=== PATIENT | female | born 1955 | race Caucasian/White ===

== ENCOUNTER 2019-07-10 09:51 | Inpatient (IN) ==
[2019-07-10] MEDS ORDERED: ONDANSETRON INJ 2 MG/ML 2 ML VIAL IV STA ×2 (10:02→12:59)
[2019-07-10] MEDS ORDERED: SODIUM CHLORIDE 0.9% 500 ML IV SCH (10:15)
--- NOTE | 2019-07-10 10:19 | XRay Report ---
XR chest 1V portable CLINICAL HISTORY: 63 years-old Female presenting with epigastric abd pain. TECHNIQUE: Portable upright AP view of the chest was obtained. COMPARISON: 09/07/2017. FINDINGS: Atherosclerosis of the aortic arch. Cardiac silhouette normal in size. Minimal basilar opacities. No pleural effusion or pneumothorax. Degenerative changes of the thoracic spine. Upper abdomen normal. IMPRESSION: 1. Minimal basilar opacities likely atelectasis or scarring. No convincing evidence of acute cardiop ulmonary disease. ACT 112: Negative or not required by law. Electronically signed by: Lawrence Drake M.D. 07/10/2019 10:18 AM
[2019-07-10] MEDS: MoRPHine SULFATE 4 MG/ML 1 ML CARP\\VIAL IV PRN ×3 (10:20→14:51)
--- NOTE | 2019-07-10 10:24 | Emergency Department Note ---
History of Present Illness General Chief Complaint: Abdominal Pain Stated Complaint: abd pain, nausea Time Seen by Provider: 07/10/19 09:56 Source: patient Mode of arrival: ambulatory Limitations: no limitations History of Present Illness Provider Complaint: abdominal pain Onset (ago): hour(s) (12) Pain Consistency: constant Location: epigastric Radiation: back Migration to: no migration Severity: severe Maximum Pain Intensity: 10 Quality: + cramping Relieved By: + nothing Exacerbated By: + nothing Context: no foreign travel, no possible food poisoning, no recent antibiotic use and no recent surgery/procedure Associated Symptoms: + nausea This is a 63-year-old female who presents to the ED with a chief complaint of epigastric pain that started around 8 PM last night. She describes it as a spasm type pain. It is continuous. Earlier on it was intermittent. The patient reports some associated nausea but no vomiting or diarrhea. She had a small bowel movement this morning. She does have history of hysterectomy, cholecystectomy, appendectomy and a mesh with some adhesions. Her pain is currently constant and moderate. Home Medications Home Medications Medication Instructions Recorded Confirmed Type No Known Home Medications 07/10/19 07/10/19 History Allergies Allergy/AdvReac Type Severity Reaction Status Date / Time codeine AdvReac Severe NAUSEA Verified 07/10/19 10:26 Past Med/Surg History Social History Feels Safe at Home: Yes Smoking Status: Never smoker Review of Systems A total of 10 systems reviewed and were otherwise negative Physical Exam Vital Signs: Vital Signs - 24 hr 07/10/19 09:52 07/10/19 11:05 07/10/19 12:07 Temperature 36.6 C Temperature Source Oral Pulse Rate 82 63 Pulse Rate [Apical ] 77 Pulse Rate from Sp O2 Sensor 64 Respiratory Rate 20 22 19 Blood Pressure 157/89 H 123/66 Blood Pressure [Le ft Arm] 133/72 Blood Pressure Ese n 111 90 Blood Pressure Ese n [Left Arm] 92 Pulse Oximetry 93 94 94 Oxygen Delivery Me thod Room Air Room Air Room Air Sepsis Recent Feve r Within 48 Hours No Sepsis New/Unexpla ined Change in Men zoraida Status No Sepsis Action Take n by Nursing No Action Required Physical Exam: CONSTITUTIONAL/VITAL SIGNS: Reviewed / noted above. GENERAL: Non-toxic in appearance. INTEGUMENTARY: Warm, dry, and Agar. HEAD: Normocephalic. EYES: without scleral icterus or trauma. ENT/OROPHARYNX: clear and moist. LYMPHADENOPATHY/NECK: Is supple without lymphadenopathy or meningismus. RESPIRATORY: Lungs clear and equal. CARDIOVASCULAR: Regular rate and rhythm. GI/ABDOMEN: Soft and tender in the epigastric area. No organomegaly or pulsatile mass. No rebound or guarding. Normal bowel sounds. EXTREMITIES: Warm and well perfused. BACK: No CVA tenderness. NEUROLOGICAL: Intact without focal deficits. PSYCHIATRIC: normal affect. MUSCULOSKELETAL: Normally developed with good muscle tone. TRIAGE NURSING DOCUMENTATION REVIEWED. Course Administered Medications Morphine Sulfate (Morphine Sulfate) 4 mg IV Q15M PRN PRN Reason: Pain Stop: 07/24/19 10:01 Last Admin: 07/10/19 11:02 Dose: 4 mg Documented by: [id number] Admin: 07/10/19 10:20 Dose: 4 mg Documented by: [id number] Discontinued Medications Sodium Chloride (Nss) 500 mls @ 999 mls/hr IV .Q31M TRUPTI Stop: 07/10/19 10:45 Last Infusion: 07/10/19 10:51 Dose: 0 mls/hr Documented by: [id number] Admin: 07/10/19 10:20 Dose: 999 mls/hr Documented by: [id number] Ondansetron HCl (Zofran) 4 mg IV NOW STA Stop: 07/10/19 10:03 Last Admin: 07/10/19 10:20 Dose: 4 mg Documented by: [id number] Medical Decision Making Differential Diagnosis Differential considered: pancreatitis, hepatitis, acute cholecystitis, AAA, UTI, pyelonephritis, kidney stones, appendicitis, diverticulitis, shingles, bowel obstruction, mesenteric ischemia, intussusception,hernia. Medical Records Attestation: I reviewed the patient's medical records. Home Medications Current Medication List: was personally reviewed by me Laboratory Data Attestation: I reviewed the patient's lab results. Result diagrams: 07/10/19 10:05 07/10/19 10:05 Lab Results 07/10/19 07/10/19 Range/Units 10:05 10:05 WBC 11.02 H (4.8-10.8) K/uL RBC 5.25 (4.2-5.4) M/uL Hgb 15.9 (12.0-16.0) g/dL Hct 46.9 (37-47) % MCV 89.3 (80-100) fL MCH 30.3 (25-34) pg MCHC 33.9 (32-36) g/dL RDW Std Deviation 46.2 (36.4-46.3) fL RDW Coeff of Kim 14.1 (11.5-14.5) % Plt Count 309 (130-400) K/uL MPV 10.5 H (7.4-10.4) fL Immature Gran % (Auto) 0.3 % Neut % (Auto) 68.7 % Lymph % (Auto) 26.0 % [place] % (Auto) 4.1 % Eos % (Auto) 0.7 % Baso % (Auto) 0.2 % Immature Gran # (Auto) 0.03 H (0.00-0.02) K/uL Neut # (Auto) 7.58 H (1.4-6.5) K/uL Lymph # (Auto) 2.86 (1.2-3.4) K/uL [place] # (Auto) 0.45 (0.11-0.59) K/uL Eos # (Auto) 0.08 (0-0.5) K/uL Baso # (Auto) 0.02 (0-0.2) K/uL Sodium 140 (136-145) mmol/L Potassium 4.4 (3.5-5.1) mmol/L Chloride 108 H (98-107) mmol/L Carbon Dioxide 25 (21-32) mmol/L Anion Gap 7.0 (3-11) BUN 13 (7-18) mg/dl Creatinine 0.86 (0.6-1.2) mg/dl Est Cr Clr Drug Dosing 72.1 ml/min Est GFR ( Amer) 82.2 Est GFR (Non-Af Amer) 70.9 BUN/Creatinine Ratio 15.1 (10-20) Glucose 117 H (70-99) mg/dl Calcium 9.7 (8.5-10.1) mg/dl Total Bilirubin 0.5 (0.2-1) mg/dl AST 32 (15-37) U/L ALT 37 (12-78) U/L Alkaline Phosphatase 99 (45-117) U/L Troponin I < 0.015 (0-0.045) ng/ml Total Protein 8.3 H (6.4-8.2) gm/dl Albumin 3.9 (3.4-5.0) gm/dl Globulin 4.4 H (2.5-4.0) gm/dl Albumin/Globulin Ratio 0.9 (0.9-2) Lipase 64 L (73-393) U/L Specimen Hemolysis Imaging Data Attestation: I personally reviewed and interpreted this imaging study as follows: My Impression: Chest x-ray: No acute disease Radiologist's Impression: CT scan of the abdomen and pelvis: 1. A few loops of mildly dilated small bowel within the left mid abdomen with transition point and small bowel feces sign. Moderate mesenteric infiltration. The findings represent a moderate grade partial small bowel obstruction. No free air, pneumatosis or portal venous gas. 2. Multiple ventral hernias, the largest of which contains multiple small bowel loops. This does not result in the bowel obstruction. 3. Fatty infiltration of the liver. ECG Data Attestation: I personally reviewed and interpreted this ECG as follows: Indication: abdominal pain Rate (beats per minute): 72 Rhythm: normal sinus Findings: no PVC and no ST elevation Blood Pressure Blood Pressure Findings: Normal blood pressure MDM Narrative This is a 63-year-old female who presents to the ED with a chief complaint of epigastric pain that started around 8 PM last night. She describes it as a spasm type pain. It is continuous. Earlier on it was intermittent. The patient reports some associated nausea but no vomiting or diarrhea. She had a small bowel movement this morning. She does have history of hysterectomy, cholecystectomy, appendectomy and a mesh with some adhesions. Her pain is cu rrently constant and moderate. The patient's exam reveals tenderness to the epigastric area. Vital signs reveal hypertension. The patient CBC and chemistry panel was unremarkable. EKG showed a normal sinus rhythm. Chest x- ray was negative for acute disease. CT scan reveals a moderate grade small bowel obstruction. The patient was treated with 2 doses of IV morphine during her ED stay so far. She was given IV Zofran x2. The patient will be seen by the hospitalist for further inpatient evaluation and care. Impression & Plan Bowel obstruction Discharge Plan Visit Data Chief Complaint: Abdominal Pain Stated Complaint: abd pain, nausea ED Provider: Felipe Topete Discharge Problem: Bowel obstruction Patient Disposition: Being Evaluated by Hospitalist Forms Stand Alone Forms: [facility] Prescriptions Prescriptions: No Action No Known Home Medications RF: 0 Referrals Referrals: Mk Mari [Primary Care Provider] -
[2019-07-10 10:34] LABS: Basophils # (auto) 0.02 K/uL (0-0.2); Basophils % (auto) 0.2 %; Eosinophils # (auto) 0.08 K/uL (0-0.5); Eosinophils % (auto) 0.7 %; Hematocrit (blood only) 46.9 % (37-47); Hemoglobin 15.9 g/dL (12.0-16.0); Immature Granulocytes # (auto) 0.03 K/uL (0.00-0.02); Immature Granulocytes % (auto) 0.3 %; Lymphocytes # (auto) 2.86 K/uL (1.2-3.4); Mean Corpuscular Hemoglobin 30.3 pg (25-34); Mean Corpuscular Hgb Conc 33.9 g/dL (32-36); Mean Corpuscular Volume 89.3 fL (80-100); Mean Platelet Volume 10.5 fL (7.4-10.4); Monocytes # (auto) 0.45 K/uL (0.11-0.59); Monocytes % (auto) 4.1 %; Neutrophils # (auto) 7.58 K/uL (1.4-6.5); Neutrophils % (auto) 68.7 %; Platelet Count 309 K/uL (130-400); RDW Coefficient of Variation 14.1 % (11.5-14.5); RDW Standard Deviation 46.2 fL (36.4-46.3); Red Blood Count 5.25 M/uL (4.2-5.4); White Blood Count 11.02 K/uL (4.8-10.8)
--- NOTE | 2019-07-10 10:52 | CT Scan Report ---
CT OF THE ABDOMEN AND PELVIS WITHOUT CONTRAST CLINICAL HISTORY: Epigastric abdominal pain. History of multiple abdominal surgeries. Possible small bowel obstruction. COMPARISON STUDY: CT of the abdomen and pelvis September 07, 2017. TECHNIQUE: Axial images of the abdomen and pelvis were obtained without IV contrast. Images were revi ewed in the axial, sagittal, and coronal planes. Automated exposure control was utilized for the ankita dy. A dose lowering technique was utilized adhering to the principles of ALARA. FINDINGS: Opacities within the lower lungs represent atelectasis. There is fatty infiltration of the liver. No biliary or pancreatic ductal dilatation is noted. Evaluation of the abdomen and pelvis is s uboptimal on this unenhanced exam. There is no hydronephrosis. Unenhanced images of the spleen, adren al glands, kidneys and pancreas are unremarkable. Note is made of a fat-containing upper abdominal ve ntral hernia. Additional multiple ventral hernias are noted, the largest of which contains multiple s mall bowel loops. This does not result in a bowel obstruction. Several loops of mildly dilated small bowel within the left mid abdomen are noted. Small bowel feces sign is noted. Transition point is not ed on axial image 271 of 496. There is moderate associated mesenteric infiltration. No pneumatosis, f ree air or portal venous gas is present. No lymphadenopathy is present. There are no suspicious osseo us lesions. Pelvic calcifications reflect phleboliths. Water attenuation left renal lesions were show n to reflect cysts on prior contrast enhanced exam. IMPRESSION: 1. A few loops of mildly dilated small bowel within the left mid abdomen with transition point and sm all bowel feces sign. Moderate mesenteric infiltration. The findings represent a moderate grade parti al small bowel obstruction. No free air, pneumatosis or portal venous gas. 2. Multiple ventral hernias, the largest of which contains multiple small bowel loops. This does not result in the bowel obstruction. 3. Fatty infiltration of the liver. ACT 112: Negative or not required by law. Electronically signed by: Michael Newman M.D. 07/10/2019 10:50 AM
[2019-07-10 10:54] LABS: Alanine Aminotransferase 37 U/L (12-78); Albumin Level 3.9 gm/dl (3.4-5.0); Aspartate Aminotransferase 32 U/L (15-37); BUN Creatinine Ratio 15.1 (10-20); Blood Urea Nitrogen 13 mg/dl (7-18); Calcium 9.7 mg/dl (8.5-10.1); Carbon Dioxide 25 mmol/L (21-32); Chloride 108 mmol/L (98-107); Creatinine Clr Calc Pharmacy 72.1 ml/min; Est GFR (African American) 82.2; Est GFR (Non-African American) 70.9; Glucose 117 mg/dl (70-99); Lipase 64 U/L (73-393); Potassium 4.4 mmol/L (3.5-5.1); Sodium 140 mmol/L (136-145)
[2019-07-10 10:57] LABS: Albumin Globulin Ratio 0.9 (0.9-2); Alkaline Phosphatase 99 U/L (45-117); Bilirubin,Total 0.5 mg/dl (0.2-1); Globulin 4.4 gm/dl (2.5-4.0); Total Protein 8.3 gm/dl (6.4-8.2); Troponin I < 0.015 ng/ml (0-0.045)
--- NOTE | 2019-07-10 12:54 | History & Physical Report ---
Date of Service July 10, 2019 Assessment & Plan (1) Partial small bowel obstruction: Likely on basis of adhesions. Has ventral hernias but these appear to not be involved in the SBO today. Will have Dr Grande from general surgery see in consult. Keep NPO. IVF. IV pain meds & anti-emetics. Will defer on NG tube for now due to lack of emesis; low threshold to place if distension worsens, emesis occurs, etc. Repeat BMP in am. Check mag level now. (2) H/O ventral hernia repair: 2008 - Dr Zaidi, s/p lysis of adhesions & mesh repair. (3) Leukocytosis: Likely reactive - 2nd to pSBO. u/a without signs of UTI. cxr without pneumonia. No infectious symptoms. During my visit with her O2 sats were low to mid 90s but she has had no cough, congestion, dyspnea, etc. Will follow carefully. Repeat CBC am. (4) DVT prophylaxis: lovenox 40mg daily History of Present Illness Chief Complaint: abdominal pain, bloating Primary Care Provider: Mk Mari 63yo female with history of multiple intra-abdominal surgeries and multiple episodes of SBO with one requiring exploratory surgery/lysis of adhesions/hernia repair with mesh (Dr Zaidi - 2008) who presents with the acute onset of abdominal pain, nausea, and bloating starting about 8pm last night. She states she ate raw carrots about 7pm and blames some of the symptoms on that. Her abdominal pain was generalized and initially was intermittent. However, in the middle of the night, the pain intensified and prevented her from sleeping. No emesis. Passed 2 tiny stools this am, and had passage of flatus x 1 prior to ER arrival. Due to her prior SBOs and seeing that these symptoms were similar to prior episodes she came to the ER for evaluation. CT abd/pelvis was consistent with partial SBO - transition point left side of abdomen. She did not require NG tube placement. Allergies Allergy/AdvReac Type Severity Reaction Status Date / Time codeine AdvReac Severe NAUSEA Verified 07/10/19 10:26 Home Medications Home Medications Medication Instructions Recorded Confirmed Type No Known Home Medications 07/10/19 07/10/19 History Past Med/Surg History Family History (Updated 07/10/19 @ 13:40 by Tristan Neville) Father , age 69 - complications from surgery Myocardial infarction Mother , age 72 Cervical cancer Diabetes Social History (Updated 07/10/19 @ 13:40 by Tristan Neville) Preferred Language: [place]ish Communication Ability: Effective Electrocardiographic Technician Required: No Beliefs That Will Affect Care: None marital status: marital status details: 2 children Current Living Situation: Spouse Current Living Situation Comment: lives in [place] on farm current occupational status: retired current occupation: worked at [employer] Other Information That Helps Us Care for You: No Feels Safe at Home: Yes Safety Concerns: Feels Safe At This Time Smoking Status: Never smoker Do You Dip or Chew Tobacco: No ; Second Hand Ex posure: No ; Tobacco Cessation Education Requested by Patient: No Hx Alcohol Use: No Hx Substance Use: No Review of Systems Constitutional: + anorexia; no fever, no chills, no fatigue, no weakness and no weight loss Eyes: no worsening vision Ear, Nose, Mouth, Throat: + nasal congestion and + nasal discharge (allergies ); no sore throat and no dysphagia Respiratory: no cough, no dyspnea and no dyspnea on exertion walked 3 miles yesterday w/o issue Cardiovascular: no chest pain Gastrointestinal: + abdominal pain, + bloating and + nausea; no vomiting and no diarrhea/loose stools Genitourinary: no dysuria and no difficulty urinating Musculoskeletal: + joint pain (arthritis) Integumentary: no rash Neurologic: no localized weakness and no loss of sensation Psychiatric: + anxiety Endocrine: denies diabetes Hematologic / Lymphatic: no easy bruising Physical Exam Constitutional: well developed and well nourished; no acute distress and no altered mental status Eyes: + anicteric sclerae and PERRL ENMT: Mouth: + dry oral mucous membranes Neck: trachea midline, no thyromegaly Respiratory: normal respiratory effort, lungs clear to auscultation Cardiovascular: Rate/Rhythm: regular rate and regular rhythm Heart Sounds: normal S1 and normal S2; no murmur Vessels: posterior tibial pulses present and dorsalis pedis pulses present; no JVD Extremities: no edema Gastrointestinal (Abdomen): Inspection/Auscultation: + abdomen distended (mild) and normal bowel sounds Percussion/Palpation: abdomen nontender, no guarding, abdomen not rigid and no hepatosplenomegaly hernia just to right of midline - reducible; midline linear scar Musculoskeletal: no cyanosis or clubbing, extremities motor strength 5/5 Skin: no rashes, warm and dry Neurologic: deep tendon reflexes 2+ bilaterally and moves all extremities Psychiatric: A+Ox3, euthymic affect Lymphatic: no cervical lymphadenopathy Results & Data Results & Data ([facility]) Vital Signs (Past 12 Hours) Vital Signs Temp Pulse Pulse Resp BP BP Pulse Ox 07/10/19 12:07 63 19 123/66 94 07/10/19 11:05 77 22 133/72 94 07/10/19 09:52 36.6 C 82 20 157/89 H 93 Laboratory Results Laboratory Results - last 24 hr 07/10/19 07/10/19 07/10/19 10:05 10:05 10:05 WBC 11.02 H RBC 5.25 Hgb 15.9 Hct 46.9 MCV 89.3 MCH 30.3 MCHC 33.9 RDW Std Deviation 46.2 RDW Coeff of Kim 14.1 Plt Count 309 MPV 10.5 H Immature Gran % (Auto) 0.3 Neut % (Auto) 68.7 Lymph % (Auto) 26.0 [place] % (Auto) 4.1 Eos % (Auto) 0.7 Baso % (Auto) 0.2 Immature Gran # (Auto) 0.03 H Neut # (Auto) 7.58 H Lymph # (Auto) 2.86 [place] # (Auto) 0.45 Eos # (Auto) 0.08 Baso # (Auto) 0.02 Sodium 140 Potassium 4.4 Chloride 108 H Carbon Dioxide 25 Anion Gap 7.0 BUN 13 Creatinine 0.86 Est Cr Clr Drug Dosing 72.1 Est GFR ( Amer) 82.2 Est GFR (Non-Af Amer) 70.9 BUN/Creatinine Ratio 15.1 Glucose 117 H Calcium 9.7 Magnesium Pending Total Bilirubin 0.5 AST 32 ALT 37 Alkaline Phosphatase 99 Troponin I < 0.015 Total Protein 8.3 H Albumin 3.9 Globulin 4.4 H Albumin/Globulin Ratio 0.9 Lipase 64 L Specimen Hemolysis Pending Urine Color Urine Appearance Urine pH Ur Specific [place] Urine Protein Urine Glucose (UA) Urine Ketones Urine Blood Urine Nitrite Urine Bilirubin Urine Urobilinogen Ur Leukocyte Esterase Urine WBC (Auto) Urine RBC (Auto) U Hyaline Cast (Auto) U Epithel Cells (Auto) Urine Bacteria (Auto) 07/10/19 13:00 WBC RBC Hgb Hct MCV MCH MCHC RDW Std Deviation RDW Coeff of Kim Plt Count MPV Immature Gran % (Auto) Neut % (Auto) Lymph % (Auto) [place] % (Auto) Eos % (Auto) Baso % (Auto) Immature Gran # (Auto) Neut # (Auto) Lymph # (Auto) [place] # (Auto) Eos # (Auto) Baso # (Auto) Sodium Potassium Chloride Carbon Dioxide Anion Gap BUN Creatinine Est Cr Clr Drug Dosing Est GFR ( Amer) Est GFR (Non-Af Amer) BUN/Creatinine Ratio Glucose Calcium Magnesium Total Bilirubin AST ALT Alkaline Phosphatase Troponin I Total Protein Albumin Globulin Albumin/Globulin Ratio Lipase Specimen Hemolysis Urine Color Yellow Urine Appearance Clear Urine pH 8.0 H Ur Specific [place] 1.015 Urine Protein Negative Urine Glucose (UA) Negative Urine Ketones Negative Urine Blood 1+ H Urine Nitrite Negative Urine Bilirubin Negative Urine Urobilinogen Negative Ur Leukocyte Esterase Negative Urine WBC (Auto) 0 Urine RBC (Auto) 5-10 H U Hyaline Cast (Auto) 0 U Epithel Cells (Auto) 5-10 H Urine Bacteria (Auto) Negative Diagnostic Findings CT abd/pelvis - IMPRESSION: 1. A few loops of mildly dilated small bowel within the left mid abdomen with transition point and small bowel feces sign. Moderate mesenteric infiltration. The findings represent a moderate grade partial small bowel obstruction. No free air, pneumatosis or portal venous gas. 2. Multiple ventral hernias, the largest of which contains multiple small bowel loops. This does not result in the bowel obstruction. 3. Fatty infiltration of the liver. cxr - no infiltrates EKG - NSR, no ST changes Code Status & VTE Plan Code Status full code VTE Prophylaxis Plan VTE Prophylaxis will be ordered: Yes PG Care Time/CCT Total # of Minutes Spent Total Time Spent with Patient: Total time spent is greater than 50% in coordination of care (as documented) at patient's floor/unit and/or counseling patient: Coding Level of Care Code 33382 Initial Inpt Care Lvl 2 Diagnoses Partial small bowel obstruction K56.600 H/O ventral hernia repair Z98.890; Z87.19 Leukocytosis D72.829 Leukocytosis type: unspecified DVT prophylaxis Z29.9 (1) Leukocytosis Leukocytosis type: unspecified Qualified Code(s): D72.829 - Elevated white blood cell count, unspecified
[2019-07-10] MEDS ORDERED: ONDANSETRON INJ 2 MG/ML 2 ML VIAL ONE (12:57)
[2019-07-10 13:22] LABS: Appearance Urine Clear (Clear); Bacteria Urine Automated Negative (Negative); Bilirubin Urine Negative (Negative); Blood Urine 1+ (Negative); Cast Urine Automated 0 /lpf (0-5); Color Urine Yellow; Glucose Urine UA Negative (Negative); Ketones Urine Negative (Negative); Leukocyte Esterase Urine Negative (Negative); Nitrite Urine Negative (Negative); Protein Urine Negative (Negative); Specific Gravity Urine 1.015 (1.000-1.030); Urobilinogen Urine Negative (Negative); WBC Urine Automated 0 /hpf (0-5)
[2019-07-10 13:43] LABS: Magnesium 2.2 mg/dl (1.8-2.4)
--- NOTE | 2019-07-10 13:56 | Surgery Consultation ---
Date of Consultation July 10, 2019 Assessment & Plan (1) Partial small bowel obstruction: Patient admitted with partial small bowel obstruction She actually has relatively active bowel sounds and her abdomen is not significantly distended I do feel that bowel rest and IV fluids would help resolve current problem Depending on her progress I have discussed with her the possibility of a contrast study prior To any surgical intervention-it would be somewhat complex because of her prior street of hernia repair and adhesions We will follow along and make recommendations as needed History of Present Illness History of Present Illness Patient is a 63-year-old female presenting to the emergency room with some nausea and abdominal pain very similar to prior episodes of partial small bowel obstruction I believe she was last in the hospital 2015 and I did see her then with similar symptoms She has a relatively extensive history of laparotomy with lysis of adhesions and hernia repair with mesh placement as well as appendectomy and cholecystectomy currently all [place] [address] Álvaro Berumen Her white blood cell count is 11,000 CAT scan does show very mildly dilated small bowel the possible transition point mid left abdomen She does have a ventral hernia superiorly with fat and an incisional hernia more inferiorly with small bowel which is not dilated and does not appear to be obstructive Allergies Allergy/AdvReac Type Severity Reaction Status Date / Time codeine AdvReac Severe NAUSEA Verified 07/10/19 10:26 Home Medications Home Medications Medication Instructions Recorded Confirmed Type No Known Home Medications 07/10/19 07/10/19 History Patient History Family History (Updated 07/10/19 @ 13:40 by Tristan Neville) Father , age 69 - complications from surgery Myocardial infarction Mother , age 72 Cervical cancer Diabetes Social History (Updated 07/10/19 @ 13:40 by Tristan Neville) Preferred Language: [place] Communication Ability: Effective Sticker Machine Operator Required: No Beliefs That Will Affect Care: None marital status: marital status details: 2 children Current Living Situation: Spouse Current Living Situation Comment: lives in [place] on farm current occupational status: retired current occupation: worked at [employer] Other Information That Helps Us Care for You: No Feels Safe at Home: Yes Safety Concerns: Feels Safe At This Time Smoking Status: Never smoker Do You Dip or Chew Tobacco: No ; Second Hand Exposure: No ; Tobacco Cessation Education Requested by Patient: No Hx Alcohol Use: No Hx Substance Use: No Review of Systems Review of Systems: All systems reviewed & are unremarkable except as noted in HPI & below Physical Exam Physical Exam: Her abdomen is only mildly distended and soft with relatively active bowel sounds Constitutional: well nourished; no acute distress and not ill appearing Eyes: + anicteric sclerae Respiratory: normal respiratory effort; no respiratory distress Cardiovascular: Rate/Rhythm: regular rate Skin: no rashes, warm and dry Neurologic: awake Psychiatric: Orientation: alert Results & Data Vital Signs (Past 12 Hours) Vital Signs Temp Pulse Pulse Resp BP BP Pulse Ox 07/10/19 12:07 63 19 123/66 94 07/10/19 11:05 77 22 133/72 94 07/10/19 09:52 36.6 C 82 20 157/89 H 93 I did review her CAT scan PG Care Time/CCT Total # of Minutes Spent Total Time Spent with Patient: Total time spent is greater than 50% in coordination of care (as documented) at patient's floor/unit and/or counseling patient: Coding Level of Care Code 68074 Initial Inpt Care Lvl 3 Diagnoses Partial small bowel obstruction K56.600
--- NOTE | 2019-07-10 14:22 | Electrocardiogram Report ---
Test Reason : Blood Pressure : / mmHG Vent. Rate : 072 BPM Atrial Rate : 072 BPM P-R Int : 142 ms QRS Dur : 082 ms QT Int : 414 ms P-R-T Axes : 011 019 043 degrees QTc Int : 453 ms Normal sinus rhythm Normal ECG When compared with ECG of 07-SEP-2017 21:07, No significant change was found Confirmed by Raúl Urias ([id number]) on 07/10/2019 2:22:50 PM Referred By: REFERRED SELF Confirmed By:Raúl Urias
[2019-07-10] MEDS: D5NSS + 20MEQ KCL 20 MEQ/1,000 ML BAG IV SCH ×2 (14:48→23:41)
[2019-07-10] MEDS ORDERED: ONDANSETRON INJ 2 MG/ML 2 ML VIAL IV PRN (15:11)
[2019-07-10] MEDS ORDERED: MoRPHine SULFATE 2 MG/ML CARP IV PRN (15:11)
[2019-07-10] MEDS: PROMETHAZINE HCL 12.5 MG in SODIUM CHLORIDE 0.9% 50 ML IV PRN (17:29)
[2019-07-10] MEDS: HYDROmorphone INJ 0.5 MG/0.5 ML SYR IV PRN ×2 (19:46→23:41)
[2019-07-10] MEDS: ENOXAPARIN INJ 40 MG/0.4 ML SYR SQ SCH (19:48)
[2019-07-11] MEDS: PROMETHAZINE HCL 12.5 MG in SODIUM CHLORIDE 0.9% 50 ML IV PRN (01:37)
[2019-07-11] MEDS: HYDROmorphone INJ 0.5 MG/0.5 ML SYR IV PRN ×5 (01:44→19:21)
[2019-07-11] MEDS ORDERED: PROCHLORPERAZINE 10 MG in SYRINGE 8 ML IV PRN (02:39)
[2019-07-11 05:54] LABS: Basophils # (auto) 0.01 K/uL (0-0.2); Basophils % (auto) 0.1 %; Eosinophils # (auto) 0.01 K/uL (0-0.5); Eosinophils % (auto) 0.1 %; Hemoglobin 14.1 g/dL (12.0-16.0); Immature Granulocytes # (auto) 0.05 K/uL (0.00-0.02); Immature Granulocytes % (auto) 0.4 %; Lymphocytes # (auto) 1.87 K/uL (1.2-3.4); Lymphocytes % (auto) 15.5 %; Mean Corpuscular Hemoglobin 29.3 pg (25-34); Mean Corpuscular Volume 91.3 fL (80-100); Mean Platelet Volume 10.2 fL (7.4-10.4); Monocytes # (auto) 0.45 K/uL (0.11-0.59); Monocytes % (auto) 3.7 %; Neutrophils # (auto) 9.69 K/uL (1.4-6.5); Neutrophils % (auto) 80.2 %; Platelet Count 282 K/uL (130-400); RDW Coefficient of Variation 14.4 % (11.5-14.5); RDW Standard Deviation 48.6 fL (36.4-46.3); Red Blood Count 4.82 M/uL (4.2-5.4); White Blood Count 12.08 K/uL (4.8-10.8)
[2019-07-11] MEDS ORDERED: PROMETHAZINE HCL 25 MG in SODIUM CHLORIDE 0.9% 50 ML IV PRN (06:29)
[2019-07-11 06:32] LABS: BUN Creatinine Ratio 16.9 (10-20); Calcium 8.2 mg/dl (8.5-10.1); Creatinine Clr Calc Pharmacy 68.9 ml/min; Est GFR (African American) 77.8; Est GFR (Non-African American) 67.1; Magnesium 2.1 mg/dl (1.8-2.4); Phosphorus 3.8 mg/dl (2.5-4.9); Potassium 4.7 mmol/L (3.5-5.1)
--- NOTE | 2019-07-11 06:57 | Surgery Progress Note ---
Date of Service July 11, 2019 Assessment & Plan (1) Partial small bowel obstruction: pain, emesis during pm I think NG placement best, probable CT/ contrast study via NG later if able assess transit of contrast- If operation necessary- will likely require- Lysis of adhesions, mesh removal, hernia repair with new mesh- complicated operation monitor closely Subjective pain, nausea early am- some improvement now Physical Exam Physical Exam: mild distention has active bowel sounds min tenderness Constitutional: no acute distress Respiratory: normal respiratory effort; no respiratory distress Cardiovascular: Rate/Rhythm: regular rhythm Skin: no rashes, warm and dry Neurologic: awake Psychiatric: Orientation: alert Results & Data Vital Signs (Past 12 Hours) Vital Signs Temp Pulse Resp BP Pulse Ox 07/10/19 23:33 36.8 C 75 22 123/72 94 PG Care Time/CCT Total # of Minutes Spent Total Time Spent with Patient: Total time spent is greater than 50% in coordination of care (as documented) at patient's floor/unit and/or counseling patient: Coding Level of Care Code 69017 Subseq Hosp Care Lvl 3 Diagnoses Partial small bowel obstruction K56.600
--- NOTE | 2019-07-11 08:26 | Hospitalist Progress Note ---
Date of Service July 11, 2019 Assessment & Plan (1) Partial small bowel obstruction: Likely on basis of adhesions. Has ventral hernias but these appear to not be involved in the SBO today. IV pain meds & anti-emetics. Ct Abdomen and pelvis: IMPRESSION: 1. A few loops of mildly dilated small bowel within the left mid abdomen with transition point and small bowel feces sign. Moderate mesenteric infiltration. The findings represent a moderate grade partial small bowel obstruction. No free air, pneumatosis or portal venous gas. 2. Multiple ventral hernias, the largest of which contains multiple small bowel loops. This does not result in the bowel obstruction. 3. Fatty infiltration of the liver. (2) H/O ventral hernia repair: 2009 - Dr Zaidi, s/p lysis of adhesions & mesh repair. (3) Leukocytosis: Likely reactive - 2nd to pSBO. u/a without signs of UTI. cxr without pneumonia. No infectious symptoms. (4) DVT prophylaxis: lovenox 40mg daily Admission and Anticipated Discharge Date Admission Date: July 10, 2019 Subjective Patient is seen shortly after an NG tube was placed. She had no significant NG drainage but she did vomit throughout the night. Surgery admitted decision to place the NG she is resting comfortably having good control of her pain with parenteral opiates and antiemetics Review of Systems Review of Systems: Mild distress and fatigue no headache, blurry or double vision no speech or swallowing issues no chest pain, pressure or palpitations no shortness of breath, cough or wheezes Continued abdominal bloating and occasional crescendo decrescendo crampy abdominal pain central to right lower quadrant. no dysuria, hematuria or frequency no focal joint pain or swelling no back pain, CVA tenderness or radicular pain no bruising, bleeding or rashes no focal signs of weakness or numbness or altered sensation no complaints or anxiety or depression Physical Exam Physical Exam: The patient appeared well nourished and normally developed. She is in mild to moderate distress Vital signs as documented. Head exam is normocephalic atraumatic no scleral icterus Neck is without JVD, thyromegaly, or carotid bruits. Lungs are clear to auscultation, no focal loss of breath sounds Cardiac exam, Rhythm is regular.. No murmurs, rubs or gallops. Abdominal exam reveals hyperactive high-pitched bowel sounds, soft non tender, no masses mildly distended Extremities are nonedematous and both pedal pulses are normal. Neurologic exam is alert and oriented, no focal loss of strength or sensation Skin is without bruises or rashes Psychologically is without concerns for anxiety or depression Results & Data Results & Data ([facility]) Vital Signs (Past 12 Hours) Vital Signs Temp Pulse Resp BP Pulse Ox 07/11/19 06:55 98.4 F 82 16 105/65 92 07/10/19 23:33 98.2 F 75 22 123/72 94 PG Care Time/CCT Total # of Minutes Spent Total Time Spent with Patient: Total time spent is greater than 50% in coordination of care (as documented) at patient's floor/unit and/or counseling patient: Coding Level of Care Code 13040 Subseq Hosp Care Lvl 2 Diagnoses Partial small bowel obstruction K56.600 H/O ventral hernia repair Z98.890; Z87.19 Leukocytosis D72.829 Leukocytosis type: unspecified DVT prophylaxis Z29.9 (1) Leukocytosis Leukocytosis type: unspecified Qualified Code(s): D72.829 - Elevated white blood cell count, unspecified
--- NOTE | 2019-07-11 08:40 | XRay Report ---
XR abdomen min 2V CLINICAL HISTORY: h/o small bowel obstruction COMPARISON STUDY: 09/07/2017 FINDINGS: There has been interval insertion of nasogastric tube which is positioned within the gastri c antrum. There are dilated small bowel loops measuring up to 37 mm in diameter. There are no abnorma l abdominal calcifications IMPRESSION: 1. Mild small bowel dilatation consistent with the clinical history of a small bowel obstruction 2. Nasogastric tube with its tip at the level of the gastric antrum. ACT 112: Negative or not required by law. Electronically signed by: Rm Santana M.D. 07/11/2019 8:39 AM
[2019-07-11] MEDS: D5NSS + 20MEQ KCL 20 MEQ/1,000 ML BAG IV SCH ×2 (09:33→19:20)
[2019-07-11] MEDS ORDERED: IOVERSOL 100ml IV PRN (13:30)
--- NOTE | 2019-07-11 14:04 | CT Scan Report ---
CT OF THE ABDOMEN AND PELVIS WITH CONTRAST CLINICAL HISTORY: SBO, give contrast via NGT COMPARISON STUDY: CT of the abdomen and pelvis July 10, 2019. Abdominal series performed earlier today . TECHNIQUE: Oral contrast was administered via the nasogastric tube. Following IV administration of 94 mL of Optiray-320, axial images of the abdomen and pelvis were obtained from the lung bases to the p roximal femurs. Images were reviewed in the axial, sagittal, and coronal planes. IV contrast was admi nistered without complication. Automated exposure control was utilized for the study. A dose loweri ng technique was utilized adhering to the principles of ALARA. CT DOSE: 657.11 mGy.cm FINDINGS: Imaged portions of the lower chest demonstrate moderate enhancing lower lung opacities whic h have increased since prior exam. Tip of nasogastric tube is within the gastric antrum. Fatty infilt ration of the liver is noted. The spleen, adrenal glands and right kidney are unremarkable. Pancreati c glandular atrophy is noted. A few water attenuation left renal lesions reflect cysts. Several subce ntimeter lesions are too small to characterize but similar to exam of September 07, 2017. There is no hydro nephrosis. Oral contrast reaches the cecum. Small bowel dilatation has resolved since CT of July 09 20. Note is made of a fat-containing upper abdominal ventral hernia. A complex ventral hernia contain s multiple loops of small bowel without resultant bowel obstruction. Minimal mesenteric infiltration is noted. This has decreased. No suspicious osseous lesions are present. There is no lymphadenopathy. Uterus is surgically absent. IMPRESSION: 1. Interval resolution of small bowel dilatation. Oral contrast reaches the cecum. The findings sugge st an improving small bowel obstruction. Minimal mesenteric infiltration, decreased since prior exam[facility]. 2. Interval increase in bilateral lower lung opacities which favor atelectasis. Although considered l ess likely, pneumonia could appear similar. 3. Multiple ventral hernias, including a lower abdominal ventral hernia which contains multiple loops of small bowel. No resultant bowel obstruction. 4. Fatty infiltration of the liver. ACT 112: Negative or not required by law. Electronically signed by: Michael Newman M.D. 07/11/2019 2:03 PM
--- NOTE | 2019-07-11 16:35 | Anesthesiology Consultation ---
Date of Service July 11, 2019 Assessment & Plan (1) Encounter for pre-operative examination: Chart Review Chart Review: Acceptable Risk for Surgery Consults Requested none History Surgery Operation Date: 07/12/19 07:15 Proposed Procedures p Laparotomy, Lysis of Adhesions for Bowel Obstruction - Enzo Grande MD, FACS Height/Weight Height: 5 ft 7 in Weight: 82.7 kg Allergies Allergy/AdvReac Type Severity Reaction Status Date / Time codeine AdvReac Severe NAUSEA Verified 07/10/19 10:26 Medications Home Medications Medication Instructions Recorded Confirmed Last Taken No Known Home Medications 07/10/19 07/10/19 Unknown Active Medications Generic Name Dose Route Start Last Admin Trade Name Freq PRN Reason Stop Dose Admin Enoxaparin Sodium 40 mg 07/10/19 18:00 07/10/19 19:48 Lovenox SQ 08/09/19 17:59 40 mg Q24H TRUPTI Administration Hydromorphone HCl 0.5 mg 07/11/19 01:34 07/11/19 12:24 Dilaudid IV 07/24/19 15:22 0.5 mg Q2H PRN Administration Pain Potassium Chloride/Dextrose/Sod Cl 20 meq in 1,000 mls @ 100 mls/hr 07/10/19 13:30 07/11/19 09:33 D5nss + 20meq Kcl IV 08/09/19 13:29 100 mls/hr .Q10H TRUPTI Administration Promethazine HCl 12.5 mg/ 50.5 mls @ 202 mls/hr 07/10/19 16:38 07/11/19 01:52 Sodium Chloride IV 08/09/19 16:37 Infused Q6H PRN Infusion Nausea And Vomiting Prochlorperazine 10 mg/ 10 mls @ 5 mls/min 07/11/19 02:39 07/11/19 02:56 Syringe IV 08/10/19 02:38 5 mls/min Q6H PRN Administration Nausea And Vomiting Ioversol 94 ml 07/11/19 13:30 07/11/19 13:32 Optiray 320 100ml IV 07/15/19 13:29 94 ml ONCE PRN Administration Interaction Checking Ondansetron HCl 4 mg 07/10/19 15:11 07/10/19 15:16 Zofran IV 08/09/19 15:10 4 mg Q6H PRN Administration Nausea Past Medical History Medical History Acquired absence of both cervix and uterus Bowel obstruction (Acute) Internal hemorrhoids without mention of complication Sciatica Past Family History Family History Father , age 69 - complications from surgery Myocardial infarction Mother , age 72 Cervical cancer Diabetes Past Surgical History Surgical History H/O ventral hernia repair Hx of cholecystectomy (Chronic) S/P appendectomy Social History Smoking Status: Never smoker Do You Dip or Chew Tobacco: No Hx Alcohol Use: No Hx Substance Use: No substance use type: does not use Physical Exam Vital Signs Last Vital Signs Temp 97.9 F 07/11/19 15:00 Pulse 67 07/11/19 15:00 Resp 16 07/11/19 15:00 BP 112/75 07/11/19 15:00 Pulse Ox 90 07/11/19 15:00 Testing Laboratory Results 07/11/19 05:41 07/11/19 05:41 Urine Color Yellow 07/10/19 13:00 Urine Appearance Clear (Clear) 07/10/19 13:00 Urine pH 8.0 (4.5-7.5) H 07/10/19 13:00 Ur Specific [place] 1.015 (1.000-1.030) 07/10/19 13:00 Urine Protein Negative (Negative) 07/10/19 13:00 Urine Glucose (UA) Negative (Negative) 07/10/19 13:00 Urine Ketones Negative (Negative) 07/10/19 13:00 Urine Nitrite Negative (Negative) 07/10/19 13:00 Ur Leukocyte Esterase Negative (Negative) 07/10/19 13:00 Urine WBC (Auto) 0 /hpf (0-5) 07/10/19 13:00 Urine RBC (Auto) 5-10 /hpf (0-4) H 07/10/19 13:00 U Hyaline Cast (Auto) 0 /lpf (0-5) 07/10/19 13:00 U Epithel Cells (Auto) 5-10 /lpf (0-5) H 07/10/19 13:00 Urine Bacteria (Auto) Negative (Negative) 07/10/19 13:00 Electrocardiogram Date: 07/10/19 Normal sinus rhythm, rate 72 bpm Normal ECG When compared with ECG of 07-SEP-2017 21:07, No significant change was found Confirmed by Raúl Urias ([id number]) on 07/10/2019 2:22:50 PM Chest X-Ray Date: 07/10/19 IMPRESSION: 1. Minimal basilar opacities likely atelectasis or scarring. No convincing evidence of acute cardiopulmonary disease. Other Testing CT Abd/pelv 07/11/19 FINDINGS: Imaged portions of the lower chest demonstrate moderate enhancing lower lung opacities which have increased since prior exam. Tip of nasogastric tube is within the gastric antrum. Fatty infiltration of the liver is noted. The spleen, adrenal glands and right kidney are unremarkable. Pancreatic glandular atrophy is noted. A few water attenuation left renal lesions reflect cysts. Several subcentimeter lesions are too small to characterize but similar to exam of September 07, 2017. There is no hydronephrosis. Oral contrast reaches the cecum. Small bowel dilatation has resolved since CT of July 10, 2019. Note is made of a fat-containing upper abdominal ventral hernia. A complex ventral hernia contains multiple loops of small bowel without resultant bowel obstruction. Minimal mesenteric infiltration is noted. This has decreased. No suspicious osseous lesions are present. There is no lymphadenopathy. Uterus is surgically absent. IMPRESSION: 1. Interval resolution of small bowel dilatation. Oral contrast reaches the cecum. The findings suggest an improving small bowel obstruction. Minimal me senteric infiltration, decreased since prior examination. 2. Interval increase in bilateral lower lung opacities which favor atelectasis. Although considered less likely, pneumonia could appear similar. 3. Multiple ventral hernias, including a lower abdominal ventral hernia which contains multiple loops of small bowel. No resultant bowel obstruction. 4. Fatty infiltration of the liver.
[2019-07-11] MEDS: ENOXAPARIN INJ 40 MG/0.4 ML SYR SQ SCH (17:41)
[2019-07-12] MEDS: PANTOprazole 40 MG in SYRINGE 0 ML IV SCH ×3 (00:38→21:02)
[2019-07-12] MEDS: HYDROmorphone INJ 0.5 MG/0.5 ML SYR IV PRN (05:35)
[2019-07-12] MEDS: D5NSS + 20MEQ KCL 20 MEQ/1,000 ML BAG IV SCH ×2 (05:35→14:31)
[2019-07-12] MEDS ORDERED: KETOROLAC TROMETHAMINE 15 MG/ML VIAL IV SCH (06:15)
--- NOTE | 2019-07-12 06:39 | Surgery Progress Note ---
Date of Service July 12, 2019 Assessment & Plan (1) Partial small bowel obstruction: Surgery for today has been canceled We will clamp her NG tube possibly remove later today Try some senna syrup via the NG Continue IV meds for now and begin p.o. pain med when NG tube removed Slowly advance her diet over the weekend Patient should try to walk in the hallway Dr. Villegas is covering over the weekend Subjective Patient is awake and alert He did have some pain during the evening in the central abdomen Her NG tube had approximately 270 cc of bilious fluid KUB this morning does show contrast all within her colon to the rectum No evidence of small bowel dilatation Physical Exam Physical Exam: Minimal distention Results & Data Vital Signs (Past 12 Hours) Vital Signs Temp Pulse Resp BP Pulse Ox 07/12/19 05:28 93 07/11/19 23:00 92 07/11/19 22:58 36.8 C 71 14 118/75 83 L I did review her KUB PG Care Time/CCT Total # of Minutes Spent Total Time Spent with Patient: Total time spent is greater than 50% in coordination of care (as documented) at patient's floor/unit and/or counseling patient: Coding Level of Care Code None Diagnoses Partial small bowel obstruction K56.600
--- NOTE | 2019-07-12 07:28 | XRay Report ---
XR abdomen min 2V CLINICAL HISTORY: 63 years-old Female presenting with assess transit contrast, ?OR 5/9 am. TECHNIQUE: Single supine view of the abdomen was obtained. COMPARISON: 07/11/2019. FINDINGS: Nasogastric tube terminates in the body the stomach with sidehole contained within the gastric lumen. Residual oral contrast noted in the large bowel. Nonobstructive bowel gas pattern. No gross pneumope ritoneum. Allowing for bowel gas and stool, no calcifications to suggest nephrolithiasis. Numerous pelvic phleb oliths noted. Osseous structures normal. Lung bases clear. IMPRESSION: 1. Oral contrast now throughout the large bowel. 2. Appropriately positioned nasogastric tube. ACT 112: Negative or not required by law. Electronically signed by: Lawrence Drake M.D. 07/12/2019 7:26 AM
[2019-07-12] MEDS: SENNA 17.6 MG/10 ML UDP PO SCH ×2 (08:41→20:43)
--- NOTE | 2019-07-12 15:18 | Hospitalist Progress Note ---
Date of Service July 12, 2019 Assessment & Plan (1) Partial small bowel obstruction: Likely on basis of adhesions. Has ventral hernias but these appear to not be involved in the SBO today. Patient is improving surgery is removed NG tube they have allowed oral intake we will continue parenteral pain and antiemetic medication Ct Abdomen and pelvis: IMPRESSION: 1. A few loops of mildly dilated small bowel within the left mid abdomen with transition point and small bowel feces sign. Moderate mesenteric infiltration. The findings represent a moderate grade partial small bowel obstruction. No free air, pneumatosis or portal venous gas. 2. Multiple ventral hernias, the largest of which contains multiple small bowel loops. This does not result in the bowel obstruction. 3. Fatty infiltration of the liver. (2) H/O ventral hernia repair: 2008 - Dr Zaidi, s/p lysis of adhesions & mesh repair. (3) Leukocytosis: Likely reactive - 2nd to pSBO. u/a without signs of UTI. cxr without pneumonia. No infectious symptoms. (4) DVT prophylaxis: lovenox 40mg daily Admission and Anticipated Discharge Date Admission Date: July 10, 2019 Subjective pt is doing well, had NGT removed , she has less abdominal pain. surgery has al lowed some po intake Review of Systems Review of Systems: Mild distress and fatigue no headache, blurry or double vision no speech or swallowing issues no chest pain, pressure or palpitations no shortness of breath, cough or wheeze mild to moderate abdominal pain, flatus no stool no dysuria, hematuria or frequency no focal joint pain or swelling no back pain, CVA tenderness or radicular pain no bruising, bleeding or rashes no focal signs of weakness or numbness or altered sensation no complaints or anxiety or depression Physical Exam Physical Exam: The patient appeared well nourished and normally developed. Vital signs as documented. Head exam is normocephalic atraumatic no scleral icterus Neck is without JVD, thyromegaly, or carotid bruits. Lungs are clear to auscultation, no focal loss of breath sounds Cardiac exam, Rhythm is regular.. No murmurs, rubs or gallops. Abdominal exam reveals hypoactive bowel sounds, soft only mild tenderness diffusely Extremities are nonedematous and both pedal pulses are normal. Neurologic exam is alert and oriented, no focal loss of strength or sensation Skin is without bruises or rashes Psychologically is without concerns for anxiety or depression Results & Data Results & Data ([facility]) Vital Signs (Past 12 Hours) Vital Signs Temp Pulse Resp BP Pulse Ox 07/12/19 14:57 98.1 F 64 16 156/89 H 94 07/12/19 07:14 97.9 F 65 16 128/81 97 07/12/19 05:28 93 PG Care Time/CCT Total # of Minutes Spent Total Time Spent with Patient: Total time spent is greater than 50% in coordination of care (as documented) at patient's floor/unit and/or counseling patient: Coding Level of Care Code 87332 Subseq Hosp Care Lvl 2 Diagnoses Partial small bowel obstruction K56.600 H/O ventral hernia repair Z98.890; Z87.19 Leukocytosis D72.829 Leukocytosis type: unspecified DVT prophylaxis Z29.9 (1) Leukocytosis Leukocytosis type: unspecified Qualified Code(s): D72.829 - Elevated white blood cell count, unspecified
[2019-07-12] MEDS: ENOXAPARIN INJ 40 MG/0.4 ML SYR SQ SCH (17:32)
[2019-07-13] MEDS: D5NSS + 20MEQ KCL 20 MEQ/1,000 ML BAG IV SCH ×2 (00:37→10:43)
[2019-07-13] MEDS ORDERED: KETOROLAC TROMETHAMINE 15 MG/ML VIAL IV PRN (06:15)
[2019-07-13] MEDS: PANTOprazole 40 MG in SYRINGE 0 ML IV SCH ×2 (08:15→20:23)
[2019-07-13] MEDS: SENNA 17.6 MG/10 ML UDP PO SCH (08:15)
--- NOTE | 2019-07-13 10:55 | Surgery Progress Note ---
Date of Service July 13, 2019 Assessment & Plan (1) Partial small bowel obstruction: bowel function returning having BMs advance diet to fulls if does well home in the AM Present on Admission?: Yes Subjective doing well having BMs toerating clears Review of Systems Constitutional: no fever, no chills and no anorexia Respiratory: no cough and no dyspnea Cardiovascular: no chest pain Gastrointestinal: no abdominal pain, no bloating, no nausea and no vomiting Genitourinary: no dysuria Physical Exam Constitutional: well developed and well nourished Neck: trachea midline Respiratory: normal respiratory effort, lungs clear to auscultation Cardiovascular: RRR, no murmur, no edema Gastrointestinal (Abdomen): Inspection/Auscultation: abdomen normal to inspection and normal bowel sounds; abdomen not distended Percussion/Palpation: abdomen soft; abdomen nontender and no guarding Musculoskeletal: Head/Neck/Chest: normocephalic and head atraumatic Skin: no rashes, warm and dry Results & Data Vital Signs (Past 12 Hours) Vital Signs Temp Pulse Resp BP Pulse Ox 07/13/19 07:13 36.4 C L 59 L 16 136/81 94 07/12/19 23:31 36.7 C 68 16 142/85 H 93
--- NOTE | 2019-07-13 13:27 | Hospitalist Progress Note ---
Date of Service July 13, 2019 Assessment & Plan (1) Partial small bowel obstruction: Likely on basis of adhesions. Resolving Has ventral hernias but these appear to not be involved in the SBO Surgery is advance diet patient is ambulating in the halls Ct Abdomen and pelvis: IMPRESSION: 1. A few loops of mildly dilated small bowel within the left mid abdomen with transition point and small bowel feces sign. Moderate mesenteric infiltration. The findings represent a moderate grade partial small bowel obstruction. No free air, pneumatosis or portal venous gas. 2. Multiple ventral hernias, the largest of which contains multiple small bowel loops. This does not result in the bowel obstruction. 3. Fatty infiltration of the liver. (2) H/O ventral hernia repair: 2009 - Dr Zaidi, s/p lysis of adhesions & mesh repair. (3) Leukocytosis: Likely reactive - 2nd to pSBO. u/a without signs of UTI. cxr without pneumonia. No infectious symptoms. (4) DVT prophylaxis: lovenox 40mg daily Admission and Anticipated Discharge Date Admission Date: July 10, 2019 Subjective Neuro patient is doing well advancing her diet ambulating in the hallway we are stopping IV fluid Review of Systems Review of Systems: Mild distress and fatigue no headache, blurry or double vision no speech or swallowing issues no chest pain, pressure or palpitations no shortness of breath, cough or wheeze mild abdominal pain, flatus no stool no dysuria, hematuria or frequency no focal joint pain or swelling no back pain, CVA tenderness or radicular pain no bruising, bleeding or rashes no focal signs of weakness or numbness or altered sensation no complaints or anxiety or depression Physical Exam Physical Exam: The patient appeared well nourished and normally developed. Vital signs as documented. Head exam is normocephalic atraumatic no scleral icterus Neck is without JVD, thyromegaly, or carotid bruits. Lungs are clear to auscultation, no focal loss of breath sounds Cardiac exam, Rhythm is regular.. No murmurs, rubs or gallops. Abdominal exam reveals normal bowel sounds, soft much less tenderness Extremities are nonedematous and both pedal pulses are normal. Neurologic exam is alert and oriented, no focal loss of strength or sensation Skin is without bruises or rashes Psychologically is without concerns for anxiety or depression Results & Data Results & Data ([facility]) Vital Signs (Past 12 Hours) Vital Signs Temp Pulse Resp BP Pulse Ox 07/13/19 07:13 97.5 F L 59 L 16 136/81 94 PG Care Time/CCT Total # of Minutes Spent Total Time Spent with Patient: Total time spent is greater than 50% in coordination of care (as documented) at patient's floor/unit and/or counseling patient: Coding Level of Care Code 12098 Subseq Hosp Care Lvl 2 Diagnoses Partial small bowel obstruction K56.600 H/O ventral hernia repair Z98.890; Z87.19 Leukocytosis D72.829 Leukocytosis type: unspecified DVT prophylaxis Z29.9 (1) Leukocytosis Leukocytosis type: unspecified Qualified Code(s): D72.829 - Elevated white blood cell count, unspecified
[2019-07-13] MEDS: ENOXAPARIN INJ 40 MG/0.4 ML SYR SQ SCH (18:20)
[2019-07-13] MEDS: SENNA 8.8 MG/5 ML UDP PO SCH (20:23)
[2019-07-14 07:00] LABS: Hematocrit (blood only) 42.3 % (37-47); Mean Corpuscular Hemoglobin 31.3 pg (25-34); Mean Corpuscular Hgb Conc 35.5 g/dL (32-36); Mean Corpuscular Volume 88.1 fL (80-100); Mean Platelet Volume 9.8 fL (7.4-10.4); Platelet Count 258 K/uL (130-400); RDW Coefficient of Variation 13.7 % (11.5-14.5); RDW Standard Deviation 44.4 fL (36.4-46.3); White Blood Count 7.57 K/uL (4.8-10.8)
[2019-07-14 07:23] LABS: BUN Creatinine Ratio 10.4 (10-20); Calcium 8.5 mg/dl (8.5-10.1); Creatinine Clr Calc Pharmacy 78.5 ml/min; Est GFR (Non-African American) 78.6; Potassium 3.6 mmol/L (3.5-5.1)
[2019-07-14] MEDS: PANTOprazole 40 MG in SYRINGE 0 ML IV SCH (08:21)
[2019-07-14] MEDS: SENNA 8.8 MG/5 ML UDP PO SCH (08:22)
--- NOTE | 2019-07-14 10:40 | Surgery Progress Note ---
Date of Service July 14, 2019 Assessment & Plan (1) Partial small bowel obstruction: doing well discharge F/U as needed Subjective doing well OK to discharge having BMs without N/V Review of Systems Constitutional: no fever and no chills Respiratory: no cough and no dyspnea Cardiovascular: no chest pain Gastrointestinal: no abdominal pain, no nausea, no vomiting and no change in bowel habits Genitourinary: no dysuria Musculoskeletal: no back pain Integumentary: no rash Physical Exam Constitutional: well developed and well nourished; no acute distress Neck: trachea midline Respiratory: normal respiratory effort, lungs clear to auscultation Cardiovascular: RRR, no murmur, no edema Gastrointestinal (Abdomen): Inspection/Auscultation: abdomen normal to inspection and normal bowel sounds; abdomen not distended Percussion/Palpation: abdomen nontender and no guarding Musculoskeletal: Head/Neck/Chest: normocephalic and head atraumatic Skin: no rashes, warm and dry Psychiatric: Orientation: alert and oriented x 3 Results & Data Vital Signs (Past 12 Hours) Vital Signs Temp Pulse Resp BP Pulse Ox 07/14/19 09:29 36.8 C 60 18 132/86 94 07/14/19 07:35 36.8 C 60 18 132/86 94 07/13/19 23:16 36.7 C 61 16 121/73 95
--- NOTE | 2019-07-14 13:16 | Discharge Summary ---
Date of Service July 14, 2019 Admission HPI Per Admitting Provider 63yo female with history of multiple intra-abdominal surgeries and multiple episodes of SBO with one requiring exploratory surgery/lysis of adhesions/hernia repair with mesh (Dr Zaidi - 2008) who presents with the acute onset of abdominal pain, nausea, and bloating starting about 8pm last night. She states she ate raw carrots about 7pm and blames some of the symptoms on that. Her abdominal pain was generalized and initially was intermittent. However, in the middle of the night, the pain intensified and prevented her from sleeping. No emesis. Passed 2 tiny stools this am, and had passage of flatus x 1 prior to ER arrival. Due to her prior SBOs and seeing that these symptoms were similar to prior episodes she came to the ER for evaluation. CT abd/pelvis was consistent with partial SBO - transition point left side of abdomen. She did not require NG tube placement. Principal Diagnosis Small bowel obstruction resolved with conservative treatment Oral thrush Discharge Exam The patient appeared well Vital signs as documented. Patient is evidence of oral thrush on her tongue is mildly uncomfortable Lungs are clear to auscultation and appear unlabored Cardiac exam, Rhythm is regular.. No murmurs, rubs or gallops. Abdominal exam reveals normal bowel sounds, soft non tender Extremities are nonedematous and both pedal pulses are normal. Neurologic exam is alert and oriented, no focal loss of strength or sensation Skin is without bruises or rashes Psychologically is without concerns for anxiety or depression Discharge Data Allergies Allergy/AdvReac Type Severity Reaction Status Date / Time codeine AdvReac Severe NAUSEA Verified 07/10/19 10:26 Consultations 07/10/19 12:59 ED Decision to Admit Stat 07/10/19 15:11 Consult General Surgery Routine Procedures Performed Operation Date: 07/12/19 07:15 <No data on this case meets the specified criteria> Ordered Studies 07/10/19 10:02 CT abd pelvis wo con Stat 07/11/19 10:43 CT abd pelvis oral and IV con Routine Hospital Course (1) Partial small bowel obstruction: Likely on basis of adhesions. Resolving Has ventral hernias but these appear to not be involved in the SBO Surgery is satisfied with her progress and is agreeable to discharge after tolerating advancement of diet and ambulation in the hallways Ct Abdomen and pelvis: IMPRESSION: 1. A few loops of mildly dilated small bowel within the left mid abdomen with transition point and small bowel feces sign. Moderate mesenteric infiltration. The findings represent a moderate grade partial small bowel obstruction. No free air, pneumatosis or portal venous gas. 2. Multiple ventral hernias, the largest of which contains multiple small bowel loops. This does not result in the bowel obstruction. 3. Fatty infiltration of the liver. (2) H/O ventral hernia repair: 2008 - Dr Zaidi, s/p lysis of adhesions & mesh repair. (3) Leukocytosis: Likely reactive - 2nd to pSBO.-> Resolved u/a without signs of UTI. cxr without pneumonia. No infectious symptoms. (4) Thrush: Will prescribe a 5-day course of oral nystatin Total Time Total Time Spent Total Time Spent (In Minutes): It required greater than 30 minutes to prepare this patient for discharge, this includes a [id number] conversation Dr. Villegas surgical on-call Discharge Plan Discharge Items Patient Disposition: Home - Self-Care Reason For Visit: PARTIAL SBO Discharge Diagnosis: partial small bowel obstruction -resolved Activity: Resume your previous activity Non-emergency contact: Primary Care Provider Call non-emergency contact if: you have any medication questions and your symptoms worsen Follow-up/Referrals: Mk Mari [Primary Care Provider] - Diet: Regular Addtl Attending Provider Instructions: please advance you diet slowly, consider eating 5 small meals a day for the first few days always seek medical care if you feel your symptoms return please contact your primary care doctor to arrange a follow up in one week, even if just a tele medicine follow up Pending Studies at Discharge: No Stand-Alone Forms: My [facility] Prior Knowledge, Smoking Cessation Medications and DC Order Prescriptions: New nystatin 100,000 unit/mL suspension 5 ml PO QID 5 Days Qty: 100 RF: 0 No Action No Known Home Medications RF: 0 Discharge Orders: Discharge Order (Routine); Ordered 07/14/19 Ordered By: Dar Tapia Admission Data Admit Date/Time: 07/10/19 13:20 Attending Provider: Dar Tapia Admit Provider: Tristan Neville Primary Care Provider: Mk Mari Other Providers: Tristan Neville ; Enzo Grande Other Interventions: Discharge Summary Assessment (RN) Last Done: 07/14/19 09:29 DC Date/Time DO NOT enter until pt leaves facility: 07/14/19 11:46 Coding Level of Care Code D/C Day Management >30 mins Diagnoses Partial small bowel obstruction K56.600 H/O ventral hernia repair Z98.890; Z87.19 Leukocytosis D72.829 Leukocytosis type: unspecified Thrush B37.0
[2019-07-14] MEDS ORDERED: PANTOprazole 40 MG TAB PO SCH (21:00)
[2019-07-14] MEDS ORDERED: SENNOSIDES 8.8 MG/5 ML UDC PO SCH (21:00)
== END 2019-07-14 11:46 | disposition home or self-care (01) | DRG 389 ==
LOC: ED 09:51 → 3E 13:20 → SUATTDRO 13:20 → 3E 14:56

== ENCOUNTER 2022-07-21 10:21 | Inpatient (IN) ==
[2022-07-21] MEDS ORDERED: SODIUM CHLORIDE 0.9% 1000ML 1,000 ML IV STA (10:32)
[2022-07-21] MEDS ORDERED: fentaNYL citrate PF 100 MCG/2 ML VIAL IV STA ×3 (10:37→13:18)
[2022-07-21] MEDS ORDERED: ONDANSETRON INJ 2 MG/ML 2 ML VIAL IV STA (10:42)
--- NOTE | 2022-07-21 10:44 | Emergency Department Note ---
Impression & Plan SBO (small bowel obstruction), Nausea ED Provider Note Provider: Benigno Knight MD DATE OF SERVICE: 07/21/2022 CHIEF COMPLAINT: Abdominal pain, vomiting HISTORY OF PRESENT ILLNESS: Patient is a 66-year-old female history of bowel obstruction with prior appendectomy and cholecystectomy presenting here today onset early this morning of abdominal distention vomiting and pain. Had some ceramics yesterday. States she has had bowel obstructions in the past sometimes when having peanuts. Reports some nausea and vomiting this morning. No trauma reported or chest pain. No significant pain in the back. Pain in the mid abdomen. Took some Pepto-Bismol earlier. PAST MEDICAL HISTORY: As noted above MEDICATIONS: Reviewed home medication none currently reported SOCIAL HISTORY: Lives at home with PHYSICAL EXAM: GENERAL: alert and oriented in no acute distress on stretcher Head: normocephalic and atraumatic EYES: No injection, discharge or icterus. NECK: Trachea midline. LUNGS: Airway patent. No retractions. Breath sounds clear HEART: Regular rate and rhythm. No chest wall tenderness ABDOMEN: Soft mild periumbilical tenderness. No significant lower abdominal tenderness. SKIN: Acyanotic, warm, dry, without rashes EXTREMITIES: Without swelling, tenderness or deformity NEUROLOGICAL: No focal deficits. No aphasia. No facial droop or slurred speech. Ambulatory. EK bpm normal sinus rhythm. No PVC or PAC. No acute ST segment elevation or depression with a QTc of 454. CONTINUOUS CARDIAC MONITORING: was ordered and showed a heart rate of 70s bpm in normal sinus rhythm Patient's laboratory studies and imaging reviewed. Differential includes infections, diverticulitis, UTI, obstruction, mesenteric ischemia, aortic pathology, inflammatory bowel disease, renal colic, PUD, pancreatitis, biliary pathology, hernia, volvulus, constipation, as well as other pathologies. IMPRESSION/MEDICAL DECISION MAKING: Patient history of SBO and prior abdominal surgery reportedly some similar symptoms now with vomiting and abdominal distention and mid pain. High suspi cion for possible SBO. Prior appendectomy and cholecystectomy. Not jaundiced. EKG and troponin completed but low suspicion for cardiac disease given the lack of significant chest discomfort. No reported sick contacts. No trauma reported. Denies chest discomfort. Given some IV fluid, fentanyl, and Zofran here for symptom control. Follows with Dr. Zaidi daily in the outpatient setting. Blood work here without significant anemia or leukocytosis. No signs of significant chemistry abnormalities, renal dysfunction, or evidence of pancreatitis or hepatitis. EKG reassuring. No troponin elevation. No signs of hepatitis or pancreatitis with otherwise normal chemistries and renal function. CT scan with evidence of SBO. May be a small mother developing area. Patient without severe symptoms at this time. Given her prior relationship per request discussed with [facility] [place] surgical team. NG tube placed. Several doses of fentanyl for pain control. Hospitalist contacted. DIAGNOSIS: SBO, nausea DISPOSITION: Hospitalist will evaluate Patient was agreeable with this plan. Past Med/Surg History Medical History Abdominal adhesions Bowel obstruction x3. most recent in 2019. Sciatica Surgical History H/O ventral hernia repair open History of colonoscopy Hx of cholecystectomy Hx of pelvic surgery anterior and posterior repair S/P appendectomy S/P laparotomy removal of adhesions S/P CHERYL-BSO Family History Father , age 69 - complications from surgery Myocardial infarction Mother , age 72 Cervical cancer Diabetes Other No family history of adverse response to anesthesia Social History Smoking Status: Never smoker Second Hand Exposure: No; Do You Dip or Chew Tobacco: No; Hx Alcohol Use: No Hx Substance Use: No Preferred Language: Tajik Communication Ability: Effective [employer] Required: No Beliefs That Will Affect Care: None marital status: marital status details: 2 children Current Living Situation: Spouse Current Living Situation Comment: lives in [place] farm current occupational status: retired current occupation: worked at [email or web address] How many Children do You have: 2 Feels Safe at Home: Yes Assistive Devices: None Allergies Allergies Allergy/AdvReac Type Severity Reaction Status Date / Time codeine AdvReac Severe NAUSEA & Verified 07/21/22 11:38 headache Home Meds Home Medications Medication Instructions Recorded Confirmed lactobacillus combination no.4 3 3,000 mmu cells PO DAILY 07/21/22 07/21/22 billion cell capsule (Probiotic) Results & Data (ED) Vital Signs Vital Signs - 24 hr 07/21/22 10:24 07/21/22 10:59 07/21/22 11:02 Temperature 36.4 C L Temperature Source Temporal Artery Scan Pulse Rate 88 Pulse Rate [Apical] 73 Pulse Rate from SpO2 Sensor Pulse Rhythm Regular Pulse Rhythm [Apical] Regular Pulse Strength Normal Respiratory Rate 20 16 Respiratory Effort / Characteristics Non-Labored Spontaneous Respiratory Depth Normal Normal Respiratory Pattern Regular Blood Pressure 136/82 Blood Pressure [Left Arm] 122/66 Blood Pressure Mean 100 Blood Pressure Mean [Left Arm] 84 Blood Pressure Position Sitting Blood Pressure Position [Left Arm] Lying Pulse Oximetry 96 95 92 Oxygen Delivery Method Room Air Room Air Room Air Sepsis Recent Fever Within 48 Hours No Sepsis New/Unexplained Change in Mental Status No Sepsis Action Taken by Nursing No Action Required 07/21/22 11:04 07/21/22 11:49 07/21/22 11:49 Temperature Temperature Source Pulse Rate 69 75 Pulse Rate [Apical] Pulse Rate from SpO2 Sensor 69 Pulse Rhythm Pulse Rhythm [Apical] Pulse Strength Respiratory Rate 20 14 Respiratory Effort / Characteristics Respiratory Depth Respiratory Pattern Blood Pressure 136/83 Blood Pressure [Left Arm] Blood Pressure Mean 100 Blood Pressure Mean [Left Arm] Blood Pressure Position Blood Pressure Position [Left Arm] Pulse Oximetry 93 Oxygen Delivery Method Sepsis Recent Fever Within 48 Hours Sepsis New/Unexplained Change in Mental Status Sepsis Action Taken by Nursing 07/21/22 12:22 07/21/22 12:00 07/21/22 12:00 Temperature Temperature Source Pulse Rate 67 66 Pulse Rate [Apical] Pulse Rate from SpO2 Sensor 66 Pulse Rhythm Pulse Rhythm [Apical] Pulse Strength Respiratory Rate 21 Respiratory Effort / Characteristics Respiratory Depth Respiratory Pattern Blood Pressure 127/72 Blood Pressure [Left Arm] Blood Pressure Mean 90 Blood Pressure Mean [Left Arm] Blood Pressure Position Blood Pressure Position [Left Arm] Pulse Oximetry 94 Oxygen Delivery Method Sepsis Recent Fever Within 48 Hours Sepsis New/Unexplained Change in Mental Status Sepsis Action Taken by Nursing 07/21/22 12:30 07/21/22 12:30 07/21/22 13:00 Temperature Temperature Source Pulse Rate 67 Pulse Rate [Apical] Pulse Rate from SpO2 Sensor Pulse Rhythm Pulse Rhythm [Apical] Pulse Strength Respiratory Rate 20 Respiratory Effort / Characteristics Respiratory Depth Respiratory Pattern Blood Pressure 135/64 147/82 H Blood Pressure [Left Arm] Blood Pressure Mean 87 103 Blood Pressure Mean [Left Arm] Blood Pressure Position Blood Pressure Position [Left Arm] Pulse Oximetry Oxygen Delivery Method Sepsis Recent Fever Within 48 Hours Sepsis New/Unexplained Change in Mental Status Sepsis Action Taken by Nursing 07/21/22 13:00 07/21/22 13:30 07/21/22 13:30 Temperature Temperature Source Pulse Rate 77 65 Pulse Rate [Apical] Pulse Rate from SpO2 Sensor 73 Pulse Rhythm Pulse Rhythm [Apical] Pulse Strength Respiratory Rate 17 20 Respiratory Effort / Characteristics Respiratory Depth Respiratory Pattern Blood Pressure 121/72 Blood Pressure [Left Arm] Blood Pressure Mean 88 Blood Pressure Mean [Left Arm] Blood Pressure Position Blood Pressure Position [Left Arm] Pulse Oximetry 94 Oxygen Delivery Method Sepsis Recent Fever Within 48 Hours Sepsis New/Unexplained Change in Mental Status Sepsis Action Taken by Nursing Laboratory Data 07/21/22 10:39 07/21/22 10:39 Lab Results 07/21/22 07/21/22 07/21/22 Range/Units 10:39 10:39 10:39 WBC 9.59 (4.8-10.8) K/ul RBC 5.44 H (4.20-5.40) M/uL Hgb 16.3 H (12.0-16.0) g/dl Hct 47.5 H (37.0-47.0) % MCV 87.3 (80.0-100.0) fL MCH 30.0 (25.0-34.0) pg MCHC 34.3 (32.0-36.0) g/dL RDW Std Deviation 45.1 (36.4-46.3) fL RDW Coeff of Kim 14.0 (11.5-14.5) % Plt Count 253 (130-400) K/uL MPV 10.9 (9.4-12.4) fL Immature Gran % (Auto) 0.2 % Neut % (Auto) 75.0 % Lymph % (Auto) 21.2 % Wake % (Auto) 3.1 % Eos % (Auto) 0.2 % Baso % (Auto) 0.3 % Neut # (Auto) 7.19 H (1.40-6.50) K/uL Lymph # (Auto) 2.03 (1.2-3.4) K/uL Wake # (Auto) 0.30 (0.11-0.59) K/uL Eos # (Auto) 0.02 (0-0.50) K/uL Baso # (Auto) 0.03 (0-0.2) K/uL Immature Gran # (Auto) 0.02 (0.01-0.20) K/uL PT 10.4 (9.0-12.0) Seconds INR 0.9 (0.9-1.1) Sodium 139 (136-145) mmol/L Potassium 4.3 (3.5-5.1) mmol/L Chloride 105 (98-107) mmol/L Carbon Dioxide 28 (21-32) mmol/L Anion Gap 6 (3-11) BUN 20 (6-23) mg/dl Creatinine 0.69 (0.6-1.2) mg/dl Est Cr Clr Drug Dosing 82.6 ml/min Est GFR ( Amer) 103.7 ml/min Est GFR (Non-Af Amer) 89.4 ml/min BUN/Creatinine Ratio 29.0 H (10-20) Glucose 122 H (70-99(Fasting)) mg/dl Lactate (0.4-2.0) mmol/L Calcium 9.4 (8.6-10.3) mg/dl Total Bilirubin 0.4 (0.2-1.0) mg/dl AST 15 (13-39) U/L ALT 11 (7-52) U/L Alkaline Phosphatase 76 (34-104) U/L Troponin I High Sens 3.4 (0-14) pg/ml Total Protein 7.8 (6.0-8.3) gm/dl Albumin 4.7 (3.4-5.0) gm/dl Globulin 3.1 (2.5-4.0) gm/dl Albumin/Globulin Ratio 1.5 (0.9-2) Lipase 9 L (11-82) U/L Urine Color Urine Appearance (Clear) Urine pH (4.5-7.5) Ur Specific Reseda (1.000-1.030) Urine Protein (Negative) Urine Glucose (UA) (Negative) Urine Ketones (Negative) Urine Blood (Negative) Urine Nitrite (Negative) Urine Bilirubin (Negative) Urine Urobilinogen (Negative) Ur Leukocyte Esterase (Negative) Urine WBC (Auto) (0-5) /hpf Urine RBC (Auto) (0-4) /hpf U Hyaline Cast (Auto) (0-5) /lpf U Epithel Cells (Auto) (0-5) /lpf Urine Bacteria (Auto) (Negative) SARS-CoV-2, RNA, NAAT (NEGATIVE) 07/21/22 07/21/22 07/21/22 Range/Units 10:56 11:44 12:56 WBC (4.8-10.8) K/ul RBC (4.20-5.40) M/uL Hgb (12.0-16.0) g/dl Hct (37.0-47.0) % MCV (80.0-100.0) fL MCH (25.0-34.0) pg MCHC (32.0-36.0) g/dL RDW Std Deviation (36.4-46.3) fL RDW Coeff of Kim (11.5-14.5) % Plt Count (130-400) K/uL MPV (9.4-12.4) fL Immature Gran % (Auto) % Neut % (Auto) % Lymph % (Auto) % Wake % (Auto) % Eos % (Auto) % Baso % (Auto) % Neut # (Auto) (1.40-6.50) K/uL Lymph # (Auto) (1.2-3.4) K/uL Wake # (Auto) (0.11-0.59) K/uL Eos # (Auto) (0-0.50) K/uL Baso # (Auto) (0-0.2) K/uL Immature Gran # (Auto) (0.01-0.20) K/uL PT (9.0-12.0) Seconds INR (0.9-1.1) Sodium (136-145) mmol/L Potassium (3.5-5.1) mmol/L Chloride (98-107) mmol/L Carbon Dioxide (21-32) mmol/L Anion Gap (3-11) BUN (6-23) mg/dl Creatinine (0.6-1.2) mg/dl Est Cr Clr Drug Dosing ml/min Est GFR ( Amer) ml/min Est GFR (Non-Af Amer) ml/min BUN/Creatinine Ratio (10-20) Glucose (70-99(Fasting)) mg/dl Lactate 0.8 (0.4-2.0) mmol/L Calcium (8.6-10.3) mg/dl Total Bilirubin (0.2-1.0) mg/dl AST (13-39) U/L ALT (7-52) U/L Alkaline Phosphatase (34-104) U/L Troponin I High Sens (0-14) pg/ml Total Protein (6.0-8.3) gm/dl Albumin (3.4-5.0) gm/dl Globulin (2.5-4.0) gm/dl Albumin/Globulin Ratio (0.9-2) Lipase (11-82) U/L Urine Color Yellow Urine Appearance Clear (Clear) Urine pH 7.0 (4.5-7.5) Ur Specific Reseda 1.019 (1.000-1.030) Urine Protein Negative (Negative) Urine Glucose (UA) Negative (Negative) Urine Ketones Negative (Negative) Urine Blood 1+ H (Negative) Urine Nitrite Negative (Negative) Urine Bilirubin Negative (Negative) Urine Urobilinogen Negative (Negative) Ur Leukocyte Esterase Negative (Negative) Urine WBC (Auto) 0 (0-5) /hpf Urine RBC (Auto) 5-10 H (0-4) /hpf U Hyaline Cast (Auto) 0 (0-5) /lpf U Epithel Cells (Auto) 5-10 H (0-5) /lpf Urine Bacteria (Auto) Negative (Negative) SARS-CoV-2, RNA, NAAT NEGATIVE (NEGATIVE) Administered Medications Lactated Ringer's (Lr) 1,000 mls @ 150 mls/hr IV .Q6H40M [facility] Stop: 07/21/22 20:39 Last Admin: 07/21/22 14:31 Dose: 150 mls/hr Documented By: DS Discontinued Medications Fentanyl Citrate (Fentanyl Citrate Pf 100 Mcg/2 Ml Vial) 50 mcg IV NOW STA Stop: 07/21/22 10:38 Last Admin: 07/21/22 10:44 Dose: 50 mcg Documented By: SUMMER Fentanyl Citrate (Fentanyl Citrate Pf 100 Mcg/2 Ml Vial) 50 mcg IV NOW STA Stop: 07/21/22 11:53 Last Admin: 07/21/22 11:57 Dose: 50 mcg Documented By: SUMMER Fentanyl Citrate (Fentanyl Citrate Pf 100 Mcg/2 Ml Vial) 50 mcg IV NOW STA Stop: 07/21/22 13:19 Last Admin: 07/21/22 13:22 Dose: 50 mcg Documented By: KATHIE Sodium Chloride (Nss 1000ml) 1,000 mls @ 999 mls/hr IV .Q1H1M STA Stop: 07/21/22 11:32 Last Infusion: 07/21/22 11:53 Dose: 0 mls/hr Documented By: Admin: 07/21/22 10:44 Dose: 999 mls/hr Documented By: SUMMER Ioversol (Ioversol 50ml) 94 ml IV ONCE ONE Stop: 07/21/22 11:29 Last Admin: 07/21/22 11:29 Dose: 94 ml Documented By: DOROTA Ondansetron HCl (Ondansetron Inj 2 Mg/Ml 2 Ml Vial) 4 mg IV NOW STA Stop: 07/21/22 10:43 Last Admin: 07/21/22 10:51 Dose: 4 mg Documented By: SUMMER Imaging Data Radiologist's Impression: Abdomen/Pelvis CT 07/21/22 10:[address] WITH IV CONTRAST CT DOSE: 1016.90 mGy.cm HISTORY: Mid abd pain, vomiting, hx sbo TECHNIQUE: Multiaxial CT images of the abdomen and pelvis were performed following the use of intravenous contrast. A dose lowering technique was utilized adhering to the principles of ALARA. COMPARISON STUDY: Abdomen and pelvis CT 07/11/2019. FINDINGS: Groundglass densities within the lungs posteriorly favor dependent change/atelectasis. No pneumoperitoneum. No pneumatosis. No acute fractures identified. There is a tiny hiatus hernia. Dilated fluid-filled loops of proximal to mid small bowel within the left side of the abdomen with a focal transition point within the left mid abdomen on image 208 consistent with a small bowel obstruction. This is likely on the basis of adhesions. There is a moderate size midline epigastric fat-containing hernia, unchanged. The neck of the hernia measures approximately 3.7 cm. There is an additional lower midline ventral hernia containing multiple loops of small bowel. One of these loops is borderline distended measuring up to 2.6 cm. This could represent a secondary site of a developing small bowel obstruction. A 5 mm hypodense lesion within the left hepatic dome. This is technically too small to characterize but favors a cyst. The main portal vein is patent. The gallbladder, pancreas, spleen, and adrenal glands unremarkable. Normal right kidney. Multiple hypodense lesions again noted within the left kidney. These favor cysts. The majority of these hypodense lesions are subcentimeter and therefore technically too small to characterize. No nephrosis. No retroperitoneal lymphadenopathy. Normal caliber abdominal aorta. No pelvic lymphadenopathy or pelvic free fluid. Normal bladder. Prior hysterectomy. The appendix is not identified and reportedly surgically absent. No bowel wall thickening. IMPRESSION: 1. Dilated fluid-filled loops of proximal to mid small bowel with a focal transition point within the left mid abdomen consistent with a bowel obstruction. This is likely on the basis of adhesions. 2. There is a single short segment of a dilated loop of small bowel within the lower ventral hernia. This could represent a secondary site of a developing small bowel obstruction. 3. Groundglass densities within the lungs posteriorly favor dependent change/atelectasis. A pneumonitis is considered less likely but not entirely excluded. 4. Additional findings as described above. ACT 112: Negative or not required by law. Electronically signed by: Akhil Luong M.D. 07/21/2022 12:14 PM Discharge Plan Visit Data Chief Complaint: Abdominal Pain Stated Complaint: abdominal pain, vomiting ED Provider: Benigno Knight Discharge Problem: SBO (small bowel obstruction), Nausea Patient Disposition: Being Evaluated by Hospitalist Discharge Instructions Interventions: ED Discharge Assessment Last Done: 07/21/22 15:26
[2022-07-21 10:56] LABS: Basophils # (auto) 0.03 K/uL (0-0.2); Basophils % (auto) 0.3 %; Eosinophils # (auto) 0.02 K/uL (0-0.50); Eosinophils % (auto) 0.2 %; Hematocrit (blood only) 47.5 % (37.0-47.0); Hemoglobin 16.3 g/dl (12.0-16.0); Immature Granulocytes # (auto) 0.02 K/uL (0.01-0.20); Immature Granulocytes % (auto) 0.2 %; Lymphocytes # (auto) 2.03 K/uL (1.2-3.4); Lymphocytes % (auto) 21.2 %; Mean Corpuscular Hgb Conc 34.3 g/dL (32.0-36.0); Mean Corpuscular Volume 87.3 fL (80.0-100.0); Mean Platelet Volume 10.9 fL (9.4-12.4); Monocytes % (auto) 3.1 %; Neutrophils # (auto) 7.19 K/uL (1.40-6.50); Platelet Count 253 K/uL (130-400); RDW Standard Deviation 45.1 fL (36.4-46.3); Red Blood Count 5.44 M/uL (4.20-5.40); White Blood Count 9.59 K/ul (4.8-10.8)
--- NOTE | 2022-07-21 11:09 | Electrocardiogram Report ---
Test Reason : Blood Pressure : / mmHG Vent. Rate : 077 BPM Atrial Rate : 077 BPM P-R Int : 120 ms QRS Dur : 082 ms QT Int : 402 ms P-R-T Axes : -26 014 047 degrees QTc Int : 454 ms Normal sinus rhythm When compared with ECG of 10-JUL-2019 10:42, No significant change was found Confirmed by Nav Bonner ([id number]) on 07/21/2022 11:09:33 AM Referred By: Confirmed By:Frantz Bonner
[2022-07-21 11:13] LABS: Albumin Globulin Ratio 1.5 (0.9-2); Albumin Level 4.7 gm/dl (3.4-5.0); Bilirubin,Total 0.4 mg/dl (0.2-1.0); Calcium 9.4 mg/dl (8.6-10.3); Creatinine Clr Calc Pharmacy 82.6 ml/min; Est GFR (African American) 103.7 ml/min; Est GFR (Non-African American) 89.4 ml/min; Globulin 3.1 gm/dl (2.5-4.0); Potassium 4.3 mmol/L (3.5-5.1); Total Protein 7.8 gm/dl (6.0-8.3)
[2022-07-21 11:19] LABS: Troponin I High Sensitivity 3.4 pg/ml (0-14)
[2022-07-21 11:21] LABS: INR 0.9 (0.9-1.1); Prothrombin Time 10.4 Seconds (9.0-12.0)
[2022-07-21] MEDS ORDERED: IOVERSOL 50ml IV ONE (11:28)
[2022-07-21 12:11] LABS: Appearance Urine Clear (Clear); Bacteria Urine Automated Negative (Negative); Bilirubin Urine Negative (Negative); Blood Urine 1+ (Negative); Cast Urine Automated 0 /lpf (0-5); Color Urine Yellow; Glucose Urine UA Negative (Negative); Ketones Urine Negative (Negative); Leukocyte Esterase Urine Negative (Negative); Nitrite Urine Negative (Negative); Protein Urine Negative (Negative); Specific Gravity Urine 1.019 (1.000-1.030); Urobilinogen Urine Negative (Negative); WBC Urine Automated 0 /hpf (0-5)
--- NOTE | 2022-07-21 12:15 | CT Scan Report ---
ABDOMEN AND PELVIS CT WITH IV CONTRAST CT DOSE: 1016.90 mGy.cm HISTORY: Mid abd pain, vomiting, hx sbo TECHNIQUE: Multiaxial CT images of the abdomen and pelvis were performed following the use of intrave nous contrast. A dose lowering technique was utilized adhering to the principles of ALARA. COMPARISON STUDY: Abdomen and pelvis CT 07/11/2019. FINDINGS: Groundglass densities within the lungs posteriorly favor dependent change/atelectasis. No p neumoperitoneum. No pneumatosis. No acute fractures identified. There is a tiny hiatus hernia. Dilate d fluid-filled loops of proximal to mid small bowel within the left side of the abdomen with a focal transition point within the left mid abdomen on image 208 consistent with a small bowel obstruction. This is likely on the basis of adhesions. There is a moderate size midline epigastric fat-containing hernia, unchanged. The neck of the hernia measures approximately 3.7 cm. There is an additional lower midline ventral hernia containing multiple loops of small bowel. One of these loops is borderline di stended measuring up to 2.6 cm. This could represent a secondary site of a developing small bowel obs truction. A 5 mm hypodense lesion within the left hepatic dome. This is technically too small to osorio acterize but favors a cyst. The main portal vein is patent. The gallbladder, pancreas, spleen, and ad renal glands unremarkable. Normal right kidney. Multiple hypodense lesions again noted within the lef t kidney. These favor cysts. The majority of these hypodense lesions are subcentimeter and therefore technically too small to characterize. No nephrosis. No retroperitoneal lymphadenopathy. Normal calib er abdominal aorta. No pelvic lymphadenopathy or pelvic free fluid. Normal bladder. Prior hysterectom y. The appendix is not identified and reportedly surgically absent. No bowel wall thickening. IMPRESSION: 1. Dilated fluid-filled loops of proximal to mid small bowel with a focal transition point within the left mid abdomen consistent with a bowel obstruction. This is likely on the basis of adhesions. 2. There is a single short segment of a dilated loop of small bowel within the lower ventral hernia. This could represent a secondary site of a developing small bowel obstruction. 3. Groundglass densities within the lungs posteriorly favor dependent change/atelectasis. A pneumonit is is considered less likely but not entirely excluded. 4. Additional findings as described above. ACT 112: Negative or not required by law. Electronically signed by: Akhil Luong M.D. 07/21/2022 12:14 PM
--- NOTE | 2022-07-21 12:55 | History & Physical Report ---
Date of Service July 21, 2022 Assessment & Plan (1) Small bowel obstruction: Plan: -Admit to med/surge -Currently stable and non-toxic appearing -Ct today showing SBO in the left-mid abd with a focal transition point, also noted to have a loop of dilated small bowel in the lower ventral hernia which could represent a second site of developing obstruction -Abdominal exam is benign and she is without exam findings to suggest incarceration of the small bowel located in her lower ventral hernia -General Surgery consulted, they are ok with her staying, agrees with conservative management at this time with her history of previous abd surgeries and extensive adhesions -Continue with NG tube in place at low intermittent suction -Keep NPO for now, will keep her on maintenance LR while NPO -Monitor intake and output q6h -Will use q6h scheduled tylenol with prn IV dilaudid for pain control, she has a history of headaches with morphine -Will obtain STAT lactate -BL SCD's for DVT PPX at this time, will hold chemical PPX in case emergent surgery would be needed in the near future -AM CBC, CMP Plan The patient was discussed with Dr. Bang at the time of the admission History of Present Illness Chief Complaint: abd pain, nausea, vomiting Primary Care Provider: SANDRA Olmos Mer is a 66 year old female with a PMH significant for multiple intra- abdominal surgeries and multiple episodes of SBO with one requiring exploratory surgery/lysis of adhesions/hernia repair with mesh (Dr Zaidi - 2008) who presented to the [facility] ED on 07/21 with sudden onset of abd pain, nausea, vomiting. In the ED vitals were noted to be stable. Labs were significant for a hemo-concentrated CBC, lipase of 9, negative UA, and covid [address] of the abd/pelvis w/IV con was read as 1. Dilated fluid-filled loops of proximal to mid small bowel with a focal transition point within the left mid abdomen consistent with a bowel obstruction. This is likely on the basis of adhesions. 2. There is a single short segment of a dilated loop of small bowel within the lower ventral hernia. This could represent a secondary site of a developing small bowel obstruction.3. Groundglass densities within the lungs posteriorly favor dependent change/atelectasis. A pneumonitis is considered less likely but not entirely excluded.. Prior to admission the patient was given 100 total mcg IV fentanyl, 4 mg IV Zofran, and 1L NSS. At the time of the exam the patient was sitting in bed in no acute distress, recently placed NG Tube is currently draining. She states that she was in her normal state of health when she woke up around 0430 am with acute onset of middle-lower abdominal pain. The patient was sharp/stabbing and a 10/10. She had associated nausea with bilious vomiting. She did have a bowel movement around 0500 today which was initially solid then runny, she denies any blood or melena. She has had multiple SBO's in the past and this feels similar to her previous episodes. She only takes a probiotic, otherwise no other mediations. Denies recent fever, chills, chest pain, SOB, aspiration, dysuria hematuria, LE swelling and recent trauma. She is a full code and would want her and daughter to make medical decisions for her if she could not make them herself. Please refer to Dr. Bang's attestation for any changes to the treatment plan Allergies Allergy/AdvReac Type Severity Reaction Status Date / Time codeine AdvReac Severe NAUSEA & Verified 07/21/22 11:38 headache Home Medications Medication Instructions Recorded Confirmed Type lactobacillus combination no.4 3 3,000 mmu cells PO DAILY 07/21/22 07/21/22 History billion cell capsule (Probiotic) Past Med/Surg History Medical History Abdominal adhesions Bowel obstruction x3. most recent in 2019. Sciatica Surgical History H/O ventral hernia repair open History of colonoscopy Hx of cholecystectomy Hx of pelvic surgery anterior and posterior repair S/P appendectomy S/P laparotomy removal of adhesions S/P CHERYL-BSO Family History Father , age 69 - complications from surgery Myocardial infarction Mother , age 72 Cervical cancer Diabetes Other No family history of adverse response to anesthesia Social History Smoking Status: Never smoker Second Hand Exposure: No; Do You Dip or Chew Tobacco: No; Hx Alcohol Use: No Hx Substance Use: No Preferred Language: Azeri Communication Ability: Effective Sales Incentive Analyst Required: No Beliefs That Will Affect Care: None marital status: marital status details: 2 children Current Living Situation: Spouse Current Living Situation Comment: lives in [place] on farm current occupational status: retired current occupation: worked at [employer] How many Children do You have: 2 Feels Safe at Home: Yes Assistive Devices: None Physical Exam Physical Exam: Physical Exam: General: In no acute distress, stated age, well-nourished, good hygiene, non- toxic appearing HEENT: Normocephalic, atraumatic, no scleral icterus, pupils around round, symmetrical, and reactive to light, NG tube in place and without signs of leaking, moist mucus membranes, trachea midline, no thyromegaly Chest/Pulm: No respiratory distress, symmetrical chest expansion, clear breat h sounds throughout Cardiac: RRR, no murmurs noted Abdomen: Negative for ascites and bruising, well-healed scars located in the central and lower abdomen, hypoactive bowel sounds, soft, non-tender to palpation throughout Musculoskeletal: Symmetrical and without signs of acute trauma, upper and lower extremities with full ROM, no atrophy, spasticity, or flaccidity Extremities: Radial, dorsalis pedis, and posterior tibial pulses are intact and symmetrical, no edema noted in the BL LE's Skin: Warm, dry, no rashes , lesions, or scars noted Neuro: Alert and oriented to person, place, month, year, and president, no focal defects, no tremors noted Psych: No acute distress, calm and cooperative during the exam Results & Data Results & Data Vital Signs (Past 12 Hours) Vital Signs Temp Pulse Pulse Resp BP BP Pulse Ox 07/21/22 12:30 67 20 07/21/22 12:30 135/64 07/21/22 12:00 66 21 94 07/21/22 12:00 127/72 07/21/22 12:22 67 07/21/22 11:49 136/83 07/21/22 11:49 75 14 07/21/22 11:04 69 20 93 07/21/22 11:02 73 16 122/66 92 07/21/22 10:59 95 07/21/22 10:24 36.4 C L 88 20 136/82 96 O2 Del Method 07/21/22 12:30 07/21/22 12:30 07/21/22 12:00 07/21/22 12:00 07/21/22 12:22 07/21/22 11:49 07/21/22 11:49 07/21/22 11:04 07/21/22 11:02 Room Air 07/21/22 10:59 Room Air 07/21/22 10:24 Room Air Laboratory Results Abnormal lab results 07/21/22 07/21/22 07/21/22 Range/Units 10:39 10:39 11:44 RBC 5.44 H (4.20-5.40) M/uL Hgb 16.3 H (12.0-16.0) g/dl Hct 47.5 H (37.0-47.0) % Neut # (Auto) 7.19 H (1.40-6.50) K/uL BUN/Creatinine Ratio 29.0 H (10-20) Glucose 122 H (70-99(Fasting)) mg/dl Lipase 9 L (11-82) U/L Urine Blood 1+ H (Negative) Urine RBC (Auto) 5-10 H (0-4) /hpf U Epithel Cells (Auto) 5-10 H (0-5) /lpf Diagnostic Findings Abdomen/Pelvis CT 07/21/22 10:[address] WITH IV CONTRAST CT DOSE: 1016.90 mGy.cm HISTORY: Mid abd pain, vomiting, hx sbo TECHNIQUE: Multiaxial CT images of the abdomen and pelvis were performed following the use of intravenous contrast. A dose lowering technique was utilized adhering to the principles of ALARA. COMPARISON STUDY: Abdomen and pelvis CT 07/11/2019. FINDINGS: Groundglass densities within the lungs posteriorly favor dependent change/atelectasis. No pneumoperitoneum. No pneumatosis. No acute fractures identified. There is a tiny hiatus hernia. Dilated fluid-filled loops of proximal to mid small bowel within the left side of the abdomen with a focal transition point within the left mid abdomen on image 208 consistent with a small bowel obstruction. This is likely on the basis of adhesions. There is a moderate size midline epigastric fat-containing hernia, unchanged. The neck of the hernia measures approximately 3.7 cm. There is an additional lower midline ventral hernia containing multiple loops of small bowel. One of these loops is borderline distended measuring up to 2.6 cm. This could represent a secondary site of a developing small bowel obstruction. A 5 mm hypodense lesion within the left hepatic dome. This is technically too small to characterize but favors a cyst. The main portal vein is patent. The gallbladder, pancreas, spleen, and adrenal glands unremarkable. Normal right kidney. Multiple hypodense lesions again noted within the left kidney. These favor cysts. The majority of these h ypodense lesions are subcentimeter and therefore technically too small to characterize. No nephrosis. No retroperitoneal lymphadenopathy. Normal caliber abdominal aorta. No pelvic lymphadenopathy or pelvic free fluid. Normal bladder. Prior hysterectomy. The appendix is not identified and reportedly surgically absent. No bowel wall thickening. IMPRESSION: 1. Dilated fluid-filled loops of proximal to mid small bowel with a focal transition point within the left mid abdomen consistent with a bowel obstruction. This is likely on the basis of adhesions. 2. There is a single short segment of a dilated loop of small bowel within the lower ventral hernia. This could represent a secondary site of a developing small bowel obstruction. 3. Groundglass densities within the lungs posteriorly favor dependent change/atelectasis. A pneumonitis is considered less likely but not entirely excluded. 4. Additional findings as described above. ACT 112: Negative or not required by law. Electronically signed by: Akhil Luong M.D. 07/21/2022 12:14 PM ECG Additional Comments: Normal sinus rhythm When compared with ECG of 10-JUL-2019 10:42, No significant change was found Confirmed by Nav Bonner ([id number]) on 07/21/2022 11:09:33 AM Code Status & VTE Plan Code Status Full code VTE Prophylaxis Plan VTE Prophylaxis will be ordered: Yes Supervising Physician Co-Signing Physician Notes Patient seen and examined, chart reviewed, case discussed with Felipe Frank PA-C and I agree with the assessment and plan as above except as otherwise noted above. General: A&Ox3. NAD. Cooperative. HEENT: Atraumatic, normocephalic. Vision/hearing intact Pulm: Trace basilar crackles otherwise -wheezes, -rales, -rhonchi. Symmetrical chest rise. No increase work of breathing. No respiratory distress. Cardiac: RRR, -mrg. Radial pulses intact and symmetrical. Abdominal: BS diminished. Well healed old post surgical incisions. All labs and images reviewed 66yo F with a PMHx of multiple abdominal surgeries here for recurrent SBO. No leukocytosis. CT-A/P- Dilated fluid-filled loops of proximal to mid small bowel with a focal transition point within the left mid abdomen consistent with a bowel obstruction. This is likely on the basis of adhesions. There is a single short segment of a dilated loop of small bowel within the lower ventral hernia. This could represent a secondary site of a developing small bowel obstruction. Groundglass densities within the lungs posteriorly favor dependent change/at electasis. A pneumonitis is considered less likely but not entirely excluded. Surgery consulted. Due to extensive abdominal surgical hx and adhesions recommend medical management and avoiding surgical intervention if at all possible. Last SBO did improve with conservative management. OK to admit for MM. Agree w/ NPO, fluids. Pt is clinically volume contracted without MOE on admit. NGT placed with brisk output of nonbloody material, symptomatic improvement after. No evidence of acute cardiac ischemia or end organ dysfunction. Lactate 0.8. No evidence of PNA at bedside, GGO likely atelectatic. Agree w/ medical management as above and daily labs. PG Care Time/CCT Total # of Minutes Spent Total Time Spent with Patient: Total time spent is greater than 50% in coordination of care (as documented) at patient's floor/unit and/or counseling patient: C[place] [address] INT INP/OBS CARE 3/75MIN Patient Type Established Medical Decision Making High Complexity Diagnoses Small bowel obstruction K56.609
--- NOTE | 2022-07-21 13:42 | Surgery Consultation ---
Date of Consultation July 21, 2022 Assessment & Plan (1) Small bowel obstruction: This is a 66yF with a PMH/PSH of abdominal sarocolpopexy '99, ex-lap lysis of adhesions, repair of ventral hernia with incidental appendectomy 2008, and history of open repair of ventral hernia x2 with mesh placement in 2009 who r eports to the [facility] ED on 07/21/22 with complaints of abdominal pain that started this AM. She has a history of SBO in the past, most recently in 2019 managed conservatively. She felt as her pain felt similarly to bowel obstructions in the past. In the ER a CT a/p was obtained that revealed dilated fluid-filled loops of proximal to mid small bowel with a focal transition point within the left mid abdomen consistent with a bowel obstruction. There is a single short segment of a dilated loop of small bowel within the lower ventral hernia which could represent a secondary site of developing SBO. Vital signs are stable, HRs 60s. Labs show WBC 9, Hbg 16.3, Cr 0.6, lactate 0.8. On exam patient's abdomen is soft, non distended, with generalized discomfort to palpation worse in mid/lower right abdomen. Agree with hospitalization and a trial of conservative management. Keep NPO with IVF, NGT has been inserted, and bowel rest. Hopefully able to avoid surgical intervention in the patient given her abdominal surgical history in the past. We will follow. History of Present Illness History of Present Illness This is a 66yF with a PMH/PSH of abdominal sarocolpopexy '99, ex-lap lysis of adhesions, repair of ventral hernia with incidental appendectomy 2008, and history of open repair of ventral hernia x2 with mesh placement in 2009 who reports to the [facility] ED on 07/21/22 with complaints of abdominal pain that started this AM. Patient reports the abdominal pain started in the mid-abdomen and woke her up from her sleep at 4:30 this AM. She thought she needed to have a BM, so she did, but then developed nausea/vomiting thereafter. She states she had vomited about 3x. The pain was rated at 10/10 and because of its severity and history of SBO in the past, she presented to the ER for further evaluation. A CT a/p was obtained that revealed dilated fluid-filled loops of proximal to mid small bowel with a focal transition point within the left mid abdomen consistent with a bowel obstruction. There is a single short segment of a dilated loop of small bowel within the lower ventral hernia which could represent a secondary site of developing SBO. Patient denies any fevers/chills, CP/SOB. Her BM this AM was at first normal then became loose. No blood in stool. She is not passing flatus. Last SBO that she can recall was in 2020 and she was admitted here and managed and improved with conservative measures. Allergies Allergy/AdvReac Type Severity Reaction Status Date / Time codeine AdvReac Severe NAUSEA & Verified 07/21/22 11:38 headache Home Medications Medication Instructions Recorded Confirmed Type lactobacillus combination no.4 3 3,000 mmu cells PO DAILY 07/21/22 07/21/22 History billion cell capsule (Probiotic) Patient History Medical History Abdominal adhesions Bowel obstruction x3. most recent in 2019. Sciatica Surgical History H/O ventral hernia repair open History of colonoscopy Hx of cholecystectomy Hx of pelvic surgery anterior and posterior repair S/P appendectomy S/P laparotomy removal of adhesions S/P CHERYL-BSO Family History Father , age 69 - complications from surgery Myocardial infarction Mother , age 72 Cervical cancer Diabetes Other No family history of adverse response to anesthesia Social History Smoking Status: Never smoker Second Hand Exposure: No; Do You Dip or Chew Tobacco: No; Hx Alcohol Use: No Hx Substance Use: No Preferred Language: Sierra Leonean Communication Ability: Effective Utility Sales And Service Manager Required: No Beliefs That Will Affect Care: None marital status: marital status details: 2 children Current Living Situation: Spouse Current Living Situation Comment: lives in [place] on farm current occupational status: retired current occupation: worked at [employer] How many Children do You have: 2 Feels Safe at Home: Yes Safety Concerns: Feels Safe At This Time Assistive Devices: None Review of Systems Constitutional: no fever and no chills Respiratory: no dyspnea Cardiovascular: no chest pain Gastrointestinal: + abdominal pain, + bloating, + nausea and + vomiting; no blood in stools Physical Exam Physical Exam: awake/alert, no distress Constitutional: well developed, well nourished and cooperative; no acute distress Respiratory: normal respiratory effort Gastrointestinal (Abdomen): Inspection/Auscultation: + abdominal surgical scar (midline scar); abdomen not distended Percussion/Palpation: + abdomen tender (generalized discomfort to palpation but worse in R mid/lower abdomen) and abdomen soft; no guarding Results & Data Vital Signs (Past 12 Hours) Vital Signs Temp Pulse Pulse Resp BP BP Pulse Ox 07/21/22 13:30 65 20 07/21/22 13:30 121/72 07/21/22 13:00 77 17 94 07/21/22 13:00 147/82 H 07/21/22 12:30 67 20 07/21/22 12:30 135/64 07/21/22 12:00 66 21 94 07/21/22 12:00 127/72 07/21/22 12:22 67 07/21/22 11:49 136/83 07/21/22 11:49 75 14 07/21/22 11:04 69 20 93 07/21/22 11:02 73 16 122/66 92 07/21/22 10:59 95 07/21/22 10:24 36.4 C L 88 20 136/82 96 O2 Del Method 07/21/22 13:30 07/21/22 13:30 07/21/22 13:00 07/21/22 13:00 07/21/22 12:30 07/21/22 12:30 07/21/22 12:00 07/21/22 12:00 07/21/22 12:22 07/21/22 11:49 07/21/22 11:49 07/21/22 11:04 07/21/22 11:02 Room Air 07/21/22 10:59 Room Air 07/21/22 10:24 Room Air Diagnostic Findings ABDOMEN AND PELVIS CT WITH IV CONTRAST CT DOSE: 1016.90 mGy.cm HISTORY: Mid abd pain, vomiting, hx sbo TECHNIQUE: Multiaxial CT images of the abdomen and pelvis were performed following the use of intravenous contrast. A dose lowering technique was utilized adhering to the principles of ALARA. COMPARISON STUDY: Abdomen and pelvis CT 07/11/2019. FINDINGS: Groundglass densities within the lungs posteriorly favor dependent change/atelectasis. No pneumoperitoneum. No pneumatosis. No acute fractures identified. There is a tiny hiatus hernia. Dilated fluid-filled loops of proximal to mid small bowel within the left side of the abdomen with a focal transition point within the left mid abdomen on image 208 consistent with a small bowel obstruction. This is likely on the basis of adhesions. There is a moderate size midline epigastric fat-containing hernia, unchanged. The neck of the hernia measures approximately 3.7 cm. There is an additional lower midline ventral hernia containing multiple loops of small bowel. One of these loops is borderline distended measuring up to 2.6 cm. This could represent a secondary site of a developing small bowel obstruction. A 5 mm hypodense lesion within the left hepatic dome. This is technically too small to characterize but favors a cyst. The main portal vein is patent. The gallbladder, pancreas, spleen, and adrenal glands unremarkable. Normal right kidney. Multiple hypodense lesions again noted within the left kidney. These favor cysts. The majority of these hypodense lesions are subcentimeter and therefore technically too small to characterize. No nephrosis. No retroperitoneal lymphadenopathy. Normal caliber abdominal aorta. No pelvic lymphadenopathy or pelvic free fluid. Normal bladder. Prior hysterectomy. The appendix is not identified and reportedly surgically absent. No bowel wall thickening. IMPRESSION: 1. Dilated fluid-filled loops of proximal to mid small bowel with a focal transition point within the left mid abdomen consistent with a bowel obstruction. This is likely on the basis of adhesions. 2. There is a single short segment of a dilated loop of small bowel within the lower ventral hernia. This could represent a secondary site of a developing small bowel obstruction. 3. Groundglass densities within the lungs posteriorly favor dependent change/atelectasis. A pneumonitis is considered less likely but not entirely excluded. 4. Additional findings as described above. ACT 112: Negative or not required by law. Electronically signed by: Akhil Luong M.D. 07/21/2022 12:14 PM PG Care Time/CCT Total # of Minutes Spent Total Time Spent with Patient: Total time spent is greater than 50% in coordination of care (as documented) at patient's floor/unit and/or counseling patient: Coding Level of Care Code 02045 INT INP/OBS CARE MIN Diagnoses Small bowel obstruction K56.609
[2022-07-21] MEDS ORDERED: LACTATED RINGER'S 1,000 ML IV SCH (14:00)
[2022-07-21] MEDS: HYDROmorphone INJ 0.5 MG/0.5 ML SYR IV PRN ×2 (15:56→22:53)
[2022-07-21] MEDS: ACETAMINOPHEN 1,000 MG/100 ML VIAL IV PRN (18:02)
[2022-07-21] MEDS: ONDANSETRON INJ 2 MG/ML 2 ML VIAL IV PRN (18:10)
[2022-07-21] MEDS: LACTATED RINGER'S 1,000 ML IV SCH (21:03)
[2022-07-21] MEDS: KETOROLAC TROMETHAMINE 15 MG/ML VIAL IV PRN (21:26)
[2022-07-22] MEDS: ACETAMINOPHEN 1,000 MG/100 ML VIAL IV PRN (04:22)
[2022-07-22] MEDS: KETOROLAC TROMETHAMINE 15 MG/ML VIAL IV PRN (04:23)
[2022-07-22] MEDS: ONDANSETRON INJ 2 MG/ML 2 ML VIAL IV PRN ×2 (04:31→21:35)
[2022-07-22] MEDS: HYDROmorphone INJ 0.5 MG/0.5 ML SYR IV PRN ×4 (05:02→19:30)
[2022-07-22] MEDS: LACTATED RINGER'S 1,000 ML IV SCH ×2 (06:33→17:48)
[2022-07-22 06:42] LABS: Basophils # (auto) 0.03 K/uL (0-0.2); Basophils % (auto) 0.4 %; Eosinophils # (auto) 0.08 K/uL (0-0.50); Eosinophils % (auto) 1.1 %; Hematocrit (blood only) 39.5 % (37.0-47.0); Immature Granulocytes # (auto) 0.02 K/uL (0.01-0.20); Immature Granulocytes % (auto) 0.3 %; Lymphocytes # (auto) 1.87 K/uL (1.2-3.4); Lymphocytes % (auto) 26.3 %; Mean Corpuscular Hemoglobin 29.7 pg (25.0-34.0); Mean Corpuscular Hgb Conc 32.9 g/dL (32.0-36.0); Mean Corpuscular Volume 90.4 fL (80.0-100.0); Mean Platelet Volume 10.8 fL (9.4-12.4); Monocytes # (auto) 0.43 K/uL (0.11-0.59); Neutrophils # (auto) 4.69 K/uL (1.40-6.50); Neutrophils % (auto) 65.9 %; Platelet Count 201 K/uL (130-400); RDW Coefficient of Variation 14.1 % (11.5-14.5); RDW Standard Deviation 46.7 fL (36.4-46.3); Red Blood Count 4.37 M/uL (4.20-5.40); White Blood Count 7.12 K/ul (4.8-10.8)
[2022-07-22 07:14] LABS: Albumin Globulin Ratio 1.5 (0.9-2); Albumin Level 3.4 gm/dl (3.4-5.0); BUN Creatinine Ratio 23.6 (10-20); Bilirubin,Total 0.4 mg/dl (0.2-1.0); Calcium 8.7 mg/dl (8.6-10.3); Creatinine Clr Calc Pharmacy 79.1 ml/min; Est GFR (African American) 99.7 ml/min; Est GFR (Non-African American) 86.1 ml/min; Globulin 2.2 gm/dl (2.5-4.0); Potassium 3.9 mmol/L (3.5-5.1); Total Protein 5.6 gm/dl (6.0-8.3)
--- NOTE | 2022-07-22 07:36 | XRay Report ---
XR chest 1V portable CLINICAL HISTORY: confirm NG tube placement COMPARISON STUDY: Chest radiograph September 06, 2020. Chest CT September 07, 2017. FINDINGS: The tip of the nasogastric tube is within the body of the stomach. Linear left basilar dens ities favor atelectasis. There is no consolidation to suggest pneumonia. No evidence for pulmonary ed kelvin. Cardiomediastinal silhouette is normal. IMPRESSION: 1. Tip of nasogastric tube within the body of the stomach. 2. Left basilar density suggestive of atelectasis. ACT 112: Negative or not required by law. Electronically signed by: Michael Newman M.D. 07/22/2022 7:35 AM
--- NOTE | 2022-07-22 08:37 | Hospitalist Progress Note ---
Date of Service July 22, 2022 Assessment & Plan (1) Small bowel obstruction: Plan: In patient w/ extensive abdominal surgical history including abdominal sarocolpopexy , ex-lap lysis of adhesions, repair of ventral hernia with incidental appendectomy 2008, and history of open repair of ventral hernia x2 with mesh placement in 2009. Last SBO in 2019 managed conservatively +BM in morning prior to presentation, formed then liquid and feeling similar to prior SBO CTAP on admission w/ Dilated fluid-filled loops of proximal to mid small bowel with a focal transition point within the left mid abdomen consistent with a bowel obstruction. This is likely on the basis of adhesions. There is a single short segment of a dilated loop of small bowel within the lower ventral hernia. This could represent a secondary site of a developing small bowel obstruction. Lactic 0.8 General surgery on consult KUB ordered for this morning -- unchanged. NO flatus/BM Continue NPO/NGT, await return of bowel function IVF w/ LR @ 100cc/hr Will also check mag/replacement and keep ~2 w/ SBO Pain control, antiemetics prn -->will decreased frequency to q3h as wearing off about hour prior to next due-- did encourage ambulation as well which she states she is happy to do DVT proph: SCDs for now, holding chemoproph at present in case emergent surgery needed Monitor labs on repeat Admission and Anticipated Discharge Date Admission Date: July 21, 2022 Supervising Physician Co-Signing Physician Notes The patient was not seen by me. The chart was reviewed. Case discussed with STACI Osborne. Agree with assessment and plan Subjective eval this morning, doing alright. Last SBO reported partial in 2019 then to full and she has had NGT before. Pains similar to prior obstructions. had increased pain overnight, ordered meds working but wearing off about an hour before next due. states they advanced the NGT and now is sucking. Not passing gas/no Bm at present. Saw Dr Zaidi this morning. Review of Systems Review of Systems: All systems reviewed & are unremarkable except as noted in HPI & below Physical Exam Physical Exam: General: WD/WN female sitting up in bed, NAD HEENT: NGT to nares, brown drainage in canister head normocepahalic, atraumatic, Resp: CTA, slightly diminished in the bases, no w/c, on room air CV: RRR, no significant m/r/g, no pitting edema/calf tenderness GI: +hypoactive BS, mild tenderness to palpation umbilical region, no guarding/rigidity prior hernia scar healing to midline : no barker MSK/Neuro: no focal deficits, CN intact grossly Psych: AOX3 Results & Data Results & Data Vital Signs (Past 12 Hours) Vital Signs Temp Pulse Resp BP Pulse Ox O2 Del Method 07/22/22 07:42 36.7 C 64 14 106/63 93 Room Air 07/21/22 21:39 36.5 C 57 L 18 107/70 94 Room Air Laboratory Results 07/22/22 07/22/22 07/21/22 Range/Units 06:19 06:19 12:56 WBC 7.12 (4.8-10.8) K/ul RBC 4.37 (4.20-5.40) M/uL Hgb 13.0 D (12.0-16.0) g/dl Hct 39.5 (37.0-47.0) % MCV 90.4 (80.0-100.0) fL MCH 29.7 (25.0-34.0) pg MCHC 32.9 (32.0-36.0) g/dL RDW Std Deviation 46.7 H (36.4-46.3) fL RDW Coeff of Kim 14.1 (11.5-14.5) % Plt Count 201 (130-400) K/uL MPV 10.8 (9.4-12.4) fL Immature Gran % (Auto) 0.3 % Neut % (Auto) 65.9 % Lymph % (Auto) 26.3 % White % (Auto) 6.0 % Eos % (Auto) 1.1 % Baso % (Auto) 0.4 % Neut # (Auto) 4.69 (1.40-6.50) K/uL Lymph # (Auto) 1.87 (1.2-3.4) K/uL White # (Auto) 0.43 (0.11-0.59) K/uL Eos # (Auto) 0.08 (0-0.50) K/uL Baso # (Auto) 0.03 (0-0.2) K/uL Immature Gran # (Auto) 0.02 (0.01-0.20) K/uL PT (9.0-12.0) Seconds INR (0.9-1.1) Sodium 139 (136-145) mmol/L Potassium 3.9 (3.5-5.1) mmol/L Chloride 108 H (98-107) mmol/L Carbon Dioxide 28 (21-32) mmol/L Anion Gap 3 (3-11) BUN 17 (6-23) mg/dl Creatinine 0.72 (0.6-1.2) mg/dl Est Cr Clr Drug Dosing 79.1 ml/min Est GFR ( Amer) 99.7 ml/min Est GFR (Non-Af Amer) 86.1 ml/min BUN/Creatinine Ratio 23.6 H (10-20) Glucose 100 H (70-99(Fasting)) mg/dl Lactate 0.8 (0.4-2.0) mmol/L Calcium 8.7 (8.6-10.3) mg/dl Total Bilirubin 0.4 (0.2-1.0) mg/dl AST 12 L (13-39) U/L ALT 7 (7-52) U/L Alkaline Phosphatase 55 (34-104) U/L Troponin I High Sens (0-14) pg/ml Total Protein 5.6 L D (6.0-8.3) gm/dl Albumin 3.4 (3.4-5.0) gm/dl Globulin 2.2 L (2.5-4.0) gm/dl Albumin/Globulin Ratio 1.5 (0.9-2) Lipase (11-82) U/L Urine Color Urine Appearance (Clear) Urine pH (4.5-7.5) Ur Specific [place] (1.000-1.030) Urine Protein (Negative) Urine Glucose (UA) (Negative) Urine Ketones (Negative) Urine Blood (Negative) Urine Nitrite (Negative) Urine Bilirubin (Negative) Urine Urobilinogen (Negative) Ur Leukocyte Esterase (Negative) Urine WBC (Auto) (0-5) /hpf Urine RBC (Auto) (0-4) /hpf U Hyaline Cast (Auto) (0-5) /lpf U Epithel Cells (Auto) (0-5) /lpf Urine Bacteria (Auto) (Negative) SARS-CoV-2, RNA, NAAT (NEGATIVE) 07/21/22 07/21/22 07/21/22 Range/Units 11:44 10:56 10:39 WBC (4.8-10.8) K/ul RBC (4.20-5.40) M/uL Hgb (12.0-16.0) g/dl Hct (37.0-47.0) % MCV (80.0-100.0) fL MCH (25.0-34.0) pg MCHC (32.0-36.0) g/dL RDW Std Deviation (36.4-46.3) fL RDW Coeff of Kim (11.5-14.5) % Plt Count (130-400) K/uL MPV (9.4-12.4) fL Immature Gran % (Auto) % Neut % (Auto) % Lymph % (Auto) % White % (Auto) % Eos % (Auto) % Baso % (Auto) % Neut # (Auto) (1.40-6.50) K/uL Lymph # (Auto) (1.2-3.4) K/uL White # (Auto) (0.11-0.59) K/uL Eos # (Auto) (0-0.50) K/uL Baso # (Auto) (0-0.2) K/uL Immature Gran # (Auto) (0.01-0.20) K/uL PT (9.0-12.0) Seconds INR (0.9-1.1) Sodium 139 (136-145) mmol/L Potassium 4.3 (3.5-5.1) mmol/L Chloride 105 (98-107) mmol/L Carbon Dioxide 28 (21-32) mmol/L Anion Gap 6 (3-11) BUN 20 (6-23) mg/dl Creatinine 0.69 (0.6-1.2) mg/dl Est Cr Clr Drug Dosing 82.6 ml/min Est GFR ( Amer) 103.7 ml/min Est GFR (Non-Af Amer) 89.4 ml/min BUN/Creatinine Ratio 29.0 H (10-20) Glucose 122 H (70-99(Fasting)) mg/dl Lactate (0.4-2.0) mmol/L Calcium 9.4 (8.6-10.3) mg/dl Total Bilirubin 0.4 (0.2-1.0) mg/dl AST 15 (13-39) U/L ALT 11 (7-52) U/L Alkaline Phosphatase 76 (34-104) U/L Troponin I High Sens 3.4 (0-14) pg/ml Total Protein 7.8 (6.0-8.3) gm/dl Albumin 4.7 (3.4-5.0) gm/dl Globulin 3.1 (2.5-4.0) gm/dl Albumin/Globulin Ratio 1.5 (0.9-2) Lipase 9 L (11-82) U/L Urine Color Yellow Urine Appearance Clear (Clear) Urine pH 7.0 (4.5-7.5) Ur Specific [place] 1.019 (1.000-1.030) Urine Protein Negative (Negative) Urine Glucose (UA) Negative (Negative) Urine Ketones Negative (Negative) Urine Blood 1+ H (Negative) Urine Nitrite Negative (Negative) Urine Bilirubin Negative (Negative) Urine Urobilinogen Negative (Negative) Ur Leukocyte Esterase Negative (Negative) Urine WBC (Auto) 0 (0-5) /hpf Urine RBC (Auto) 5-10 H (0-4) /hpf U Hyaline Cast (Auto) 0 (0-5) /lpf U Epithel Cells (Auto) 5-10 H (0-5) /lpf Urine Bacteria (Auto) Negative (Negative) SARS-CoV-2, RNA, NAAT NEGATIVE (NEGATIVE) 07/21/22 07/21/22 Range/Units 10:39 10:39 WBC 9.59 (4.8-10.8) K/ul RBC 5.44 H (4.20-5.40) M/uL Hgb 16.3 H (12.0-16.0) g/dl Hct 47.5 H (37.0-47.0) % MCV 87.3 (80.0-100.0) fL MCH 30.0 (25.0-34.0) pg MCHC 34.3 (32.0-36.0) g/dL RDW Std Deviation 45.1 (36.4-46.3) fL RDW Coeff of Kim 14.0 (11.5-14.5) % Plt Count 253 (130-400) K/uL MPV 10.9 (9.4-12.4) fL Immature Gran % (Auto) 0.2 % Neut % (Auto) 75.0 % Lymph % (Auto) 21.2 % White % (Auto) 3.1 % Eos % (Auto) 0.2 % Baso % (Auto) 0.3 % Neut # (Auto) 7.19 H (1.40-6.50) K/uL Lymph # (Auto) 2.03 (1.2-3.4) K/uL White # (Auto) 0.30 (0.11-0.59) K/uL Eos # (Auto) 0.02 (0-0.50) K/uL Baso # (Auto) 0.03 (0-0.2) K/uL Immature Gran # (Auto) 0.02 (0.01-0.20) K/uL PT 10.4 (9.0-12.0) Seconds INR 0.9 (0.9-1.1) Sodium (136-145) mmol/L Potassium (3.5-5.1) mmol/L Chloride (98-107) mmol/L Carbon Dioxide (21-32) mmol/L Anion Gap (3-11) BUN (6-23) mg/dl Creatinine (0.6-1.2) mg/dl Est Cr Clr Drug Dosing ml/min Est GFR ( Amer) ml/min Est GFR (Non-Af Amer) ml/min BUN/Creatinine Ratio (10-20) Glucose (70-99(Fasting)) mg/dl Lactate (0.4-2.0) mmol/L Calcium (8.6-10.3) mg/dl Total Bilirubin (0.2-1.0) mg/dl AST (13-39) U/L ALT (7-52) U/L Alkaline Phosphatase (34-104) U/L Troponin I High Sens (0-14) pg/ml Total Protein (6.0-8.3) gm/dl Albumin (3.4-5.0) gm/dl Globulin (2.5-4.0) gm/dl Albumin/Globulin Ratio (0.9-2) Lipase (11-82) U/L Urine Color Urine Appearance (Clear) Urine pH (4.5-7.5) Ur Specific [place] (1.000-1.030) Urine Protein (Negative) Urine Glucose (UA) (Negative) Urine Ketones (Negative) Urine Blood (Negative) Urine Nitrite (Negative) Urine Bilirubin (Negative) Urine Urobilinogen (Negative) Ur Leukocyte Esterase (Negative) Urine WBC (Auto) (0-5) /hpf Urine RBC (Auto) (0-4) /hpf U Hyaline Cast (Auto) (0-5) /lpf U Epithel Cells (Auto) (0-5) /lpf Urine Bacteria (Auto) (Negative) SARS-CoV-2, RNA, NAAT (NEGATIVE) Diagnostic Findings Abdomen/Pelvis CT 07/21/22 10:[address] WITH IV CONTRAST CT DOSE: 1016.90 mGy.cm HISTORY: Mid abd pain, vomiting, hx sbo TECHNIQUE: Multiaxial CT images of the abdomen and pelvis were performed following the use of intravenous contrast. A dose lowering technique was utilized adhering to the principles of ALARA. COMPARISON STUDY: Abdomen and pelvis CT 07/11/2019. FINDINGS: Groundglass densities within the lungs posteriorly favor dependent change/atelectasis. No pneumoperitoneum. No pneumatosis. No acute fractures identified. There is a tiny hiatus hernia. Dilated fluid-filled loops of proximal to mid small bowel within the left side of the abdomen with a focal transition point within the left mid abdomen on image 208 consistent with a small bowel obstruction. This is likely on the basis of adhesions. There is a moderate size midline epigastric fat-containing hernia, unchanged. The neck of the hernia measures approximately 3.7 cm. There is an additional lower midline ventral hernia containing multiple loops of small bowel. One of these loops is borderline distended measuring up to 2.6 cm. This could represent a secondary site of a developing small bowel obstruction. A 5 mm hypodense lesion within the left hepatic dome. This is technically too small to characterize but favors a cyst. The main portal vein is patent. The gallbladder, pancreas, spleen, and adrenal glands unremarkable. Normal right kidney. Multiple hypodense lesions again noted within the left kidney. These favor cysts. The majority of these hypodense lesions are subcentimeter and therefore technically too small to characterize. No nephrosis. No retroperitoneal lymphadenopathy. Normal caliber abdominal aorta. No pelvic lymphadenopathy or pelvic free fluid. Normal bladder. Prior hysterectomy. The appendix is not identified and reportedly surgically absent. No bowel wall thickening. IMPRESSION: 1. Dilated fluid-filled loops of proximal to mid small bowel with a focal transition point within the left mid abdomen consistent with a bowel obstruction. This is likely on the basis of adhesions. 2. There is a single short segment of a dilated loop of small bowel within the lower ventral hernia. This could represent a secondary site of a developing small bowel obstruction. 3. Groundglass densities within the lungs posteriorly favor dependent change/atelectasis. A pneumonitis is considered less likely but not entirely excluded. 4. Additional findings as described above. ACT 112: Negative or not required by law. Electronically signed by: Akhil Luong M.D. 07/21/2022 12:14 PM Chest X-Ray 07/21/22 21:20 XR chest 1V portable CLINICAL HISTORY: confirm NG tube placement COMPARISON STUDY: Chest radiograph September 06, 2020. Chest CT September 07, 2017. FINDINGS: The tip of the nasogastric tube is within the body of the stomach. Linear left basilar densities favor atelectasis. There is no consolidation to suggest pneumonia. No evidence for pulmonary edema. Cardiomediastinal silhouette is normal. IMPRESSION: 1. Tip of nasogastric tube within the body of the stomach. 2. Left basilar density suggestive of atelectasis. ACT 112: Negative or not required by law. Electronically signed by: Michael Newman M.D. 07/22/2022 7:35 AM KUB X-Ray 07/22/22 08:33 KUB CLINICAL HISTORY: f/u sbo COMPARISON STUDY: CT of the abdomen and pelvis July. FINDINGS: Tip of nasogastric tube is within the gastric antrum. Multiple loops of moderately dilated small bowel measure up to 4.4 cm in caliber. This is similar to prior exam. The findings suggest a persistent small bowel obstruction. Pelvic calcifications represent phleboliths. Linear left basilar opacity favors atelectasis. IMPRESSION: 1. No significant change in small bowel dilatation consistent with a persistent small bowel obstruction. 2. Nasogastric tube in place. ACT 112: Negative or not required by law. Electronically signed by: Michael Newman M.D. 07/22/2022 9:42 AM PG Care Time/CCT Total # of Minutes Spent Total Time Spent with Patient: Total time spent is greater than 50% in coordination of care (as documented) at patient's floor/unit and/or counseling patient: Coding Level of Care Code 66788 SUB INP/OBS CARE MIN Diagnoses Small bowel obstruction K56.609
--- NOTE | 2022-07-22 09:00 | Surgery Progress Note ---
Date of Service July 22, 2022 Assessment & Plan (1) Small bowel obstruction: Plan: Patient here with multiple abdominal surgeries here with recurrent SBO Vital signs and labs are stable Abdomen soft, non distended, tenderness improved from yesterday Continue NGT/NPO/IVF today Awaiting return of bowel function Patient seen/examined with Dr. Zaidi Admission and Anticipated Discharge Date Admission Date: July 21, 2022 Subjective Patient is feeling a little bit better than yesterday, but did have an episode of increased pain this AM in upper abd. No nausea/vomiting today. No flatus or BM since admission. Feels some rumblings. Physical Exam Physical Exam: awake/alert Constitutional: no acute distress Respiratory: normal respiratory effort Gastrointestinal (Abdomen): Inspection/Auscultation: abdomen not distended Percussion/Palpation: + abdomen tender (less tender than yesterday, some discomfort to infraumbilical region) and abdomen soft; no guarding Results & Data Vital Signs (Past 12 Hours) Vital Signs Temp Pulse Resp BP Pulse Ox O2 Del Method 07/22/22 07:42 36.7 C 64 14 106/63 93 Room Air 07/21/22 21:39 36.5 C 57 L 18 107/70 94 Room Air PG Care Time/CCT Total # of Minutes Spent Total Time Spent with Patient: Total time spent is greater than 50% in coordination of care (as documented) at patient's floor/unit and/or counseling patient: Coding Level of Care Code 38954 SUB INP/OBS CARE 125MIN Diagnoses Small bowel obstruction K56.609
[2022-07-22 09:02] LABS: Magnesium 1.8 mg/dl (1.7-2.4)
--- NOTE | 2022-07-22 09:44 | XRay Report ---
KUB CLINICAL HISTORY: f/u sbo COMPARISON STUDY: CT of the abdomen and pelvis July. FINDINGS: Tip of nasogastric tube is within the gastric antrum. Multiple loops of moderately dilated small bowel measure up to 4.4 cm in caliber. This is similar to prior exam. The findings suggest a pe rsistent small bowel obstruction. Pelvic calcifications represent phleboliths. Linear left basilar op acity favors atelectasis. IMPRESSION: 1. No significant change in small bowel dilatation consistent with a persistent small bowel obstructi on. 2. Nasogastric tube in place. ACT 112: Negative or not required by law. Electronically signed by: Michael Newman M.D. 07/22/2022 9:42 AM
[2022-07-22] MEDS ORDERED: MAGNESIUM SULFATE / D5W 1 GM/100 ML BAG IV ONE (10:15)
[2022-07-23] MEDS: HYDROmorphone INJ 0.5 MG/0.5 ML SYR IV PRN ×6 (00:29→20:30)
[2022-07-23] MEDS: LACTATED RINGER'S 1,000 ML IV SCH (03:50)
[2022-07-23] MEDS ORDERED: PANTOprazole 40 MG in SYRINGE 0 ML IV ONE (05:30)
--- NOTE | 2022-07-23 05:32 | Surgery Progress Note ---
Date of Service July 23, 2022 Assessment & Plan (1) Partial small bowel obstruction: Plan: Patient has been admitted on the hospitalist service. She remains afebrile, improving abdominal symptoms and exam. KUB this am shows improvement. HD stable without leukocytosis. We recommend continuing care as follows: Maintain n.p.o. status Continue hydration with intravenous fluids while n.p.o. Continue NG tube to low intermittent suction. Consideration can be given to removing NG tube once patient has some return of bowel function. Upon return of bowel function and removal of NG tube consideration be given to advancing diet beginning with clears. Check a.m. labs when available We will add Protonix for GI prophylaxis Admission and Anticipated Discharge Date Admission Date: July 21, 2022 Supervising Physician Co-Signing Physician Notes I have seen and examined this patienet with the PA this am to help devise this plan and record this record. I agree with this plan. Subjective Is resting comfortably in bed. The patient says since admission she has not passed any flatus and has not had any bowel movements. She does note that since she has had an NG tube inserted she has not had any further nausea and vomiting and her abdominal pain has improved still with some intermittent pains. She denies any lightheadedness or dizziness. No shortness of breath. Physical Exam Gastrointestinal (Abdomen): Bowel sounds are hypoactive. Patient's abdomen is soft, nonrigid, and nondistended. There is no guarding. Pain is noted with palpation which is grea test just to the left of the umbilicus. An NG tube is in place draining dark drainage and has drained approximate 1100 cc since placement yesterday. The drainage is beginning to decrease with minimal drainage overnight. Results & Data Vital Signs (Past 12 Hours) Vital Signs Temp Pulse Resp BP Pulse Ox O2 Del Method 07/22/22 21:59 78 95 Room Air 07/22/22 21:54 37 C 72 16 104/66 93 Room Air Diagnostic Findings KUB this am: IMPRESSION: 1. Nasogastric tube terminates in the distal stomach. 2. Interval improvement in the dilated loops of small bowel. PG Care Time/CCT Total # of Minutes Spent Total Time Spent with Patient: Total time spent is greater than 50% in coordination of care (as documented) at patient's floor/unit and/or counseling patient: Coding Level of Care Code 85627 SUB INP/OBS CARE 03/30MIN Diagnoses Partial small bowel obstruction K56.600
[2022-07-23 06:39] LABS: Basophils # (auto) 0.02 K/uL (0-0.2); Basophils % (auto) 0.3 %; Eosinophils % (auto) 1.4 %; Hematocrit (blood only) 38.6 % (37.0-47.0); Hemoglobin 12.8 g/dl (12.0-16.0); Immature Granulocytes # (auto) 0.01 K/uL (0.01-0.20); Immature Granulocytes % (auto) 0.1 %; Lymphocytes # (auto) 2.28 K/uL (1.2-3.4); Lymphocytes % (auto) 32.5 %; Mean Corpuscular Hemoglobin 29.8 pg (25.0-34.0); Mean Corpuscular Hgb Conc 33.2 g/dL (32.0-36.0); Mean Corpuscular Volume 89.8 fL (80.0-100.0); Mean Platelet Volume 10.8 fL (9.4-12.4); Monocytes # (auto) 0.51 K/uL (0.11-0.59); Monocytes % (auto) 7.3 %; Neutrophils % (auto) 58.4 %; Platelet Count 187 K/uL (130-400); RDW Coefficient of Variation 13.9 % (11.5-14.5); RDW Standard Deviation 45.4 fL (36.4-46.3); White Blood Count 7.02 K/ul (4.8-10.8)
[2022-07-23 06:59] LABS: Albumin Globulin Ratio 1.4 (0.9-2); Albumin Level 3.3 gm/dl (3.4-5.0); BUN Creatinine Ratio 20.9 (10-20); Bilirubin,Total 0.5 mg/dl (0.2-1.0); Calcium 8.4 mg/dl (8.6-10.3); Creatinine Clr Calc Pharmacy 85.1 ml/min; Est GFR (African American) 104.7 ml/min; Est GFR (Non-African American) 90.3 ml/min; Globulin 2.3 gm/dl (2.5-4.0); Magnesium 1.7 mg/dl (1.7-2.4); Potassium 3.7 mmol/L (3.5-5.1); Total Protein 5.6 gm/dl (6.0-8.3)
[2022-07-23] MEDS: KETOROLAC TROMETHAMINE 15 MG/ML VIAL IV PRN (07:49)
--- NOTE | 2022-07-23 08:46 | Hospitalist Progress Note ---
Date of Service July 23, 2022 Assessment & Plan (1) Small bowel obstruction: Plan: In patient w/ extensive abdominal surgical history including abdominal sarocolpopexy ', ex-lap lysis of adhesions, repair of ventral hernia with incidental appendectomy 2008, and history of open repair of ventral hernia x2 with mesh placement in 2009. Last SBO in 2019 managed conservatively +BM in morning prior to presentation, formed then liquid and feeling similar to prior SBO CTAP on admission w/ Dilated fluid-filled loops of proximal to mid small bowel with a focal transition point within the left mid abdomen consistent with a bowel obstruction. This is likely on the basis of adhesions. There is a single short segment of a dilated loop of small bowel within the lower ventral hernia. This could represent a secondary site of a developing small bowel obstruction. Lactic 0.8 Surgery consulted Continue NPO NGT in place Dc toradol IV as does appear could be some blood from NGT. Hgb stable on repeat. PPI BID added for GI proph +slight flatus this morning but no BM. Wanting to hold off eating until more return of bowel function WBC wnl, afebrile Continue IVF but switched to NS + 20 keq and will monitor Mag IV replacement ordered to keep ~2 KUB w/ interval improvement in bowel dilation and will continue to monitor Pain control/antiemetics -- reports improvement in pain w/ adjustment in frequency Ambulation encouraged DVT proph: SCDs, has been ambulating. No evidence for DVT at present. Possible addition of chemoproph tomorrow if moving in right direction/no surgery planned Monitor labs/KUB in AM Plan continued inpatient stay, await further return of bowel function KUB/labs in AM, possible advancement of diet Admission and Anticipated Discharge Date Admission Date: July 21, 2022 Supervising Physician Co-Signing Physician Notes The patient was not seen by me. The chart was reviewed. Case discussed with STACI Osborne. Agree with assessment and plan Subjective Eval this morning, doing alright. Feeling poorly from obstruction but about to jump around as she did pass a little gas. No BM. ABdominal pain about in the same area. Discussed possible trial sips but she prefers to hold off until a little more flatus which is more than reasonable. +nausea but controlled with zofran. No emesis. NGT in place but needing hooked back to suction, darkened drainage. Will monitor KUB/await return of bowel function. No chest pain/shortness of breath. Question/concerns addressed at this time. Physical Exam Physical Exam: General: WD/WN female sitting up in bed, NAD HEENT: NGT to nares, darkened brown/blackish drainage in tubing, not hooked up to suction (RN to hook back up now) head normocepahalic, atraumatic, Resp: CTA, slightly diminished in the bases, no w/c, on room air CV: RRR, no significant m/r/g, no pitting edema/calf tenderness GI: +hypoactive BS, soft, no rigidity, tender to palpation around umbilical region, prior hernia scar healing to midline : no barker MSK/Neuro: no focal deficits, CN intact grossly Psych: AOX3, cooperative with exam Results & Data Results & Data Vital Signs (Past 12 Hours) Vital Signs Temp Pulse Resp BP Pulse Ox O2 Del Method 07/22/22 21:59 78 95 Room Air 07/22/22 21:54 37 C 72 16 104/66 93 Room Air Laboratory Results 07/23/22 07/23/22 Range/Units 05:39 05:39 WBC 7.02 (4.8-10.8) K/ul RBC 4.30 (4.20-5.40) M/uL Hgb 12.8 (12.0-16.0) g/dl Hct 38.6 (37.0-47.0) % MCV 89.8 (80.0-100.0) fL MCH 29.8 (25.0-34.0) pg MCHC 33.2 (32.0-36.0) g/dL RDW Std Deviation 45.4 (36.4-46.3) fL RDW Coeff of Kim 13.9 (11.5-14.5) % Plt Count 187 (130-400) K/uL MPV 10.8 (9.4-12.4) fL Immature Gran % (Auto) 0.1 % Neut % (Auto) 58.4 % Lymph % (Auto) 32.5 % [place] % (Auto) 7.3 % Eos % (Auto) 1.4 % Baso % (Auto) 0.3 % Neut # (Auto) 4.10 (1.40-6.50) K/uL Lymph # (Auto) 2.28 (1.2-3.4) K/uL [place] # (Auto) 0.51 (0.11-0.59) K/uL Eos # (Auto) 0.10 (0-0.50) K/uL Baso # (Auto) 0.02 (0-0.2) K/uL Immature Gran # (Auto) 0.01 (0.01-0.20) K/uL Sodium 140 (136-145) mmol/L Potassium 3.7 (3.5-5.1) mmol/L Chloride 105 (98-107) mmol/L Carbon Dioxide 31 (21-32) mmol/L Anion Gap 4 (3-11) BUN 14 (6-23) mg/dl Creatinine 0.67 (0.6-1.2) mg/dl Est Cr Clr Drug Dosing 85.1 ml/min Est GFR ( Amer) 104.7 ml/min Est GFR (Non-Af Amer) 90.3 ml/min BUN/Creatinine Ratio 20.9 H (10-20) Glucose 80 (70-99(Fasting)) mg/dl Calcium 8.4 L (8.6-10.3) mg/dl Magnesium 1.7 (1.7-2.4) mg/dl Total Bilirubin 0.5 (0.2-1.0) mg/dl AST 11 L (13-39) U/L ALT 6 L (7-52) U/L Alkaline Phosphatase 53 (34-104) U/L Total Protein 5.6 L (6.0-8.3) gm/dl Albumin 3.3 L (3.4-5.0) gm/dl Globulin 2.3 L (2.5-4.0) gm/dl Albumin/Globulin Ratio 1.4 (0.9-2) Diagnostic Findings KUB X-Ray 07/23/22 06:00 KUB HISTORY: Small bowel obstruction. Follow-up. COMPARISON: KUB 07/22/2022. FINDINGS: A nasogastric tube terminates in the distal stomach. Dilated loops of small bowel have improved in the interval. No renal calculi. No ureteral calculi. Calcifications in the deep pelvis likely represent phleboliths. No pneumoperitoneum or pneumatosis. IMPRESSION: 1. Nasogastric tube terminates in the distal stomach. 2. Interval improvement in the dilated loops of small bowel. ACT 112: Negative or not required by law. Electronically signed by: Akhil Luong M.D. 07/23/2022 9:40 AM PG Care Time/CCT Total # of Minutes Spent Total Time Spent with Patient: Total time spent is greater than 50% in coordination of care (as documented) at patient's floor/unit and/or counseling patient: Coding Level of Care Code 05528 SUB INP/OBS CARE 2/35MIN Diagnoses Small bowel obstruction K56.609
[2022-07-23] MEDS: NSS + 20MEQ KCL 20 MEQ/1,000 ML BAG IV SCH ×2 (09:27→19:23)
[2022-07-23] MEDS: MAGNESIUM SULFATE / D5W 1 GM/100 ML BAG IV SCH ×2 (09:28→11:20)
--- NOTE | 2022-07-23 09:41 | XRay Report ---
KUB HISTORY: Small bowel obstruction. Follow-up. COMPARISON: KUB 07/22/2022. FINDINGS: A nasogastric tube terminates in the distal stomach. Dilated loops of small bowel have impr lillian in the interval. No renal calculi. No ureteral calculi. Calcifications in the deep pelvis likel y represent phleboliths. No pneumoperitoneum or pneumatosis. IMPRESSION: 1. Nasogastric tube terminates in the distal stomach. 2. Interval improvement in the dilated loops of small bowel. ACT 112: Negative or not required by law. Electronically signed by: Akhil Luong M.D. 07/23/2022 9:40 AM
[2022-07-23] MEDS: PANTOprazole 40 MG in SYRINGE 0 ML IV SCH ×2 (11:20→19:24)
[2022-07-23] MEDS: ONDANSETRON INJ 2 MG/ML 2 ML VIAL IV PRN (20:36)
[2022-07-24] MEDS: ONDANSETRON INJ 2 MG/ML 2 ML VIAL IV PRN (02:07)
[2022-07-24] MEDS: HYDROmorphone INJ 0.5 MG/0.5 ML SYR IV PRN (02:07)
[2022-07-24] MEDS: NSS + 20MEQ KCL 20 MEQ/1,000 ML BAG IV SCH ×2 (05:18→15:39)
--- NOTE | 2022-07-24 06:16 | Surgery Progress Note ---
Date of Service July 24, 2022 Assessment & Plan (1) Partial small bowel obstruction: Plan: Patient has been admitted on the hospitalist service. She remains HD stable without leukocytosis and is afebrile. Slight improvement in abdominal exam. Slowly improving. No changes recommended to care at this time. Continue care as follows: Maintain n.p.o. status with NG tube to suction. Would continue this modality until patient has further improvement of her abdominal exam and further improvement of bowel function. Continue hydration with intravenous fluids while n.p.o. Continue analgesics as needed A KUB has been ordered by the medical service we will check the results of this when available Continue Protonix for GI prophylaxis Continue to encourage ambulation Admission and Anticipated Discharge Date Admission Date: July 21, 2022 Supervising Physician Co-Signing Physician Notes I have seen and examined this patient with the surgical PA. I agree with the plan. Subjective Patient is resting comfortably in bed and notes that she had a good night. She notes that overall she feels better with improvement of her abdominal pain. She admits to a small amount of nausea She says she started passing a small amount of flatus yesterday but none yet today and has not had a bowel movement. She says she has ambulated in the hallway yesterday. Physical Exam Gastrointestinal (Abdomen): Abdomen is soft, nonrigid, and nondistended. Bowel sounds are present. Pain is noted with palpation to the left of the umbilicus but this appears to be decreased from yesterday's exam. NGT remains present. Nurses apparently irrigated the tube which is now clear in the tubing. Dark drainage in the canister that has not been changed and reveals minimal additional output. Results & Data Vital Signs (Past 12 Hours) Vital Signs Temp Pulse Resp BP Pulse Ox Pulse Ox O2 Del Method 07/23/22 19:20 Room Air 07/23/22 19:20 94 07/23/22 20:11 36.7 C 77 18 122/73 94 Room Air O2 Del Method 07/23/22 19:20 07/23/22 19:20 Room Air 07/23/22 20:11 PG Care Time/CCT Total # of Minutes Spent Total Time Spent with Patient: Total time spent is greater than 50% in coordination of care (as documented) at patient's floor/unit and/or counseling patient: C[place] [address] SUB INP/OBS CARE 03/30MIN Patient Type Established History Problem Focused Exam Problem Focused Medical Decision Making Straight Forward Diagnoses Partial small bowel obstruction K56.600
[2022-07-24 06:33] LABS: Basophils # (auto) 0.02 K/uL (0-0.2); Basophils % (auto) 0.3 %; Eosinophils # (auto) 0.09 K/uL (0-0.50); Eosinophils % (auto) 1.2 %; Hematocrit (blood only) 37.8 % (37.0-47.0); Hemoglobin 12.4 g/dl (12.0-16.0); Immature Granulocytes # (auto) 0.02 K/uL (0.01-0.20); Immature Granulocytes % (auto) 0.3 %; Lymphocytes # (auto) 2.09 K/uL (1.2-3.4); Lymphocytes % (auto) 27.6 %; Mean Corpuscular Hemoglobin 29.9 pg (25.0-34.0); Mean Corpuscular Hgb Conc 32.8 g/dL (32.0-36.0); Mean Corpuscular Volume 91.1 fL (80.0-100.0); Mean Platelet Volume 10.8 fL (9.4-12.4); Monocytes # (auto) 0.45 K/uL (0.11-0.59); Neutrophils # (auto) 4.89 K/uL (1.40-6.50); Neutrophils % (auto) 64.6 %; Platelet Count 180 K/uL (130-400); RDW Coefficient of Variation 13.6 % (11.5-14.5); RDW Standard Deviation 45.8 fL (36.4-46.3); Red Blood Count 4.15 M/uL (4.20-5.40); White Blood Count 7.56 K/ul (4.8-10.8)
[2022-07-24 06:54] LABS: Albumin Globulin Ratio 1.4 (0.9-2); Albumin Level 3.3 gm/dl (3.4-5.0); BUN Creatinine Ratio 19.7 (10-20); Bilirubin,Total 0.4 mg/dl (0.2-1.0); Calcium 8.3 mg/dl (8.6-10.3); Creatinine Clr Calc Pharmacy 86.3 ml/min; Est GFR (African American) 105.2 ml/min; Est GFR (Non-African American) 90.8 ml/min; Globulin 2.3 gm/dl (2.5-4.0); Magnesium 1.7 mg/dl (1.7-2.4); Potassium 4.2 mmol/L (3.5-5.1); Total Protein 5.6 gm/dl (6.0-8.3)
--- NOTE | 2022-07-24 08:04 | Hospitalist Progress Note ---
Date of Service July 24, 2022 Assessment & Plan (1) Small bowel obstruction: Plan: In patient w/ extensive abdominal surgical history including abdominal sarocolpopexy ', ex-lap lysis of adhesions, repair of ventral hernia with incidental appendectomy 2008, and history of open repair of ventral hernia x2 with mesh placement in 2009. Last SBO in 2019 managed conservatively +BM in morning prior to presentation, formed then liquid and feeling similar to prior SBO CTAP on admission w/ Dilated fluid-filled loops of proximal to mid small bowel with a focal transition point within the left mid abdomen consistent with a bowel obstruction. This is likely on the basis of adhesions. There is a single short segment of a dilated loop of small bowel within the lower ventral hernia. This could represent a secondary site of a developing small bowel obstruction. Lactic 0.8 Surgery consulted NPO NGT in place -- darkened drainage 07/23 in cannister, PPI BID added for GI proph (hgb stable) and cleared in tubing at present Toradol discontinued Switched to NS +20K 07/23 and will continue. IV mag to keep closer to 2. +flatus, improvement in BS, less pain KUB w/ nonobstructive pattern today, moderate stool noted within large bowel Pain control/antiemetics prn -- she is limiting pain use and reports improvement in such. Ambulation encouraged Will allow sips/ice chips for now trial, messaged general surgery about possible clear liquid diet but will hold off for now until response to prevent worsening issue given extensive surgical history DVT proph: SCDs, has been ambulating. No evidence for DVT at present. Possible addition of chemoproph tomorrow if moving in right direction/no surgery planned Monitor KUB/exam/labs on repeat Plan continued inpatient stay, sips/chips and will see about possible clear liquid diet later today vs in AM Admission and Anticipated Discharge Date Admission Date: July 21, 2022 Supervising Physician Co-Signing Physician Notes The patient was not seen by me. The chart was reviewed. Case discussed with STACI Osborne. Agree with assessment and plan Subjective eval this morning, KUB improved. passing gas. Labs stable. Got something for pain overnight but no further nausea. NGT no further darkened drainage and will continue PPI BID. will trial some sips of water/if tolerating could consider some clear liquid diet but will confirm with surgery prior to ordering such. will keep NGT in palce questions/concerns addressed at this time Physical Exam Physical Exam: General: WD/WN female sitting up in bed, NAD HEENT: NGT to nares, darkened drainage in canister (not changed) but clear in the tubing, head normocephalic, atraumatic, Resp: CTA, slightly diminished in the bases, no w/c, on room air CV: RRR, no significant m/r/g, no pitting edema/calf tenderness GI: +hypoactive BS (slightly improved to right abdomen, still slightly hypoactive to L side), decreased tenderness to palpation, abdomen soft, no rigidity/guarding : no barker MSK/Neuro: no focal deficits, CN intact grossly Psych: AOX3, cooperative with exam Results & Data Results & Data Vital Signs (Past 12 Hours) Vital Signs Temp Pulse Resp BP Pulse Ox O2 Del Method 07/24/22 07:53 36.7 C 80 16 122/69 92 Room Air 07/23/22 20:11 36.7 C 77 18 122/73 94 Room Air Laboratory Results 07/24/22 07/24/22 Range/Units 05:41 05:41 WBC 7.56 (4.8-10.8) K/ul RBC 4.15 L (4.20-5.40) M/uL Hgb 12.4 (12.0-16.0) g/dl Hct 37.8 (37.0-47.0) % MCV 91.1 (80.0-100.0) fL MCH 29.9 (25.0-34.0) pg MCHC 32.8 (32.0-36.0) g/dL RDW Std Deviation 45.8 (36.4-46.3) fL RDW Coeff of Kim 13.6 (11.5-14.5) % Plt Count 180 (130-400) K/uL MPV 10.8 (9.4-12.4) fL Immature Gran % (Auto) 0.3 % Neut % (Auto) 64.6 % Lymph % (Auto) 27.6 % [place] % (Auto) 6.0 % Eos % (Auto) 1.2 % Baso % (Auto) 0.3 % Neut # (Auto) 4.89 (1.40-6.50) K/uL Lymph # (Auto) 2.09 (1.2-3.4) K/uL [place] # (Auto) 0.45 (0.11-0.59) K/uL Eos # (Auto) 0.09 (0-0.50) K/uL Baso # (Auto) 0.02 (0-0.2) K/uL Immature Gran # (Auto) 0.02 (0.01-0.20) K/uL Sodium 140 (136-145) mmol/L Potassium 4.2 (3.5-5.1) mmol/L Chloride 108 H (98-107) mmol/L Carbon Dioxide 21 (21-32) mmol/L Anion Gap 11 (3-11) BUN 13 (6-23) mg/dl Creatinine 0.66 (0.6-1.2) mg/dl Est Cr Clr Drug Dosing 86.3 ml/min Est GFR ( Amer) 105.2 ml/min Est GFR (Non-Af Amer) 90.8 ml/min BUN/Creatinine Ratio 19.7 (10-20) Glucose 59 L (70-99(Fasting)) mg/dl Calcium 8.3 L (8.6-10.3) mg/dl Magnesium 1.7 (1.7-2.4) mg/dl Total Bilirubin 0.4 (0.2-1.0) mg/dl AST 12 L (13-39) U/L ALT 6 L (7-52) U/L Alkaline Phosphatase 56 (34-104) U/L Total Protein 5.6 L (6.0-8.3) gm/dl Albumin 3.3 L (3.4-5.0) gm/dl Globulin 2.3 L (2.5-4.0) gm/dl Albumin/Globulin Ratio 1.4 (0.9-2) Diagnostic Findings KUB X-Ray 07/24/22 07:00 XR KUB/Abdomen 1 view CLINICAL HISTORY: f/u SBO TECHNIQUE: 1 view of the abdomen was obtained. Comparison: None available at the time of this dictation. FINDINGS: Enteric tube is in satisfactory position. Degenerative changes are seen in the visualized skeleton. The bowel gas pattern is nonobstructive. A moderate amount of stool is noted within the large bowel. IMPRESSION: Nonobstructive bowel gas pattern. Satisfactory position of enteric tube. ACT 112: Negative or not required by law. Electronically signed by: Hubert Rachel M.D. 07/24/2022 10:37 AM PG Care Time/CCT Total # of Minutes Spent Total Time Spent with Patient: Total time spent is greater than 50% in coordination of care (as documented) at patient's floor/unit and/or counseling patient: Coding Level of Care Code 28044 SUB INP/OBS CARE 2/35MIN Diagnoses Small bowel obstruction K56.609
[2022-07-24] MEDS: MAGNESIUM SULFATE / D5W 1 GM/100 ML BAG IV SCH ×2 (08:34→10:36)
[2022-07-24] MEDS: PANTOprazole 40 MG in SYRINGE 0 ML IV SCH ×2 (10:14→20:49)
--- NOTE | 2022-07-24 10:38 | XRay Report ---
XR KUB/Abdomen 1 view CLINICAL HISTORY: f/u SBO TECHNIQUE: 1 view of the abdomen was obtained. Comparison: None available at the time of this dictation. FINDINGS: Enteric tube is in satisfactory position. Degenerative changes are seen in the visualized skeleton. T he bowel gas pattern is nonobstructive. A moderate amount of stool is noted within the large bowel. IMPRESSION: Nonobstructive bowel gas pattern. Satisfactory position of enteric tube. ACT 112: Negative or not required by law. Electronically signed by: Hubert Rachel M.D. 07/24/2022 10:37 AM
[2022-07-24] MEDS: ACETAMINOPHEN 1,000 MG/100 ML VIAL IV PRN (12:20)
[2022-07-24] MEDS ORDERED: ACETAMINOPHEN 1,000 MG/100 ML VIAL IV PRN (14:27)
[2022-07-24] MEDS ORDERED: CHLORASEPTIC 1.4% SOLN 180 ML BTL MT PRN (20:33)
[2022-07-25] MEDS: NSS + 20MEQ KCL 20 MEQ/1,000 ML BAG IV SCH ×2 (01:21→12:56)
[2022-07-25 06:21] LABS: Hematocrit (blood only) 39.7 % (37.0-47.0); Hemoglobin 13.4 g/dl (12.0-16.0); Mean Corpuscular Hemoglobin 29.5 pg (25.0-34.0); Mean Corpuscular Hgb Conc 33.8 g/dL (32.0-36.0); Mean Corpuscular Volume 87.4 fL (80.0-100.0); Mean Platelet Volume 10.7 fL (9.4-12.4); Platelet Count 192 K/uL (130-400); RDW Coefficient of Variation 13.4 % (11.5-14.5); RDW Standard Deviation 43.3 fL (36.4-46.3); Red Blood Count 4.54 M/uL (4.20-5.40); White Blood Count 7.12 K/ul (4.8-10.8)
[2022-07-25 06:32] LABS: BUN Creatinine Ratio 11.1 (10-20); Calcium 8.9 mg/dl (8.6-10.3); Creatinine Clr Calc Pharmacy 90.5 ml/min; Est GFR (African American) 106.8 ml/min; Est GFR (Non-African American) 92.2 ml/min; Magnesium 1.7 mg/dl (1.7-2.4); Potassium 4.4 mmol/L (3.5-5.1)
[2022-07-25] MEDS: PANTOprazole 40 MG in SYRINGE 0 ML IV SCH (08:14)
--- NOTE | 2022-07-25 08:26 | Surgery Progress Note ---
Date of Service July 25, 2022 Assessment & Plan (1) Bowel obstruction: Plan: Patient reports feeling improvement in pain She is passing flatus. Denies nausea/vomiting Abdomen soft, non distended and much less tender on exam NGT output 350cc documented over last 12 hours, also has been taking in ice KUB yesterday showed non obstructive bowel gas pattern Will try fleets enema for stool burden D/c NGT and start clear liquids If has a BM can consider further adv to low fiber and possible dispo later today Pt seen/examined with Dr. Zaidi Admission and Anticipated Discharge Date Admission Date: July 21, 2022 Supervising Physician Co-Signing Physician Notes as per Speedy Watters abd neg start liquids fleets if tolerates diet and has bm can be d/c today stay on low fiber diet Subjective Patient says she is feeling better. Abdominal pain much improved. She is passing flatus. No BMs. No nausea/vomiting. Feeling thirsty, has been taking in ice chips. Physical Exam Physical Exam: awake/alert, no distress Respiratory: normal respiratory effort Gastrointestinal (Abdomen): Inspection/Auscultation: abdomen not distended Percussion/Palpation: + abdomen tender (improved lower midline discomfort to palpation) and abdomen soft NGT with brown output Results & Data Vital Signs (Past 12 Hours) Vital Signs Temp Pulse Resp BP Pulse Ox Pulse Ox O2 Del Method 07/25/22 07:50 36.7 C 71 16 144/81 H 94 Room Air 07/24/22 20:49 Room Air 07/24/22 20:49 95 07/24/22 21:22 36.6 C 76 18 128/76 95 Room Air O2 Del Method 07/25/22 07:50 07/24/22 20:49 07/24/22 20:49 Room Air 07/24/22 21:22 PG Care Time/CCT Total # of Minutes Spent Total Time Spent with Patient: Total time spent is greater than 50% in coordination of care (as documented) at patient's floor/unit and/or counseling patient: Coding Level of Care Code 87078 SUB INP/OBS CARE 03/30MIN Diagnoses Bowel obstruction K56.600 Intestinal obstruction extent: partial Intestinal obstruction type: unspecified (1) Bowel obstruction Intestinal obstruction extent: partial Intestinal obstruction type: unspecified Qualified Code(s): K56.600 - Partial intestinal obstruction, unspecified as to cause
[2022-07-25] MEDS ORDERED: SOD PHOSPHATE/SOD BIPHOSPHATE ENEMA 132 ML BTL PR STA (08:43)
--- NOTE | 2022-07-25 14:49 | XRay Report ---
XR KUB/Abdomen 1 view CLINICAL HISTORY: f/u SBO TECHNIQUE: 1 view of the abdomen was obtained. Comparison: Comparison is made to abdomen radiograph 07/24/2022 FINDINGS: Enteric tube tip and side-port lie below the diaphragm. Degenerative changes are seen in the visualiz ed skeleton. A paucity of small bowel gas is seen. Small stool burden is seen. IMPRESSION: No evidence of small bowel obstruction with a paucity of small bowel gas noted. Satisfactory position of enteric tube. ACT 112: Negative or not required by law. Electronically signed by: Hubert Rachel M.D. 07/25/2022 2:48 PM
--- NOTE | 2022-07-25 15:00 | Discharge Summary ---
Date of Service July 25, 2022 Admission HPI Per Admitting Provider Mer is a 66 year old female with a PMH significant for multiple intra- abdominal surgeries and multiple episodes of SBO with one requiring exploratory surgery/lysis of adhesions/hernia repair with mesh (Dr Zaidi - 2008) who presented to the [facility] ED on 07/21 with sudden onset of abd pain, nausea, vomiting. In the ED vitals were noted to be stable. Labs were significant for a hemo-concentrated CBC, lipase of 9, negative UA, and covid [address] of the abd/pelvis w/IV con was read as 1. Dilated fluid-filled loops of proximal to mid small bowel with a focal transition point within the left mid abdomen consistent with a bowel obstruction. This is likely on the basis of adhesions. 2. There is a single short segment of a dilated loop of small bowel within the lower ventral hernia. This could represent a secondary site of a developing small bowel obstruction.3. Groundglass densities within the lungs posteriorly favor dependent change/atelectasis. A pneumonitis is considered less likely but not entirely excluded.. Prior to admission the patient was given 100 total mcg IV fentanyl, 4 mg IV Zofran, and 1L NSS. At the time of the exam the patient was sitting in bed in no acute distress, recently placed NG Tube is currently draining. She states that she was in her normal state of health when she woke up around 0430 am with acute onset of middle-lower abdominal pain. The patient was sharp/stabbing and a 10/10. She had associated nausea with bilious vomiting. She did have a bowel movement around 0500 today which was initially solid then runny, she denies any blood or melena. She has had multiple SBO's in the past and this feels similar to her previous episodes. She only takes a probiotic, otherwise no other mediations. Denies recent fever, chills, chest pain, SOB, aspiration, dysuria hematuria, LE swelling and recent trauma. She is a full code and would want her and daughter to make medical decisions for her if she could not make them herself. Please refer to Dr. Bang's attestation for any changes to the treatment plan Principal Diagnosis bowel obstruction Discharge Exam Constitutional WD/WN, vitals as above Neck trachea midline, no thyromegaly Respiratory normal respiratory effort, lungs clear to auscultation Cardiovascular RRR, no murmur, no edema Rate/Rhythm: regular rate and regular rhythm Extremities: normal capillary refill; no calf tenderness and no edema Gastrointestinal (Abdomen) normal bowel sounds, soft, nontender, no hepatosplenomegaly Skin no rashes, warm and dry Psychiatric A+Ox3, euthymic affect Discharge Data Allergies Allergy/AdvReac Type Severity Reaction Status Date / Time codeine AdvReac Severe NAUSEA & Verified 07/21/22 11:38 headache Consultations 07/21/22 13:54 Consult General Surgery Routine 07/21/22 14:12 ED Decision to Admit Stat Ordered Studies 07/21/22 10:32 CT abd pelvis IV con only Stat Hospital Course (1) Small bowel obstruction: In patient w/ extensive abdominal surgical history including abdominal sarocolpopexy , ex-lap lysis of adhesions, repair of ventral hernia with incidental appendectomy 2008, and history of open repair of ventral hernia x2 with mesh placement in 2009. Last SBO in 2019 managed conservatively CTAP on admission w/ Dilated fluid-filled loops of proximal to mid small bowel with a focal transition point within the left mid abdomen consistent with a bowel obstruction. This is likely on the basis of adhesions. There is a single short segment of a dilated loop of small bowel within the lower ventral hernia. This could represent a secondary site of a developing small bowel obstruction. Lactic 0.8 Surgery consulted Initaially was NPO and NGT to LIS, then today advanced to clears, with a fleets enema then a BM and advanced diet to low fiber diet and tolerating Plan D/C to home Total Time Total Time Spent Total Time Spent (In Minutes): 40 Discharge Plan Discharge Items Patient Disposition: Home - Self-Care Reason For Visit: ABD PAIN Discharge Diagnosis: bowel obstruction - resolved Condition on Discharge: Good Activity: Resume your previous activity Lifting: Gradually increase as tolerated Bathing: No limitations Exercise/Sports: Gradually increase as tolerated Driving/Machine Use: Resume 1 day after discharge Weightbearing: Full weightbearing Non-emergency contact: Primary Care Provider Call non-emergency contact if: you have any medication questions, your symptoms worsen and your temperature is above 101 Follow-up/Referrals: Fatemeh Perry CRNP [Primary Care Provider] - Diet: Low Fiber Addtl Attending Provider Instructions: You were admitted with abdominal pain and found to have a bowel obstruction. You were treated conservatively with bowel rest and a Nasogastric tube to suction to clear the stomach. You then were advanced to clear liquid diet and had an enema produce a bowel movment and advanced diet to a low fiber diet that was tolerated and the abdominal pain also resolved. You should follow a low fiber diet, stay active and drink plenty of water. Follow up with your family physician in 1-2 weeks. Pending Studies at Discharge: No Stand-Alone Forms: My [facility] Medications and DC Order Prescriptions: Continued Probiotic 3 billion cell Capsule 3,000 mmu cells PO DAILY Rx Instructions: administer with a meal Discharge Orders: Discharge Order (Routine); Ordered 07/25/22 Ordered By: Anjali Kaiser/Other Patient Handouts: Small Bowel Obstruction Admission Data Admit Date/Time: 07/21/22 13:53 Attending Provider: Flash Clifton Admit Provider: Lawrence Bang Primary Care Provider: Fatemeh Perry Other Providers: Lawrence Bang ; Shaji Zaidi Coding Level of Care Code 60576 INP/OBS DISCH >30 MIN Diagnoses Small bowel obstruction K56.609
== END 2022-07-25 16:03 | disposition home or self-care (01) | DRG 390 ==
LOC: ED 10:21 → SUATTDRO 13:53 → 3N 13:53

== ENCOUNTER 2022-10-31 03:39 | Inpatient (IN) ==
[2022-10-31] MEDS ORDERED: MoRPHine SULFATE 4 MG/ML 1 ML CARP\\VIAL IV STA (03:48)
[2022-10-31] MEDS ORDERED: SODIUM CHLORIDE 0.9% 1,000 ML IV STA (03:48)
[2022-10-31] MEDS ORDERED: ONDANSETRON INJ 2 MG/ML 2 ML VIAL IV STA ×2 (03:48→06:13)
[2022-10-31] MEDS ORDERED: HYDROmorphone INJ 0.5 MG/0.5 ML SYR IV STA ×2 (04:01→05:23)
[2022-10-31] MEDS ORDERED: HYDROmorphone INJ 0.5 MG/0.5 ML SYR ONE (04:03)
--- NOTE | 2022-10-31 04:05 | Emergency Department Note ---
Impression & Plan SBO (small bowel obstruction) ED Provider Note CHIEF COMPLAINT: Abdominal pain HISTORY OF PRESENT ILLNESS: This 66-year-old patient with history of recurrent small bowel obstruction, status postcholecystectomy and appendectomy, ventral hernia repair presents to the emergency department with complaints of epigastric abdominal pain after eating a candy apple with nuts on it. Patient states this has happened to her in the past with nut ingestion. She did vomit x1 prior to arrival. The patient denies any difficulty with a BM which she had x2 prior to arrival. She denies any blood in the emesis or stools. REVIEW OF SYSTEMS: A review of systems was performed with positives and pertin ent negatives listed in the history of present illness. 10 systems were reviewed and are otherwise negative. ALLERGIES: see below MEDICATIONS: see below PMH: see below SOCIAL HISTORY: see below DDx: Small bowel obstruction, ileus, pancreatitis, peptic ulcer disease, GERD, viral illness among others PHYSICAL EXAM: Vital signs reviewed. Noted to be hypertensive General: Well-appearing 66 yo female, in some discomfort HEENT: No scleral icterus, PERRLA, neck supple. MMM. Cardiovascular: Regular rate and rhythm, no extra sounds. Pulmonary: Clear to auscultation bilaterally, normal work of breathing. Abdomen: Soft, minimally distended, + tympany to percussion, mild discomfort to palpation, decreased bowel sounds. Reducible ventral hernia in the lower right abdomen. Musculoskeletal: Atraumatic, no peripheral edema. Neurologic: Patient awake alert and oriented x 3, speech is clear Skin: Warm, dry, no rash EMERGENCY DEPARTMENT COURSE/MDM: This patient was evaluated and appeared to be in no significant distress. IV access was obtained and laboratory work was drawn. The patient was placed on the cardiac rehabilitation program director and noted to be in a normal sinus rhythm. She was hydrated with normal saline solution, given IV Dilaudid and Zofran for her discomfort. Abdominal KUB was performed and reveals evidence of dilated loops of bowel concerning for SBO. Follow-up CT imaging was performed and there was a delay in obtaining a read from stat rad. To my review there is evidence of small bowel obstruction which was discussed with general surgery, Dr. Ramírez. Surgery will see the patient this morning. On my exam the lower ventral hernia was easily reduced and nontender. I do not think this is the source of the obstruction. Patient received second dose of IV Dilaudid for her continued discomfort. The patient has not had any vomiting since arrival in the emergency department, she did vomit once prior to arrival. NG tube will be deferred to surgery consultation this morning. Dr. Ramírez was aware. The medicine service was consulted for admission and further management, still pending CT read which was expected in short interval will sedate radiologist due shortly. MONITORING: An order for cardiac monitoring was placed and the patient is noted to be in a NSR at 88 beats per minute. RADS: KUB to my interpretation reveals dilated loop of bowels, concerning for SBO. Please refer to radiology otherwise. Chest x-ray to my interpretation reveals no evidence of focal lung consolidation or failure. Otherwise defer to radiology. CT imaging of the abdomen and pelvis to my interpretation reveals evidence of small bowel obstruction. There is a ventral hernia in the lower abdomen with bowel loops but no clear obstruction. Otherwise defer to radiology. DISPOSITION: Admission Past Med/Surg History Medical History Abdominal adhesions Bowel obstruction x3. most recent in 2019. Partial small bowel obstruction Sciatica Surgical History H/O ventral hernia repair open History of colonoscopy Hx of cholecystectomy Hx of pelvic surgery anterior and posterior repair S/P appendectomy S/P laparotomy removal of adhesions S/P CHERYL-BSO Family History Father , age 69 - complications from surgery Myocardial infarction Mother , age 72 Cervical cancer Diabetes Other No family history of adverse response to anesthesia Social History Smoking Status: Never smoker Second Hand Exposure: No; Do You Dip or Chew Tobacco: No; Tobacco Cessation Education Requested by Patient: No Hx Alcohol Use: No Hx Substance Use: No Preferred Language: Kinyarwanda Communication Ability: Effective Firesetter Required: No Beliefs That Will Affect Care: None marital status: marital status details: 2 children Current Living Situation: Spouse Current Living Situation Comment: lives in [place] on farm current occupational status: retired current occupation: worked at [employer] How many Children do You have: 2 Other Information That Helps Us Care for You: No Feels Safe at Home: Yes Safety Concerns: Feels Safe At This Time Assistive Devices: None Allergies Allergies Allergy/AdvReac Type Severity Reaction Status Date / Time codeine AdvReac Severe NAUSEA & Verified 10/31/22 14:03 headache Home Meds Home Medications Medication Instructions Recorded Confirmed lactobacillus combination no.4 3 3,000 mmu cells PO QAM 07/21/22 10/31/22 billion cell capsule (Probiotic) acetaminophen 500 mg tablet 500 mg PO Q6H PRN Pain 10/31/22 10/31/22 ibuprofen 100 mg tablet 200 mg PO Q6H PRN Pain 10/31/22 10/31/22 Results & Data (ED) Vital Signs Vital Signs - 24 hr 10/31/22 03:41 10/31/22 04:07 10/31/22 05:31 Temperature 36.8 C Temperature Source Oral Pulse Rate 88 Pulse Rate [Finger] 71 Respiratory Rate 20 18 Respiratory Depth Normal Blood Pressure 169/107 H Blood Pressure [Right Arm] 129/75 Blood Pressure Mean 127 Blood Pressure Mean [Right Arm] 93 Pulse Oximetry 96 93 Oxygen Delivery Method Room Air Room Air Sepsis Recent Fever Within 48 Hours No Sepsis New/Unexplained Change in Mental Status No Sepsis Action Taken by Nursing No Action Required Home Medications Current Medication List: was personally reviewed by me Laboratory Data Attestation: I reviewed the patient's lab results. 10/31/22 04:02 10/31/22 04:02 Lab Results 10/31/22 10/31/22 Range/Units 04:02 04:02 WBC 12.59 H (4.8-10.8) K/ul RBC 5.12 (4.20-5.40) M/uL Hgb 15.9 (12.0-16.0) g/dl Hct 45.9 (37.0-47.0) % MCV 89.6 (80.0-100.0) fL MCH 31.1 (25.0-34.0) pg MCHC 34.6 (32.0-36.0) g/dL RDW Std Deviation 45.1 (36.4-46.3) fL RDW Coeff of Kim 13.7 (11.5-14.5) % Plt Count 287 (130-400) K/uL MPV 9.8 (9.4-12.4) fL Immature Gran % (Auto) 0.3 % Neut % (Auto) 69.4 % Lymph % (Auto) 25.5 % [place] % (Auto) 3.3 % Eos % (Auto) 1.2 % Baso % (Auto) 0.3 % Neut # (Auto) 8.73 H (1.40-6.50) K/uL Lymph # (Auto) 3.21 (1.20-3.40) K/uL [place] # (Auto) 0.42 (0.11-0.59) K/uL Eos # (Auto) 0.15 (0.00-0.50) K/uL Baso # (Auto) 0.04 (0.00-0.20) K/uL Immature Gran # (Auto) 0.04 (0.01-0.20) K/uL Sodium 138 (136-145) mmol/L Potassium 4.3 (3.5-5.1) mmol/L Chloride 105 (98-107) mmol/L Carbon Dioxide 25 (21-32) mmol/L Anion Gap 8 (3-11) BUN 16 (6-23) mg/dl Creatinine 0.78 (0.6-1.2) mg/dl Est Cr Clr Drug Dosing 73.2 ml/min Est GFR ( Amer) 90.5 ml/min Est GFR (Non-Af Amer) 78.1 ml/min BUN/Creatinine Ratio 20.5 H (10-20) Glucose 131 H (70-99(Fasting)) mg/dl Calcium 9.4 (8.6-10.3) mg/dl Total Bilirubin 0.4 (0.2-1.0) mg/dl AST 20 (13-39) U/L ALT 12 (7-52) U/L Alkaline Phosphatase 83 (34-104) U/L Troponin I High Sens 4.0 (0-14) pg/ml Total Protein 7.6 (6.0-8.3) gm/dl Albumin 4.4 (3.4-5.0) gm/dl Globulin 3.2 (2.5-4.0) gm/dl Albumin/Globulin Ratio 1.4 (0.9-2) Lipase 16 (11-82) U/L Administered Medications Hydromorphone HCl (Hydromorphone Inj 0.5 Mg/0.5 Ml Syr) 1 mg IV Q3H PRN PRN Reason: Pain (6,7,8,9,10) Stop: 11/14/22 09:18 Last Admin: 10/31/22 17:32 Dose: 1 mg Documented By: MAGALI Hydromorphone HCl (Hydromorphone Inj 0.5 Mg/0.5 Ml Syr) 0.5 mg IV Q3H PRN PRN Reason: Pain (1,2,3,4,5) & Pre PT Stop: 11/14/22 09:18 Last Admin: 10/31/22 14:30 Dose: 0.5 mg Documented By: Admin: 10/31/22 11:31 Dose: 0.5 mg Documented By: MOMO Lactated Ringer's (Lr) 1,000 mls @ 100 mls/hr IV .Q10H [facility] Stop: 11/30/22 09:18 Last Admin: 10/31/22 09:41 Dose: 100 mls/hr Documented By: MOMO Pantoprazole Sodium 40 mg/ (Syringe) 10 mls @ 5 mls/min IV DAILY@1100 [facility] Stop: 11/30/22 15:39 Last Admin: 10/31/22 17:54 Dose: 5 mls/min Documented By: MAGALI Ondansetron HCl (Ondansetron Inj 2 Mg/Ml 2 Ml Vial) 4 mg IV Q6H PRN PRN Reason: Nausea And Vomiting Stop: 11/30/22 09:18 Last Admin: 10/31/22 17:38 Dose: 4 mg Documented By: MAGALI Discontinued Medications Hydromorphone HCl (Hydromorphone Inj 0.5 Mg/0.5 Ml Syr) 0.5 mg IV NOW STA Stop: 10/31/22 04:02 Last Admin: 10/31/22 04:13 Dose: 0.5 mg Documented By: MARK Hydromorphone HCl (Hydromorphone Inj 0.5 Mg/0.5 Ml Syr) Confirm Administered Dose 0.5 mg .ROUTE .STK-MED ONE Stop: 10/31/22 04:04 Last Admin: 10/31/22 04:08 Dose: Not Given Documented By: MARK Hydromorphone HCl (Hydromorphone Inj 0.5 Mg/0.5 Ml Syr) 0.5 mg IV NOW STA Stop: 10/31/22 05:24 Last Admin: 10/31/22 05:28 Dose: 0.5 mg Documented By: MARK Hydromorphone HCl (Hydromorphone Inj 1 Mg/Ml Syringe) 1 mg IV NOW STA Stop: 10/31/22 06:14 Last Admin: 10/31/22 06:20 Dose: 1 mg Documented By: PREMA Sodium Chloride (Nss 1000ml) 1,000 mls @ 999 mls/hr IV .Q1H1M STA Stop: 10/31/22 04:48 Last Infusion: 10/31/22 05:20 Dose: 0 mls/hr Documented By: Admin: 10/31/22 04:14 Dose: 999 mls/hr Documented By: MARK Ioversol (Optiray 320 100ml) 100 ml IV ONCE ONE Stop: 10/31/22 05:13 Last Admin: 10/31/22 05:12 Dose: 90 ml Documented By: LAURA Morphine Sulfate (Morphine Sulfate 4 Mg/Ml 1 Ml Carp\Vial) 4 mg IV NOW STA Stop: 10/31/22 03:49 Last Admin: 10/31/22 04:08 Dose: Not Given Documented By: MARK Ondansetron HCl (Ondansetron Inj 2 Mg/Ml 2 Ml Vial) 4 mg IV NOW STA Stop: 10/31/22 03:49 Last Admin: 10/31/22 04:13 Dose: 4 mg Documented By: MARK Ondansetron HCl (Ondansetron Inj 2 Mg/Ml 2 Ml Vial) 4 mg IV NOW STA Stop: 10/31/22 06:14 Last Admin: 10/31/22 06:20 Dose: 4 mg Documented By: PREMA Imaging Data Radiologist's Impression: KUB X-Ray 10/31/22 03:48 KUB CLINICAL HISTORY: Generalized abdominal pain. Small bowel obstruction. FINDINGS: 2 AP, portable, supine views of the abdomen are compared to study dated 07/25/2022 and correlated with abdominal CT dated 07/21/2022. There is gaseous distention of the proximal small bowel loops which measure up to 4 cm. There is a paucity of distal bowel gas. Findings suggest a small bowel obstruction. No evidence of intraperitoneal free air is seen on these supine images. There are no abnormal abdominal calcifications. Numerous phleboliths are again seen in the pelvis. The skeletal structures are osteopenic and appear intact. Degenerative sclerosis is noted in the pubic symphysis. IMPRESSION: There is evidence of a small bowel obstruction. Electronically signed by: Seamus Branch M.D. 10/31/2022 7:59 AM Discharge Plan Visit Data Chief Complaint: GI Assessment Stated Complaint: POSS BOWEL OBSTRUCTION ED Provider: Tatiana Ramirez Discharge Problem: SBO (small bowel obstruction) Patient Disposition: Admitted As Inpatient Discharge Instructions Interventions: ED Discharge Assessment Last Done: 10/31/22 09:18
[2022-10-31 04:17] LABS: Basophils # (auto) 0.04 K/uL (0.00-0.20); Basophils % (auto) 0.3 %; Eosinophils # (auto) 0.15 K/uL (0.00-0.50); Eosinophils % (auto) 1.2 %; Hematocrit (blood only) 45.9 % (37.0-47.0); Hemoglobin 15.9 g/dl (12.0-16.0); Immature Granulocytes # (auto) 0.04 K/uL (0.01-0.20); Immature Granulocytes % (auto) 0.3 %; Lymphocytes # (auto) 3.21 K/uL (1.20-3.40); Lymphocytes % (auto) 25.5 %; Mean Corpuscular Hemoglobin 31.1 pg (25.0-34.0); Mean Corpuscular Hgb Conc 34.6 g/dL (32.0-36.0); Mean Corpuscular Volume 89.6 fL (80.0-100.0); Mean Platelet Volume 9.8 fL (9.4-12.4); Monocytes # (auto) 0.42 K/uL (0.11-0.59); Monocytes % (auto) 3.3 %; Neutrophils # (auto) 8.73 K/uL (1.40-6.50); Neutrophils % (auto) 69.4 %; Platelet Count 287 K/uL (130-400); RDW Coefficient of Variation 13.7 % (11.5-14.5); RDW Standard Deviation 45.1 fL (36.4-46.3); Red Blood Count 5.12 M/uL (4.20-5.40); White Blood Count 12.59 K/ul (4.8-10.8)
[2022-10-31 04:40] LABS: Albumin Globulin Ratio 1.4 (0.9-2); Albumin Level 4.4 gm/dl (3.4-5.0); BUN Creatinine Ratio 20.5 (10-20); Bilirubin,Total 0.4 mg/dl (0.2-1.0); Calcium 9.4 mg/dl (8.6-10.3); Creatinine Clr Calc Pharmacy 73.2 ml/min; Est GFR (African American) 90.5 ml/min; Est GFR (Non-African American) 78.1 ml/min; Globulin 3.2 gm/dl (2.5-4.0); Potassium 4.3 mmol/L (3.5-5.1); Total Protein 7.6 gm/dl (6.0-8.3)
[2022-10-31] MEDS ORDERED: OPTIRAY 320 100ml IV ONE (05:12)
--- NOTE | 2022-10-31 06:00 | History & Physical Report ---
Date of Service October 31, 2022 Assessment & Plan (1) Small bowel obstruction: Plan: 66yo female with history of prior SBO presenting with acute onset of central abdominal pain, nausea and vomiting. No BM or flatus since last night. Patient reports her current symptoms feel like an SBO which she has had several in the past. -Admit to medical -Maintain NPO -Place NGT to LIWS -Dilaudid PRN pain -Zofran PRN nausea -IVF - LR at 100mL/hr x 2L -General Surgery consultation appreciated F/E/N - LR at 100mL/hr, electrolytes WNL, NPO for no Ppx - Low risk for DVT - SCDs to bilateral LE Code - Full Dispo - Admit to medical History of Present Illness Chief Complaint: abdominal pain Primary Care Provider: SANDRA Olmos Mer Champagne is a pleasant 66yo female with history of prior SBO from adhesions presenting with abdominal pain. Patient ate a caramel apple with almonds on it last night. She has had SBOs triggered by nuts before in the past. Around 10:00 she developed acute central abdominal pain which persisted and got worse through the night. She asked her to bring her to the hospital around 0300 due to ongoing pain. She developed nausea as well with 3 episodes of non-bloody/non-bilious vomiting. No diarrhea. Last normal BM around 23:00. Patient presently with abdominal pain as well as nausea. ER Course: DIlaudid 0.5mg IV x 2 Zofran 4mg IV NSS x 1L Allergies Allergy/AdvReac Type Severity Reaction Status Date / Time codeine AdvReac Severe NAUSEA & Verified 07/21/22 11:38 headache Home Medications Medication Instructions Recorded Confirmed Type lactobacillus combination no.4 3 3,000 mmu cells PO DAILY 07/21/22 07/21/22 History billion cell capsule (Probiotic) Past Med/Surg History Medical History Abdominal adhesions Bowel obstruction x3. most recent in 2019. Partial small bowel obstruction Sciatica Surgical History H/O ventral hernia repair open History of colonoscopy Hx of cholecystectomy Hx of pelvic surgery anterior and posterior repair S/P appendectomy S/P laparotomy removal of adhesions S/P CHERYL-BSO Family History Father , age 69 - complications from surgery Myocardial infarction Mother , age 72 Cervical cancer Diabetes Other No family history of adverse response to anesthesia Social History Smoking Status: Never smoker Second Hand Exposure: No; Do You Dip or Chew Tobacco: No; Hx Alcohol Use: No Hx Substance Use: No Preferred Language: Hungarian Communication Ability: Effective Emergency Medical Technician Basic Required: No Beliefs That Will Affect Care: None marital status: marital status details: 2 children Current Living Situation: Spouse Current Living Situation Comment: lives in [place] on farm current occupational status: retired current occupation: worked at [employer] How many Children do You have: 2 Feels Safe at Home: Yes Assistive Devices: None Review of Systems Review of Systems: All systems reviewed & are unremarkable except as noted in HPI & below Physical Exam Physical Exam: General: patient resting comfortably, NAD, non-toxic in appearance, AA&O x 4 Skin: warm, dry, intact, no rashes or lesions HEENT: NC/AT, PERRL, EOMI, anicteric sclera, conjunctiva without injection, external ear normal to inspection and nontender, nares patent, moist mucus membranes, dentition intact, no oropharyngeal lesions, neck supple, trachea midline, no LAD, no thyromegaly, no JVD Heart: +S1/S2, regular, no m/r/g Lungs: equal air entry bilaterally, no rales/rhonchi/wheezes Abd: Diminished bowel sounds, soft, ND, tender to palpation with no rebound/guarding or peritonitis, no masses/organomegaly/ascites Ext: warm, 2+ pulses in UE/LE bilaterally, no clubbing/cyanosis or edema Neuro: nonfocal, patient AA&O x 4, speech intact, no facial droop, moving all extremities on command with equal strength 5/5 Results & Data Results & Data Vital Signs (Past 12 Hours) Vital Signs Temp Pulse Pulse Resp BP BP Pulse Ox 10/31/22 05:31 71 18 129/75 93 10/31/22 04:07 10/31/22 03:41 36.8 C 88 20 169/107 H 96 O2 Del Method 10/31/22 05:31 10/31/22 04:07 Room Air 10/31/22 03:41 Room Air Laboratory Results Laboratory Results WBC 12.59 K/ul (4.8-10.8) H 10/31/22 04:02 RBC 5.12 M/uL (4.20-5.40) 10/31/22 04:02 Hgb 15.9 g/dl (12.0-16.0) 10/31/22 04:02 Hct 45.9 % (37.0-47.0) 10/31/22 04:02 MCV 89.6 fL (80.0-100.0) 10/31/22 04:02 MCH 31.1 pg (25.0-34.0) 10/31/22 04:02 MCHC 34.6 g/dL (32.0-36.0) 10/31/22 04:02 RDW Std Deviation 45.1 fL (36.4-46.3) 10/31/22 04:02 RDW Coeff of Kim 13.7 % (11.5-14.5) 10/31/22 04:02 Plt Count 287 K/uL (130-400) 10/31/22 04:02 MPV 9.8 fL (9.4-12.4) 10/31/22 04:02 Immature Gran % (Auto) 0.3 % 10/31/22 04:02 Neut % (Auto) 69.4 % 10/31/22 04:02 Lymph % (Auto) 25.5 % 10/31/22 04:02 [place] % (Auto) 3.3 % 10/31/22 04:02 Eos % (Auto) 1.2 % 10/31/22 04:02 Baso % (Auto) 0.3 % 10/31/22 04:02 Neut # (Auto) 8.73 K/uL (1.40-6.50) H 10/31/22 04:02 Lymph # (Auto) 3.21 K/uL (1.20-3.40) 10/31/22 04:02 [place] # (Auto) 0.42 K/uL (0.11-0.59) 10/31/22 04:02 Eos # (Auto) 0.15 K/uL (0.00-0.50) 10/31/22 04:02 Baso # (Auto) 0.04 K/uL (0.00-0.20) 10/31/22 04:02 Immature Gran # (Auto) 0.04 K/uL (0.01-0.20) 10/31/22 04:02 Sodium 138 mmol/L (136-145) 10/31/22 04:02 Potassium 4.3 mmol/L (3.5-5.1) 10/31/22 04:02 Chloride 105 mmol/L (98-107) 10/31/22 04:02 Carbon Dioxide 25 mmol/L (21-32) 10/31/22 04:02 Anion Gap 8 (3-11) 10/31/22 04:02 BUN 16 mg/dl (6-23) 10/31/22 04:02 Creatinine 0.78 mg/dl (0.6-1.2) 10/31/22 04:02 Est Cr Clr Drug Dosing 73.2 ml/min 10/31/22 04:02 Est GFR ( Amer) 90.5 ml/min 10/31/22 04:02 Est GFR (Non-Af Amer) 78.1 ml/min 10/31/22 04:02 BUN/Creatinine Ratio 20.5 (10-20) H 10/31/22 04:02 Glucose 131 mg/dl (70-99(Fasting)) H 10/31/22 04:02 Calcium 9.4 mg/dl (8.6-10.3) 10/31/22 04:02 Total Bilirubin 0.4 mg/dl (0.2-1.0) 10/31/22 04:02 AST 20 U/L (13-39) 10/31/22 04:02 ALT 12 U/L (7-52) 10/31/22 04:02 Alkaline Phosphatase 83 U/L (34-104) 10/31/22 04:02 Troponin I High Sens 4.0 pg/ml (0-14) 10/31/22 04:02 Total Protein 7.6 gm/dl (6.0-8.3) 10/31/22 04:02 Albumin 4.4 gm/dl (3.4-5.0) 10/31/22 04:02 Globulin 3.2 gm/dl (2.5-4.0) 10/31/22 04:02 Albumin/Globulin Ratio 1.4 (0.9-2) 10/31/22 04:02 Lipase 16 U/L (11-82) 10/31/22 04:02 Diagnostic Findings Awaiting formal CT reading PG Care Time/CCT Total # of Minutes Spent Total Time Spent with Patient: Total time spent is greater than 50% in coordination of care (as documented) at patient's floor/unit and/or counseling patient: Coding Level of Care Code 69657 INT INP/OBS CARE 2/55MIN Diagnoses Small bowel obstruction K56.609
[2022-10-31] MEDS ORDERED: HYDROmorphone INJ 1 MG/ML SYRINGE IV STA (06:13)
--- NOTE | 2022-10-31 07:02 | CT Scan Report ---
CT SCAN OF THE ABDOMEN AND PELVIS WITH IV CONTRAST CLINICAL HISTORY: Generalized abdominal pain. COMPARISON STUDY: Abdominal CT dated 07/21/2022. TECHNIQUE: Following the IV administration of 90 cc of Optiray 320, CT scan of the abdomen and pelvi s is performed from the lung bases to the proximal femora. Images are reviewed in the axial, sagittal , and coronal planes. IV contrast was administered without complication. A dose lowering technique wa s utilized adhering to the principles of ALARA. CT DOSE: 1324.51 mGy.cm FINDINGS: Lung bases: The heart is top normal in size and without pericardial effusion. The lung bases are anupam r noting dependent atelectasis. Liver: The contrast-enhanced liver is enlarged, measuring 19.6 cm in length. The liver demonstrates d iffusely diminished attenuation indicating steatosis. There is no intrahepatic biliary ductal dilatat ion. The hepatic veins and portal veins are patent. Gallbladder: Unremarkable. Spleen: Normal in size and attenuation. Scattered subcentimeter splenic hypodensities are unchanged. There is a pathologically indeterminate and statistically of doubtful significance. Pancreas: Unremarkable. Adrenal glands: Unremarkable. Kidneys: The contrast enhanced kidneys are normal in size and without hydronephrosis. The kidneys enh ance symmetrically. Indeterminate cortical hypodensities in the right kidney measuring up to 1.8 cm. Abdominal vasculature: The abdominal aorta is normal in course and caliber noting mild atheroscleroti c calcification. Bowel: The upstream small bowel loops are dilated and fluid-filled measuring up to 3.6 cm in diameter . A complex ventral hernia in the pelvis contains several small bowel loops. The distal small bowel a nd colon are decompressed and findings consistent with a small bowel obstruction. Transition point is not clearly delineated. Although there are mildly distended loops of small bowel within the ventral hernia, this does not definitively represent the site of obstruction. There are mildly thick-walled l oops of small bowel in the left lower quadrant seen on image #210. No pneumatosis intestinalis or por zoraida venous gas is identified. The appendix is not identified and reported surgically absent. Peritoneum: There is evidence of previous ventral hernia repair. No intraperitoneal free air is ident ified. There is trace abdominopelvic ascites. There is a large fat-containing supraumbilical hernia a s seen on image #142. The abdominal wall defect measures up to 3.5 cm. There is also trace fluid in t he hernia sac. A complex ventral hernia in the pelvis contains small bowel loops. Lymphadenopathy: None. Pelvic viscera: The bladder is normal as visualized. The uterus is surgically absent. No adnexal lesi on is seen. There are small bilateral fat-containing groin hernias. Skeletal structures: The skeletal structures are osteopenic. No lytic or blastic lesions are seen. IMPRESSION: 1. Findings consistent with a high-grade small bowel obstruction. The transition point is not clearly delineated. 2. No intraperitoneal free air is seen. No pneumatosis intestinalis or portal venous gas is identifie d. 3. There is interloop fluid as well as trace abdominopelvic ascites. Mildly thick walled small bowel loops are seen in the left lower quadrant. Surgical evaluation is advised. 4. There is a complex ventral hernia in the pelvis which contains small bowel loops. Although loops o f small bowel within the hernia are mildly dilated, this does not definitively represent the site of obstruction. The small bowel obstruction is similar to the 07/21/2022 examination. 6. There is also a large fat-containing supraumbilical hernia. 7. Indeterminate renal cortical hypodensities measure up to 1.8 cm. These are unchanged from previous . 8. Hepatomegaly and hepatic steatosis. 9. Additional findings as above. ACT 112: Negative or not required by law. Electronically signed by: Seamus Branch M.D. 10/31/2022 7:00 AM
--- NOTE | 2022-10-31 07:22 | XRay Report ---
KUB CLINICAL HISTORY: Enteric tube placement. FINDINGS: An AP, portable, upright view of the lower chest and upper abdomen is correlated with abdom inal radiographs and CT performed the same day 10/31/2022. An enteric tube has been placed. The tip pr ojects below the diaphragm over the mid to distal stomach. Distended loops of small bowel in the uppe r abdomen indicate persistent obstruction. No intraperitoneal free air is seen below the diaphragm. T here is elevation of the left hemidiaphragm with left basilar atelectasis. The bony structures appear intact. IMPRESSION: 1. An enteric tube has been placed as above. 2. Persistent small bowel obstruction. Electronically signed by: Seamus Branch M.D. 10/31/2022 7:21 AM
--- NOTE | 2022-10-31 07:23 | XRay Report ---
SINGLE VIEW CHEST CLINICAL HISTORY: Generalized abdominal pain. FINDINGS: An AP, portable, upright chest radiograph is compared to study dated 07/21/2022. The examina tion is degraded by portable technique and patient rotation. The cardiomediastinal silhouette is unr emarkable. Chronic interstitial thickening is similar to previous. There is bibasilar scarring/atelec tasis. No airspace consolidation or large pleural effusion is identified. No pneumothorax is seen. Th e skeletal structures are osteopenic. The bony thorax is grossly intact. IMPRESSION: No active disease in the chest. ACT 112: Negative or not required by law. Electronically signed by: Seamus Branch M.D. 10/31/2022 7:22 AM
--- NOTE | 2022-10-31 08:00 | XRay Report ---
KUB CLINICAL HISTORY: Generalized abdominal pain. Small bowel obstruction. FINDINGS: 2 AP, portable, supine views of the abdomen are compared to study dated 07/25/2022 and corre lated with abdominal CT dated 07/21/2022. There is gaseous distention of the proximal small bowel loop s which measure up to 4 cm. There is a paucity of distal bowel gas. Findings suggest a small bowel ob struction. No evidence of intraperitoneal free air is seen on these supine images. There are no abnor mal abdominal calcifications. Numerous phleboliths are again seen in the pelvis. The skeletal structu res are osteopenic and appear intact. Degenerative sclerosis is noted in the pubic symphysis. IMPRESSION: There is evidence of a small bowel obstruction. Electronically signed by: Seamus Branch M.D. 10/31/2022 7:59 AM
[2022-10-31] MEDS ORDERED: NALOXONE HCL 0.4 MG/1 ML VIAL/CARP IV PRN (09:19)
[2022-10-31] MEDS: LACTATED RINGER'S 1,000 ML IV SCH ×2 (09:41→20:50)
--- NOTE | 2022-10-31 10:08 | Surgery Consultation ---
Date of Consultation October 31, 2022 History of Present Illness Reason for Consultation: Small bowel obstruction Requesting Physician: Veronica Juares MD Attending Physician: Veronica Juares MD History of Present Illness Chief compliant: abdominal pain HPI: Mer Canales is a 66 years old female with a significant past medical history and surgical history of cholecystectomy, appendectomy, ventral hernia repair, exploratory laparotomy lysis of the adhesion, pelvic surgery with anterior and posterior repair. Recurrence of small bowel obstruction 3 times since 2019. Patient presented to ED this morning with the acute abdominal pain since last night the pain located in the central abdomen. With the nausea and vomiting. Last bowel movement was last night. Patient denies any fever, no diarrhea, no chest pain, last time patient had a small bowel obstruction in July 2022. Patient was admitted to [facility], [place] for conservative treatment for 5 days. Then the small bowel resolved patient was discharged home without any issues. Allergies Allergy/AdvReac Type Severity Reaction Status Date / Time codeine AdvReac Severe NAUSEA & Verified 07/21/22 11:38 headache Home Medications Medication Instructions Recorded Confirmed Type lactobacillus combination no.4 3 3,000 mmu cells PO DAILY 07/21/22 07/21/22 History billion cell capsule (Probiotic) Patient History Medical History Abdominal adhesions Bowel obstruction x3. most recent in 2019. Partial small bowel obstruction Sciatica Surgical History H/O ventral hernia repair open History of colonoscopy Hx of cholecystectomy Hx of pelvic surgery anterior and posterior repair S/P appendectomy S/P laparotomy removal of adhesions S/P CHERYL-BSO Family History Father , age 69 - complications from surgery Myocardial infarction Mother , age 72 Cervical cancer Diabetes Other No family history of adverse response to anesthesia Social History Smoking Status: Never smoker Second Hand Exposure: No; Do You Dip or Chew Tobacco: No; Hx Alcohol Use: No Hx Substance Use: No Preferred Language: Indonesian Communication Ability: Effective [employer] Required: No Beliefs That Will Affect Care: None marital status: marital status details: 2 children Current Living Situation: Spouse Current Living Situation Comment: lives in [place] farm current occupational status: retired current occupation: worked at [employer] How many Children do You have: 2 Feels Safe at Home: Yes Assistive Devices: None Review of Systems Constitutional: as per Subjective / HPI Eyes: as per Subjective / HPI Respiratory: as per Subjective / HPI Cardiovascular: as per Subjective / HPI Gastrointestinal: Cholecystectomy, appendectomy, exploratory laparotomy, pelvic surgery with anterior and posterior repair. Recurrence of small bowel obstruction, ventral hernia repair. Genitourinary: as per Subjective / HPI Neurologic: as per Subjective / HPI Psychiatric: as per Subjective / HPI Endocrine: as per Subjective / HPI Hematologic / Lymphatic: as per Subjective / HPI Physical Exam Constitutional: WD/WN, vitals as above NG tube in Eyes: PERRL, conjunctivae normal, anicteric sclerae Neck: trachea midline, no thyromegaly Respiratory: normal respiratory effort, lungs clear to auscultation Cardiovascular: RRR, no murmur, no edema Gastrointestinal (Abdomen): soft. supra umbilical hernia and inferior umbilical hernia +. no significant tenderness at these hernia sites, mild tenderness periumbilical area, no rebound pain, no distend. BS +. Musculoskeletal: no cyanosis or clubbing, extremities motor strength 5/5 Neurologic: patellar DTR's 2+ bilat, sensation intact Psychiatric: A+Ox3, euthymic affect Results & Data Vital Signs (Past 12 Hours) Vital Signs Temp Pulse Pulse Resp BP BP Pulse Ox 10/31/22 06:21 69 17 132/82 92 10/31/22 05:31 71 18 129/75 93 10/31/22 04:07 10/31/22 03:41 36.8 C 88 20 169/107 H 96 O2 Del Method 10/31/22 06:21 10/31/22 05:31 10/31/22 04:07 Room Air 10/31/22 03:41 Room Air Laboratory Results Lab Results 10/31/22 10/31/22 Range/Units 04:02 04:02 WBC 12.59 H (4.8-10.8) K/ul RBC 5.12 (4.20-5.40) M/uL Hgb 15.9 (12.0-16.0) g/dl Hct 45.9 (37.0-47.0) % MCV 89.6 (80.0-100.0) fL MCH 31.1 (25.0-34.0) pg MCHC 34.6 (32.0-36.0) g/dL RDW Std Deviation 45.1 (36.4-46.3) fL RDW Coeff of Kim 13.7 (11.5-14.5) % Plt Count 287 (130-400) K/uL MPV 9.8 (9.4-12.4) fL Immature Gran % (Auto) 0.3 % Neut % (Auto) 69.4 % Lymph % (Auto) 25.5 % [place] % (Auto) 3.3 % Eos % (Auto) 1.2 % Baso % (Auto) 0.3 % Neut # (Auto) 8.73 H (1.40-6.50) K/uL Lymph # (Auto) 3.21 (1.20-3.40) K/uL [place] # (Auto) 0.42 (0.11-0.59) K/uL Eos # (Auto) 0.15 (0.00-0.50) K/uL Baso # (Auto) 0.04 (0.00-0.20) K/uL Immature Gran # (Auto) 0.04 (0.01-0.20) K/uL Sodium 138 (136-145) mmol/L Potassium 4.3 (3.5-5.1) mmol/L Chloride 105 (98-107) mmol/L Carbon Dioxide 25 (21-32) mmol/L Anion Gap 8 (3-11) BUN 16 (6-23) mg/dl Creatinine 0.78 (0.6-1.2) mg/dl Est Cr Clr Drug Dosing 73.2 ml/min Est GFR ( Amer) 90.5 ml/min Est GFR (Non-Af Amer) 78.1 ml/min BUN/Creatinine Ratio 20.5 H (10-20) Glucose 131 H (70-99(Fasting)) mg/dl Calcium 9.4 (8.6-10.3) mg/dl Total Bilirubin 0.4 (0.2-1.0) mg/dl AST 20 (13-39) U/L ALT 12 (7-52) U/L Alkaline Phosphatase 83 (34-104) U/L Troponin I High Sens 4.0 (0-14) pg/ml Total Protein 7.6 (6.0-8.3) gm/dl Albumin 4.4 (3.4-5.0) gm/dl Globulin 3.2 (2.5-4.0) gm/dl Albumin/Globulin Ratio 1.4 (0.9-2) Lipase 16 (11-82) U/L Diagnostic Findings CT SCAN OF THE ABDOMEN AND PELVIS WITH IV CONTRAST CLINICAL HISTORY: Generalized abdominal pain. COMPARISON STUDY: Abdominal CT dated 07/21/2022. TECHNIQUE: Following the IV administration of 90 cc of Optiray 320, CT scan of the abdomen and pelvis is performed from the lung bases to the proximal femora. Images are reviewed in the axial, sagittal, and coronal planes. IV contrast was administered without complication. A dose lowering technique was utilized adhering to the principles of ALARA. CT DOSE: 1324.51 mGy.cm FINDINGS: Lung bases: The heart is top normal in size and without pericardial effusion. The lung bases are clear noting dependent atelectasis. Liver: The contrast-enhanced liver is enlarged, measuring 19.6 cm in length. The liver demonstrates diffusely diminished attenuation indicating steatosis. There is no intrahepatic biliary ductal dilatation. The hepatic veins and portal veins are patent. Gallbladder: Unremarkable. Spleen: Normal in size and attenuation. Scattered subcentimeter splenic hypodensities are unchanged. There is a pathologically indeterminate and statistically of doubtful significance. Pancreas: Unremarkable. Adrenal glands: Unremarkable. Kidneys: The contrast enhanced kidneys are normal in size and without hydronephrosis. The kidneys enhance symmetrically. Indeterminate cortical hypodensities in the right kidney measuring up to 1.8 cm. Abdominal vasculature: The abdominal aorta is normal in course and caliber noting mild atherosclerotic calcification. Bowel: The upstream small bowel loops are dilated and fluid-filled measuring up to 3.6 cm in diameter. A complex ventral hernia in the pelvis contains several small bowel loops. The distal small bowel and colon are decompressed and findings consistent with a small bowel obstruction. Transition point is not clearly delineated. Although there are mildly distended loops of small bowel within the ventral hernia, this does not definitively represent the site of obstruction. There are mildly thick-walled loops of small bowel in the left lower quadrant seen on image #210. No pneumatosis intestinalis or portal venous gas is identified. The appendix is not identified and reported surgically absent. Peritoneum: There is evidence of previous ventral hernia repair. No intraperitoneal free air is identified. There is trace abdominopelvic ascites. There is a large fat-containing supraumbilical hernia as seen on image #142. The abdominal wall defect measures up to 3.5 cm. There is also trace fluid in the hernia sac. A complex ventral hernia in the pelvis contains small bowel loops. Lymphadenopathy: None. Pelvic viscera: The bladder is normal as visualized. The uterus is surgically absent. No adnexal lesion is seen. There are small bilateral fat-containing groin hernias. Skeletal structures: The skeletal structures are osteopenic. No lytic or blastic lesions are seen. IMPRESSION: 1. Findings consistent with a high-grade small bowel obstruction. The transition point is not clearly delineated. 2. No intraperitoneal free air is seen. No pneumatosis intestinalis or portal venous gas is identified. 3. There is interloop fluid as well as trace abdominopelvic ascites. Mildly thick walled small bowel loops are seen in the left lower quadrant. Surgical evaluation is advised. 4. There is a complex ventral hernia in the pelvis which contains small bowel loops. Although loops of small bowel within the hernia are mildly dilated, this does not definitively represent the site of obstruction. The small bowel obstruction is similar to the 07/21/2022 examination. 6. There is also a large fat-containing supraumbilical hernia. 7. Indeterminate renal cortical hypodensities measure up to 1.8 cm. These are unchanged from previous. 8. Hepatomegaly and hepatic steatosis. 9. Additional findings as above. KUB CLINICAL HISTORY: Enteric tube placement. FINDINGS: An AP, portable, upright view of the lower chest and upper abdomen is correlated with abdominal radiographs and CT performed the same day 10/31/2022. An enteric tube has been placed. The tip projects below the diaphragm over the mid to distal stomach. Distended loops of small bowel in the upper abdomen indicate persistent obstruction. No intraperitoneal free air is seen below the diaphragm. There is elevation of the left hemidiaphragm with left basilar atelectasis. The bony structures appear intact. IMPRESSION: 1. An enteric tube has been placed as above. 2. Persistent small bowel obstruction.
[2022-10-31] MEDS: HYDROmorphone INJ 0.5 MG/0.5 ML SYR IV PRN ×4 (11:31→20:50)
--- NOTE | 2022-10-31 15:54 | History & Physical Bridge Note ---
Date of Service October 31, 2022 History & Physical Bridge Note I have examined the patient, reviewed the History & Physical and in the interval since the performance of the History & Physical I have noted the following changes of clinical significance: Feeling better with NGT in place Only some mild abd pain requiring IV dilaudid but overall improved. No nausea. Has some bloody drainage in NGT VSS NAD, AAOx3 HEENT with NGT in place RRR no mgr CTAB no wcr Abd +mild BS, soft , mild TTP in mid abdomen, ventral hernias reducible, no guarding or rebound Ext no edema Labs reviewed Continue NGT to LIS, start IV protonix for blood likely from NGT trauma Check KUB in AM Reviewed SUrgery's consult Check CBC, CMP, Mag in AM
[2022-10-31] MEDS: ONDANSETRON INJ 2 MG/ML 2 ML VIAL IV PRN (17:38)
[2022-10-31] MEDS: PANTOprazole 40 MG in SYRINGE 0 ML IV SCH (17:54)
[2022-11-01] MEDS: HYDROmorphone INJ 0.5 MG/0.5 ML SYR IV PRN ×3 (00:32→12:34)
[2022-11-01] MEDS: ONDANSETRON INJ 2 MG/ML 2 ML VIAL IV PRN ×3 (00:33→12:34)
[2022-11-01] MEDS: LACTATED RINGER'S 1,000 ML IV SCH ×2 (07:34→16:51)
[2022-11-01 08:17] LABS: Hematocrit (blood only) 40.1 % (37.0-47.0); Hemoglobin 13.3 g/dl (12.0-16.0); Mean Corpuscular Hemoglobin 30.7 pg (25.0-34.0); Mean Corpuscular Hgb Conc 33.2 g/dL (32.0-36.0); Mean Corpuscular Volume 92.6 fL (80.0-100.0); Platelet Count 250 K/uL (130-400); RDW Coefficient of Variation 14.2 % (11.5-14.5); RDW Standard Deviation 48.7 fL (36.4-46.3); Red Blood Count 4.33 M/uL (4.20-5.40); White Blood Count 9.09 K/ul (4.8-10.8)
[2022-11-01 08:39] LABS: Est GFR (African American) 98.1 ml/min; Est GFR (Non-African American) 84.6 ml/min; Potassium 4.2 mmol/L (3.5-5.1)
[2022-11-01 08:40] LABS: BUN Creatinine Ratio 21.9 (10-20); Calcium 8.7 mg/dl (8.6-10.3); Magnesium 1.8 mg/dl (1.7-2.4)
[2022-11-01] MEDS ORDERED: PROCHLORPERAZINE 5 MG in SYRINGE 4 ML IV PRN (09:34)
[2022-11-01] MEDS: PANTOprazole 40 MG in SYRINGE 0 ML IV SCH (09:58)
--- NOTE | 2022-11-01 10:00 | Surgery Progress Note ---
Date of Service November 01, 2022 Assessment & Plan (1) SBO (small bowel obstruction): Plan: afebrile, vss no leukocytosis + nausea this am KUB pending No return of bowel function yet NGT with minimal output since placement (150 cc) Plan: continue conservative measures for now: NPO for bowel rest, NGT to LIS encouraged to increase activity/ambulation to increase GI motility antiemetics as needed continue medical management Dr. Brower discussed with patient that if she does not have return of bowel function with persistent nausea , may need to consider surgical exploration +/- repair of abdominal hernias. She would like to continue conservative measures for now to see if they improve without surgical intervention. Dr. Brower has seen and examined patient, agrees with above. Admission and Anticipated Discharge Date Admission Date: October 31, 2022 Subjective feeling nauseous this morning, no vomiting, just went down for xray abdominal pain mild but severe pain resolved feeling slightly bloated not passing gas yet Physical Exam Constitutional: WD/WN, vitals as above cooperative and comfortable; no acute distress and not ill appearing Respiratory: normal respiratory effort; no respiratory distress Gastrointestinal (Abdomen): Inspection/Auscultation: abdomen normal to inspection and + abdominal surgical scar (midline laparotomy scar); abdomen not distended and + abnormal bowel sounds Percussion/Palpation: + abdomen tender (upper abdomen, mostly Left upper abdomen) and abdomen soft; no guarding and abdomen not rigid NGT with minimal output in canister, mostly clear, bilious Skin: no rashes, warm and dry Psychiatric: Orientation: alert and oriented x 3 Results & Data Vital Signs (Past 12 Hours) Vital Signs Temp Pulse Resp BP Pulse Ox O2 Del Method 11/01/22 07:27 36.2 C L 75 16 103/67 95 Room Air Laboratory Results 11/01/22 11/01/22 Range/Units 07:45 07:45 WBC 9.09 (4.8-10.8) K/ul RBC 4.33 (4.20-5.40) M/uL Hgb 13.3 (12.0-16.0) g/dl Hct 40.1 (37.0-47.0) % MCV 92.6 (80.0-100.0) fL MCH 30.7 (25.0-34.0) pg MCHC 33.2 (32.0-36.0) g/dL RDW Std Deviation 48.7 H (36.4-46.3) fL RDW Coeff of Kim 14.2 (11.5-14.5) % Plt Count 250 (130-400) K/uL MPV 10.0 (9.4-12.4) fL Sodium 139 (136-145) mmol/L Potassium 4.2 (3.5-5.1) mmol/L Chloride 105 (98-107) mmol/L Carbon Dioxide 27 (21-32) mmol/L Anion Gap 7 (3-11) BUN 16 (6-23) mg/dl Creatinine 0.73 (0.6-1.2) mg/dl Est Cr Clr Drug Dosing 78.0 ml/min Est GFR ( Amer) 98.1 ml/min Est GFR (Non-Af Amer) 84.6 ml/min BUN/Creatinine Ratio 21.9 H (10-20) Glucose 116 H (70-99(Fasting)) mg/dl Calcium 8.7 (8.6-10.3) mg/dl Magnesium 1.8 (1.7-2.4) mg/dl
--- NOTE | 2022-11-01 11:36 | XRay Report ---
KUB CLINICAL HISTORY: f/u SBO COMPARISON STUDY: CT of the abdomen and pelvis and KUB October 31, 2022. FINDINGS: Tip of nasogastric tube is within the gastric antrum. Several loops of mildly dilated small bowel are noted. Small bowel dilatation has slightly improved since prior exam. Pelvic calcification s represent phleboliths. No evidence for free air on this supine exam. IMPRESSION: 1. Findings suggestive of a small bowel obstruction, slightly improved since prior exam. 2. Nasogastric tube in place. ACT 112: Negative or not required by law. Electronically signed by: Michael Newman M.D. 11/01/2022 11:35 AM
--- NOTE | 2022-11-01 15:38 | Hospitalist Progress Note ---
Date of Service November 01, 2022 Assessment & Plan (1) Small bowel obstruction: Plan: 66yo female with history of prior SBOs presenting with acute onset of central abdominal pain, nausea and vomiting without passing of flatus or BM. Found to have SBO on admission and NGT placed Had some bloody drainage shortly after admission likely from NGT trauma KUB 11/01 persistent SBO but slightly improved, still having nausea and pain, but did pass some small amount flatus--> found her NGT was not connected to the wall -Maintain NPO -continue NGT to LIWS -continue PPI IV daily -Dilaudid PRN pain -Zofran PRN nausea, added compazine prn -continue IVFs - LR at 100mL/hr -General Surgery consultation appreciated-continued conservative measures for now but may need SUSHANT if not improving (2) Leukocytosis: Plan: now resolved, was secondary to stress of vomiting and SBO No fever (3) Nausea: Plan: related to SBO as above, continue zofran, add compazine Plan DVT proph-add Lovenox SQ, SCDs Dispo-continued stay Admission and Anticipated Discharge Date Admission Date: October 31, 2022 Subjective Pt has been feeling nauseated and having abdominal pains today. Received Zofran x 2 and compazine and dilaudid. NGT reported as no output. When I saw pt in afternoon, it was noted that her NGT was not connected to the wall suction unit. Pt then noted that she had not heard the suction going through her tube all day so it seems likely it was not connected all day. She is passing some small amounts of flatus today though, no BM. Physical Exam Constitutional: WD/WN, vitals as above Respiratory: normal respiratory effort, lungs clear to auscultation Cardiovascular: RRR, no murmur, no edema Gastrointestinal (Abdomen): Inspection/Auscultation: + hypoactive bowel richard nds; abdomen not distended Percussion/Palpation: + abdomen tender (mid abdomen) and abdomen soft; no guarding Psychiatric: A+Ox3, euthymic affect Results & Data Results & Data Vital Signs (Past 12 Hours) Vital Signs Temp Pulse Pulse Resp BP Pulse Ox O2 Del Method 11/01/22 15:09 36.9 C 85 16 101/70 94 Room Air 11/01/22 07:27 36.2 C L 75 16 103/67 95 Room Air Laboratory Results CBC, BMP, magnesium reviewed PG Care Time/CCT Total # of Minutes Spent Total Time Spent with Patient: Total time spent is greater than 50% in coordination of care (as documented) at patient's floor/unit and/or counseling patient: Coding Level of Care Code 15348 SUB INP/OBS CARE 2/35MIN Diagnoses Small bowel obstruction K56.609 Leukocytosis D72.829 Leukocytosis type: unspecified Nausea R11.0 (2) Leukocytosis Leukocytosis type: unspecified Qualified Code(s): D72.829 - Elevated white blood cell count, unspecified
[2022-11-01] MEDS: ENOXAPARIN INJ 40 MG/0.4 ML SYR SQ SCH (16:50)
[2022-11-01] MEDS: ACETAMINOPHEN 1,000 MG/100 ML VIAL IV PRN (22:27)
[2022-11-02] MEDS: LACTATED RINGER'S 1,000 ML IV SCH ×3 (02:43→22:18)
[2022-11-02 08:45] LABS: Basophils # (auto) 0.03 K/uL (0.00-0.20); Basophils % (auto) 0.4 %; Eosinophils # (auto) 0.04 K/uL (0.00-0.50); Eosinophils % (auto) 0.5 %; Hematocrit (blood only) 40.1 % (37.0-47.0); Hemoglobin 13.6 g/dl (12.0-16.0); Immature Granulocytes # (auto) 0.03 K/uL (0.01-0.20); Immature Granulocytes % (auto) 0.4 %; Lymphocytes # (auto) 2.25 K/uL (1.20-3.40); Mean Corpuscular Hemoglobin 30.2 pg (25.0-34.0); Mean Corpuscular Hgb Conc 33.9 g/dL (32.0-36.0); Mean Corpuscular Volume 88.9 fL (80.0-100.0); Mean Platelet Volume 10.1 fL (9.4-12.4); Monocytes # (auto) 0.59 K/uL (0.11-0.59); Monocytes % (auto) 7.9 %; Neutrophils # (auto) 4.57 K/uL (1.40-6.50); Neutrophils % (auto) 60.8 %; Platelet Count 195 K/uL (130-400); RDW Coefficient of Variation 13.5 % (11.5-14.5); RDW Standard Deviation 44.1 fL (36.4-46.3); Red Blood Count 4.51 M/uL (4.20-5.40); White Blood Count 7.51 K/ul (4.8-10.8)
[2022-11-02 09:09] LABS: Calcium 8.8 mg/dl (8.6-10.3); Creatinine Clr Calc Pharmacy 75.9 ml/min; Est GFR (African American) 94.9 ml/min; Est GFR (Non-African American) 81.9 ml/min; Magnesium 1.8 mg/dl (1.7-2.4); Phosphorus 3.2 mg/dl (2.5-4.9); Potassium 3.8 mmol/L (3.5-5.1)
--- NOTE | 2022-11-02 09:44 | Surgery Progress Note ---
Date of Service November 02, 2022 Assessment & Plan (1) SBO (small bowel obstruction): Plan: afebrile, vss no leukocytosis nausea and pain resolved KUB pending this am but looks improved + flatus NGT with minimal output last 24 hours (200 cc) Plan: Consider possible removal of NGT later today pending KUB results. Encouraged ambulation continue medical management Dr. Brower has seen and examined pt, agrees with above Admission and Anticipated Discharge Date Admission Date: October 31, 2022 Subjective feeling much better today nausea resolved pain resolved passed flatus 3-4 times yesterday and once this am Physical Exam Constitutional: WD/WN, vitals as above cooperative and comfortable; no acute distress and not ill appearing Respiratory: normal respiratory effort; no respiratory distress, no labored breathing and no retractions Gastrointestinal (Abdomen): Inspection/Auscultation: abdomen normal to inspection, normal bowel sounds and + abdominal surgical scar (midline laparotomy scar); abdomen not distended Percussion/Palpation: abdomen soft; abdomen nontender, no guarding and abdomen not rigid NGT with clear bilious output in canister Skin: no rashes, warm and dry Psychiatric: Orientation: alert and oriented x 3 Results & Data Vital Signs (Past 12 Hours) Vital Signs O2 Del Method 11/01/22 22:54 Room Air Laboratory Results 11/02/22 11/02/22 Range/Units 07:54 07:54 WBC 7.51 (4.8-10.8) K/ul RBC 4.51 (4.20-5.40) M/uL Hgb 13.6 (12.0-16.0) g/dl Hct 40.1 (37.0-47.0) % MCV 88.9 (80.0-100.0) fL MCH 30.2 (25.0-34.0) pg MCHC 33.9 (32.0-36.0) g/dL RDW Std Deviation 44.1 (36.4-46.3) fL RDW Coeff of Kim 13.5 (11.5-14.5) % Plt Count 195 (130-400) K/uL MPV 10.1 (9.4-12.4) fL Immature Gran % (Auto) 0.4 % Neut % (Auto) 60.8 % Lymph % (Auto) 30.0 % [place] % (Auto) 7.9 % Eos % (Auto) 0.5 % Baso % (Auto) 0.4 % Neut # (Auto) 4.57 (1.40-6.50) K/uL Lymph # (Auto) 2.25 (1.20-3.40) K/uL [place] # (Auto) 0.59 (0.11-0.59) K/uL Eos # (Auto) 0.04 (0.00-0.50) K/uL Baso # (Auto) 0.03 (0.00-0.20) K/uL Immature Gran # (Auto) 0.03 (0.01-0.20) K/uL Sodium 139 (136-145) mmol/L Potassium 3.8 (3.5-5.1) mmol/L Chloride 104 (98-107) mmol/L Carbon Dioxide 27 (21-32) mmol/L Anion Gap 8 (3-11) BUN 18 (6-23) mg/dl Creatinine 0.75 (0.6-1.2) mg/dl Est Cr Clr Drug Dosing 75.9 ml/min Est GFR ( Amer) 94.9 ml/min Est GFR (Non-Af Amer) 81.9 ml/min BUN/Creatinine Ratio 24.0 H (10-20) Glucose 96 (70-99(Fasting)) mg/dl Calcium 8.8 (8.6-10.3) mg/dl Phosphorus 3.2 (2.5-4.9) mg/dl Magnesium 1.8 (1.7-2.4) mg/dl
[2022-11-02] MEDS: PANTOprazole 40 MG in SYRINGE 0 ML IV SCH (11:10)
[2022-11-02] MEDS: ACETAMINOPHEN 1,000 MG/100 ML VIAL IV PRN (11:14)
--- NOTE | 2022-11-02 12:12 | XRay Report ---
KUB CLINICAL HISTORY: Follow-up small bowel obstruction. FINDINGS: 3 AP, portable, supine views of the abdomen are compared to study dated 11/01/2022 and corre lated with abdominal CT dated 10/31/2022. An enteric tube is unchanged in position. There is mild and improving gaseous distention of the proximal small bowel loops. Gas is noted within the colon. No palak dence of intraperitoneal free air is seen on these supine images. There are no abnormal abdominal marcelino cifications. Numerous phleboliths are again seen in the pelvis. The skeletal structures are osteopeni c and appear intact. Degenerative sclerosis is noted in the pubic symphysis. IMPRESSION: Distention of the small bowel loops has improved as compared to yesterday. This likely re presents an improving small bowel obstruction. Correlate clinically. Electronically signed by: Seamus Branch M.D. 11/02/2022 12:11 PM
[2022-11-02] MEDS: ENOXAPARIN INJ 40 MG/0.4 ML SYR SQ SCH (14:44)
--- NOTE | 2022-11-02 18:55 | Hospitalist Progress Note ---
Date of Service November 02, 2022 Assessment & Plan (1) Small bowel obstruction: Plan: 66yo female with history of prior SBOs presenting with acute onset of central abdominal pain, nausea and vomiting without passing of flatus or BM. Found to have SBO on admission and NGT placed Had some bloody drainage shortly after admission likely from NGT trauma KUB 11/01 persistent SBO but slightly improved, still having nausea and pain, but did pass some small amount flatus--> found her NGT was not connected to the wall 11/02--> MUCH improved, passing flatus, no pain, KUB significantly improved--> Surgery would like to keep NGT one more night and hopefully pull tomorrow -Maintain NPO -continue NGT to LIWS -continue PPI IV daily -Dilaudid PRN pain -Zofran PRN nausea, compazine prn -continue IVFs - LR at 100mL/hr -General Surgery consultation appreciated-continued conservative measures -follow CBC<BMP, Mag, phos in AM (2) Leukocytosis: Plan: now resolved, was secondary to stress of vomiting and SBO No fever (3) Nausea: Plan: related to SBO as above, cnow resolved -continue zofran, compazine prn Plan DVT proph- Lovenox SQ, SCDs Dispo-continued stay but improving, hopefully dc in 1-2 days Admission and Anticipated Discharge Date Admission Date: October 31, 2022 Subjective Feeling much better today. NGT 350mL out in last 24 hrs. Passing flatus, no stool, no abd pain. AMbulated in halls today Physical Exam Constitutional: WD/WN, vitals as above Respiratory: normal respiratory effort, lungs clear to auscultation Cardiovascular: RRR, no murmur, no edema Gastrointestinal (Abdomen): Inspection/Auscultation: normal bowel sounds; abdomen not distended Percussion/Palpation: abdomen soft; abdomen nontender and no guarding Psychiatric: A+Ox3, euthymic affect Results & Data Results & Data Vital Signs (Past 12 Hours) Vital Signs Temp Pulse Resp BP Pulse Ox O2 Del Method 11/02/22 15:07 36.8 C 66 17 150/84 H 94 Room Air Laboratory Results CBC, BMP , mag, phos reviewed PG Care Time/CCT Total # of Minutes Spent Total Time Spent with Patient: Total time spent is greater than 50% in coordination of care (as documented) at patient's floor/unit and/or counseling patient: Coding Level of Care Code 96393 SUB INP/OBS CARE 2MIN Diagnoses Small bowel obstruction K56.609 Leukocytosis D72.829 Leukocytosis type: unspecified Nausea R11.0 (2) Leukocytosis Leukocytosis type: unspecified Qualified Code(s): D72.829 - Elevated white blood cell count, unspecified
[2022-11-03] MEDS: ACETAMINOPHEN 1,000 MG/100 ML VIAL IV PRN (06:20)
[2022-11-03 09:51] LABS: Basophils # (auto) 0.03 K/uL (0.00-0.20); Basophils % (auto) 0.3 %; Eosinophils # (auto) 0.05 K/uL (0.00-0.50); Eosinophils % (auto) 0.5 %; Hematocrit (blood only) 42.2 % (37.0-47.0); Hemoglobin 14.3 g/dl (12.0-16.0); Immature Granulocytes # (auto) 0.04 K/uL (0.01-0.20); Immature Granulocytes % (auto) 0.4 %; Lymphocytes # (auto) 2.05 K/uL (1.20-3.40); Lymphocytes % (auto) 21.5 %; Mean Corpuscular Hemoglobin 29.8 pg (25.0-34.0); Mean Corpuscular Hgb Conc 33.9 g/dL (32.0-36.0); Mean Corpuscular Volume 87.9 fL (80.0-100.0); Mean Platelet Volume 10.1 fL (9.4-12.4); Monocytes # (auto) 0.62 K/uL (0.11-0.59); Monocytes % (auto) 6.5 %; Neutrophils # (auto) 6.74 K/uL (1.40-6.50); Neutrophils % (auto) 70.8 %; Platelet Count 224 K/uL (130-400); RDW Coefficient of Variation 13.1 % (11.5-14.5); White Blood Count 9.53 K/ul (4.8-10.8)
[2022-11-03 10:26] LABS: Anion Gap 10 (3-11); BUN Creatinine Ratio 16.7 (10-20); Blood Urea Nitrogen 11 mg/dl (6-23); Carbon Dioxide 27 mmol/L (21-32); Chloride 100 mmol/L (98-107); Creatinine Clr Calc Pharmacy 86.2 ml/min; Est GFR (African American) 105.2 ml/min; Est GFR (Non-African American) 90.8 ml/min; Glucose 79 mg/dl (70-99(Fasting)); Magnesium 1.9 mg/dl (1.7-2.4); Phosphorus 3.5 mg/dl (2.5-4.9); Sodium 137 mmol/L (136-145)
[2022-11-03] MEDS: PANTOprazole 40 MG in SYRINGE 0 ML IV SCH (11:16)
[2022-11-03] MEDS ORDERED: POLYETHYLENE (MIRALAX) 17 GM PACK PO STA (11:45)
[2022-11-03] MEDS: LACTATED RINGER'S 1,000 ML IV SCH (11:46)
[2022-11-03] MEDS: DOCUSATE SODIUM 100 MG CAP PO SCH ×2 (12:03→21:01)
--- NOTE | 2022-11-03 12:40 | Surgery Progress Note ---
Date of Service November 03, 2022 Assessment & Plan (1) SBO (small bowel obstruction): Plan: afebrile, vss no leukocytosis nausea and pain resolved + flatus NGT with minimal output (300 cc) Plan: Remove NGT start clear liquids, advised to go slowly ambulate continue medical management Dr. Brower has seen and examined pt, agrees with above Admission and Anticipated Discharge Date Admission Date: October 31, 2022 Subjective feeling better today, even better than yesterday no abdominal pain no nausea no vomiting passing gas, no bowel movement yet Physical Exam Constitutional: WD/WN, vitals as above no acute distress and not ill appearing Respiratory: normal respiratory effort; no respiratory distress Gastrointestinal (Abdomen): Inspection/Auscultation: abdomen normal to inspection, + abdominal surgical scar (low midline laparotomy scar) and + hypoactive bowel sounds; abdomen not distended and + abnormal bowel sounds Percussion/Palpation: abdomen soft; abdomen nontender, no guarding and abdomen not rigid NGT with bilious output in cannister Skin: no rashes, warm and dry Psychiatric: A+Ox3, euthymic affect Results & Data Vital Signs (Past 12 Hours) Vital Signs Temp Pulse Resp BP Pulse Ox O2 Del Method 11/03/22 07:15 36.8 C 61 18 145/78 H 96 Room Air Laboratory Results 11/03/22 11/03/22 11/03/22 Range/Units 10:35 08:48 08:48 WBC 9.53 (4.8-10.8) K/ul RBC 4.80 (4.20-5.40) M/uL Hgb 14.3 (12.0-16.0) g/dl Hct 42.2 (37.0-47.0) % MCV 87.9 (80.0-100.0) fL MCH 29.8 (25.0-34.0) pg MCHC 33.9 (32.0-36.0) g/dL RDW Std Deviation 42.0 (36.4-46.3) fL RDW Coeff of Kim 13.1 (11.5-14.5) % Plt Count 224 (130-400) K/uL MPV 10.1 (9.4-12.4) fL Immature Gran % (Auto) 0.4 % Neut % (Auto) 70.8 % Lymph % (Auto) 21.5 % [place] % (Auto) 6.5 % Eos % (Auto) 0.5 % Baso % (Auto) 0.3 % Neut # (Auto) 6.74 H (1.40-6.50) K/uL Lymph # (Auto) 2.05 (1.20-3.40) K/uL [place] # (Auto) 0.62 H (0.11-0.59) K/uL Eos # (Auto) 0.05 (0.00-0.50) K/uL Baso # (Auto) 0.03 (0.00-0.20) K/uL Immature Gran # (Auto) 0.04 (0.01-0.20) K/uL Sodium 137 (136-145) mmol/L Potassium 4.2 TNP Chloride 100 (98-107) mmol/L Carbon Dioxide 27 (21-32) mmol/L Anion Gap 10 (3-11) BUN 11 (6-23) mg/dl Creatinine 0.66 (0.6-1.2) mg/dl Est Cr Clr Drug Dosing 86.2 ml/min Est GFR ( Amer) 105.2 ml/min Est GFR (Non-Af Amer) 90.8 ml/min BUN/Creatinine Ratio 16.7 (10-20) Glucose 79 (70-99(Fasting)) mg/dl Calcium 9.0 (8.6-10.3) mg/dl Phosphorus 3.5 (2.5-4.9) mg/dl Magnesium 1.9 (1.7-2.4) mg/dl
[2022-11-03] MEDS ORDERED: bisacodyL 10 MG SUPP PR STA (13:13)
[2022-11-03] MEDS ORDERED: ACETAMINOPHEN 325 MG TAB PO PRN (13:17)
--- NOTE | 2022-11-03 13:17 | Hospitalist Progress Note ---
Date of Service November 03, 2022 Assessment & Plan (1) Small bowel obstruction: Plan: 66yo female with history of prior SBOs presenting with acute onset of central abdominal pain, nausea and vomiting without passing of flatus or BM. Found to have SBO on admission and NGT placed Had some bloody drainage shortly after admission likely from NGT trauma KUB 11/01 persistent SBO but slightly improved, still having nausea and pain, but did pass some small amount flatus--> found her NGT was not connected to the wall 11/02--> MUCH improved, passing flatus, no pain, KUB significantly improved NGT removed 11/03, no nausea, passing flatus, had a BM, tolerating clears -adv diet to fulls for dinner, low fiber for tomorrow if still doing wlel and hopefully dc Monday -continue PPI IV daily -Dilaudid PRN pain -Zofran PRN nausea, compazine prn -dc IVFs -General Surgery consultation appreciated-continued conservative measures -added docusate, Miralax (2) Leukocytosis: Plan: now resolved, was secondary to stress of vomiting and SBO No fever (3) Nausea: Plan: related to SBO as above, now resolved -continue zofran, compazine prn Plan DVT proph- Lovenox SQ, SCDs Dispo-continued stay but likely dc to home tomorrow if tolerating diet Admission and Anticipated Discharge Date Admission Date: October 31, 2022 Subjective Feeling great, no pain at all, passing flatus, no BM. Surgery removed NGT and she already tolerated clear liquids without any issues. Is ambulating Physical Exam Constitutional: WD/WN, vitals as above Respiratory: normal respiratory effort, lungs clear to auscultation Cardiovascular: RRR, no murmur, no edema Gastrointestinal (Abdomen): Inspection/Auscultation: normal bowel sounds; abdomen not distended Percussion/Palpation: abdomen soft; abdomen nontender and no guarding Psychiatric: A+Ox3, euthymic affect Results & Data Results & Data Vital Signs (Past 12 Hours) Vital Signs Temp Pulse Resp BP Pulse Ox O2 Del Method 11/03/22 07:15 36.8 C 61 18 145/78 H 96 Room Air Laboratory Results CBC, BMP, mag, phos reviewed PG Care Time/CCT Total # of Minutes Spent Total Time Spent with Patient: Total time spent is greater than 50% in coordination of care (as documented) at patient's floor/unit and/or counseling patient: Coding Level of Care Code 79000 SUB INP/OBS CARE 2MIN Diagnoses Small bowel obstruction K56.609 Leukocytosis D72.829 Leukocytosis type: unspecified Nausea R11.0 (2) Leukocytosis Leukocytosis type: unspecified Qualified Code(s): D72.829 - Elevated white blood cell count, unspecified
[2022-11-03] MEDS: ENOXAPARIN INJ 40 MG/0.4 ML SYR SQ SCH (15:26)
[2022-11-04] MEDS: DOCUSATE SODIUM 100 MG CAP PO SCH ×2 (07:52→20:20)
--- NOTE | 2022-11-04 08:38 | Surgery Progress Note ---
Date of Service November 04, 2022 Assessment & Plan (1) SBO (small bowel obstruction): Plan: resolved okay from surgical standpoint for discharge recommend low fiber diet for 1-2 weeks bowel regimen at home our services signing off, please call with questions/concerns. Admission and Anticipated Discharge Date Admission Date: October 31, 2022 Subjective feeling good today no abdominal pain, no n,v tolerating advancing diet + bowel movements yesterday passing gas Physical Exam Constitutional: WD/WN, vitals as above no acute distress and not ill appearing Gastrointestinal (Abdomen): Inspection/Auscultation: abdomen normal to inspection; abdomen not distended Percussion/Palpation: abdomen soft; abdomen nontender, no guarding and abdomen not rigid Skin: no rashes, warm and dry Psychiatric: A+Ox3, euthymic affect Results & Data Vital Signs (Past 12 Hours) Vital Signs Temp Pulse Pulse Resp BP Pulse Ox O2 Del Method 11/04/22 07:04 36.8 C 61 18 131/82 94 Room Air 11/03/22 20:59 36.9 C 66 16 128/58 L 95 Room Air
[2022-11-04] MEDS: PANTOprazole 40 MG in SYRINGE 0 ML IV SCH (10:54)
[2022-11-04] MEDS: ENOXAPARIN INJ 40 MG/0.4 ML SYR SQ SCH (14:53)
--- NOTE | 2022-11-04 17:28 | Hospitalist Progress Note ---
Date of Service November 04, 2022 Assessment & Plan (1) Small bowel obstruction: Plan: 66yo female with history of prior SBOs presenting with acute onset of central abdominal pain, nausea and vomiting without passing of flatus or BM. Found to have SBO on admission and NGT placed NGT removed 11/03, no nausea, passing flatus, had a BM, tolerating clears patient is now tolerating full liquid diet Would like to advance to a solid diet Continue docusate, MiraLAX If tolerates solid diet, will discharge tomorrow (2) Leukocytosis: Plan: now resolved, was secondary to stress of vomiting and SBO No fever (3) Nausea: Plan: related to SBO as above, now resolved -continue zofran, compazine prn Plan DVT proph- Lovenox SQ, SCDs disposition: Likely discharge tomorrow if tolerating solid diet Admission and Anticipated Discharge Date Admission Date: October 31, 2022 Subjective patient feels better. Belly pain improved. Tolerating full liquid diet today. Would like to try a solid diet. Had a bowel movement yesterday and today. Review of Systems Review of Systems: All systems reviewed & are unremarkable except as noted in Subjective Physical Exam Physical Exam: general: Awake, conversant Heart: S1, S2/regular rate and rhythm, no murmur rubs or gallops Lungs: Clear to auscultation bilaterally. Normal effort Abdomen: Soft/nontender/nondistended. No hepatosplenomegaly Extremities: No clubbing/cyanosis. No edema Behavior: Appropriate, cooperative Results & Data Results & Data Vital Signs (Past 12 Hours) Vital Signs Temp Pulse Resp BP BP Pulse Ox O2 Del Method 11/04/22 15:24 36.6 C 71 17 146/89 H 97 Room Air 11/04/22 07:04 36.8 C 61 18 131/82 94 Room Air PG Care Time/CCT Total # of Minutes Spent Total Time Spent with Patient: Total time spent is greater than 50% in coordination of care (as documented) at patient's floor/unit and/or counseling patient: Coding Level of Care Code 93782 SUB INP/OBS CARE 2/35MIN Diagnoses Small bowel obstruction K56.609 Leukocytosis D72.829 Leukocytosis type: unspecified Nausea R11.0 (2) Leukocytosis Leukocytosis type: unspecified Qualified Code(s): D72.829 - Elevated white blood cell count, unspecified
[2022-11-05] MEDS: DOCUSATE SODIUM 100 MG CAP PO SCH (08:10)
--- NOTE | 2022-11-05 10:18 | Discharge Summary ---
Date of Service November 05, 2022 Admission HPI Per Admitting Provider Mer Champagne is a pleasant 66yo female with history of prior SBO from adhesions presenting with abdominal pain. Patient ate a caramel apple with almonds on it last night. She has had SBOs triggered by nuts before in the past. Around 10:00 she developed acute central abdominal pain which persisted and got worse through the night. She asked her to bring her to the hospital around 0300 due to ongoing pain. She developed nausea as well with 3 episodes of non-bloody/non-bilious vomiting. No diarrhea. Last normal BM around 23:00. Patient presently with abdominal pain as well as nausea. ER Course: DIlaudid 0.5mg IV x 2 Zofran 4mg IV NSS x 1L Admission Exam Per Admitting Provider General: patient resting comfortably, NAD, non-toxic in appearance, AA&O x 4 Skin: warm, dry, intact, no rashes or lesions HEENT: NC/AT, PERRL, EOMI, anicteric sclera, conjunctiva without injection, external ear normal to inspection and nontender, nares patent, moist mucus membranes, dentition intact, no oropharyngeal lesions, neck supple, trachea midline, no LAD, no thyromegaly, no JVD Heart: +S1/S2, regular, no m/r/g Lungs: equal air entry bilaterally, no rales/rhonchi/wheezes Abd: Diminished bowel sounds, soft, ND, tender to palpation with no rebound/guarding or peritonitis, no masses/organomegaly/ascites Ext: warm, 2+ pulses in UE/LE bilaterally, no clubbing/cyanosis or edema Neuro: nonfocal, patient AA&O x 4, speech intact, no facial droop, moving all extremities on command with equal strength 5/5 Principal Diagnosis small bowel obstruction Discharge Exam general: Awake, conversant Heart: S1, S2/regular rate and rhythm, no murmur rubs or gallops Lungs: Clear to auscultation bilaterally. Normal effort Abdomen: Soft/nontender/nondistended. No hepatosplenomegaly Extremities: No clubbing/cyanosis. No edema Behavior: Appropriate, cooperative Discharge Data Allergies Allergy/AdvReac Type Severity Reaction Status Date / Time codeine AdvReac Severe NAUSEA & Verified 10/31/22 14:03 headache Consultations 10/31/22 05:58 ED Decision to Admit Stat 10/31/22 09:19 Consult General Surgery Routine Ordered Studies 10/31/22 04:14 CT abd pelvis IV con only Stat Hospital Course (1) Small bowel obstruction: 66yo female with history of prior SBOs presenting with acute onset of central abdominal pain, nausea and vomiting without passing of flatus or BM. Found to have SBO on admission and NGT placed NGT removed 11/03, no nausea, passing flatus, had a BM, tolerating clears patient is now tolerating solid diet Continue docusate, MiraLAX discharge today (2) Leukocytosis: now resolved, was secondary to stress of vomiting and SBO No fever (3) Nausea: related to SBO as above, now resolved Plan DVT proph- Lovenox SQ, SCDs discharge today Total Time Total Time Spent Total Time Spent (In Minutes): 35 Discharge Plan Discharge Items Patient Disposition: Home - Self-Care Reason For Visit: SBO Discharge Diagnosis: Small bowel obstruction Activity: Resume your previous activity Non-emergency contact: Primary Care Provider Call non-emergency contact if: you have any medication questions and your symptoms worsen Follow-up/Referrals: Fatemeh Perry CRNP [Primary Care Provider] - Diet: Low Fiber Addtl Attending Provider Instructions: advised to follow-up with PCP in 1 week Pending Studies at Discharge: No Stand-Alone Forms: My [facility] Medications and DC Order Prescriptions: New docusate sodium 100 mg Capsule 100 mg PO BID 15 Days Qty: 30 0RF Continued Probiotic 3 billion cell Capsule 3,000 mmu cells PO QAM Rx Instructions: administer with a meal acetaminophen 500 mg Tablet 500 mg PO Q6H PRN (Reason: Pain) ibuprofen 100 mg Tablet 200 mg PO Q6H PRN (Reason: Pain) Discharge Orders: Discharge Order (Routine); Ordered 11/05/22 Ordered By: Iam Kaiser/Other Patient Handouts: Low-Fiber Diet Admission Data Admit Date/Time: 10/31/22 06:15 Attending Provider: Iam Frankel Admit Provider: Magdalena Harris Primary Care Provider: Fatemeh Perry Other Providers: Magdalena Harris ; Jojo Ramírez Other Interventions: Discharge Summary Assessment (RN) Last Done: 11/05/22 10:49 Coding Level of Care Code 05992 INP/OBS DISCH >30 MIN Diagnoses Small bowel obstruction K56.609 Leukocytosis D72.829 Leukocytosis type: unspecified Nausea R11.0
== END 2022-11-05 11:09 | disposition home or self-care (01) | DRG 390 ==
LOC: ED 03:39 → SUATTDRO 06:00 → EDINP 06:00 → SUATTDRO 06:15 → 3N 09:18

== ENCOUNTER 2024-03-28 08:16 | Inpatient (IN) ==
--- NOTE | 2024-03-20 12:42 | Anesthesiology Consultation ---
Date of Service March 20, 2024 Assessment & Plan Chart Review Chart Review: Acceptable Risk for Surgery and Patient NOT seen in Pre Admission Testing History Surgery Operation Date: 03/28/24 09:55 Proposed Procedures p Open Repair of Incarcerated Abdominal Hernia Times Two, Possible Mesh, - Shaji Zaidi MD, FACS s Possible Bowel Resection - Shaji Zaidi MD, FACS Height/Weight Height: 5 ft 7 in Weight: 77.111 kg Allergies Allergy/AdvReac Type Severity Reaction Status Date / Time codeine AdvReac Severe NAUSEA & Verified 03/19/24 13:26 headache morphine AdvReac Severe Headache Verified 03/20/24 08:43 Medications Home Medications Medication Instructions Recorded Confirmed Last Taken lactobacillus combination no.4 3 3,000 mmu cells PO QAM 07/21/22 03/20/24 10/30/22 billion cell capsule (Probiotic) acetaminophen 500 mg tablet 500 mg PO Q6H PRN Pain 10/31/22 03/20/24 Unknown ibuprofen 100 mg tablet 200 mg PO Q6H PRN Pain 10/31/22 03/20/24 Unknown metronidazole 500 mg tablet 500 mg PO .COMPLEX #3 tabs 03/19/24 03/20/24 Unknown neomycin 500 mg tablet 1 g (2 x 500 mg) PO .COMPLEX #6 03/19/24 03/20/24 Unknown tabs docusate sodium 50 mg capsule 50 mg PO DAILY PRN prn 03/20/24 03/20/24 Unknown Past Medical History Medical History Internal hemorrhoids without mention of complication History of anesthesia reaction awareness and awake during hysterectomy, 1990s Abdominal adhesions Partial small bowel obstruction Bowel obstruction x4. most recent in 2021 Past Family History Family History Father , age 69 - complications from surgery Myocardial infarction Mother , age 72 Cervical cancer Diabetes Other No family history of adverse response to anesthesia Past Surgical History Surgical History History of cholecystectomy History of appendectomy S/P hemorrhoidectomy (12/20/07) Examination under anesthesia; hemorrhoidectomy with Lincoln Cuellar History of incisional hernia repair (02/10/10) Attempt at laparoscopic repair, open repair of two large incisional hernia with mesh reinforcement Dr. Zaidi History of incisional hernia repair (03/22/00) Repair incarcerated incisional hernia with mesh reinforcement. Dr. Zaidi Hx of pelvic surgery anterior and posterior repair History of colonoscopy S/P CHERYL-BSO S/P laparotomy removal of adhesions Social History Smoking Status: Never smoker Do You Dip or Chew Tobacco: No Hx Alcohol Use: No Hx Substance Use: No substance use type: does not use
[2024-03-28] MEDS: LACTATED RINGER'S 1,000 ML IV SCH (08:51)
[2024-03-28] MEDS ORDERED: ePHEDrine sulfate 50 MG/ML AMP IV PRN (09:21)
[2024-03-28] MEDS ORDERED: PROMETHAZINE HCL 6.25 MG in SODIUM CHLORIDE 0.9% 50 ML IV PRN (09:21)
[2024-03-28] MEDS ORDERED: ATROPINE SULFATE 0.1 MG/ML 10ML SYR IV PRN (09:21)
[2024-03-28] MEDS ORDERED: ONDANSETRON INJ 2 MG/ML 2 ML VIAL IV PRN (09:21)
--- NOTE | 2024-03-28 09:37 | History & Physical Bridge Note ---
Date of Service March 28, 2024 History & Physical Bridge Note I have examined the patient, reviewed the History & Physical and in the interval since the performance of the History & Physical I have noted the following changes of clinical significance: no changes noted pt marked all question answered at bedside
[2024-03-28] MEDS ORDERED: ROCURONIUM BROMIDE 10 MG/ML 5 ML VIAL IV ONE ×2 (09:50→10:22)
[2024-03-28] MEDS ORDERED: DEXAMETHASONE SOD INJ 4 MG/ML VIAL ONE (09:50)
[2024-03-28] MEDS ORDERED: ONDANSETRON INJ 2 MG/ML 2 ML VIAL ONE (09:50)
[2024-03-28] MEDS ORDERED: fentaNYL citrate PF 100 MCG/2 ML VIAL ONE ×2 (09:50)
[2024-03-28] MEDS ORDERED: MIDAZOLAM HCL 1 MG/ML 2ML VIAL ONE (09:50)
[2024-03-28] MEDS ORDERED: PROPOFOL IV EMULSION 10 MG/ML 20 ML VIAL IV ONE (09:50)
[2024-03-28] MEDS ORDERED: KETOROLAC 30 MG/ML VIAL ONE (09:50)
[2024-03-28] MEDS ORDERED: SUGAMMADEX SODIUM 200 MG/2 ML VIAL IV ONE (09:51)
[2024-03-28] MEDS ORDERED: cefOXitin SOD 1,000 MG VIAL ONE (10:04)
[2024-03-28] MEDS: ceFAZolin 2000MG 2,000 MG/15 ML SYR IV ONE (10:15)
[2024-03-28] MEDS ORDERED: ePHEDrine sulfate 50 MG/ML AMP ONE (10:18)
[2024-03-28] MEDS ORDERED: HYDROmorphone INJ 1 MG/ML SYRINGE ONE (12:07)
[2024-03-28] MEDS: BUPIVACAINE 0.5 % 5 MG/1 ML MPF 30ML VIAL ONE (12:53)
--- NOTE | 2024-03-28 13:02 | Post Operative Brief Note ---
Immediate Post Op Note Date of Surgery March 28, 2024 Pre & Post Diagnosis Operation Date: 03/28/24 10:00 Pre-Op Diagnosis: Incarcerated Incisional Hernia Post-Op Diagnosis: Incarcerated Incisional Hernia I identified the patient and participated in the time-out.: Yes Procedure Operation Date: 03/28/24 10:00 Actual Procedures p Lysis of Advanced Adhesions, Recurrent Incarcerated hernia repair with ventralux Mesh 8cm, Small Bowel Resection with Primary Anastamosis(Not Applicable) - Shaji Zaidi MD, FACS Surgeon Shaji Zaidi MD, FACS Seasonal Greenery Bundler .'[email or web address].Warren'Fabrice FLORES Estimated Blood Loss 100 Findings Consistent with Post-Op Diagnosis Drains Mejia Catheter
--- NOTE | 2024-03-28 13:23 | Operative Report ---
PG Post Operative Report Pre & Post Diagnosis Operation Date: 03/28/24 10:00 Pre-Op Diagnosis: Incarcerated Incisional Hernia Post-Op Diagnosis: Incarcerated Incisional Hernia I identified the patient and participated in the time-out.: Yes Procedure Operation Date: 03/28/24 10:00 Actual Procedures p Lysis of Advanced Adhesions, Recurrent Incarcerated hernia repair with ventralux Mesh 8cm, Small Bowel Resection with Primary Anastamosis(Not Applicable) - Shaji Zaidi MD, FACS Surgeon Shaji Zaidi MD, FACS Technical Solution Architect .Ricki FLORES Estimated Blood Loss 100 Findings Consistent with Post-Op Diagnosis Specimens Small bowel resection Drains 15 Kedar subcutaneous through the right lower quadrant stab wound Complications None Indications Mer has had multiple abdominal wall hernias repaired dating back to 2000 2000 he had an open repair of an incarcerated incisional hernia with mesh reinforcement of the left lower quadrant from the Pfannenstiel incision On 08/29/2008 she came in with a small bowel obstruction that was operated on open lysis of adhesions and incidental appendectomy small hernia repaired On 02/10/2010 patient again came in with symptomatic incisional hernia bowel obstruction and attempted laparoscopic repair was not possible due to significant adhesion therefore an open repair was done with mesh reinforcement the hernia was infraumbilically to the symphysis pubis patient had a smaller hernia supraumbilically fat in nature On 07/10/2019 patient was admitted recurrent bowel obstruction and she was treated nonoperatively On 07/22/2022 she again was admitted with recurrent bowel obstruction nonoperative management On 08/31/2022 another significant bowel obstruction and again management nonoperatively The patient the last 2 admissions evident that the bowel obstruction incomplete was in the left lower quadrant and also # incarcerated small bowel and infraumbilical incision but that did not seem to site of obstruction We saw the patient in the office twice since last discharge from the hospital and again easily appreciated right lower quadrant hernia and also a supraumbilical hernia but she was fairly asymptomatic again due to the hostile abdomen we recommended nonoperative management She came back last visit in January 2024 complaining of increased discomfort in her right lower quadrant incarcerated small bowel and also feeling nauseated more so than she had been and she felt that she wanted something done We explained extensively that surgery would not be easy and we will concentrate mostly in the lower abdomen already incisional hernia was present with small bowel contents and most likely leave the supraumbilical hernia alone since it contains this fat and asymptomatic Description of Procedure The patient was brought into the operating theater general trach anesthesia Mejia catheter inserted systemic antibiotics on board timeout was had patient was identified mid incision below the umbilicus to the symphysis pubis and medially subcutaneously we were met with the hernial sac hernial sac we opened and identified that in the depth of the sac the abdominal wall opening showed multiple adhesions of small bowel circumferentially around the opening to subcu there was no distention of the small bowel appreciated we then opened the hernial sac more and worked our way down to the abdominal wall and we were met with a mesh that basically was subcutaneously and extending towards the left lower quadrant on top of the rectus fascia the opening itself was approximately the defect in the abdominal wall was approximately 6 cm in size therefore we took down gently all the adhesions that were circumferentially around the hernial sac and around the abdominal wall defect even in the underside of its making sure that there was no evidence of obstruction here the small bowel was a normal caliber but in the medial aspect towards the left lower quadrant small bowel became a little bit more distended therefore we continued our dissection through the small bowel that was adherent to the anterior abdominal wall down towards the left lower quadrant and we inadvertently had an enterotomy in the small bowel that was controlled there was no bile leakage and we continued our dissection freeing up all this bowel that was adherent to the abdominal wall to the left lower quadrant where there was no further evidence of any significant radiation causing a bowel obstruction in fact once we had freed the undersurface of the hernial sac in the left lower quadrant the small bowel caliber there was a normal size and proximal to that a dilated indicating the area that it was caused by adhesion up accounting for the intermittent bowel obstruction of the GI and left lower quadrant once we have completed this the small bowel enterotomy was such that is the wall was compromised therefore elected to resected mobilized and freed approximately 3 cm so of the small bowel using a GATO proximally and distally dividing the ligament the mesentery was controlled with minimally dissection with 3-0 silk the 2 staple line then were oversewn with 3-0 silk and we proceeded to do a [id number] anastomosis with 3-0 silk o uter layer 3-0 chromic under later the anastomosis was checked appeared patent this was returned intra-abdominal he the undersurface of the hernial defect no bowel was appreciated we dissected our finger circumferentially at this point we had a defect and obviously could not be repaired primarily due to significant scarring on the undersurface of the mesh and we elected to place a surgeon mesh that we brought onto the field a 15 cm took centimeter circumferentially and placed that intra-abdominal he only felt that this was mesh did not lay in a position that would be attached to the anterior abdominal wall therefore we proceeded to put a Ventralex mesh and 8 cm brought up on the field placed intra- abdominal he we then sutured circumferentially at the ring using a Prolene suture 2 oh starting at 3 o'clock position and going to 9 o'clock position and 9:00 to 3 o'clock position the 2 straps were removed the wound appears satisfactory with no tension we then placed a 15 Kedar drain through the left lower quadrant on top of the mesh attached to the skin edge with 2-0 silk subcutaneous tissue was brought back with 2-0 Vicryl in a continuous fashion and nora for skin edges dressing was applied procedure tolerated well estimated blood loss 100 cc Addendum this dissection it took approximately 2 hours on 2 hours and a half to free all the adhesion should be billed as a modifier Willie FLORES was present throughout the procedure and helped the retraction exposure wound closure I spoke with her Imer in her sister in the waiting area I attest to the content of the Intraoperative Record and any orders documented therein. Any exceptions are noted below.
--- NOTE | 2024-03-28 13:23 | Anesthesiology Progress Note ---
Date of Service March 28, 2024 Anesthesia Post Procedure Vital Signs Vital Signs: Temp Pulse Pulse Resp BP Pulse Ox O2 Del Method 03/28/24 13:15 36.5 C 94 H 12 128/60 97 Oxymask 03/28/24 08:40 36.6 C 87 20 132/77 96 Room Air O2 Flow Rate 03/28/24 13:15 6 03/28/24 08:40 Transfer of Care Handoff Completed per policy Notes Mental Status: alert / awake / arousable and participated in evaluation Patient Amnestic to Procedure: Yes Nausea / Vomiting: adequately controlled Pain: adequately controlled Airway Patency, RR, SpO2: stable & adequate BP & HR: stable & adequate Hydration State: stable & adequate Anesthetic Complications: no major complications apparent and Pt Satisfied with anesthetic care
[2024-03-28] MEDS: fentaNYL citrate PF 100 MCG/2 ML VIAL IV PRN (13:25)
[2024-03-28] MEDS: HYDROmorphone INJ 1 MG/ML SYRINGE IV PRN (13:40)
[2024-03-28] MEDS: SODIUM CHLORIDE 0.9% 1,000 ML IV SCH (15:57)
[2024-03-28] MEDS: HYDROmorphone INJ 0.5 MG/0.5 ML SYR IV PRN ×2 (15:57→19:21)
[2024-03-28] MEDS: cefOXitin 2,000 MG in DEXTROSE 5 % MINI-B 50 ML IV SCH (16:41)
[2024-03-28] MEDS: ONDANSETRON INJ 2 MG/ML 2 ML VIAL IV PRN (21:03)
[2024-03-28] MEDS: oxyCODONE HCL IR 5 MG TAB (IMMEDIATE RELEASE) PO PRN (21:37)
[2024-03-29] MEDS: ACETAMINOPHEN 1,000 MG/100 ML VIAL IV PRN (00:57)
--- NOTE | 2024-03-29 05:21 | Communication Note ---
Date of Service: March 29, 2024 I was called by nursing staff that the patient was having significant abdominal pain. They are hesitant to give the patient further Dilaudid for analgesia due to systolic blood pressure being less than 100. I did stop by the patient during the visit with her and she does note pain near her surgical incisions. She denies any nausea or vomiting denies any fevers, shakes, or chills. I instructed the nurse to give normal saline solution bolus of 250 cc x 2 to see if we get her pressure above 100 in order to administer further Dilaudid. We also checked her a.m. labs at this time (prior to giving anything like Toradol or any other NSAIDs would like to ensure she has stability of her hemoglobin and hematocrit as well as renal function) Will also continue to administer Tylenol at the next available dose. The patient is noted to be otherwise hemodynamically stable and afebrile.
[2024-03-29 05:51] LABS: Basophils # (auto) 0.03 K/uL (0.00-0.20); Basophils % (auto) 0.3 %; Eosinophils # (auto) 0.01 K/uL (0.00-0.50); Eosinophils % (auto) 0.1 %; Hematocrit (blood only) 38.8 % (37.0-47.0); Hemoglobin 12.7 g/dl (12.0-16.0); Immature Granulocytes # (auto) 0.03 K/uL (0.01-0.20); Immature Granulocytes % (auto) 0.3 %; Lymphocytes # (auto) 2.06 K/uL (1.20-3.40); Lymphocytes % (auto) 18.7 %; Mean Corpuscular Hemoglobin 29.7 pg (25.0-34.0); Mean Corpuscular Hgb Conc 32.7 g/dL (32.0-36.0); Mean Corpuscular Volume 90.9 fL (80.0-100.0); Monocytes % (auto) 4.5 %; Neutrophils # (auto) 8.37 K/uL (1.40-6.50); Neutrophils % (auto) 76.1 %; Platelet Count 191 K/uL (130-400); RDW Coefficient of Variation 13.7 % (11.5-14.5); Red Blood Count 4.27 M/uL (4.20-5.40)
[2024-03-29 06:05] LABS: BUN Creatinine Ratio 22.5 (10-20); Calcium 8.2 mg/dl (8.6-10.3); Creatinine Clr Calc Pharmacy 62.5 ml/min
--- NOTE | 2024-03-29 06:40 | Surgery Progress Note ---
Date of Service March 29, 2024 Assessment & Plan (1) Incisional hernia, incarcerated: Plan: IV analgesics was given 0.5 mg of Dilaudid and the pain subsided The patient is also behind on fluids 500 cc bolus was administered we will increase her IV part of the hypotension may be related to some dehydration from the preop bowel prep After to 0.5 mg Dilaudid given the patient pain subsided and her pressure was 94/36 with a pulse rate of 69 Hemoglobin is 12.7 preop was 14.4 which was dropped prior to her bowel prep BUN 20 creatinine 0.9 Will keep her n.p.o. and monitor her fluid status Admission and Anticipated Discharge Date Admission Date: March 28, 2024 Subjective Having significant pain lower abdomen around the operative site is has significant pain during the night analgesics was held because of pressure in the 90s denies any nausea rest of the abdomen none tender Physical Exam Physical Exam: She is alert coherent crying because she is having significant pain in the lower abdomen The abdomen is soft with pain overlying the midline incision lower abdomen the rest of the abdomen is nontender Results & Data Vital Signs (Past 12 Hours) Vital Signs Temp Pulse Resp BP Pulse Ox O2 Del Method 03/29/24 04:56 71 94/57 L 03/29/24 04:42 36.5 C 70 20 89/59 L 97 Room Air 03/29/24 04:05 71 91/57 L 03/29/24 03:00 74 89/55 L 03/29/24 02:00 70 20 77/44 L 03/29/24 01:06 84 96/60 L 03/28/24 23:00 36.7 C 61 18 86/49 L 96 Room Air 03/28/24 19:20 Room Air 03/28/24 19:00 36.4 C L 68 18 102/61 94 Room Air
[2024-03-29] MEDS: HYDROmorphone INJ 0.5 MG/0.5 ML SYR IV PRN (10:24)
[2024-03-29] MEDS: SODIUM CHLORIDE 0.9% 1,000 ML IV SCH (19:38)
[2024-03-30 07:04] LABS: Basophils # (auto) 0.03 K/uL (0.00-0.20); Basophils % (auto) 0.2 %; Hematocrit (blood only) 36.4 % (37.0-47.0); Hemoglobin 11.8 g/dl (12.0-16.0); Immature Granulocytes # (auto) 0.07 K/uL (0.01-0.20); Immature Granulocytes % (auto) 0.5 %; Lymphocytes # (auto) 1.78 K/uL (1.20-3.40); Lymphocytes % (auto) 12.6 %; Mean Corpuscular Hemoglobin 30.2 pg (25.0-34.0); Mean Corpuscular Hgb Conc 32.4 g/dL (32.0-36.0); Mean Corpuscular Volume 93.1 fL (80.0-100.0); Mean Platelet Volume 9.9 fL (9.4-12.4); Monocytes # (auto) 0.66 K/uL (0.11-0.59); Monocytes % (auto) 4.7 %; Neutrophils # (auto) 11.54 K/uL (1.40-6.50); Platelet Count 184 K/uL (130-400); RDW Coefficient of Variation 14.3 % (11.5-14.5); RDW Standard Deviation 48.7 fL (36.4-46.3); Red Blood Count 3.91 M/uL (4.20-5.40); White Blood Count 14.08 K/ul (4.8-10.8)
[2024-03-30 07:23] LABS: BUN Creatinine Ratio 18.4 (10-20); Calcium 8.4 mg/dl (8.6-10.3); Creatinine Clr Calc Pharmacy 73.2 ml/min; Potassium 4.1 mmol/L (3.5-5.1)
--- NOTE | 2024-03-30 09:36 | Surgery Progress Note ---
Date of Service March 30, 2024 Assessment & Plan (1) Incisional hernia, incarcerated: Plan: she is much improved today. Tolerating pain better Continue ice chips and sips, awaiting bowel function Out of bed to chair, PT/OT evaluation continue to monitor Admission and Anticipated Discharge Date Admission Date: March 29, 2024 Subjective she is feeling much better today. Significantly less pain. No flatus. No nausea or vomiting. Tolerating ice chips. No fevers or chills overnight. Physical Exam Physical Exam: AFVSS NAD, A&O x 3 NCAT, no scleral icterus abdomen soft, mild distention, mild tenderness to palpation Incision C/D/I; nora in place Results & Data Vital Signs (Past 12 Hours) Vital Signs Temp Pulse Resp BP Pulse Ox O2 Del Method O2 Flow Rate 03/30/24 09:10 36.4 C L 81 16 102/57 L 97 Nasal Cannula 2 03/30/24 06:29 114/69 03/30/24 00:43 114/63 03/29/24 21:46 116/69 Laboratory Results 03/30/24 Range/Units 06:45 WBC 14.08 H (4.8-10.8) K/ul RBC 3.91 L (4.20-5.40) M/uL Hgb 11.8 L (12.0-16.0) g/dl Hct 36.4 L (37.0-47.0) % MCV 93.1 (80.0-100.0) fL MCH 30.2 (25.0-34.0) pg MCHC 32.4 (32.0-36.0) g/dL RDW Std Deviation 48.7 H (36.4-46.3) fL RDW Coeff of Kim 14.3 (11.5-14.5) % Plt Count 184 (130-400) K/uL MPV 9.9 (9.4-12.4) fL Immature Gran % (Auto) 0.5 % Neut % (Auto) 82.0 % Lymph % (Auto) 12.6 % Mcpherson % (Auto) 4.7 % Eos % (Auto) 0.0 % Baso % (Auto) 0.2 % Neut # (Auto) 11.54 H (1.40-6.50) K/uL Lymph # (Auto) 1.78 (1.20-3.40) K/uL Mcpherson # (Auto) 0.66 H (0.11-0.59) K/uL Eos # (Auto) 0.00 (0.00-0.50) K/uL Baso # (Auto) 0.03 (0.00-0.20) K/uL Immature Gran # (Auto) 0.07 (0.01-0.20) K/uL Sodium 138 (136-145) mmol/L Potassium 4.1 (3.5-5.1) mmol/L Chloride 112 H (98-107) mmol/L Carbon Dioxide 20 L (21-32) mmol/L Anion Gap 6 (3-11) BUN 14 (6-23) mg/dl Creatinine 0.76 (0.6-1.2) mg/dl Est Cr Clr Drug Dosing 73.2 ml/min eGFR 84.24 BUN/Creatinine Ratio 18.4 (10-20) Glucose 122 H (70-99(Fasting)) mg/dl Calcium 8.4 L (8.6-10.3) mg/dl
[2024-03-30] MEDS: PNEUMOCOCCAL VACCINE (PCV20) 20-VAL CONJ-DIP CRM/PF 0.5 ML SYR IM ONE (16:52)
[2024-03-30] MEDS: INFLUENZA VACC TS2024-25(65y+)/PF (IIV3) 0.5mL Syr IM ONE (16:52)
[2024-03-30] MEDS: SODIUM CHLORIDE 0.9% 1,000 ML IV SCH (20:42)
[2024-03-31 07:28] LABS: Basophils # (auto) 0.02 K/uL (0.00-0.20); Basophils % (auto) 0.2 %; Eosinophils # (auto) 0.01 K/uL (0.00-0.50); Eosinophils % (auto) 0.1 %; Hemoglobin 11.7 g/dl (12.0-16.0); Immature Granulocytes # (auto) 0.07 K/uL (0.01-0.20); Immature Granulocytes % (auto) 0.5 %; Lymphocytes # (auto) 1.31 K/uL (1.20-3.40); Lymphocytes % (auto) 10.1 %; Mean Corpuscular Hemoglobin 29.8 pg (25.0-34.0); Mean Corpuscular Hgb Conc 32.5 g/dL (32.0-36.0); Mean Corpuscular Volume 91.6 fL (80.0-100.0); Monocytes # (auto) 0.65 K/uL (0.11-0.59); Neutrophils % (auto) 84.1 %; Platelet Count 186 K/uL (130-400); RDW Coefficient of Variation 14.3 % (11.5-14.5); RDW Standard Deviation 48.4 fL (36.4-46.3); Red Blood Count 3.93 M/uL (4.20-5.40); White Blood Count 12.96 K/ul (4.8-10.8)
[2024-03-31 07:49] LABS: BUN Creatinine Ratio 20.6 (10-20); Calcium 8.5 mg/dl (8.6-10.3); Creatinine Clr Calc Pharmacy 81.8 ml/min
--- NOTE | 2024-03-31 10:29 | Surgery Progress Note ---
Date of Service March 31, 2024 Assessment & Plan (1) Incisional hernia, incarcerated: Plan: she is much improved today. Tolerating pain better Continue ice chips and sips, awaiting bowel function Out of bed to chair, PT/OT evaluation continue to monitor Admission and Anticipated Discharge Date Admission Date: March 29, 2024 Subjective Continues to feel better today. Significantly less pain. No flatus. No nausea or vomiting. Tolerating ice chips. No fevers or chills overnight. Physical Exam Physical Exam: AFVSS NAD, A&O x 3 NCAT, no scleral icterus abdomen soft, mild distention, mild tenderness to palpation Incision C/D/I; nora in place Results & Data Vital Signs (Past 12 Hours) Vital Signs Temp Pulse Resp BP O2 Del Method O2 Flow Rate 03/31/24 08:00 36.6 C 115 H 18 111/72 Nasal Cannula 4 03/30/24 23:16 122/73
[2024-03-31] MEDS: SODIUM CHLORIDE 0.9% 1,000 ML IV SCH (20:36)
[2024-04-01 07:10] LABS: Basophils # (auto) 0.02 K/uL (0.00-0.20); Basophils % (auto) 0.2 %; Eosinophils # (auto) 0.07 K/uL (0.00-0.50); Eosinophils % (auto) 0.7 %; Hematocrit (blood only) 32.2 % (37.0-47.0); Hemoglobin 10.7 g/dl (12.0-16.0); Immature Granulocytes # (auto) 0.03 K/uL (0.01-0.20); Immature Granulocytes % (auto) 0.3 %; Lymphocytes # (auto) 1.69 K/uL (1.20-3.40); Lymphocytes % (auto) 16.6 %; Mean Corpuscular Hemoglobin 30.1 pg (25.0-34.0); Mean Corpuscular Hgb Conc 33.2 g/dL (32.0-36.0); Mean Corpuscular Volume 90.7 fL (80.0-100.0); Mean Platelet Volume 10.9 fL (9.4-12.4); Monocytes % (auto) 7.9 %; Neutrophils # (auto) 7.56 K/uL (1.40-6.50); Neutrophils % (auto) 74.3 %; Platelet Count 188 K/uL (130-400); RDW Coefficient of Variation 14.4 % (11.5-14.5); Red Blood Count 3.55 M/uL (4.20-5.40); White Blood Count 10.17 K/ul (4.8-10.8)
[2024-04-01 07:35] LABS: BUN Creatinine Ratio 23.8 (10-20); Calcium 8.1 mg/dl (8.6-10.3); Creatinine Clr Calc Pharmacy 88.3 ml/min; Potassium 3.7 mmol/L (3.5-5.1)
--- NOTE | 2024-04-01 08:01 | Surgery Progress Note ---
Date of Service April 01, 2024 Assessment & Plan (1) Incisional hernia, incarcerated: Plan: POD 4 Hernia repair /Small bowel resection has been NPO with sips /chips , IV fluids Waiting return of bowel function, mild nausea . May consider PPN today Pt with complaints of abd pain/discomfort , medication helping has new c/o stabbing CP while taking deep breaths, non radiating, started this AM , mild SOB on 3L NC sat 93% -ordered stat CXR, EKG, Troponin , consult medicine appreciate assistance still with barker cath, ordered to remove and have pt get OOB , may await until further workup on CP prior to removal Nora midline CDI, ENEIDA drain Will follow closely (2) S/P small bowel resection: Admission and Anticipated Discharge Date Admission Date: March 29, 2024 Supervising Physician Co-Signing Physician Notes patient seen and evaluated see my progress note S Dyan Lipscomb Pt with complaints of abd pain/discomfort , medication helping has new c/o stabbing CP while taking deep breaths, non radiating, started this AM , mild SOB on 3L NC sat 93% Denies flatus, mild nausea still with barker cath Review of Systems Constitutional: no fever and no chills Respiratory: + dyspnea and + pain on inspiration Cardiovascular: + chest pain Gastrointestinal: + abdominal pain, + bloating and + nause a; no vomiting Physical Exam Constitutional: no acute distress and + uncomfortable Respiratory: able to speak in complete sentences; no respiratory distress Cardiovascular: Rate/Rhythm: + tachycardic (91) Gastrointestinal (Abdomen): Inspection/Auscultation: + abdominal surgical incision (nora midline CDI ) and + abdominal surgical drain present; abdomen not distended Results & Data Vital Signs (Past 12 Hours) Vital Signs Temp Pulse Resp BP Pulse Ox O2 Del Method O2 Flow Rate 04/01/24 07:02 96.8 F L 91 H 18 137/84 93 Nasal Cannula 3 03/31/24 20:30 Nasal Cannula 3 Results CBC w Diff Results: RBC 3.55 M/uL (4.20-5.40) L 04/01/24 WBC 10.17 K/ul (4.8-10.8) 04/01/24 Hgb 10.7 g/dl (12.0-16.0) L 04/01/24 Hct 32.2 % (37.0-47.0) L 04/01/24 MCV 90.7 fL (80.0-100.0) 04/01/24 MCH 30.1 pg (25.0-34.0) 04/01/24 MCHC 33.2 g/dL (32.0-36.0) 04/01/24 RDW Standard Deviation 48.0 fL (36.4-46.3) H 04/01/24 RDW Coefficient of Variation 14.4 % (11.5-14.5) 04/01/24 Plt Count 188 K/uL (130-400) 04/01/24 MPV 10.9 fL (9.4-12.4) 04/01/24 Neutrophils (%) (Auto) 74.3 % 04/01/24 Lymphocytes (%) (Auto) 16.6 % 04/01/24 Monocytes # (Auto) 0.80 K/uL (0.11-0.59) H 04/01/24 Eosinophils # (Auto) 0.07 K/uL (0.00-0.50) 04/01/24 Immature Granulocyte % (Auto) 0.3 % 04/01/24 Neutrophils # (Auto) 7.56 K/uL (1.40-6.50) H 04/01/24 Lymphocytes # (Auto) 1.69 K/uL (1.20-3.40) 04/01/24 Monocytes # (Auto) 0.80 K/uL (0.11-0.59) H 04/01/24 Eosinophils # (Auto) 0.07 K/uL (0.00-0.50) 04/01/24 Basophils # (Auto) 0.02 K/uL (0.00-0.20) 04/01/24 Immature Granulocyte # (Auto) 0.03 K/uL (0.01-0.20) 5 PG Care Time/CCT Total # of Minutes Spent Total Time Spent with Patient: Total time spent is greater than 50% in coordination of care (as documented) at patient's floor/unit and/or counseling patient: Coding Level of Care Code 72639 Post Operative Follow-Up Diagnoses Incisional hernia, incarcerated K43.0 S/P small bowel resection Z90.49
[2024-04-01 08:26] LABS: Troponin I High Sensitivity 152.3 pg/ml (0-14)
[2024-04-01] MEDS ORDERED: NITROGLYCERIN SL 0.4 MG/TAB TAB SL PRN (08:56)
--- NOTE | 2024-04-01 09:30 | XRay Report ---
EXAM: XR chest 1V portable CLINICAL HISTORY: CHEST PAIN. TECHNIQUE: An X-ray image of the chest was obtained in AP projection. COMPARISON: X-ray dated 10/31/2022. FINDINGS: Pulmonary Parenchyma: Bilateral air under the diaphragm is noted denoting pneumoperitoneum. Prominent bulky bilateral hilum. Increased bronchovascular markings with possible cephalization. Blunting of bilateral costophrenic angles likely due to the pleural effusion. Heart and Mediastinum: Heart size and shape are normal. No mediastinal widening or masses. No hilar or mediastinal lymphadenopathy. Bony Thorax: Bony thorax appears intact without fractures or deformities. Soft Tissues: Soft tissues overlying the chest wall are unremarkable. IMPRESSION: 1. Bilateral air under the diaphragm denoting pneumoperitoneum (new finding in comparison with the previous study). 2. Prominent bilateral hilar increased bronchovascular markings, cephalization, and bilateral blunting of the costophrenic angles raise the possibility of pulmonary edema. 3. Advised CT scan of chest and abdomen for further evaluation. Electronically signed by Leonardo Collier 04-01-2024 09:30 AM
[2024-04-01 09:39] LABS: Chol HDL Ratio 4.5 (0-5)
--- NOTE | 2024-04-01 09:43 | Surgery Progress Note ---
Date of Service April 01, 2024 Assessment & Plan (1) Incisional hernia, incarcerated: Plan: Patient is 4 days postop repair of incarcerated incisional hernia with small bowel resection very difficult case since the patient has significant other hernias repaired in the past including with mesh The epigastric pain that she is experiencing stating since yesterday progressively getting worse An NG tube was inserted significant amount of air evacuated and the patient felt better on repeat abdominal exam she is not complaining of any discrete pain or localized pain and chest discomfort has dissipated Will continue with NG tube with intermittent suction she is slated to get a CT scan of the chest by the medical service but we will obtain a CT scan of the abdomen and pelvis to make sure that there is no anastomotic leak since the patient has some bilious drainage fluid from the Kedar drain which is not subcutaneous on top of the hernia repair (the small bowel resection was due to significant adhesions and it was in the left lower quadrant) Suspect the epigastric discomfort and lower chest pain may have been attributed to gastric distention rather than any free air that may be related to an anastomotic leak if she does indeed have that Medical service is transferred the patient to telemetry Plan CT scan of the chest and abdomen was reviewed with the radiologist patient has significant amount of air in the upper abdomen more than 1 would expect in 4 days postop there is no true evidence of any fluid collection in the epigastric area the patient had a small bowel anastomosis in the left lower quadrant and she has slight bilious drainage from the Kedar drain (very little drainage) that is above the mesh left lower quadrant is stable from the anastomosis was seen there is no evidence of any significant fluid around the area and no obvious air pockets appreciated Clinically the patient is feeling better with the NG tube in place on repeat examination she has mild tenderness in her abdomen much more improved since the NG tube in place the CT scan findings were discussed with the patient including the possibility of going back into surgery but given what we see at this time with slight improvement clinically I elected to wait and see how she does from getting into her abdomen with the significant amount of taking patient is agreeable to that Will watch her closely we will institute broad-spectrum antibiotics I asked that if I need to speak to her she said there was no need she talked to him Discussed the case with Dr. Bay my partner who is on-call today and he is aware of of the present care 7:10 pm Since last seen this morning the patient feels much better she has been out of bed a few times less abdominal discomfort much more alert denies any significant pain Oropharyngeal area moist sclera nonicteric No audible rales or rhonchi The abdomen softer and this morning still slightly still tympanitic no localized tenderness some guarding on both flanks lower abdomen midline incision intact nora intact there is no redness or any drainage The Kedar drainage minimally slight bilious in nature minimal amount Urine output good approximately 450 cc every 8-9 hours clear Heart rate remains in the high 90s on 1 measurements at 3:00 was down to 85 At this point compared to this morning she appears to be much more stable less discomfort we will continue nonoperative management Discussed the situation with the patient again and her sister who is at bedside All question answered Admission and Anticipated Discharge Date Admission Date: March 29, 2024 Subjective Complaining of epigastric and lower chest pain likely since yesterday worse with a deep breath no nausea no flatus or bowel movement Physical Exam Physical Exam: Alert coherent with some epigastric discomfort Lungs diminished breath sounds right base The abdomen is distended especially in the epigastric area tympanitic The Kedar drainage slightly bilious in nature Results & Data Vital Signs (Past 12 Hours) Vital Signs Temp Pulse Resp BP Pulse Ox O2 Del Method O2 Flow Rate 04/01/24 07:45 36.9 C 97 H 16 132/83 93 Nasal Cannula 3 04/01/24 07:02 36.0 C L 91 H 18 137/84 93 Nasal Cannula 3
[2024-04-01] MEDS: OPTIRAY 320 125ml IV ONE (10:00)
--- NOTE | 2024-04-01 10:27 | CT Scan Report ---
CT angio chest w con CLINICAL HISTORY: chest pain with inspiration TECHNIQUE: CT angiography of the chest with pulmonary embolism protocol. 120 cc Optiray IV was given. Sagittal and coronal reformats were obtained. MIPS were obtained. DLP is [id number]. COMPARISON STUDY: 09/07/2017 FINDINGS: There are small bilateral pleural effusions with near complete consolidation of bilateral l ower lung lobes. No pneumothorax. Nasogastric tube tip is off the field of view inferiorly. There is large amount of free air at the partially visualized upper abdomen. No pericardial effusion. No enlar ged adenopathy. No thoracic aortic dissection or aneurysm. No pulmonary embolism. No acute osseous fi ndings. IMPRESSION: 1. Large amount of free air in the visualized upper abdomen. Please see abdominal CT report. 2. No pulmonary embolism seen. 3. Small bilateral pleural effusions with near complete consolidation of bilateral lower lobes, pneum onia versus atelectasis. ACT 112: Negative or not required by law. Electronically signed by: Avni Duarte M.D. 04/01/2024 10:26 AM
--- NOTE | 2024-04-01 11:07 | CT Scan Report ---
CT OF THE ABDOMEN AND PELVIS WITHOUT CONTRAST CLINICAL HISTORY: Possible anastomotic leak. Status post incarcerated ventral hernia repair and small bowel resection with anastomosis. COMPARISON STUDY: CT of the abdomen and pelvis October 31, 2022. KUB November 02, 2022. TECHNIQUE: Axial images of the abdomen and pelvis were obtained without IV contrast. Images were revi ewed in the axial, sagittal, and coronal planes. Automated exposure control was utilized for the ankita dy. A dose lowering technique was utilized adhering to the principles of ALARA. FINDINGS: Small bilateral pleural effusions, right larger than left, are better depicted on the chest CT. Associated subpleural opacities within the lower lobes favor atelectasis. Large volume pneumoper itoneum is present. There is also a moderate amount of gas within the right abdominal wall. A surgica l drain is in place. A small amount of fluid along the drain is present. A 5.7 x 5 cm gas and fluid c ontaining focus within the anterior pelvis on image [id number] is present. This could represent a bowel loop or fluid collection. A 6 x 4 cm pocket of fluid within the right anterior abdomen on image 288 f avors a fluid collection. Stranding within the operative bed is postsurgical. There are postoperative findings consistent with ventral hernia repair. A small bowel anastomosis is noted. Small and large bowel are mildly dilated and fluid-filled. No well-defined transition point is identified. Nasogastri c tube is in place. Tip is within the distal stomach. Unenhanced images of the liver, spleen, adrenal glands, kidneys and pancreas are unremarkable. There is bilateral perinephric stranding. There is no hydronephrosis. Body wall edema is present. No urinary calculi are present. A Mejia balloon and gas within the bladder are noted. Evaluation of the abdomen and pelvis is suboptimal given the lack of IV contrast. Supraumbilical hernia contains extraluminal gas. IMPRESSION: 1. Status post ventral hernia repair with mesh and small bowel resection with anastomosis. Large volu me pneumoperitoneum and moderate amount of gas within the abdominal wall. Although this gas could be postsurgical, the amount of gas is greater than expected 4 days following surgery and raises the poss ibility of a small bowel anastomotic leak. 2. Several suspected fluid collections within the lower abdomen and pelvis, as described above. Howev er, differentiation between fluid collections and bowel loops is difficult on this unenhanced examina tion. 3. Mildly dilated fluid-filled small and large bowel. This favors a postoperative ileus. A bowel obst ruction is considered less likely. 4. Small bilateral pleural effusions. Extensive bilateral lower lobe airspace opacity favors atelecta sis. ACT 112: Negative or not required by law. Electronically signed by: Michael Newman M.D. 04/01/2024 11:05 AM
--- NOTE | 2024-04-01 11:44 | Electrocardiogram Report ---
Test Reason : Blood Pressure : */* mmHG Vent. Rate : 92 BPM Atrial Rate : 92 BPM P-R Int : 128 ms QRS Dur : 90 ms QT Int : 400 ms P-R-T Axes : 33 -10 -12 degrees QTcB Int : 494 ms Normal sinus rhythm Minimal voltage criteria for LVH, may be normal variant T wave abnormality, consider anterior ischemia Prolonged QT Abnormal ECG When compared with ECG of 19-Mar-2024 15:04, T wave inversion now evident in Inferior leads T wave inversion now evident in Anterior leads QT has lengthened Confirmed by Mendoza Johnston ([id number]) on 04/01/2024 11:44:29 AM Referred By: Shaji Zaidi Confirmed By: Mendoza Johnston
--- NOTE | 2024-04-01 11:55 | Hospitalist Consultation ---
Date of Consultation April 01, 2024 Assessment & Plan (1) Chest pain: The medical service was consulted for inspirational chest pain CT angio ruled out PE Mildly elevated troponin of 150, T wave inversions in the anterior inferior leads. Monitor on telemetry. Trend cardiac enzymes. Ordered nitroglycerin. Will hold off on anticoagulants in the face of pneumoperitoneum and potentially leaking anastomosis The patient has large volume pneumoperitoneum raising questions of small bowel anastomotic leak. The chest pain she is experiencing is most likely related to her abdominal issues. The surgical team is monitoring her closely. Plans per surgery team. (2) Incisional hernia, incarcerated: Postop day 4 Pneumoperitoneum and the possibility of a bowel anastomotic leak is being entertained. Management per surgery (3) SBO (small bowel obstruction): Management per surgery (4) Paralytic ileus: Management per surgery Plan I will follow along. Cardiac etiology is being evaluated. However, I believe that her inspirational chest pain is most likely related to her abdominal issues. History of Present Illness Reason for Consultation: Chest pain Requesting Physician: Shaji Zaidi MD, FACS Attending Physician: Shaji Zaidi MD, FACS History of Present Illness This is a 69-year-old female with a history of small bowel obstruction in the past, had a surgery on 03/28 for recurrent incarcerated hernia repair and small bowel resection. She has been on the surgical service since 03/28. The hospitalist service was consulted this morning because the patient was complaining of chest pain. On further questioning, the patient revealed that she has been having some degree of chest pain with inspiration ever since the day of surgery. It would go away every time she was given IV pain medications for postsurgical pain. She never complained about it to the nurse because it did not bother her too much. Today, she reported to the nurse because she was having pain at the time when the nurse was in the room. But the pain today was no more severe than the past few days. Taking a deep breath in makes the pain worse. Belching makes the pain better temporarily. A chest x-ray, EKG and troponins were ordered prior to my encounter with the patient. The chest x-ray showed findings concerning for pneumoperitoneum. EKG showed some T wave inversions in the anterior and inferior leads. Troponins were mildly elevated in the 150s range. The patient has not seen a PCP in several years. She is not aware of having any medical conditions Allergies Allergy/AdvReac Type Severity Reaction Status Date / Time codeine AdvReac Severe NAUSEA & Verified 03/28/24 08:36 headache morphine AdvReac Severe Headache Verified 03/28/24 08:36 Home Medications Medication Instructions Recorded Confirmed Type lactobacillus combination no.4 3 3,000 mmu cells PO QAM 07/21/22 03/28/24 History billion cell capsule (Probiotic) acetaminophen 500 mg tablet 500 mg PO Q6H PRN Pain 10/31/22 03/28/24 History ibuprofen 100 mg tablet 200 mg PO Q6H PRN Pain 10/31/22 03/28/24 History metronidazole 500 mg tablet 500 mg PO .COMPLEX #3 tabs 03/19/24 03/28/24 Rx neomycin 500 mg tablet 1 g (2 x 500 mg) PO .COMPLEX #6 03/19/24 03/28/24 Rx tabs docusate sodium 50 mg capsule 50 mg PO DAILY PRN prn 03/20/24 03/28/24 History ondansetron 4 mg disintegrating 4 mg PO Q6H PRN nausea and 03/29/24 Rx tablet vomiting 4 days #7 tabs oxycodone 5 mg tablet 5 - 10 mg (1 - 2 x 5 mg) PO 03/29/24 Rx .[id number] PRN pain #15 tabs Patient History Medical History Internal hemorrhoids without mention of complication History of anesthesia reaction awareness and awake during hysterectomy, 1990s Abdominal adhesions Partial small bowel obstruction Bowel obstruction x4. most recent in 2021 Surgical History S/P small bowel resection (03/28/24) Lysis of Advanced Adhesions, Recurrent Incarcerated hernia repair with ventralux Mesh 8cm, Small Bowel Resection with Primary Anastamosis - Shaji Zaidi MD, [facility] History of cholecystectomy History of appendectomy S/P hemorrhoidectomy (12/20/07) Examination under anesthesia; hemorrhoidectomy with LigaSure Dr. Cuellar History of incisional hernia repair (02/10/10) Attempt at laparoscopic repair, open repair of two large incisional hernia with mesh reinforcement Dr. Zaidi History of incisional hernia repair (03/22/00) Repair incarcerated incisional hernia with mesh reinforcement. Dr. Zaidi Hx of pelvic surgery anterior and posterior repair History of colonoscopy S/P CHERYL-BSO S/P laparotomy removal of adhesions Family History Father , age 69 - complications from surgery Myocardial infarction Mother , age 72 Cervical cancer Diabetes Other No family history of adverse response to anesthesia Social History Smoking Status: Never smoker Second Hand Exposure: No; Do You Dip or Chew Tobacco: No; Tobacco Cessation Education Requested by Patient: No Hx Alcohol Use: No Hx Substance Use: No Preferred Language: Ghanaian Communication Ability: Effective Visual Impairment: No Limitations Hearing Ability: Normal Failure Analysis Engineer Required: No Beliefs That Will Affect Care: None marital status: marital status details: 2 children Current Living Situation: Spouse Current Living Situation Comment: lives in [place] farm current occupational status: retired current occupation: worked at [employer] How many Children do You have: 2 Other Information That Helps Us Care for You: No Feels Safe at Home: Yes Safety Concerns: Feels Safe At This Time Assistive Devices: None Review of Systems Review of Systems: All systems reviewed & are unremarkable except as noted in Subjective Physical Exam Physical Exam: General: Awake, conversant Heart: S1, S2/regular rate and rhythm, no murmur rubs or gallops Lungs: Clear to auscultation bilaterally. Normal effort. Deep inspiration is painful Abdomen: Soft/nondistended. No hepatosplenomegaly. Pain and tenderness noted at the surgical site. Peritoneal signs are not obviously positive. Extremities: No clubbing/cyanosis. No edema Behavior: Appropriate, cooperative Results & Data Results & Data Vital Signs (Past 12 Hours) Vital Signs Temp Pulse Resp BP BP Pulse Ox O2 Del Method 04/01/24 10:16 36.8 C 95 H 20 117/75 90 Nasal Cannula 04/01/24 08:00 Nasal Cannula 04/01/24 07:45 36.9 C 97 H 16 132/83 93 Nasal Cannula 04/01/24 07:02 36.0 C L 91 H 18 137/84 93 Nasal Cannula O2 Flow Rate 04/01/24 10:16 04/01/24 08:00 3 04/01/24 07:45 3 04/01/24 07:02 3 Laboratory Results Abnormal lab results 04/01/24 Range/Units 06:15 RBC 3.55 L (4.20-5.40) M/uL Hgb 10.7 L (12.0-16.0) g/dl Hct 32.2 L (37.0-47.0) % RDW Std Deviation 48.0 H (36.4-46.3) fL Neut # (Auto) 7.56 H (1.40-6.50) K/uL [place] # (Auto) 0.80 H (0.11-0.59) K/uL Chloride 111 H (98-107) mmol/L BUN/Creatinine Ratio 23.8 H (10-20) Glucose 114 H (70-99(Fasting)) mg/dl Calcium 8.1 L (8.6-10.3) mg/dl Troponin I High Sens 152.3 H* (0-14) pg/ml Diagnostic Findings Chest X-Ray 04/01/24 07:40 EXAM: XR chest 1V portable CLINICAL HISTORY: CHEST PAIN. TECHNIQUE: An X-ray image of the chest was obtained in AP projection. COMPARISON: X-ray dated 10/31/2022. FINDINGS: Pulmonary Parenchyma: Bilateral air under the diaphragm is noted denoting pneumoperitoneum. Prominent bulky bilateral hilum. Increased bronchovascular markings with possible cephalization. Blunting of bilateral costophrenic angles likely due to the pleural effusion. Heart and Mediastinum: Heart size and shape are normal. No mediastinal widening or masses. No hilar or mediastinal lymphadenopathy. Bony Thorax: Bony thorax appears intact without fractures or deformities. Soft Tissues: Soft tissues overlying the chest wall are unremarkable. IMPRESSION: 1. Bilateral air under the diaphragm denoting pneumoperitoneum (new finding in comparison with the previous study). 2. Prominent bilateral hilar increased bronchovascular markings, cephalization, and bilateral blunting of the costophrenic angles raise the possibility of pulmonary edema. 3. Advised CT scan of chest and abdomen for further evaluation. Electronically signed by Leonardo Collier 04-01-2024 09:30 AM Chest CTA 04/01/24 08:42 CT angio chest w con CLINICAL HISTORY: chest pain with inspiration TECHNIQUE: CT angiography of the chest with pulmonary embolism protocol. 120 cc Optiray IV was given. Sagittal and coronal reformats were obtained. MIPS were obtained. DLP is [id number]. COMPARISON STUDY: 09/07/2017 FINDINGS: There are small bilateral pleural effusions with near complete consolidation of bilateral lower lung lobes. No pneumothorax. Nasogastric tube tip is off the field of view inferiorly. There is large amount of free air at the partially visualized upper abdomen. No pericardial effusion. No enlarged adenopathy. No thoracic aortic dissection or aneurysm. No pulmonary embolism. No acute osseous findings. IMPRESSION: 1. Large amount of free air in the visualized upper abdomen. Please see abdominal CT report. 2. No pulmonary embolism seen. 3. Small bilateral pleural effusions with near complete consolidation of bilateral lower lobes, pneumonia versus atelectasis. ACT 112: Negative or not required by law. Electronically signed by: Avni Duarte M.D. 04/01/2024 10:26 AM Abdomen/Pelvis CT 04/01/24 09:15 CT OF THE ABDOMEN AND PELVIS WITHOUT CONTRAST CLINICAL HISTORY: Possible anastomotic leak. Status post incarcerated ventral hernia repair and small bowel resection with anastomosis. COMPARISON STUDY: CT of the abdomen and pelvis October 31, 2022. KUB November 02, 2022. TECHNIQUE: Axial images of the abdomen and pelvis were obtained without IV contrast. Images were reviewed in the axial, sagittal, and coronal planes. Automated exposure control was utilized for the study. A dose lowering technique was utilized adhering to the principles of ALARA. FINDINGS: Small bilateral pleural effusions, right larger than left, are better depicted on the chest CT. Associated subpleural opacities within the lower lobes favor atelectasis. Large volume pneumoperitoneum is present. There is also a moderate amount of gas within the right abdominal wall. A surgical drain is in place. A small amount of fluid along the drain is present. A 5.7 x 5 cm gas and fluid containing focus within the anterior pelvis on image [id number] is present. This could represent a bowel loop or fluid collection. A 6 x 4 cm pocket of fluid within the right anterior abdomen on image 288 favors a fluid collection. Stranding within the operative bed is postsurgical. There are postoperative findings consistent with ventral hernia repair. A small bowel anastomosis is noted. Small and large bowel are mildly dilated and fluid-filled. No well- defined transition point is identified. Nasogastric tube is in place. Tip is within the distal stomach. Unenhanced images of the liver, spleen, adrenal glands, kidneys and pancreas are unremarkable. There is bilateral perinephric stranding. There is no hydronephrosis. Body wall edema is present. No urinary calculi are present. A Mejia balloon and gas within the bladder are noted. Evaluation of the abdomen and pelvis is suboptimal given the lack of IV contrast. Supraumbilical hernia contains extraluminal gas. IMPRESSION: 1. Status post ventral hernia repair with mesh and small bowel resection with anastomosis. Large volume pneumoperitoneum and moderate amount of gas within the abdominal wall. Although this gas could be postsurgical, the amount of gas is greater than expected 4 days following surgery and raises the possibility of a small bowel anastomotic leak. 2. Several suspected fluid collections within the lower abdomen and pelvis, as described above. However, differentiation between fluid collections and bowel loops is difficult on this unenhanced examination. 3. Mildly dilated fluid-filled small and large bowel. This favors a postoperative ileus. A bowel obstruction is considered less likely. 4. Small bilateral pleural effusions. Extensive bilateral lower lobe airspace opacity favors atelectasis. ACT 112: Negative or not required by law. Electronically signed by: Michael Newman M.D. 04/01/2024 11:05 AM PG Care Time/CCT Total # of Minutes Spent Total Time Spent with Patient: Total time spent is greater than 50% in coordination of care (as documented) at patient's floor/unit and/or counseling patient: Coding Level of Care Code 96032 IN/OBS CONSULT LVL 4,60M Diagnoses Chest pain R07.9 Incisional hernia, incarcerated K43.0 SBO (small bowel obstruction) K56.609 Paralytic ileus K56.0
--- NOTE | 2024-04-01 12:04 | XCELERA ---
[id number]
[2024-04-01] MEDS ORDERED: TPN/PPN CONSULT PHARMACY SCH (12:36)
[2024-04-01] MEDS: PIPERACILLIN/TAZOBACTAM 4.5 GM/100 ML BAG IV SCH ×2 (13:19→18:33)
[2024-04-01] MEDS: HEPARIN SOD 5,000 UNIT/0.5 ML VIAL SQ SCH (13:21)
[2024-04-01] MEDS: PIPERACILLIN/TAZOBACTAM 4.5 GM/100 ML BAG IV ONE (14:00)
[2024-04-02] MEDS: HYDROmorphone INJ 0.5 MG/0.5 ML SYR IV PRN (03:38)
[2024-04-02 06:14] LABS: Basophils # (auto) 0.03 K/uL (0.00-0.20); Basophils % (auto) 0.3 %; Eosinophils # (auto) 0.17 K/uL (0.00-0.50); Eosinophils % (auto) 1.9 %; Hematocrit (blood only) 33.4 % (37.0-47.0); Hemoglobin 10.9 g/dl (12.0-16.0); Immature Granulocytes # (auto) 0.02 K/uL (0.01-0.20); Immature Granulocytes % (auto) 0.2 %; Lymphocytes # (auto) 1.41 K/uL (1.20-3.40); Lymphocytes % (auto) 15.5 %; Mean Corpuscular Hemoglobin 29.1 pg (25.0-34.0); Mean Corpuscular Hgb Conc 32.6 g/dL (32.0-36.0); Mean Corpuscular Volume 89.1 fL (80.0-100.0); Mean Platelet Volume 10.3 fL (9.4-12.4); Monocytes # (auto) 0.73 K/uL (0.11-0.59); Neutrophils # (auto) 6.72 K/uL (1.40-6.50); Neutrophils % (auto) 74.1 %; Platelet Count 209 K/uL (130-400); RDW Coefficient of Variation 14.5 % (11.5-14.5); RDW Standard Deviation 46.5 fL (36.4-46.3); Red Blood Count 3.75 M/uL (4.20-5.40); White Blood Count 9.08 K/ul (4.8-10.8)
[2024-04-02 06:32] LABS: BUN Creatinine Ratio 25.9 (10-20); Bilirubin,Total 0.4 mg/dl (0.2-1.0); Calcium 8.2 mg/dl (8.6-10.3); Creatinine Clr Calc Pharmacy 101.4 ml/min; Magnesium 1.8 mg/dl (1.7-2.4); Phosphorus 1.7 mg/dl (2.5-4.9); Potassium 3.5 mmol/L (3.5-5.1)
[2024-04-02 06:45] LABS: Troponin I High Sensitivity 53.4 pg/ml (0-14)
--- NOTE | 2024-04-02 06:51 | Surgery Progress Note ---
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 at this time we will continue with hyperalimentation and hopefully try to avoid any surgery at this time it is encouraging that she has had flatus few times and hopefully will close without surgery Will repeat a KUB of the abdomen today Admission and Anticipated Discharge Date Admission Date: March 29, 2024 Subjective Feels much better than yesterday she was up at the side of bed for quite some time this morning passed flatus 3 or 4 times no abdominal discomfort the discomfort that she had in the past days is subsiding considerably Physical Exam Physical Exam: Alert coherent in no distress Sclera nonicteric Oropharyngeal area moist NG drainage bilious in nature The abdomen is softer no tenderness some guarding lower abdomen Lower midline incision intact there is no drainage no cellulitis no erythema nora intact without any rotation Kedar drain which was on top of the mesh in the lower midline incision has significant bilious drainage this morning drained approximately 110 cc at 6:00 and appears to have another 30 cc in the bulb No pedal edema Vitals noted 128/67 at 335 this morning with a pulse rate of 85 O2 sats 93 on 2 L Gastric drainage 280 cc urine output excellent Results & Data Vital Signs (Past 12 Hours) Vital Signs Temp Pulse Pulse Resp BP Pulse Ox O2 Del Method 04/02/24 03:35 36.6 C 85 18 128/67 93 Nasal Cannula 04/01/24 23:58 36.5 C 90 18 121/76 95 Nasal Cannula 04/01/24 21:55 80 04/01/24 19:45 Nasal Cannula 04/01/24 19:30 36.7 C 86 18 122/78 93 Nasal Cannula O2 Flow Rate 04/02/24 03:35 2 04/01/24 23:58 3 04/01/24 21:55 04/01/24 19:45 3 04/01/24 19:30 3 Laboratory Results Lab noted hemoglobin stable at 10.9-10.7 range WBCs 9.8 with decreasing left shift
[2024-04-02] MEDS: SODIUM CHLORIDE 0.9% 500 ML IV SCH (08:14)
--- NOTE | 2024-04-02 08:31 | XRay Report ---
KUB CLINICAL HISTORY: follow up on pnemoperitoneum COMPARISON STUDY: CT of the abdomen and pelvis April 01, 2024. FINDINGS: Surgical skin nora are present as well as a surgical drain within the lower anterior abd ominal wall. Tip of nasogastric tube is within the distal stomach. Several loops of mildly dilated sm all bowel remain unchanged. Gas within the right lower anterior abdominal wall is again noted. There is also evidence for pneumoperitoneum with extraluminal gas within an upper ventral hernia. Relative lucency projecting over the upper abdomen and outlining small bowel loops also indicates persistent p neumoperitoneum. The amount of pneumoperitoneum is difficult to assess on this supine radiograph. IMPRESSION: 1. Redemonstration of pneumoperitoneum and gas within the right anterior abdominal wall, as described above. The amount of pneumoperitoneum is difficult to assess on this supine radiograph. 2. No change in mild small bowel dilatation. This favors a postoperative ileus. ACT 112: Negative or not required by law. Electronically signed by: Michael Newman M.D. 04/02/2024 8:29 AM
[2024-04-02] MEDS: POTASSIUM PHOSPHATE 21 MMOL in SODIUM CHLORIDE 0.9% 500 ML IV ONE (10:02)
--- NOTE | 2024-04-02 11:11 | Pharmacy Report ---
Pharmacy Initial PN Consult Nt - Date of Service April 02, 2024 - Scope Pharmacy has been consulted on this date to manage parenteral nutrition orders and order appropriate labs. As part of the Nutrition Support Team Guidelines, pharmacy will work in conjunction with dietary when determining the patients caloric needs. - Subjective * The patient is a 68 year old Female admitted on 03/29/24 for Incarcerated Incisional Hernia (POD #5). * Patient is to receive parenteral nutrition for anticipated prolonged NPO status in setting of anastomotic leak. - Objective Vascular Access: * Patient currently has a peripheral line. * Peripheral line was confirmed by IV Team to be acceptable for PPN use on 04/02/24 Height & Weight (Last Documented) Height 5 ft 7 in Weight 85.5 kg Diet Order(s) 03/28/24 15:31 NPO Intake & Ouput (24hrs) 04/01/24 04/02/24 04/03/24 06:59 06:59 06:59 Intake Total 2935.416 / 2935.416 2200 / 2200 245.333 / 245.333 Output Total 800 / 800 1555 / 1555 Balance 2135.416 / 2135.416 645 / 645 245.333 / 245.333 Selected Laboratory Results 04/02/24 05:25 Sodium 141 Potassium 3.5 Chloride 111 H Carbon Dioxide 21 Anion Gap 9 BUN 15 Creatinine 0.58 L BUN/Creatinine Ratio 25.9 H Glucose 116 H Calcium 8.2 L Phosphorus 1.7 L Magnesium 1.8 Total Bilirubin 0.4 AST 8 L ALT 5 L Alkaline Phosphatase [address] - Initial Nutrition Assessment Start: 04/01/24 11:04 Freq: Status: Active Protocol: Document 04/01/24 11:04 [id number] (Rec: 04/01/24 11:21 [id number]) - Assessment & Plan Assessment: * Appreciate dietitians recommendations for macronutrients. Plan: * D/w surgery - PPN to begin once phos >/=2mg/dL- hold for today. This AM, phos 1.7. Receiving IV repletion with plan for repeat lab this afternoon - may require additional supplementation. Once PPN begins, NS (@80ml/hr) to stop. Plan to initiate PPN with dextrose ~50% of goal and titrate to goal. Additional macro/micronutrients to be determined pending repeat labs. * * * * * * * * * * * * * * * * * * * * * Labs will be ordered per PN protocol. * Pharmacy will follow and adjust PN orders on a daily basis. Thank you!
--- NOTE | 2024-04-02 14:34 | Hospitalist Progress Note ---
Date of Service April 02, 2024 Assessment & Plan (1) Chest pain: Plan: The medical service was consulted for inspirational chest pain CT angio ruled out PE The patient most likely had demand ischemia with mildly elevated troponin of 150, T wave inversions in the anterior inferior leads. Monitor on telemetry. Cardiac enzymes trended down. Ordered nitroglycerin. Echocardiogram shows no wall motion abnormalities. Will hold off on anticoagulants in the face of pneumoperitoneum and potentially leaking anastomosis The patient has large volume pneumoperitoneum raising questions of small bowel anastomotic leak. The chest pain she was experiencing was most likely related to her abdominal issues. The surgical team is monitoring her closely. Plans per surgery team. (2) Incisional hernia, incarcerated: Plan: Postop day 4 Pneumoperitoneum and the possibility of a bowel anastomotic leak is being managed by the surgery team. They are closely monitoring. (3) SBO (small bowel obstruction): Plan: Management per surgery (4) Paralytic ileus: Plan: Management per surgery Admission and Anticipated Discharge Date Admission Date: March 29, 2024 Subjective Patient was seen and examined at 12:30 PM. She states that she is feeling a little bit better compared to when I last saw her yesterday. She has an NG tube in place. The chest pain/epigastric pain has improved. Review of Systems Review of Systems: All systems reviewed & are unremarkable except as noted in Subjective Physical Exam Physical Exam: General: Awake, conversant. NG tube in place. Heart: S1, S2/regular rate and rhythm, no murmur rubs or gallops Lungs: Clear to auscultation bilaterally. Normal effort. Deep inspiration is painful Abdomen: Soft/nondistended. No hepatosplenomegaly. Pain and tenderness noted at the surgical site. Peritoneal signs are not obviously positive. Extremities: No clubbing/cyanosis. No edema Behavior: Appropriate, cooperative Results & Data Results & Data Vital Signs (Past 12 Hours) Vital Signs Temp Pulse Pulse Pulse Resp BP Pulse Ox 04/02/24 11:37 36.4 C L 94 H 94 H 18 146/76 H 94 04/02/24 08:00 04/02/24 08:00 61 04/02/24 07:45 36.3 C L 92 H 19 142/84 H 94 04/02/24 03:35 36.6 C 85 18 128/67 93 O2 Del Method O2 Flow Rate 04/02/24 11:37 Nasal Cannula 3 04/02/24 08:00 Nasal Cannula 04/02/24 08:00 04/02/24 07:45 Nasal Cannula 2 04/02/24 03:35 Nasal Cannula 2 Laboratory Results Abnormal lab results 04/01/24 04/01/24 04/01/24 Range/Units 15:07 16:55 22:42 RBC (4.20-5.40) M/uL Hgb (12.0-16.0) g/dl Hct (37.0-47.0) % RDW Std Deviation (36.4-46.3) fL Neut # (Auto) (1.40-6.50) K/uL [place] # (Auto) (0.11-0.59) K/uL Chloride (98-107) mmol/L Creatinine (0.6-1.2) mg/dl BUN/Creatinine Ratio (10-20) Glucose (70-99(Fasting)) mg/dl POC Glucose 120 H (70-99) mg/dl Calcium (8.6-10.3) mg/dl Phosphorus (2.5-4.9) mg/dl AST (13-39) U/L ALT (7-52) U/L Troponin I High Sens 91.6 H* D 78.4 H* D (0-14) pg/ml Triglycerides (0-150) mg/dl 04/02/24 04/02/24 Range/Units 05:25 07:50 RBC 3.75 L (4.20-5.40) M/uL Hgb 10.9 L (12.0-16.0) g/dl Hct 33.4 L (37.0-47.0) % RDW Std Deviation 46.5 H (36.4-46.3) fL Neut # (Auto) 6.72 H (1.40-6.50) K/uL [place] # (Auto) 0.73 H (0.11-0.59) K/uL Chloride 111 H (98-107) mmol/L Creatinine 0.58 L (0.6-1.2) mg/dl BUN/Creatinine Ratio 25.9 H (10-20) Glucose 116 H (70-99(Fasting)) mg/dl POC Glucose 114 H (70-99) mg/dl Calcium 8.2 L (8.6-10.3) mg/dl Phosphorus 1.7 L (2.5-4.9) mg/dl AST 8 L (13-39) U/L ALT 5 L (7-52) U/L Troponin I High Sens 53.4 H* D (0-14) pg/ml Triglycerides 164 H (0-150) mg/dl PG Care Time/CCT Total # of Minutes Spent Total Time Spent with Patient: Total time spent is greater than 50% in coordination of care (as documented) at patient's floor/unit and/or counseling patient: Coding Level of Care Code 45979 SUB INP/OBS CARE 2/35MIN Diagnoses Chest pain R07.9 Incisional hernia, incarcerated K43.0 SBO (small bowel obstruction) K56.609 Paralytic ileus K56.0
[2024-04-03 06:41] LABS: Basophils # (auto) 0.03 K/uL (0.00-0.20); Basophils % (auto) 0.4 %; Eosinophils # (auto) 0.22 K/uL (0.00-0.50); Eosinophils % (auto) 2.9 %; Hematocrit (blood only) 30.6 % (37.0-47.0); Hemoglobin 10.4 g/dl (12.0-16.0); Immature Granulocytes # (auto) 0.02 K/uL (0.01-0.20); Immature Granulocytes % (auto) 0.3 %; Lymphocytes # (auto) 1.73 K/uL (1.20-3.40); Lymphocytes % (auto) 22.9 %; Mean Corpuscular Hemoglobin 29.9 pg (25.0-34.0); Mean Corpuscular Volume 87.9 fL (80.0-100.0); Mean Platelet Volume 10.3 fL (9.4-12.4); Monocytes # (auto) 0.55 K/uL (0.11-0.59); Monocytes % (auto) 7.3 %; Neutrophils % (auto) 66.2 %; Platelet Count 231 K/uL (130-400); RDW Coefficient of Variation 14.2 % (11.5-14.5); RDW Standard Deviation 45.8 fL (36.4-46.3); Red Blood Count 3.48 M/uL (4.20-5.40); White Blood Count 7.55 K/ul (4.8-10.8)
[2024-04-03 06:52] LABS: BUN Creatinine Ratio 24.5 (10-20); Creatinine Clr Calc Pharmacy 110.3 ml/min; Magnesium 1.8 mg/dl (1.7-2.4); Potassium 3.1 mmol/L (3.5-5.1)
--- NOTE | 2024-04-03 07:47 | Surgery Progress Note ---
Date of Service April 03, 2024 Assessment & Plan (1) Incisional hernia, incarcerated: Plan: POD#6 Lysis of Advanced Adhesions, Recurrent Incarcerated hernia repair with ventralux Mesh 8cm, Small Bowel Resection with Primary Anastomosis WBC 7.5, Hbg 10.4, K 3.1, P 2. vitals stable Patient feeling a bit better this AM. pain controlled. no n/v. she is passing gas and BM NGT 630cc over last 12 hrs. ENEIDA drain with bilious drainage 80cc over last 12 hours Incisions c/d/i Pharmacy wanted PPN on hold yesterday due to Phosphorus level, will discuss with them plans to initiate today Continue OOB ambulating and pulmonary toilet, IV abx Admission and Anticipated Discharge Date Admission Date: March 29, 2024 Supervising Physician Co-Signing Physician Notes As per Lesia Partida physician producer assistant The patient was up for quite a while this morning and then felt some abdominal discomfort in the lower abdomen no nausea or vomiting has had multiple bowel movements NG drainage 180 cc last 6 hours overall 1200 last 24 hours Kedar drainage 130 cc last 24 hours last 8 hours 42 cc bilious not serosanguineous Urine output 1150 last 24 hours The abdomen is completely benign the incision is intact nora without any skin irritation no cellulitis or drainage from the incision Patient is 6 days postop status post repair incarcerated incisional hernia with Ventralex mesh and small bowel resection 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 she has had 2 bowel movements at least last 24 hours the NG drainage as stated above but at the nasal markings with 75 cc and radiographic appears to be in the duodenum The plan is to DC the NG tube DC the Mejia catheter started on liquids and also started on TPN I am not sure how much she will be able to take orally at this time Will also diurese her with 20 mg of Lasix her weight today is 84 kg preoperatively was 75 kg Will DC antibiotic white count is normal no left shift Discussed with the patient pending how she does if she can tolerate a diet and the fistula has low white blood she would be able to go home and hopefully the drainage will not increase with oral intake Wean off Dilaudid get a chest x-ray this morning to follow-up on the bilateral pleural effusions that she had Increase ambulation Addendum 11:19 AM Chest x-ray reviewed shows still moderate amount of subdiaphragmatic air consistent with pneumoperitoneum if more that I would like to see from a few days ago but clinically the patient is completely asymptomatic therefore we will continue watching it bilateral pleural effusions that she had seems to have resolved considerably although hard to tell on 1 view chest x-ray Subjective Patient feeling a little better this AM. She is passing gas and had a couple small BMs. No nausea/vomiting this AM. Pain overall controlled. No complaints. Physical Exam Physical Exam: awake/alert, no distress Respiratory: normal respiratory effort on supplemental nasal cannula Gastrointestinal (Abdomen): Inspection/Auscultation: + abdominal surgical incision (midline incision c/d/i with nora; no signs of infection ) and + abdominal surgical drain present (bilious drainage from kedar, 80cc over last 12 hr/130cc over 24 hr) Percussion/Palpation: + abdomen tender (expected post op discomfort to palpation ) and abdomen soft Results & Data Vital Signs (Past 12 Hours) Vital Signs Temp Pulse Pulse Resp BP Pulse Ox O2 Del Method 04/03/24 07:19 97.3 F L 78 20 156/87 H 95 Nasal Cannula 04/03/24 03:00 91 Nasal Cannula 04/03/24 02:50 97.9 F 81 20 136/74 88 L Nasal Cannula 04/02/24 22:58 97.9 F 79 18 127/79 90 Nasal Cannula 04/02/24 21:45 75 04/02/24 20:15 Room Air O2 Flow Rate 04/03/24 07:19 4 04/03/24 03:00 4 04/03/24 02:50 3 04/02/24 22:58 4 04/02/24 21:45 04/02/24 20:15 3 PG Care Time/CCT Total # of Minutes Spent Total Time Spent with Patient: Total time spent is greater than 50% in coordination of care (as documented) at patient's floor/unit and/or counseling patient: Coding Level of Care Code 09626 Post Operative Follow-Up Diagnoses Incisional hernia, incarcerated K43.0
[2024-04-03] MEDS: FUROSEMIDE INJ 20 MG/2 ML VIAL IV ONE (09:23)
[2024-04-03] MEDS: oxyCODONE HCL IR 5 MG TAB (IMMEDIATE RELEASE) PO PRN (09:24)
[2024-04-03] MEDS: POTASSIUM CHLORIDE CRTAB 20 MEQ TABCR PO STA (09:24)
--- NOTE | 2024-04-03 09:36 | XRay Report ---
XR chest 1V portable CLINICAL HISTORY: f/u danae pleural effusion known pneumoperitoneum; history of recent surgery COMPARISON STUDY: CT of the abdomen and pelvis dated 04/01/2024 FINDINGS: The patient continues to have a large pneumoperitoneum associated with bibasilar compressiv e atelectasis and a possible right lung infiltrate. This degree of pneumoperitoneum is atypical for t his stage in the postsurgical course. Recommend clinical correlation for possible bowel leak as previ ously suggested. There is minimal blunting of the costophrenic angles consistent with trace bilateral pleural effusion s. IMPRESSION: Persistent, large volume pneumoperitoneum. Bibasilar compressive atelectasis. Can't exclude right basilar infiltrate. Small bilateral pleural effusions. ACT 112: Negative or not required by law. Electronically signed by: Nesha Silva M.D. 04/03/2024 9:34 AM
[2024-04-03] MEDS: POTASSIUM PHOSPHATE 15 MMOL in SODIUM CHLORIDE 0.9% 250 ML IV ONE (09:46)
--- NOTE | 2024-04-03 14:49 | Hospitalist Progress Note ---
Date of Service April 03, 2024 Assessment & Plan (1) Chest pain: Plan: The medical service was consulted for inspirational chest pain CT angio ruled out PE The patient most likely had demand ischemia with mildly elevated troponin of 150, T wave inversions in the anterior inferior leads. Monitor on telemetry. Cardiac enzymes trended down. Ordered nitroglycerin. Echocardiogram shows no wall motion abnormalities. Will hold off on anticoagulants in the face of pneumoperitoneum and potentially leaking anastomosis The patient has large volume pneumoperitoneum raising questions of small bowel anastomotic leak. The chest pain she was experiencing was most likely related to her abdominal issues. The surgical team is monitoring her closely. Plans per surgery team. (2) Incisional hernia, incarcerated: Plan: Postop day 4 Pneumoperitoneum and the possibility of a bowel anastomotic leak is being managed by the surgery team. They are closely monitoring. Patient is doing remarkably well today. NG removed. Mejia catheter removed. Patient has been started on a liquid diet. Surgical team ordered a dose of 20 mg of IV Lasix. IV antibiotics were discontinued by the surgical team as well. Patient has been advised to ambulate (3) SBO (small bowel obstruction): Plan: Management per surgery (4) Paralytic ileus: Plan: Management per surgery Admission and Anticipated Discharge Date Admission Date: March 29, 2024 Subjective Patient is doing much better today. She has had multiple bowel movements. Her NG tube has been removed. She does not have any chest pain any longer. Her belly pain is improving as well. Review of Systems Review of Systems: All systems reviewed & are unremarkable except as noted in Subjective Physical Exam Physical Exam: General: Awake, conversant. Heart: S1, S2/regular rate and rhythm, no murmur rubs or gallops Lungs: Clear to auscultation bilaterally. Normal effort. Deep inspiration is painful Abdomen: Soft/nondistended. No hepatosplenomegaly. Pain and tenderness noted at the surgical site. Extremities: No clubbing/cyanosis. No edema Behavior: Appropriate, cooperative Results & Data Results & Data Vital Signs (Past 12 Hours) Vital Signs Temp Pulse Pulse Resp BP Pulse Ox O2 Del Method 04/03/24 11:23 36.2 C L 79 18 95 Nasal Cannula 04/03/24 08:18 65 04/03/24 08:00 Nasal Cannula 04/03/24 07:19 36.3 C L 78 20 156/87 H 95 Nasal Cannula 04/03/24 03:00 91 Nasal Cannula 04/03/24 02:50 36.6 C 81 20 136/74 88 L Nasal Cannula O2 Flow Rate 04/03/24 11:23 3 04/03/24 08:18 04/03/24 08:00 2 04/03/24 07:19 4 04/03/24 03:00 4 04/03/24 02:50 3 Laboratory Results Abnormal lab results 04/02/24 04/03/24 04/03/24 Range/Units 15:10 05:35 07:01 RBC 3.48 L (4.20-5.40) M/uL Hgb 10.4 L (12.0-16.0) g/dl Hct 30.6 L (37.0-47.0) % Potassium 3.1 L (3.5-5.1) mmol/L Chloride 108 H (98-107) mmol/L Creatinine 0.53 L (0.6-1.2) mg/dl BUN/Creatinine Ratio 24.5 H (10-20) Glucose 110 H (70-99(Fasting)) mg/dl POC Glucose 105 H 101 H (70-99) mg/dl Calcium 8.0 L (8.6-10.3) mg/dl Phosphorus 2.0 L (2.5-4.9) mg/dl 04/03/24 04/03/24 04/03/24 Range/Units 13:59 14:04 14:16 RBC (4.20-5.40) M/uL Hgb (12.0-16.0) g/dl Hct (37.0-47.0) % Potassium (3.5-5.1) mmol/L Chloride (98-107) mmol/L Creatinine (0.6-1.2) mg/dl BUN/Creatinine Ratio (10-20) Glucose (70-99(Fasting)) mg/dl POC Glucose 39 L* 142 H 125 H (70-99) mg/dl Calcium (8.6-10.3) mg/dl Phosphorus (2.5-4.9) mg/dl PG Care Time/CCT Total # of Minutes Spent Total Time Spent with Patient: Total time spent is greater than 50% in coordination of care (as documented) at patient's floor/unit and/or counseling patient: Coding Level of Care Code 42790 SUB INP/OBS CARE 2/35MIN Diagnoses Chest pain R07.9 Incisional hernia, incarcerated K43.0 SBO (small bowel obstruction) K56.609 Paralytic ileus K56.0
--- NOTE | 2024-04-03 14:53 | Pharmacy Report ---
Pharmacy PN Follow-up Note - Date of Service April 03, 2024 - Subjective Patient is currently on day #1 of PPN for anticipated prolonged NPO in the setting of anastomotic leak s/p incarcerated incisional hernia (POD #6) - Objective Height & Weight (Last Documented) Height 5 ft 7 in Weight 84.453 kg Diet Order(s) 04/03/24 Breakfast Diet Intake & Ouput (24hrs) 04/02/24 04/03/24 04/04/24 06:59 06:59 06:59 Intake Total 2200 / 2200 1277.973 / 1277.973 355 / 355 Output Total 1555 / 1555 2762 / 2762 Balance 645 / 645 -1484.027 / -1484.027 355 / 355 Selected Laboratory Results 04/02/24 04/03/24 14:21 05:35 Sodium 143 Potassium 3.1 L Chloride 108 H Carbon Dioxide 27 Anion Gap 8 BUN 13 Creatinine 0.53 L BUN/Creatinine Ratio 24.5 H Glucose 110 H Calcium 8.0 L Phosphorus 2.8 D 2.0 L Magnesium 1.8 - Assessment & Plan Assessment: * Hypophosphatemia (phos = 2.0) and hypokalemia (K= 3.1) on AM labs. Patient ordered repletion; Kphos 15 mmol IV + KCL 40 meq PO. * PPN initiated with dextrose ~50% of goal for day 1. Will titrate to goal (AA 77 g, dextrose 90 g, lipid 50 g) as tolerated. Plan: * For Day #1 of PPN administration, the following will be ordered: * Macronutrients: * Amino Acids: 41 grams/day * Dextrose: 48 grams/day * Lipids: 30 grams/day * Micronutrients: * Sodium phosphate: 24 mMol/day * Sodium acetate: 45 mEq/day * Potassium chloride: 35 mEq/day * Potassium acetate: 30 mEq/day * Magnesium sulfate: 12.18 mEq/day * Calcium gluconate: 4.65 mEq/day * Multivitamins: 10 mL/day * Trace elements: 1 mL/day * Thiamine: 200 mg/day * Total volume of 1049 mL will be infused over 24 hours and will provide ~626 kcal/day * Patient is on PPN which has a maximum mOsm/L of 900. Final osmolarity of curre nt solution is 899.3 mOsm/L. * Labs will be ordered per PN protocol. * Pharmacy will follow and adjust PN orders on a daily basis. Thank you!
[2024-04-03] MEDS ORDERED: DEXTROSE 10% 1,000 ML IV PRN (16:00)
[2024-04-03] MEDS: CLINOLIPID 20% IV FAT EMULSION 150 ML IV SCH (16:45)
[2024-04-03] MEDS: [UNRECOGNIZED DRUG - OTHER] IV SCH (16:45)
[2024-04-03] MEDS: PERIPHERAL TPN IV SCH (16:45)
[2024-04-03] MEDS: STOP CLINOLIPID SCH (22:45)
--- NOTE | 2024-04-04 06:35 | Surgery Progress Note ---
Date of Service April 04, 2024 Assessment & Plan (1) Incisional hernia, incarcerated: Plan: 7th POD Overall she seems to be improving a by slowly especially with the drainage that was bilious in nature indicating likely anastomotic leak and the drainage this morning is nonbilious in nature She appears to have more pneumoperitoneum on exam the rest of the abdomen is pretty benign Her vitals noted her pulse is 76 O2 sats 92 on 3 L The patient is not being weighed out and that we asked for daily weights to see where we stand as far as mobilization of fluids since the Mejia catheter is out now and urine output is not measured The patient continues to be on hyper L we will keep her mostly on clear liquids and discussed with her that we will continue nonoperative management but is always a possibility that we may need to reoperate on her although she understands as we have told her preoperatively that this would have been at the very difficult case due to the numerous surgeries that she had and getting back into her belly at this time would be even more difficult Labs pending Plan Continue with hyper L and most keep her on clear liquids pain close attention to his amount of Kedar drainage and characteristic of the drainage if it continues to be bilious as had been before it was a low output fistula from likely the anastomosis and will keep oral intake at a minimum continue hyperalimentation with the hopes that this would heal and not converting to a high output fistula Since seen early this morning early afternoon the nurses reported that she had more abdominal distention and felt uncomfortable therefore we repeated a CT scan of the abdomen and the findings were Pretty much the same amount of free air there is no evidence of free fluid in the abdomen she does have more of a small bowel distention which could account for her discomfort i.e. ileus All other parameters are basically unremarkable as far as her vitals her pulse is 57 blood pressure 148/90 she is on 2 L/min Lab this morning showed a hemoglobin 11.5 which is slightly more than yesterday 1 is 10.4 BUN is 9 creatinine 0.54 potassium is low at 3.0 On examined the patient she does have more abdominal distention she is uncomfortable and especially in the lower abdomen and we will insert an NG tube to make her a bit more comfortable I had an extensive talk with her and her jesus a picture of all the s urgical procedure and the reason why she may have this complication of a bile leak from the small intestine (of note the characteristic of the bile leak since yesterday is changed from the nonbilious to more dark bloody) We will continue with nonoperative management all her questions were answered Admission and Anticipated Discharge Date Admission Date: March 29, 2024 Subjective She states he she feels a little bit better than yesterday has not taken any analgesics since last evening been nauseated only pain in the suprapubic area Physical Exam Physical Exam: Alert coherent resting comfortably no distress Sclera nonicteric Oropharyngeal moist Lungs no audible wheezing or rails Abdomen in the subcostal area mostly on the right there seems to be more prominence of what appears to be likely still some residual pneumoperitoneum that was documented on the x-ray yesterday No tenderness noted except some discomfort in the suprapubic area where the incision is A Kedar drainage adds 50 cc in 6 hours but according to the readings it was brown slight odor at the present time there is very little residual fluid in the reservoir the remaining fluid does not appear to be bilious in nature Extremities no pedal edema Results & Data Vital Signs (Past 12 Hours) Vital Signs Temp Pulse Resp BP Pulse Ox O2 Del Method O2 Flow Rate 04/04/24 02:46 36.7 C 76 18 121/78 92 Nasal Cannula 3 04/03/24 23:15 37.1 C 75 18 114/72 93 Nasal Cannula 3 04/03/24 22:15 Nasal Cannula 3 04/03/24 19:21 37.1 C 76 18 116/65 94 Nasal Cannula 3
[2024-04-04 08:06] LABS: Basophils # (auto) 0.02 K/uL (0.00-0.20); Basophils % (auto) 0.2 %; Eosinophils % (auto) 2.5 %; Hematocrit (blood only) 34.1 % (37.0-47.0); Hemoglobin 11.5 g/dl (12.0-16.0); Immature Granulocytes # (auto) 0.08 K/uL (0.01-0.20); Lymphocytes # (auto) 2.12 K/uL (1.20-3.40); Lymphocytes % (auto) 26.3 %; Mean Corpuscular Hemoglobin 29.5 pg (25.0-34.0); Mean Corpuscular Hgb Conc 33.7 g/dL (32.0-36.0); Mean Corpuscular Volume 87.4 fL (80.0-100.0); Mean Platelet Volume 10.3 fL (9.4-12.4); Monocytes # (auto) 0.72 K/uL (0.11-0.59); Monocytes % (auto) 8.9 %; Neutrophils # (auto) 4.93 K/uL (1.40-6.50); Neutrophils % (auto) 61.1 %; Platelet Count 257 K/uL (130-400); RDW Coefficient of Variation 13.8 % (11.5-14.5); RDW Standard Deviation 44.4 fL (36.4-46.3); White Blood Count 8.07 K/ul (4.8-10.8)
[2024-04-04 08:28] LABS: BUN Creatinine Ratio 16.7 (10-20); Calcium 8.3 mg/dl (8.6-10.3); Creatinine Clr Calc Pharmacy 108.3 ml/min; Magnesium 1.8 mg/dl (1.7-2.4); Phosphorus 2.6 mg/dl (2.5-4.9)
[2024-04-04] MEDS: POTASSIUM CHLORIDE / WTR 10 MEQ/100 ML PLCT IV SCH (10:11)
[2024-04-04] MEDS: POTASSIUM CHLORIDE 20 MEQ/15 ML UDC PO STA (10:11)
[2024-04-04] MEDS: ACETAMINOPHEN 325 MG TAB PO PRN (12:48)
--- NOTE | 2024-04-04 13:04 | Communication Note ---
Date of Service: April 04, 2024 alerted by nurse pt with c/o increased abd distention. On exam pt reports feeling bloated, with some mild nausea and epigastric pain, denies vomiting. Re ports stool x4 today with flatus, urinating without issue. Pt is in NAD, VSS with HR 94, BP 121/78, abd distended, palpation of air movement noted to upper ventral hernia, nora to midline no drainage except scant yellow, ENEIDA intact. Discussed with Dr Zaidi will order stat CT without contrast. Keep npo for now. Will follow.
--- NOTE | 2024-04-04 14:12 | Hospitalist Progress Note ---
Date of Service April 04, 2024 Assessment & Plan (1) Chest pain: Plan: The medical service was consulted for inspirational chest pain CT angio ruled out PE The patient most likely had demand ischemia with mildly elevated troponin of 150, T wave inversions in the anterior inferior leads. Monitor on telemetry. Cardiac enzymes trended down. Ordered nitroglycerin. Echocardiogram shows no wall motion abnormalities. Will hold off on anticoagulants in the face of pneumoperitoneum and potentially leaking anastomosis The patient has large volume pneumoperitoneum raising questions of small bowel anastomotic leak. The chest pain she was experiencing was most likely related to her abdominal issues. The surgical team is monitoring her closely. Plans per surgery team. (2) Incisional hernia, incarcerated: Plan: Postop Pneumoperitoneum and the possibility of a bowel anastomotic leak is being managed by the surgery team. They are closely monitoring. Patient had been doing remarkably well. NG removed. Mejia catheter removed. Patient has been started on a liquid diet. From looking at the notes, nurses informed the surgical team of the distending abdomen. Stat abdominal CT ordered by surgery. Management per surgery (3) SBO (small bowel obstruction): Plan: Management per surgery (4) Paralytic ileus: Plan: Management per surgery Admission and Anticipated Discharge Date Admission Date: March 29, 2024 Subjective Patient was seen and examined at 10:40 AM. She was tolerating clear liquid diet. She has been having bowel movements. She stated that she felt well in general. Physical Exam Physical Exam: General: Awake, conversant. Heart: S1, S2/regular rate and rhythm, no murmur rubs or gallops Lungs: Clear to auscultation bilaterally. Normal effort. Deep inspiration is painful Abdomen: Soft/nondistended. No hepatosplenomegaly. Pain and tenderness noted at the surgical site. Extremities: No clubbing/cyanosis. No edema Behavior: Appropriate, cooperative Results & Data Results & Data Vital Signs (Past 12 Hours) Vital Signs Temp Pulse Pulse Pulse Resp BP BP 04/04/24 12:45 36.6 C 57 L 19 148/90 H 04/04/24 12:00 36.5 C 94 H 78 17 121/78 04/04/24 10:00 71 04/04/24 10:00 04/04/24 07:29 36.6 C 80 19 135/76 04/04/24 02:46 36.7 C 76 18 121/78 Pulse Ox O2 Del Method O2 Flow Rate 04/04/24 12:45 2 L Nasal Cannula 2 04/04/24 12:00 94 Nasal Cannula 3 04/04/24 10:00 04/04/24 10:00 Room Air 3 04/04/24 07:29 92 Nasal Cannula 3 04/04/24 02:46 92 Nasal Cannula 3 Laboratory Results Abnormal lab results 04/03/24 04/03/24 04/03/24 Range/Units 14:16 16:55 19:44 RBC (4.20-5.40) M/uL Hgb (12.0-16.0) g/dl Hct (37.0-47.0) % [place]ataño # (Auto) (0.11-0.59) K/uL Potassium (3.5-5.1) mmol/L Carbon Dioxide (21-32) mmol/L Creatinine (0.6-1.2) mg/dl Glucose (70-99(Fasting)) mg/dl POC Glucose 125 H 113 H 145 H (70-99) mg/dl Calcium (8.6-10.3) mg/dl 04/04/24 04/04/24 04/04/24 Range/Units 01:26 06:13 07:26 RBC 3.90 L (4.20-5.40) M/uL Hgb 11.5 L (12.0-16.0) g/dl Hct 34.1 L (37.0-47.0) % [place] # (Auto) 0.72 H (0.11-0.59) K/uL Potassium 3.0 L (3.5-5.1) mmol/L Carbon Dioxide 35 H (21-32) mmol/L Creatinine 0.54 L (0.6-1.2) mg/dl Glucose 125 H (70-99(Fasting)) mg/dl POC Glucose 129 H 112 H (70-99) mg/dl Calcium 8.3 L (8.6-10.3) mg/dl 04/04/24 Range/Units 11:57 RBC (4.20-5.40) M/uL Hgb (12.0-16.0) g/dl Hct (37.0-47.0) % [place] # (Auto) (0.11-0.59) K/uL Potassium (3.5-5.1) mmol/L Carbon Dioxide (21-32) mmol/L Creatinine (0.6-1.2) mg/dl Glucose (70-99(Fasting)) mg/dl POC Glucose 112 H (70-99) mg/dl Calcium (8.6-10.3) mg/dl PG Care Time/CCT Total # of Minutes Spent Total Time Spent with Patient: Total time spent is greater than 50% in coordination of care (as documented) at patient's floor/unit and/or counseling patient: Coding Level of Care Code 00621 SUB INP/OBS CARE 2/35MIN Diagnoses Chest pain R07.9 Incisional hernia, incarcerated K43.0 SBO (small bowel obstruction) K56.609 Paralytic ileus K56.0
--- NOTE | 2024-04-04 14:20 | CT Scan Report ---
ABDOMEN AND PELVIS CT WITHOUT CONTRAST CT DOSE: 1539.47 mGy.cm HISTORY: evaluate bowel anastomosis TECHNIQUE: Multiaxial CT images of the abdomen and pelvis were performed without contrast. A dose lo wering technique was utilized adhering to the principles of ALARA. COMPARISON STUDY: 04/01/2024 FINDINGS: There is a stable small right pleural effusion. Stable consolidation with air bronchograms at a large portion of bilateral lower lung lobes, pneumonia versus atelectasis. ABDOMEN: Liver, gallbladder, spleen, pancreas, and adrenal glands have an unremarkable non-IV contras venu appearance. Kidneys show no hydronephrosis. There is a stable large amount of free air extending into the umbilical hernia. Pelvis: Urinary bladder is decompressed. Stable small right adnexal cyst. Uterus is absent. Stable sm all bowel anastomosis at the proximal pelvis with overlying small bore drain. There is a stable small amount of gas adjacent to the anastomosis. Stable right pelvic wall subcutaneous emphysema. There is interval development of multiple dilated small bowel loops at the upper abdomen measuring up to 3.5 cm. No colonic distention. No significant free fluid. IMPRESSION: 1. The amount of free air has not significantly changed, suggesting perforated viscus, possibly at th e anastomosis. 2. Interval development of small bowel distention proximal to the anastomosis could represent small b owel obstruction or ileus. 3. No significant free fluid or abscess. 4. Otherwise as described. ACT 112: Negative or not required by law. The above report was generated using voice recognition software. It may contain grammatical, syntax o r spelling errors. Electronically signed by: Avni Duarte M.D. 04/04/2024 2:18 PM
[2024-04-04] MEDS: [UNRECOGNIZED DRUG - OTHER] IV SCH (15:04)
[2024-04-04] MEDS: PERIPHERAL TPN IV SCH (15:04)
--- NOTE | 2024-04-04 15:04 | XRay Report ---
KUB HISTORY: NGT PLACED COMPARISON STUDY: Exams earlier today. FINDINGS: Nasogastric tube tip is in the mid body of the stomach. There is a stable large amount of f ree abdominal air. IMPRESSION: Nasogastric tube tip is in the stomach. ACT 112: Negative or not required by law. The above report was generated using voice recognition software. It may contain grammatical, syntax o r spelling errors. Electronically signed by: Avni Duarte M.D. 04/04/2024 3:02 PM
[2024-04-04] MEDS: CLINOLIPID 20% IV FAT EMULSION 150 ML IV SCH (15:10)
[2024-04-04] MEDS: HYDROmorphone INJ 0.5 MG/0.5 ML SYR IV PRN (18:20)
[2024-04-05] MEDS: ACETAMINOPHEN 1,000 MG/100 ML VIAL IV PRN (03:32)
[2024-04-05] MEDS ORDERED: PANTOPRAZOLE BOLUS/DRIP IV STA (05:18)
--- NOTE | 2024-04-05 05:33 | Communication Note ---
Date of Service: April 05, 2024 Notified by nursing at 0506 that patient developed worsening abdominal pain and nausea. Patient recently had IV Zofran and IV Tylenol. NGT with about 400 ml what appear is to be coffee grounds. V/S BP is 131/78 HR 80 RR: 18 O2 sat 91 on 2L NC, On exam. Abdomen distended, BS+, mild tenderness, no guarding. Passed gas about 30 minutes prior. No vomit but very nauseous. KUB stat ordered. CBC, CMP, INR/PT ordered stat. Protonix drip started. AP surgery was reached out, aprec recommendations. Will continue to monitor
--- NOTE | 2024-04-05 05:48 | Communication Note ---
Date of Service: April 05, 2024 I was notified by the house of biomedical engineering professor at approximately 5:30 AM that this patient was notified by nursing the patient had worsening abdominal pain along with nausea. I reported the patient's bedside within 10 minutes to evaluate her. The patient does note that she has continued abdominal pain that may be slightly worse than what she was experiencing yesterday. She also notes that she has nausea without vomiting. She denies any fevers, shakes, or chills. Patient's vital signs include a blood pressure of 131/78 and a pulse of 80. She is afebrile (there have been no episodes of tachycardia or fever last evening). Her pulse ox is 91% on 2 L. On physical exam the patient's abdomen is slightly distended but nonrigid. She does have pain with palpation in her lower abdomen. Her surgical incision is clean, dry, and intact with nora. She does have a ENEIDA drain in place that has a scant amount of serosanguineous drainage at the p resent time. The patient does have an NG tube in place that is draining dark/black drainage. Of note, this patient is postoperative day #8 from a repair of incarcerated hernia. During this operation small bowel resection with primary anastomosis was required. Patient has had a difficult postoperative course with concern for free intraperitoneal air. Her most recent abdominal imaging included CT scan of the abdomen pelvis yesterday which showed the patient had pneumoperitoneum concerning for potential perforated viscus possibly at her surgical anastomosis. At the time of my encounter with the patient which was at approximately 5:40 AM the patient was noted to be afebrile and hemodynamically stable and was in no distress. KUB has been performed that shows the patient continues to have free intraperitoneal air. On this KUB the NG tube is not readily apparent. Stat CBC showed white blood cell count and hemoglobin are within normal range. Her platelet count is also normal. Chemistry profile is pending at this time. Due to the coffee-ground emesis noted the patient has been initiated on Protonix. Patient is already n.p.o. and we will keep her as such. Patient's NG tube was examined and there does appear to be at approximately 55 cm. I have asked the nursing staff verify the position of the NG tube which will then be verified by an additional KUB which has been ordered by Dr. Zaidi. I discussed the above with Dr. Zaidi who agrees with the above plan and no additional recommendations at this time.
[2024-04-05 06:09] LABS: Basophils # (auto) 0.02 K/uL (0.00-0.20); Basophils % (auto) 0.2 %; Eosinophils % (auto) 2.4 %; Hematocrit (blood only) 35.7 % (37.0-47.0); Immature Granulocytes # (auto) 0.08 K/uL (0.01-0.20); Lymphocytes % (auto) 21.4 %; Mean Corpuscular Hemoglobin 29.6 pg (25.0-34.0); Mean Corpuscular Hgb Conc 33.6 g/dL (32.0-36.0); Mean Corpuscular Volume 88.1 fL (80.0-100.0); Mean Platelet Volume 10.3 fL (9.4-12.4); Monocytes # (auto) 0.65 K/uL (0.11-0.59); Monocytes % (auto) 7.7 %; Neutrophils # (auto) 5.67 K/uL (1.40-6.50); Neutrophils % (auto) 67.3 %; Platelet Count 294 K/uL (130-400); RDW Standard Deviation 45.1 fL (36.4-46.3); Red Blood Count 4.05 M/uL (4.20-5.40); White Blood Count 8.42 K/ul (4.8-10.8)
[2024-04-05 06:16] LABS: INR 1.1 (0.9-1.1); Prothrombin Time 11.4 Seconds (9.0-12.0)
[2024-04-05 06:18] LABS: Albumin Globulin Ratio 1.1 (0.9-2); Albumin Level 3.3 gm/dl (3.4-5.0); Bilirubin,Total 0.6 mg/dl (0.2-1.0); Calcium 8.6 mg/dl (8.6-10.3); Creatinine Clr Calc Pharmacy 112.7 ml/min; Phosphorus 3.7 mg/dl (2.5-4.9); Potassium 3.8 mmol/L (3.5-5.1); Total Protein 6.3 gm/dl (6.0-8.3)
[2024-04-05] MEDS: PANTOprazole 80 MG in DEXTROSE 5% 100 ML IV ONE (06:28)
[2024-04-05] MEDS: PANTOprazole 40 MG in DEXTROSE 5% MINI-B 100 ML IV SCH (06:48)
--- NOTE | 2024-04-05 06:52 | XRay Report ---
EXAM: XR KUB/Abdomen 1 view CLINICAL HISTORY: Abdominal pain. TECHNIQUE: X-ray of the abdomen was obtained in AP projection. COMPARISON: X-ray dated 04/02/2024. FINDINGS: Gas Pattern: Stable gaseous distension of bowel loops. Well-outlined wall of bowel loop at the left upper quadrant. Soft Tissues: Surgical nora of lower abdominal wall. Few calcified pelvic phleboliths. Soft tissues of the abdomen appear normal without evidence of masses or calcifications. Liver, spleen, and kidneys are of normal size and position. IMPRESSION: 1. Stable gaseous distension of bowel loops. 2. Well-outlined wall of bowel loop at the left upper quadrant, could be pneumoperitoneum, CT is advised. 3. Surgical nora of the lower abdominal wall. 4. Few calcified pelvic phleboliths. 5. No interval changes. Electronically signed by Leonardo Collier 04-05-2024 06:52 AM
--- NOTE | 2024-04-05 08:11 | Surgery Progress Note ---
Date of Service April 05, 2024 Assessment & Plan (1) Incisional hernia, incarcerated: Plan: POD#7 Lysis of Advanced Adhesions, Recurrent Incarcerated hernia repair with ventralux Mesh 8cm, Small Bowel Resection with Primary Anastomosis WBC 8.4, Hbg 12, K 3.8, Cr 0.5. Vital signs are stable Pt w/ feelings of increasing abd pain/distention/nausea yesterday. CT repeated showing stable findings as prior with free air concerning for perforated viscous at the anastomosis with a developing ileus/sbo NGT was replaced yesterday, draining 300cc dark brown fluid since insertion. IV PPI started. KUB obtained to confirm placement ENEIDA drain with small amount of fluid, appears to be more bilious than yesterday Abdomen soft with discomfort to palpation, not peritonitic, air palpated in upper abdomen, mild distention. incision c/d/i with nora Will continue NPO with NGT for bowel rest in addition to PPN. May need to consider PICC line/TPN for longer term planning Will continue to monitor closely Admission and Anticipated Discharge Date Admission Date: March 29, 2024 Subjective Patient feeling about the same as yesterday. Reports mid and upper abdominal pain with waves of nausea. She is passing some gas this AM. Last BM was yesterday. Physical Exam Physical Exam: awake/alert, no distress Respiratory: normal respiratory effort on 2 L supplemental oxygen Gastrointestinal (Abdomen): Inspection/Auscultation: + abdominal surgical incision (c/d/i with midline nora, no signs of infection) and + abdominal surgical drain present (ENEIDA drain with small amount of fluid, more bilious appearing this am) Percussion/Palpation: + abdomen tender (discomfort to palpation jacque incisionally and feel air in upper abdomen) and abdomen soft Results & Data Vital Signs (Past 12 Hours) Vital Signs Temp Pulse Pulse Pulse Resp BP Pulse Ox 04/05/24 07:34 97.5 F L 76 19 123/80 95 04/05/24 05:20 80 18 131/78 91 04/05/24 03:21 98.1 F 87 18 135/82 91 04/05/24 03:05 77 04/04/24 23:00 98.2 F 78 16 126/77 90 04/04/24 21:00 O2 Del Method O2 Flow Rate 04/05/24 07:34 Nasal Cannula 2 04/05/24 05:20 Nasal Cannula 2 04/05/24 03:21 Nasal Cannula 3 04/05/24 03:05 04/04/24 23:00 Nasal Cannula 3 04/04/24 21:00 Nasal Cannula 3 PG Care Time/CCT Total # of Minutes Spent Total Time Spent with Patient: Total time spent is greater than 50% in coordination of care (as documented) at patient's floor/unit and/or counseling patient: Coding Level of Care Code 81825 Post Operative Follow-Up Diagnoses Incisional hernia, incarcerated K43.0
--- NOTE | 2024-04-05 08:31 | XRay Report ---
EXAM: XR KUB/Abdomen 1 view CLINICAL HISTORY: Placement of NGT. TECHNIQUE: X-ray of the abdomen was obtained in AP projection. 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 FINDINGS: Tip of the nasogastric tube is seen reaching the left upper outer quadrant, stable. Gas Pattern: Stable gaseous distension of bowel loops. Well-outlined wall of bowel loop at the left upper quadrant. Soft Tissues: Surgical nora of the lower abdominal wall. Few calcified pelvic phleboliths. Soft tissues of the abdomen appear normal without evidence of masses or calcifications. Liver, spleen, and kidneys are of normal size and position. IMPRESSION: 1. Tip of the nasogastric tube is seen reaching the left upper outer quadrant, stable. 2. Stable gaseous distension of bowel loops. 3. Well-outlined wall of bowel loop at the left upper quadrant, likely pneumoperitoneum, follow up with erect CR chest is advised. 4. No interval changes. Electronically signed by Leonardo Collier 04-05-2024 08:31 AM
--- NOTE | 2024-04-05 10:05 | XRay Report ---
XR chest 1V portable CLINICAL HISTORY: check for ng placement COMPARISON STUDY: 04/03/2024 FINDINGS: Nasogastric tube tip is in the proximal body of the stomach. There is stable mild cardiomeg jamee without pulmonary vascular congestion. Stable stranding opacity in the lung bases, atelectasis ve rsus pneumonia. There is moderate free air under the diaphragm, improved. IMPRESSION: Nasogastric tube tip is in the proximal body of the stomach. Otherwise as described. ACT 112: Negative or not required by law. Electronically signed by: Avni Duarte M.D. 04/05/2024 10:03 AM
[2024-04-05] MEDS: OPTIRAY 320 100ml IV ONE (11:35)
--- NOTE | 2024-04-05 12:24 | CT Scan Report ---
ABDOMEN AND PELVIS CT WITH IV AND ORAL CONTRAST CT DOSE: 1476.69 mGy.cm HISTORY: s/p exlap and hernia repair and small bowel resect TECHNIQUE: Multiaxial CT images of the abdomen and pelvis were performed following the IV administrat ion of 90 cc of Optiray and oral contrast. A dose lowering technique was utilized adhering to the pr inciples of EDWARDO. COMPARISON STUDY: 04/04/2024 and 04/01/2024 FINDINGS: Stable trace right pleural effusion. Stable consolidation in the lung bases which could represent ate lectasis or pneumonia. ABDOMEN: No acute findings seen at the solid abdominal organs. There is stable partial small bowel re section with reanastomosis. Stable small bore overlying drain. There is a stable large amount of free air which extends into the fat containing ventral hernia. The oral contrast has progressed to the mi d jejunum, has not progressed beyond the anastomosis. There is a lobulated 7 cm fluid collection with a few locules of gas at the anterior right pelvis to the right of the anastomosis. The fluid collect ion measures 7 cm greatest dimension and has thin enhancing rim, suspicious for perforation at the an astomosis/abscess. Nasogastric tube tip is in good position. There is persistent upper abdominal smal l bowel distention, mildly improved. Pelvis: Urinary bladder is distended. Stable small fluid collection in the low pelvis. No acute osseo us findings. IMPRESSION: 1. There are persistent findings suspicious for perforation/leak at the small bowel anastomosis with adjacent collection of fluid and gas, possible abscess. No contrast extravasation is demonstrated, bu t the oral contrast has not progressed to the anastomosis. Consider follow-up CT scan in approximatel y 4 hours to see if the contrast progresses beyond the anastomosis, to reevaluate for contrast extrav asation. 2. Otherwise as described. ACT 112: Negative or not required by law. The above report was generated using voice recognition software. It may contain grammatical, syntax o r spelling errors. Electronically signed by: Avni Duarte M.D. 04/05/2024 12:21 PM
--- NOTE | 2024-04-05 13:15 | Pharmacy Report ---
Pharmacy PN Follow-up Note - Date of Service April 05, 2024 - Subjective Patient is currently on day #3 of PPN for prolonged NPO s/p incarcerated hernia repair with anastomotic leak. - Objective Height & Weight (Last Documented) Height 5 ft 7 in Weight 78.1 kg Diet Order(s) 04/04/24 13:04 NPO Intake & Ouput (24hrs) 04/04/24 04/05/24 04/06/24 06:59 06:59 06:59 Intake Total 965 / 965 2034.962 / 2154.962 220 / 220 Output Total 395 / 395 140 / 140 930 / 930 Balance 570 / 570 1894.962 / 2014.962 -710 / -710 Selected Laboratory Results 04/05/24 05:29 Sodium 139 Potassium 3.8 D Chloride 102 Carbon Dioxide 30 Anion Gap 7 BUN 10 Creatinine 0.50 L BUN/Creatinine Ratio 20.0 Glucose 127 H Calcium 8.6 Phosphorus 3.7 D Magnesium 2.0 Total Bilirubin 0.6 AST 37 ALT 22 Alkaline Phosphatase 69 - Assessment & Plan Assessment: * Patient with abdominal pain and nausea overnight. NGT was replaced yesterday and is draining 300 cc of dark brown fluid since insertion. ENEIDA drain with minimal amount of drainage. Imaging repeated. Patient started on Protonix infusion. Patient NPO. Per surgery, will consider PICC line placement if longer term parenteral nutrition needed. * Patient tolerating PPN well. Electolytes WNL this morning - no further replacement outside of PPN needed. * Will advance to goal PPN: AA 77 g, dextrose 90 g, lipid 50 g Plan: * For Day #3 of PPN administration, the following will be ordered: * Macronutrients: * Amino Acids: 77 grams/day * Dextrose: 90 grams/day * Lipids: 50 grams/day * Micronutrients: * Sodium phosphate: 21 mMol/day * Sodium chloride: 20 mEq/day * Sodium acetate: 50 mEq/day * Potassium chloride: 80 mEq/day * Magnesium sulfate: 8.12 mEq/day * Calcium gluconate: 4.65 mEq/day * Multivitamins: 10 mL/day * Trace elements: 1 mL/day * Thiamine: 200 mg/day * Total volume of 1905 mL will be infused over 24 hours and will provide 1112 kcal/day * Total daily fluid volume (PPN + lipids + protonix drip) = ~2630 ml/day or 31 ml/kg/day - surgery aware and ok with this volume * Patient is on PPN which has a maximum mOsm/L of 900. Final osmolarity of current solution is 829.3 mOsm/L. * Labs will be ordered per PN protocol. * Pharmacy will follow and adjust PN orders on a daily basis. Thank you!
--- NOTE | 2024-04-05 14:57 | Hospitalist Progress Note ---
Date of Service April 05, 2024 Assessment & Plan (1) Chest pain: Plan: The medical service was consulted for inspirational chest pain CT angio ruled out PE The patient most likely had demand ischemia with mildly elevated troponin of 150, T wave inversions in the anterior inferior leads. Monitor on telemetry. Cardiac enzymes trended down. Ordered nitroglycerin. Echocardiogram shows no wall motion abnormalities. Will hold off on anticoagulants in the face of pneumoperitoneum and potentially leaking anastomosis The patient has large volume pneumoperitoneum raising questions of small bowel anastomotic leak. The chest pain she was experiencing was most likely related to her abdominal issues. The surgical team is monitoring her closely. Plans per surgery team. Patient can be transferred to [facility] bed. No need for telemetry monitoring. Communicated with the surgical team. (2) Incisional hernia, incarcerated: Plan: Postop Pneumoperitoneum and the possibility of a bowel anastomotic leak is being managed by the surgery team. They are closely monitoring. Patient had been doing remarkably well. NG removed. Mejia catheter removed. Patient has been started on a liquid diet. From looking at the notes, nurses informed the surgical team of the distending abdomen. NG tube back in place Stat abdominal CT ordered by surgery. Management per surgery (3) SBO (small bowel obstruction): Plan: Management per surgery (4) Paralytic ileus: Plan: Management per surgery Admission and Anticipated Discharge Date Admission Date: March 29, 2024 Subjective Patient was seen and examined at 9 AM. Overnight events noted. Patient had belly distention and increasing belly pain. Surgery team closely watching. Review of Systems Review of Systems: All systems reviewed & are unremarkable except as noted in Subjective Physical Exam Physical Exam: General: Awake, conversant. NG tube back in place Heart: S1, S2/regular rate and rhythm, no murmur rubs or gallops Lungs: Clear to auscultation bilaterally. Normal effort. Deep inspiration is painful Abdomen: Soft. Belly appears distended today. No hepatosplenomegaly. Pain and tenderness noted at the surgical site. Extremities: No clubbing/cyanosis. No edema Behavior: Appropriate, cooperative Results & Data Results & Data Vital Signs (Past 12 Hours) Vital Signs Temp Pulse Pulse Pulse Resp BP BP 04/05/24 11:18 36.3 C L 74 19 145/77 H 04/05/24 10:00 73 04/05/24 10:00 04/05/24 07:34 36.4 C L 76 19 123/80 04/05/24 05:20 80 18 131/78 04/05/24 03:21 36.7 C 87 18 135/82 04/05/24 03:05 77 Pulse Ox O2 Del Method O2 Flow Rate 04/05/24 11:18 97 Nasal Cannula 04/05/24 10:00 04/05/24 10:00 Nasal Cannula 2 04/05/24 07:34 95 Nasal Cannula 2 04/05/24 05:20 91 Nasal Cannula 2 04/05/24 03:21 91 Nasal Cannula 3 04/05/24 03:05 Laboratory Results Abnormal lab results 04/04/24 04/05/24 04/05/24 Range/Units 17:53 00:12 05:29 RBC 4.05 L (4.20-5.40) M/uL Hct 35.7 L (37.0-47.0) % Fallon # (Auto) 0.65 H (0.11-0.59) K/uL Creatinine 0.50 L (0.6-1.2) mg/dl Glucose 127 H (70-99(Fasting)) mg/dl POC Glucose 106 H 114 H (70-99) mg/dl Albumin 3.3 L (3.4-5.0) gm/dl 04/05/24 Range/Units 12:17 RBC (4.20-5.40) M/uL Hct (37.0-47.0) % Fallon # (Auto) (0.11-0.59) K/uL Creatinine (0.6-1.2) mg/dl Glucose (70-99(Fasting)) mg/dl POC Glucose 104 H (70-99) mg/dl Albumin (3.4-5.0) gm/dl Diagnostic Findings KUB X-Ray 04/04/24 14:43 KUB HISTORY: NGT PLACED COMPARISON STUDY: Exams earlier today. FINDINGS: Nasogastric tube tip is in the mid body of the stomach. There is a stable large amount of free abdominal air. IMPRESSION: Nasogastric tube tip is in the stomach. ACT 112: Negative or not required by law. The above report was generated using voice recognition software. It may contain grammatical, syntax or spelling errors. Electronically signed by: Avni Duarte M.D. 04/04/2024 3:02 PM KUB X-Ray 04/05/24 05:09 EXAM: XR KUB/Abdomen 1 view CLINICAL HISTORY: Abdominal pain. TECHNIQUE: X-ray of the abdomen was obtained in AP projection. COMPARISON: X-ray dated 04/02/2024. FINDINGS: Gas Pattern: Stable gaseous distension of bowel loops. Well-outlined wall of bowel loop at the left upper quadrant. Soft Tissues: Surgical nora of lower abdominal wall. Few calcified pelvic phleboliths. Soft tissues of the abdomen appear normal without evidence of masses or calcifications. Liver, spleen, and kidneys are of normal size and position. IMPRESSION: 1. Stable gaseous distension of bowel loops. 2. Well-outlined wall of bowel loop at the left upper quadrant, could be pneumoperitoneum, CT is advised. 3. Surgical nora of the lower abdominal wall. 4. Few calcified pelvic phleboliths. 5. No interval changes. Electronically signed by Leonardo Collier 04-05-2024 06:52 AM Chest X-Ray 04/05/24 06:11 XR chest 1V portable CLINICAL HISTORY: check for ng placement COMPARISON STUDY: 04/03/2024 FINDINGS: Nasogastric tube tip is in the proximal body of the stomach. There is stable mild cardiomegaly without pulmonary vascular congestion. Stable stranding opacity in the lung bases, atelectasis versus pneumonia. There is moderate free air under the diaphragm, improved. IMPRESSION: Nasogastric tube tip is in the proximal body of the stomach. Otherwise as described. ACT 112: Negative or not required by law. Electronically signed by: Avni Duarte M.D. 04/05/2024 10:03 AM KUB X-Ray 04/05/24 06:46 EXAM: XR KUB/Abdomen 1 view CLINICAL HISTORY: Placement of NGT. TECHNIQUE: X-ray of the abdomen was obtained in AP projection. 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 FINDINGS: Tip of the nasogastric tube is seen reaching the left upper outer quadrant, stable. Gas Pattern: Stable gaseous distension of bowel loops. Well-outlined wall of bowel loop at the left upper quadrant. Soft Tissues: Surgical nora of the lower abdominal wall. Few calcified pelvic phleboliths. Soft tissues of the abdomen appear normal without evidence of masses or calcifications. Liver, spleen, and kidneys are of normal size and position. IMPRESSION: 1. Tip of the nasogastric tube is seen reaching the left upper outer quadrant, stable. 2. Stable gaseous distension of bowel loops. 3. Well-outlined wall of bowel loop at the left upper quadrant, likely pneumoperitoneum, follow up with erect CR chest is advised. 4. No interval changes. Electronically signed by Leonardo Collier 04-05-2024 08:31 AM Abdomen/Pelvis CT 04/05/24 08:[address] WITH IV AND ORAL CONTRAST CT DOSE: 1476.69 mGy.cm HISTORY: s/p exlap and hernia repair and small bowel resect TECHNIQUE: Multiaxial CT images of the abdomen and pelvis were performed following the IV administration of 90 cc of Optiray and oral contrast. A dose lowering technique was utilized adhering to the principles of ALARA. COMPARISON STUDY: 04/04/2024 and 04/01/2024 FINDINGS: Stable trace right pleural effusion. Stable consolidation in the lung bases which could represent atelectasis or pneumonia. ABDOMEN: No acute findings seen at the solid abdominal organs. There is stable partial small bowel resection with reanastomosis. Stable small bore overlying drain. There is a stable large amount of free air which extends into the fat containing ventral hernia. The oral contrast has progressed to the mid jejunum, has not progressed beyond the anastomosis. There is a lobulated 7 cm fluid c ollection with a few locules of gas at the anterior right pelvis to the right of the anastomosis. The fluid collection measures 7 cm greatest dimension and has thin enhancing rim, suspicious for perforation at the anastomosis/abscess. Nasogastric tube tip is in good position. There is persistent upper abdominal small bowel distention, mildly improved. Pelvis: Urinary bladder is distended. Stable small fluid collection in the low pelvis. No acute osseous findings. IMPRESSION: 1. There are persistent findings suspicious for perforation/leak at the small bowel anastomosis with adjacent collection of fluid and gas, possible abscess. No contrast extravasation is demonstrated, but the oral contrast has not progressed to the anastomosis. Consider follow-up CT scan in approximately 4 hours to see if the contrast progresses beyond the anastomosis, to reevaluate for contrast extravasation. 2. Otherwise as described. ACT 112: Negative or not required by law. The above report was generated using voice recognition software. It may contain grammatical, syntax or spelling errors. Electronically signed by: Avni Duarte M.D. 04/05/2024 12:21 PM PG Care Time/CCT Total # of Minutes Spent Total Time Spent with Patient: Total time spent is greater than 50% in coordination of care (as documented) at patient's floor/unit and/or counseling patient: Coding Level of Care Code 34014 SUB INP/OBS CARE 2/35MIN Diagnoses Chest pain R07.9 Incisional hernia, incarcerated K43.0 SBO (small bowel obstruction) K56.609 Paralytic ileus K56.0
[2024-04-05] MEDS: [UNRECOGNIZED DRUG - OTHER] IV SCH (15:51)
[2024-04-05] MEDS: CLINOLIPID 20% IV FAT EMULSION 250 ML IV SCH (15:51)
[2024-04-05] MEDS: PERIPHERAL TPN IV SCH (15:51)
--- NOTE | 2024-04-05 18:05 | CT Scan Report ---
EXAMINATION: CT of the abdomen and pelvis performed without IV contrast, with oral contrast. TECHNIQUE: Helical CT images from the lung bases through the symphysis pubis were obtained without IV contrast. Oral contrast was administered. Coronal and sagittal reformatted images were generated at a workstation for further assessment. Dose reduction techniques were achieved by using automatic exposure control and/or adjustment of mA and/or kV according to patient size and/or use of iterative reconstruction technique. COMPARISON: CT from 04/01/2024 HISTORY: Pneumoperitoneum FINDINGS: Lower chest: Small right pleural effusion. Streaky bibasilar confluent atelectasis. Liver: No suspicious liver lesions. Gallbladder: No gallstones. No evidence of acute cholecystitis. Spleen: Normal size. Pancreas: No suspicious pancreatic lesions. The pancreatic duct is not dilated. Adrenal glands: No adrenal nodules. Kidneys: No hydronephrosis or obstructing renal stones. Bladder / Pelvic organs: Unremarkable. Bowel: Oral contrast administered, extending throughout the small bowel, and reaches the distal transverse colon. Redemonstrated area of small bowel resection with reanastomosis near the midline. About this region, there is a visualized area of contrast leak, series 2 image 76, into a contained area that measures approximately 2.4 x 2.2 cm, and air is seen within this week. An enteric tube sidehole is just beyond the GE junction, and advancement is recommended. Lymph nodes: No retroperitoneal, mesenteric, or pelvic lymphadenopathy. Peritoneum / Retroperitoneum: There continues to be a large volume of pneumoperitoneum, extending into the upper abdomen, and also through a prominent epigastric ventral abdominal wall hernia. Continued mild soft tissue air in the right lower quadrant abdominal wall. Vessels: No infrarenal aortic aneurysm. Bones and soft tissues: No suspicious lesion in the bones. A drainage catheter is seen in the abdominal wall, stable, where there is no visible drainable fluid collection seen. Soft tissue air throughout the abdominal wall, as above. Fatty herniation also extends into the left rectus sheath, where there is scattered free air. IMPRESSION: Visualized small area of oral contrast leak from the small bowel near the site of surgical change about the lower mid abdomen, also contains air, with continued large volume pneumoperitoneum. Electronically signed by Nav Streeter 04-05-2024 6:04 PM
[2024-04-06] MEDS: HYDROmorphone INJ 1 MG/ML SYRINGE IV PRN (00:49)
--- NOTE | 2024-04-06 05:20 | Surgery Progress Note ---
Date of Service April 06, 2024 Assessment & Plan (1) Incisional hernia, incarcerated: Plan: Patient is status post repair of incarcerated hernia with small bowel resection and anastomosis on 03/28/2024 (postop day #9) Patient has had a complicated postoperative course: Most recent CT scan was on 04/05/2024 showed the patient has oral contrast leak from the small bowel near the site of anastomosis with noted pneumoperitoneum Despite CT scan findings the patient has remained afebrile (no febrile episodes noted last night, no tachycardia or hypotension noted last night). She has not exhibited leukocytosis or acute kidney injury. Will continue with plan as follows: Maintain n.p.o. status in hopes that this will allow surgical anastomosis to heal Continue TPN for nutrition Provide analgesics as needed May consider either removing or clamping NG tube later today as she has had a bowel movement Continue antiemetics as needed Encourage mobilization Check a.m. labs when available There is concern the patient had coffee-ground/bloody drainage from NG tubeawait a.m. labs to ensure stability of H&H and maintain on Protonix for the present time (drainage of this characteristic may be due to irritation from NG tube) Patient was receiving subcutaneous heparin for DVT prevention but this is on hold for the reasons noted above as above. continues to do well clinically. Her white blood cell count has been normal and she has been afebrile. Continues to have some intermittent moderate abdominal pain easily controlled with pain medications. I did review the CT scan and while leak is present it seems to be contained not causing peritonitis. Discussed with her and her daughter. Will continue conservative management which we discussed may be prolonged for several weeks. Will have IV team place a PICC line and initiate TPN(she is currently on PPN). Keep NG tube for now. While the ENEIDA output is bilious it is a relatively small volume. We will plan on treating this as a low output fistula. Admission and Anticipated Discharge Date Admission Date: March 29, 2024 Subjective Patient is currently resting comfortably in bed. She notes that she has some intermittent nausea which is responsive to Zofran. She reports that her previously noted abdominal pain has improved. She reports that she had a small bowel movement last night. She denies any fevers, shakes, or chills. Patient says that she has been able to ambulate to the restroom and feels steady on her feet. Physical Exam Gastrointestinal (Abdomen): Abdomen is soft with minimal distention. She has decreased pain when compared to prior exams with palpation of her lower abdomen. Her surgical incision is clean, dry, and intact with nora. A ENEIDA drain is in place and the drainage this morning does appear bilious.The ENEIDA has drained approximately 165 cc over the past 24 hours. NG tube is in place and has drained approximately 400 cc in the past 24 hours. Results & Data Vital Signs (Past 12 Hours) Vital Signs Temp Pulse Resp BP BP Pulse Ox O2 Del Method 04/05/24 22:21 Nasal Cannula 04/05/24 21:00 37.0 C 76 18 130/78 91 Nasal Cannula 04/05/24 20:11 Nasal Cannula 04/05/24 19:56 36.5 C 90 21 146/72 H 90 Nasal Cannula O2 Flow Rate 04/05/24 22:21 3 04/05/24 21:00 3 04/05/24 20:11 3 04/05/24 19:56 3 PG Care Time/CCT Total # of Minutes Spent Total Time Spent with Patient: Total time spent is greater than 50% in coordination of care (as documented) at patient's floor/unit and/or counseling patient: Coding Level of Care Code 14058 SUB INP/OBS CARE 03/30MIN Diagnoses Incisional hernia, incarcerated K43.0
[2024-04-06 07:33] LABS: Calcium 8.7 mg/dl (8.6-10.3); Creatinine Clr Calc Pharmacy 99.4 ml/min; Magnesium 2.1 mg/dl (1.7-2.4); Potassium 4.1 mmol/L (3.5-5.1)
[2024-04-06] MEDS ORDERED: TPN/PPN CONSULT PHARMACY STA (11:37)
[2024-04-06] MEDS: NYSTATIN SUSP 500,000 U/5 ML UDC PO SCH (12:56)
--- NOTE | 2024-04-06 14:14 | Hospitalist Progress Note ---
Date of Service April 06, 2024 Assessment & Plan (1) Chest pain: Plan: The medical service was consulted for inspirational chest pain CT angio ruled out PE The patient most likely had demand ischemia with mildly elevated troponin of 150, T wave inversions in the anterior inferior leads. Monitor on telemetry. Cardiac enzymes trended down. Ordered nitroglycerin. Echocardiogram shows no wall motion abnormalities. Will hold off on anticoagulants in the face of pneumoperitoneum and potentially leaking anastomosis The patient has large volume pneumoperitoneum raising questions of small bowel anastomotic leak. The chest pain she was experiencing was most likely related to her abdominal issues. The surgical team is monitoring her closely. Plans per surgery team. (2) Incisional hernia, incarcerated: Plan: Postop Pneumoperitoneum and the possibility of a bowel anastomotic leak is being managed by the surgery team. They are closely monitoring. Patient had been doing remarkably well. NG removed. Mejia catheter removed. Patient has been started on a liquid diet. From looking at the notes, nurses informed the surgical team of the distending abdomen. NG tube back in place Stat abdominal CT ordered by surgery. Management per surgery (3) SBO (small bowel obstruction): Plan: Management per surgery (4) Paralytic ileus: Plan: Management per surgery Admission and Anticipated Discharge Date Admission Date: March 29, 2024 Subjective Patient was seen and examined at 10:35 AM. She denied chest pain or shortness of breath. Her belly is soft today. Does not complain of severe pain today. Review of Systems Review of Systems: All systems reviewed & are unremarkable except as noted in Subjective Physical Exam Physical Exam: General: Awake, conversant. NG tube back in place Heart: S1, S2/regular rate and rhythm, no murmur rubs or gallops Lungs: Clear to auscultation bilaterally. Normal effort. Deep inspiration is painful Abdomen: Soft. Belly does not appear as distended today. No hepatosplenomegaly. Pain and tenderness noted at the surgical site. Extremities: No clubbing/cyanosis. No edema Behavior: Appropriate, cooperative Results & Data Results & Data Vital Signs (Past 12 Hours) Vital Signs Temp Pulse Resp BP Pulse Ox O2 Del Method O2 Flow Rate 04/06/24 09:15 Nasal Cannula 3 04/06/24 08:01 36.5 C 77 16 126/83 93 Nasal Cannula 3 Laboratory Results Abnormal lab results 01/04/06/24 04/06/24 Range/Units 23:44 05:56 06:05 Creatinine 0.56 L (0.6-1.2) mg/dl BUN/Creatinine Ratio 25.0 H (10-20) Glucose 125 H (70-99(Fasting)) mg/dl POC Glucose 121 H 110 H (70-99) mg/dl 04/06/24 Range/Units 11:59 Creatinine (0.6-1.2) mg/dl BUN/Creatinine Ratio (10-20) Glucose (70-99(Fasting)) mg/dl POC Glucose 117 H (70-99) mg/dl PG Care Time/CCT Total # of Minutes Spent Total Time Spent with Patient: Total time spent is greater than 50% in coordination of care (as documented) at patient's floor/unit and/or counseling patient: Coding Level of Care Code 17851 SUB INP/OBS CARE 2/35MIN Diagnoses Chest pain R07.9 Incisional hernia, incarcerated K43.0 SBO (small bowel obstruction) K56.609 Paralytic ileus K56.0
[2024-04-06] MEDS: PERIPHERAL TPN IV SCH (17:03)
[2024-04-06] MEDS: CLINOLIPID 20% IV FAT EMULSION 250 ML IV SCH (17:03)
[2024-04-06] MEDS: [UNRECOGNIZED DRUG - OTHER] IV SCH (17:03)
[2024-04-06] MEDS: PIPERACILLIN/TAZOBACTAM 4.5 GM/100 ML BAG IV ONE (19:10)
[2024-04-06] MEDS ORDERED: Nursing to Pharmacy Communication SCH (20:00)
--- NOTE | 2024-04-07 05:53 | Surgery Progress Note ---
Date of Service April 07, 2024 Assessment & Plan (1) Incisional hernia, incarcerated: Plan: Patient is status post repair of incarcerated hernia with small bowel resection and anastomosis on 03/28/2024 (postop day #10) Patient has had a complicated postoperative course: Most recent CT scan was on 04/05/2024 showed the patient has oral contrast leak from the small bowel near the site of anastomosis with noted pneumoperitoneum Despite CT scan findings the patient has remained afebrile (no febrile episodes noted last night, no tachycardia or hypotension noted last night). She has not exhibited leukocytosis or acute kidney injury. Will continue with surgical plan as follows: Maintain n.p.o. status as previously noted, in hopes that this will allow surgical anastomosis to heal Continue TPN for nutrition (PICC line was placed on 04/06/2024) Continue analgesics as needed Consider either clamping or removing NG tube as patient is passing flatus and did have a bowel movement 2 days ago Continue antiemetics as needed Encourage mobilization Check a.m. labs when available There was concern the patient had coffee-ground/bloody drainage from NG tubeLabs yesterday did not show us any significant drop in her hemoglobin and hematocrit Patient was receiving subcutaneous heparin for DVT prevention but this is on hold for the reasons noted abovewill discuss with attending this can be resumed The patient does report some right upper quadrant abdominal pain; I suspect this may be due to pneumoperitoneum that was noted on previous imagingwe will check a KUB this morning as above. doing ok. ENEIDA still with small volume bilious output. PICC in place. NGT in place. pain controlled. continue conservative management. Admission and Anticipated Discharge Date Admission Date: March 29, 2024 Subjective Patient is currently resting comfortably in bed. She continues to note intermittent nausea which is responsive to Zofran. She denies any fevers, shakes, or chills. She notes that she is passing flatus and urinating without difficulty. Patient does note that she continues to have some abdominal pain which is improved from time of surgery and is no worse. She does however, report that she has some right upper quadrant abdominal pain which is intermittent. She does note that taking deep breaths does make this right upper quadrant pain worse at times. Physical Exam Respiratory: normal respiratory effort, lungs clear to auscultation Gastrointestinal (Abdomen): Abdomen is soft with minimal distention. Patient does have pain with palpation near her surgical incision in the lower abdomen as well as some pain in the right upper quadrant. Her surgical incision is clean, dry, intact with nora. An NG tube is in place draining dark fluid. A ENEIDA drain is in place with bilious appearing drainage. Results & Data Vital Signs (Past 12 Hours) Vital Signs Temp Pulse Resp BP Pulse Ox O2 Del Method O2 Flow Rate 04/07/24 00:08 36.6 C 82 16 128/70 94 Room Air 04/06/24 19:19 Nasal Cannula 3 PG Care Time/CCT Total # of Minutes Spent Total Time Spent with Patient: Total time spent is greater than 50% in coordination of care (as documented) at patient's floor/unit and/or counseling patient: Coding Level of Care Code 36915 Post Operative Follow-Up Diagnoses Incisional hernia, incarcerated K43.0
[2024-04-07 07:11] LABS: BUN Creatinine Ratio 28.6 (10-20); Calcium 8.7 mg/dl (8.6-10.3); Creatinine Clr Calc Pharmacy 98.3 ml/min; Magnesium 2.2 mg/dl (1.7-2.4); Phosphorus 3.8 mg/dl (2.5-4.9); Potassium 4.4 mmol/L (3.5-5.1)
--- NOTE | 2024-04-07 07:54 | XRay Report ---
EXAM: XR KUB/Abdomen 1 view CLINICAL HISTORY: Abdomen pain TECHNIQUE: X-ray image of the abdomen obtained in AP view. COMPARISON: Prior X-ray dated 04/05/2024. FINDINGS: Unchanged position of NG tube with tip in left upper abdomen. Unchanged visualisation of mucosal and serosal surface of wall of small bowel loop in left abdomen likely pneumoperitoneum. New appearance of contrast in colon likely from prior study. New appearance of contrast in in urinary bladder. Surgical nora in lower abdomen. Soft Tissues: Soft tissues of the abdomen appear normal without evidence of masses or calcifications. Liver, spleen, and kidneys are of normal size and position. Few phleboliths in the pelvis. IMPRESSION: 1. Unchanged position of NG tube with tip in left upper abdomen. 2. Unchanged visualisation of mucosal and serosal surface of wall of small bowel loop in left abdomen likely pneumoperitoneum. 3. New appearance of contrast in colon likely from prior study. 4. New appearance of contrast in in urinary bladder. 5. Surgical nora in lower abdomen. Electronically signed by Leonardo Collier 04-07-2024 07:54 AM
--- NOTE | 2024-04-07 12:02 | Pharmacy Report ---
Pharmacy PN Follow-up Note - Date of Service April 07, 2024 - Subjective Patient is currently on day #5 of PN for prolonged NPO status s/p anastomotic leak. - Objective Height & Weight (Last Documented) Height 5 ft 7 in Weight 74.2 kg Diet Order(s) 04/04/24 13:04 NPO Intake & Ouput (24hrs) 04/06/24 04/07/24 04/08/24 06:59 06:59 06:59 Intake Total 2143 / 2143 2546.334 / 2546.334 100 / 100 Output Total 2246 / 2246 43 / 43 Balance -103 / -103 2503.334 / 2503.334 100 / 100 Selected Laboratory Results 04/07/24 05:47 Sodium 135 L Potassium 4.4 Chloride 102 Carbon Dioxide 26 Anion Gap 7 BUN 16 Creatinine 0.56 L BUN/Creatinine Ratio 28.6 H Glucose 126 H Calcium 8.7 Phosphorus 3.8 Magnesium 2.2 - Assessment & Plan Assessment: * No documented suctioning of NGT today. Remains on pantoprazole drip for possible GI bleed. 40 cc out of ENEIDA drain per boilermaker's assistant. * PICC line placed yesterday. Switching to TPN today. Appreciate dietitians recommendations. Okay to go right to goal. * Sodium continues to trend down while potassium is trending up. Will adjust electrolytes appropriately. Plan: * For Day #5 (day #1 of central access) of TPN administration, the following w ill be ordered: * Macronutrients: * Amino Acids: 96 grams/day * Dextrose: 168 grams/day * Lipids: 50 grams/day * Micronutrients: * Sodium phosphate: 21 mMol/day * Sodium chloride: 80 mEq/day * Sodium acetate: 50 mEq/day * Potassium chloride: 20 mEq/day * Magnesium sulfate: 4.06 mEq/day * Calcium gluconate: 4.65 mEq/day * Multivitamins: 10 mL/day * Trace elements: 1 mL/day * Thiamine: 100 mg/day * Total volume of 1297 mL will be infused over 24 hours and will provide 1455 kcal/day * Additional volume from 250 mL of Clinolipid as well as pantoprazole drip * Labs will be ordered per PN protocol. * Pharmacy will follow and adjust PN orders on a daily basis. Thank you!
--- NOTE | 2024-04-07 14:20 | Hospitalist Progress Note ---
Date of Service April 07, 2024 Assessment & Plan (1) Chest pain: Plan: The medical service was consulted for inspirational chest pain CT angio ruled out PE The patient most likely had demand ischemia with mildly elevated troponin of 150, T wave inversions in the anterior inferior leads. Monitor on telemetry. Cardiac enzymes trended down. Ordered nitroglycerin. Echocardiogram shows no wall motion abnormalities. Will hold off on anticoagulants in the face of pneumoperitoneum and potentially leaking anastomosis The patient has large volume pneumoperitoneum raising questions of small bowel anastomotic leak. The chest pain she was experiencing was most likely related to her abdominal issues. The surgical team is monitoring her closely. Plans per surgery team. (2) Incisional hernia, incarcerated: Plan: Postop Pneumoperitoneum and the possibility of a bowel anastomotic leak is being managed by the surgery team. They are closely monitoring. Patient had been doing remarkably well. NG removed. Mejia catheter removed. Patient has been started on a liquid diet. From looking at the notes, nurses informed the surgical team of the distending abdomen. NG tube back in place. Surgery now watching closely. TPN to be continued Management per surgery (3) SBO (small bowel obstruction): Plan: Management per surgery (4) Paralytic ileus: Plan: Management per surgery Admission and Anticipated Discharge Date Admission Date: March 29, 2024 Subjective Patient was seen and examined at 9:25 AM. She stated that she reported right upper quadrant pain to the surgical team. And they had ordered an x-ray of the her abdomen. Physical Exam Physical Exam: General: Awake, conversant. NG tube in place Heart: S1, S2/regular rate and rhythm, no murmur rubs or gallops Lungs: Clear to auscultation bilaterally. Normal effort. Deep inspiration is painful Abdomen: Soft. Belly does not appear as distended today. No hepatosplenomegaly. Pain and tenderness noted at the surgical site. Extremities: No clubbing/cyanosis. No edema Behavior: Appropriate, cooperative Results & Data Results & Data Vital Signs (Past 12 Hours) Vital Signs Temp Pulse Resp BP Pulse Ox O2 Del Method O2 Flow Rate 04/07/24 07:23 36.5 C 80 16 128/81 95 Nasal Cannula 2.5 PG Care Time/CCT Total # of Minutes Spent Total Time Spent with Patient: Total time spent is greater than 50% in coordination of care (as documented) at patient's floor/unit and/or counseling patient: Coding Level of Care Code 81619 SUB INP/OBS CARE 2/35MIN Diagnoses Chest pain R07.9 Incisional hernia, incarcerated K43.0 SBO (small bowel obstruction) K56.609 Paralytic ileus K56.0
[2024-04-07] MEDS: AA 8%/D14W 2L 1,297 ML in Central TPN bag 0 ML IV SCH (16:35)
[2024-04-07] MEDS: CLINOLIPID 20% IV FAT EMULSION 250 ML IV SCH (16:35)
[2024-04-08 07:51] LABS: BUN Creatinine Ratio 39.7 (10-20); Calcium 8.7 mg/dl (8.6-10.3); Creatinine Clr Calc Pharmacy 87.8 ml/min; Magnesium 2.1 mg/dl (1.7-2.4); Phosphorus 3.8 mg/dl (2.5-4.9); Potassium 4.3 mmol/L (3.5-5.1)
--- NOTE | 2024-04-08 11:17 | Surgery Progress Note ---
Date of Service April 08, 2024 Assessment & Plan (1) Incisional hernia, incarcerated: Plan: Patient is POD#11 s/p repair of incarcerated hernia with small bowel resection and anastomosis Patient has had a complicated postoperative course: Most recent CT scan was on 04/05/2024 showed the patient has oral contrast leak from the small bowel near the site of anastomosis with noted pneumoperitoneum Despite CT scan findings the patient has remained afebrile and VSS and no leukocytosis. Will continue with surgical plan as follows: -Nausea has overall improved and NGT has had minimal output over the last 24 hours. Will plan to D/C NGT today. Will keep patient NPO however will allow to have some sips of water and ice chips. Continue TPN for nutrition (PICC line was placed on 04/06/2024) Continue analgesics as needed Continue antiemetics as needed Encourage mobilization Patient was receiving subcutaneous heparin for DVT prevention but was put on hold d/t concerns of coffee-ground/bloody drainage from NG tube over the weekend will order a CBC to ensure H&H is stable and will resume DVT ppx if appropriate. Admission and Anticipated Discharge Date Admission Date: March 29, 2024 Supervising Physician Co-Signing Physician Notes Agree with above Subjective -Patient seen and evaluated this morning, she states she is feeling well this morning. -Passing gas and has recorded BMs -Denies nausea for the last 24 hours, NGT remains in place with very minimal output. She still has some intermittent abdominal discomfort mostly in her RUQ. -ENEIDA drain remains in place with small volume bilious output; 40cc output recorded in 24 hours. -Denies CP, SOB, fevers or chills. VSS Physical Exam Constitutional: WD/WN, vitals as above Respiratory: normal respiratory effort, lungs clear to auscultation Gastrointestinal (Abdomen): Abdomen soft, nondistended, mild TTP over surgical sites. Surgical sites with nora in place, sites are c/d/i without overlying signs of infection. ENEIDA drain in place +ENEIDA drain is in place with minimal bilio us appearing drainage. Results & Data Vital Signs (Past 12 Hours) Vital Signs Temp Pulse Resp BP Pulse Ox O2 Del Method O2 Flow Rate 04/08/24 08:00 Nasal Cannula 2 04/08/24 06:57 36.5 C 80 16 122/71 95 Nasal Cannula 2 04/08/24 01:20 Nasal Cannula 3 PG Care Time/CCT Total # of Minutes Spent Total Time Spent with Patient: Total time spent is greater than 50% in coordination of care (as documented) at patient's floor/unit and/or counseling patient: Coding [place] [address] Post Operative Follow-Up Patient Type Established Diagnoses Incisional hernia, incarcerated K43.0
--- NOTE | 2024-04-08 11:51 | Hospitalist Progress Note ---
Date of Service April 08, 2024 Assessment & Plan (1) Chest pain: (2) Incisional hernia, incarcerated: (3) SBO (small bowel obstruction): (4) Paralytic ileus: Plan This patient is a 68-year-old female with a history of numerous abdominal surgeries and a H/O SBO who was admitted to the hospital after having repair of an incarcerated right lower quadrant incisional hernia with lysis of adhesions, small bowel resection with primary anastomosis on 03/28/2024. The hospital medicine service was consulted on 04/01 chest pain. #Chest pain-the patient reported that the pain was in the right lower chest and right upper quadrant of the abdomen and was worse with deep inspiration and has been constant for 4 days since the surgery. CT angio ruled out PE but showed a large amount of free air in the upper abdomen and small bilateral pleural effusions with near complete consolidation of bilateral lower lobes-pneumonia versus atelectasis. Troponin was elevated on initial testing at 152 and trended downward from there. Echocardiogram showed preserved EF and no wall motion abnormalities. ECG on 04/01 showed a normal sinus rhythm, T wave inversions in inferior and anterior leads which was a change from preop ECG. It is clear that the pain was coming from the small bowel anastomotic leak with pneumoperitoneum as below. She simply had myocardial demand ischemia given the stress of having the bowel leak and the surgery. Lipid panel is excellent and she has no history of diabetes or heart disease. -Continue pain control-oxycodone is making her confused-discontinue. The surgeon discouraged her from using IV Dilaudid due to her ileus-discontinue IV Dilaudid -Add Toradol IV as needed with a max of 6 doses, continue Tylenol as needed for milder pain -No need for further ischemic evaluation #Repair of incarcerated incisional hernia/possible anastomotic leak/SBO Pneumoperitoneum secondary to bowel anastomotic leak is being managed by the surgery team. Her NG tube is now removed for a second time and she seems to be improving but with ongoing abdominal pain from resolving small bowel anastomotic leak. Only with mild leukocytosis on CBC but no fevers, abdomen is soft. -Remove NG tube today and allow ice chips and sips only -Continue TPN-managed by pharmacy, PICC line in place -Follow CBC, BMP, magnesium, phosphorus, triglycerides and LFTs periodically for TPN guidance -Pain control as noted above -Surgery is managing -Continue IV Protonix for previous coffee-ground emesis which is likely from trauma from NG tube-hemoglobin stable DVT prophylaxis-hemoglobin stable-okay to resume heparin SQ for DVT prophylaxis, SCDs Disposition-continued stay on medical/surgical unit, hospitalist service will follow along Admission and Anticipated Discharge Date Admission Date: March 29, 2024 Subjective Patient reports ongoing pain mostly with deep inspiration in the right upper abdomen similar to previous days. She did ambulate the halls and had NG tube removed this morning. Otherwise, has tolerated a few ice chips and sips of water this morning since NG tube removed I discussed her care with her daughter at the bedside Physical Exam Constitutional: WD/WN, vitals as above Respiratory: normal respiratory effort, lungs clear to auscultation Cardiovascular: RRR, no murmur, no edema Gastrointestinal (Abdomen): Inspection/Auscultation: + abdomen abnormal to inspection (Dressing in place over midline laparotomy incision, ENEIDA drain RLQ serosang) Psychiatric: A+Ox3, euthymic affect Results & Data Results & Data Vital Signs (Past 12 Hours) Vital Signs Temp Pulse Resp BP Pulse Ox O2 Del Method O2 Flow Rate 04/08/24 08:00 Nasal Cannula 2 04/08/24 06:57 36.5 C 80 16 122/71 95 Nasal Cannula 2 04/08/24 01:20 Nasal Cannula 3 Laboratory Results CBC, BMP, magnesium, phosphorus reviewed PG Care Time/CCT Total # of Minutes Spent Total Time Spent with Patient: Total time spent is greater than 50% in coordination of care (as documented) at patient's floor/unit and/or counseling patient: Coding Level of Care Code 77847 SUB INP/OBS CARE 2/35MIN Diagnoses Chest pain R07.9 Incisional hernia, incarcerated K43.0 SBO (small bowel obstruction) K56.609 Paralytic ileus K56.0
[2024-04-08 12:13] LABS: Basophils # (auto) 0.04 K/uL (0.00-0.20); Basophils % (auto) 0.3 %; Eosinophils # (auto) 0.29 K/uL (0.00-0.50); Eosinophils % (auto) 2.5 %; Hematocrit (blood only) 36.9 % (37.0-47.0); Hemoglobin 12.1 g/dl (12.0-16.0); Immature Granulocytes # (auto) 0.11 K/uL (0.01-0.20); Immature Granulocytes % (auto) 0.9 %; Lymphocytes % (auto) 14.5 %; Mean Corpuscular Hemoglobin 29.3 pg (25.0-34.0); Mean Corpuscular Hgb Conc 32.8 g/dL (32.0-36.0); Mean Corpuscular Volume 89.3 fL (80.0-100.0); Mean Platelet Volume 10.1 fL (9.4-12.4); Monocytes % (auto) 6.8 %; Neutrophils # (auto) 8.78 K/uL (1.40-6.50); Platelet Count 405 K/uL (130-400); RDW Coefficient of Variation 13.8 % (11.5-14.5); RDW Standard Deviation 45.1 fL (36.4-46.3); Red Blood Count 4.13 M/uL (4.20-5.40); White Blood Count 11.72 K/ul (4.8-10.8)
[2024-04-08] MEDS: KETOROLAC TROMETHAMINE 15 MG/ML VIAL IV PRN (12:59)
[2024-04-08] MEDS: CLINOLIPID 20% IV FAT EMULSION 250 ML IV SCH (16:01)
[2024-04-08] MEDS: AA 8%/D14W 2L 1,297 ML in Central TPN bag 0 ML IV SCH (16:01)
[2024-04-08] MEDS: HEPARIN SOD 5,000 UNIT/0.5 ML VIAL SQ SCH (21:18)
[2024-04-08] MEDS: PANTOprazole 40 MG/10 ML SYR IV SCH (21:18)
--- NOTE | 2024-04-09 06:47 | Surgery Progress Note ---
Date of Service April 09, 2024 Assessment & Plan (1) Incisional hernia, incarcerated: Plan: 12th POD Very encouraging that the patient has less abdominal discomfort continues to have bowel movements with minimal bile staining the incision is intact the abdomen very minimal distention At this point we will continue for another day or keeping her n.p.o. and then may restart her on some clear liquids pending how she progresses today All questions from her daughter were answered Admission and Anticipated Discharge Date Admission Date: March 29, 2024 Subjective She has had a very good nights since yesterday been up and around has moved her bowels this morning liquid in nature no nausea She feels like she is more bloated today although no nausea or any significant abdominal discomfort She was started on Toradol last evening Physical Exam Physical Exam: Alert coherent resting comfortably her daughter at bedside The sclera nonicteric Normal color and texture of skin No audible wheezing or rails Abdomen minimally distended compared to yesterday but no localized tenderness minimal guarding The incision nora intact there is no drainage no erythema slight reaction just to the nora Kedar drainage had approximately 30 cc in last 24 hours more serosanguineous thick no overt bile stain Results & Data Vital Signs (Past 12 Hours) Vital Signs Temp Pulse Resp BP Pulse Ox O2 Del Method 04/08/24 21:27 36.8 C 77 16 125/65 92 Room Air
[2024-04-09 09:47] LABS: Basophils # (auto) 0.05 K/uL (0.00-0.20); Basophils % (auto) 0.5 %; Eosinophils # (auto) 0.31 K/uL (0.00-0.50); Eosinophils % (auto) 2.8 %; Hematocrit (blood only) 41.2 % (37.0-47.0); Hemoglobin 13.8 g/dl (12.0-16.0); Immature Granulocytes # (auto) 0.09 K/uL (0.01-0.20); Immature Granulocytes % (auto) 0.8 %; Lymphocytes # (auto) 2.04 K/uL (1.20-3.40); Lymphocytes % (auto) 18.6 %; Mean Corpuscular Hemoglobin 29.4 pg (25.0-34.0); Mean Corpuscular Hgb Conc 33.5 g/dL (32.0-36.0); Mean Corpuscular Volume 87.8 fL (80.0-100.0); Mean Platelet Volume 10.5 fL (9.4-12.4); Monocytes # (auto) 0.65 K/uL (0.11-0.59); Monocytes % (auto) 5.9 %; Neutrophils # (auto) 7.81 K/uL (1.40-6.50); Neutrophils % (auto) 71.4 %; Platelet Count 512 K/uL (130-400); RDW Coefficient of Variation 13.7 % (11.5-14.5); Red Blood Count 4.69 M/uL (4.20-5.40); White Blood Count 10.95 K/ul (4.8-10.8)
[2024-04-09 09:58] LABS: BUN Creatinine Ratio 48.6 (10-20); Calcium 9.3 mg/dl (8.6-10.3); Creatinine Clr Calc Pharmacy 72.7 ml/min; Phosphorus 3.3 mg/dl (2.5-4.9)
--- NOTE | 2024-04-09 13:00 | Hospitalist Progress Note ---
Date of Service April 09, 2024 Assessment & Plan (1) Chest pain: Plan: Resolved. No acute EKG changes. No evidence of acute coronary syndrome (2) Incisional hernia, incarcerated: Plan: Status post surgical intervention on March 28 with placement of mesh. Management by surgical service (3) SBO (small bowel obstruction): Plan: Now resolved. The patient underwent exploratory laparotomy with mesh placement for the incarcerated ventral hernia (4) Paralytic ileus: Plan: Occurred postoperatively. Now resolved. Currently on TPN. Hopefully clear liquids can be started tomorrow, April 10 Plan Hopeful discharge to home within the next several days by the primary service Admission and Anticipated Discharge Date Admission Date: March 29, 2024 Subjective Alert and oriented. No complaints. Afebrile and vital signs stable. Surgery entry noted. Hopefully clear liquids can be started tomorrow, April 10, and TPN can be stopped. Review of Systems 2 Review of Systems: Constitutionalno fever or chills ENTno blurred vision, no double vision, no epistaxis, no sore throat Respiratoryno cough, no wheezing, no shortness of breath Cardiacno palpitations, no chest pain, no syncope Hansel nausea, vomiting, diarrhea, melena, hematochezia GUno urinary retention, no urinary incontinence, no dysuria, no hematuria Musculoskeletalno joint pain, no muscle tenderness Skinno bruising, no rashes, no pruritus Neurono isolated weakness, no paresthesia, no weakness Psychno depression, no anxiety Physical Exam 2 Physical Exam: General-alert and oriented x3, no fever, no chills HEENT-head atraumatic and normocephalic, pupils equal and reactive to light, extraocular muscles intact Neck-no lymphadenopathy or thyromegaly, trachea midline Chest-clear to auscultation. No rales, wheezing or rhonchi Cardiac-regular rate and rhythm, normal S1 and S2 Abdomen-normal bowel sounds, no hepatosplenomegaly. Bandages present over recent surgical site Extremities-no cyanosis, clubbing, or edema Neuro-cranial nerves II through XII intact, motor and sensory function within normal limits, strength symmetrical, no focal deficits Psych-normal affect, normal mood Results & Data Results & Data Vital Signs (Past 12 Hours) Vital Signs Temp Pulse Resp BP Pulse Ox O2 Del Method 04/09/24 07:43 36.4 C L 79 16 143/82 H 94 Room Air Laboratory Results 04/09/24 09:14 04/09/24 09:14 PG Care Time/CCT Total # of Minutes Spent Total Time Spent with Patient: Total time spent is greater than 50% in coordination of care (as documented) at patient's floor/unit and/or counseling patient: Coding Level of Care Code 07071 SUB INP/OBS CARE 2/35MIN Diagnoses Chest pain R07.9 Incisional hernia, incarcerated K43.0 SBO (small bowel obstruction) K56.609 Paralytic ileus K56.0
[2024-04-09 14:39] LABS: Bilirubin,Total 0.4 mg/dl (0.2-1.0)
[2024-04-09] MEDS: CLINOLIPID 20% IV FAT EMULSION 250 ML IV SCH (16:24)
[2024-04-09] MEDS: AA 8%/D14W 2L 1,297 ML in Central TPN bag 0 ML IV SCH (16:24)
[2024-04-10 08:55] LABS: Basophils # (auto) 0.05 K/uL (0.00-0.20); Basophils % (auto) 0.6 %; Eosinophils # (auto) 0.31 K/uL (0.00-0.50); Eosinophils % (auto) 3.6 %; Hematocrit (blood only) 37.9 % (37.0-47.0); Hemoglobin 12.7 g/dl (12.0-16.0); Immature Granulocytes # (auto) 0.06 K/uL (0.01-0.20); Immature Granulocytes % (auto) 0.7 %; Lymphocytes # (auto) 2.04 K/uL (1.20-3.40); Lymphocytes % (auto) 23.4 %; Mean Corpuscular Hemoglobin 29.4 pg (25.0-34.0); Mean Corpuscular Hgb Conc 33.5 g/dL (32.0-36.0); Mean Corpuscular Volume 87.7 fL (80.0-100.0); Mean Platelet Volume 10.6 fL (9.4-12.4); Monocytes # (auto) 0.65 K/uL (0.11-0.59); Monocytes % (auto) 7.5 %; Neutrophils # (auto) 5.61 K/uL (1.40-6.50); Neutrophils % (auto) 64.2 %; Platelet Count 475 K/uL (130-400); RDW Coefficient of Variation 13.6 % (11.5-14.5); RDW Standard Deviation 44.2 fL (36.4-46.3); Red Blood Count 4.32 M/uL (4.20-5.40); White Blood Count 8.72 K/ul (4.8-10.8)
[2024-04-10 09:02] LABS: BUN Creatinine Ratio 55.4 (10-20); Calcium 8.8 mg/dl (8.6-10.3); Creatinine Clr Calc Pharmacy 90.9 ml/min; Magnesium 1.9 mg/dl (1.7-2.4); Potassium 3.6 mmol/L (3.5-5.1)
--- NOTE | 2024-04-10 10:08 | Surgery Progress Note ---
Date of Service April 10, 2024 Assessment & Plan (1) Incisional hernia, incarcerated: Plan: 13 postoperative day open repair incarcerated supraumbilical hernia that necessitated a small bowel resection and a centimeter Ventralex mesh to close the defect primarily compartment separation The patient has time at this point point be difficult effectively operated on her for a number of years at the point she was having more significant pain and incarcerated small bowel and was concerned the possibility emergency situation She does have a anastomotic leak had a CAT scan of the demonstrated underneath the mesh with no intra-abdominal extravasation of fluid except at this point small area but she has had a significant persistent pneumoperitoneum although clinically she was asymptomatic At this point we will continue with hyperalimentation this was again discussed with her keeping her n.p.o. 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 for now except for chips and sips Admission and Anticipated Discharge Date Admission Date: March 29, 2024 Subjective She feels a bit wiped out today yesterday physical therapy unremarkable halls multiple times to go upstairs multiple times she did well with the short of breath She has about 3 or 4 bowel movements during the night which were liquid by report dark She denies any nausea feels her belly is more distended today, very hungry She denies any fever Physical Exam Physical Exam: Alert coherent very pleasant no acute distress Sclera nonicteric Oropharyngeal area moist. Lungs unremarkable wheezing or rails Bit more distended than yesterday slightly tympanitic no localized tenderness or guarding in the right lower quadrant back you by our Incision of the nora intact there is no erythema or cellulitis minimal reaction to the nora Kedar drainage 30 cc over the past 36 hours she is dark bloody slight bile tinged Results & Data Vital Signs (Past 12 Hours) Vital Signs Temp Pulse Resp BP Pulse Ox O2 Del Method 04/10/24 07:32 36.3 C L 79 16 151/82 H 93 Room Air Laboratory Results Noted no white count no left shift hemoglobin stable
--- NOTE | 2024-04-10 15:08 | Hospitalist Progress Note ---
Date of Service April 10, 2024 Assessment & Plan (1) Chest pain: Plan: Resolved. No acute EKG changes. No evidence of acute coronary syndrome (2) Incisional hernia, incarcerated: Plan: Status post surgical intervention on March 28 with placement of mesh. Management by surgical service (3) SBO (small bowel obstruction): Plan: Now resolved. The patient underwent exploratory laparotomy with mesh placement for the incarcerated ventral hernia (4) Paralytic ileus: Plan: Occurred postoperatively. Now resolved. Currently on TPN. Hopefully clear liquids can be started soon Plan Hopeful discharge to home within the next several days by the primary service Admission and Anticipated Discharge Date Admission Date: March 29, 2024 Subjective Medically stable. No significant change overall. Surgery entry noted. She remains on TPN for now and n.p.o. status. Vital signs are stable and acceptable. Review of Systems 2 Review of Systems: Constitutionalno fever or chills ENTno blurred vision, no double vision, no epistaxis, no sore throat Respiratoryno cough, no wheezing, no shortness of breath Cardiacno palpitations, no chest pain, no syncope Hansel nausea, vomiting, diarrhea, melena, hematochezia GUno urinary retention, no urinary incontinence, no dysuria, no hematuria Musculoskeletalno joint pain, no muscle tenderness Skinno bruising, no rashes, no pruritus Neurono isolated weakness, no paresthesia, no weakness Psychno depression, no anxiety Physical Exam 2 Physical Exam: General-alert and oriented x3, no fever, no chills HEENT-head atraumatic and normocephalic, pupils equal and reactive to light, extraocular muscles intact Neck-no lymphadenopathy or thyromegaly, trachea midline Chest-clear to auscultation. No rales, wheezing or rhonchi Cardiac-regular rate and rhythm, normal S1 and S2 Abdomen-normal bowel sounds, no hepatosplenomegaly. Bandages present over recent surgical site Extremities-no cyanosis, clubbing, or edema Neuro-cranial nerves II through XII intact, motor and sensory function within normal limits, strength symmetrical, no focal deficits Psych-normal affect, normal mood Results & Data Results & Data Vital Signs (Past 12 Hours) Vital Signs Temp Pulse Resp BP Pulse Ox O2 Del Method 04/10/24 07:32 36.3 C L 79 16 151/82 H 93 Room Air Laboratory Results 04/10/24 08:13 04/10/24 08:13 PG Care Time/CCT Total # of Minutes Spent Total Time Spent with Patient: Total time spent is greater than 50% in coordination of care (as documented) at patient's floor/unit and/or counseling patient: Coding Level of Care Code 33326 SUB INP/OBS CARE 2/35MIN Diagnoses Chest pain R07.9 Incisional hernia, incarcerated K43.0 SBO (small bowel obstruction) K56.609 Paralytic ileus K56.0
[2024-04-10] MEDS: AA 8%/D14W 2L 1,297 ML in Central TPN bag 0 ML IV SCH (16:16)
[2024-04-10] MEDS: traMADol HCL 50 MG TABLET PO PRN (22:49)
--- NOTE | 2024-04-11 07:02 | Surgery Progress Note ---
Date of Service April 11, 2024 Assessment & Plan (1) Incisional hernia, incarcerated: Plan: 14 postoperative day Very difficult surgery required small bowel resection of recurrent infraumbilical hernia repair was done open with 8 cm ventralux mesh the patient developed postoperative bile leak documenting fistula with small bowel meter amount we have 0 patient n.p.o. on hyperalimentation Additional output last few days but about 30 cc nonbilious dark slightly bloody The patient feels great the best she is felt at this point we will order some clear liquids he is afraid to eat at the same time like that started therefore we will order and she can pick that up we will continue with hyperalimentation The patient also shower Very encouraging at this morning overall the patient feels and no objective concerning physical findings Admission and Anticipated Discharge Date Admission Date: March 29, 2024 Subjective She feels great the best she is felt physical therapy graduated her no further needed getting a bit hungry her belly is much much softer no discomfort denies nausea solid bowel movement yesterday Physical Exam Physical Exam: Alert coherent very comfortable in no distress Sclera nonicteric Lungs no audible wheezing or rails Abdomen completely benign drainage from Kedar drain cloudy with dark nonbilious incision intact nora intact no drainage or cellulitis Extremities no pedal edema Results & Data Vital Signs (Past 12 Hours) Vital Signs Temp Pulse Resp BP Pulse Ox O2 Del Method 04/11/24 05:56 36.6 C 71 18 126/61 92 Room Air
[2024-04-11 07:44] LABS: Basophils # (auto) 0.05 K/uL (0.00-0.20); Basophils % (auto) 0.6 %; Eosinophils # (auto) 0.33 K/uL (0.00-0.50); Eosinophils % (auto) 3.8 %; Hematocrit (blood only) 36.5 % (37.0-47.0); Immature Granulocytes # (auto) 0.07 K/uL (0.01-0.20); Immature Granulocytes % (auto) 0.8 %; Lymphocytes # (auto) 2.51 K/uL (1.20-3.40); Lymphocytes % (auto) 28.9 %; Mean Corpuscular Hemoglobin 28.9 pg (25.0-34.0); Mean Corpuscular Hgb Conc 32.9 g/dL (32.0-36.0); Mean Platelet Volume 10.4 fL (9.4-12.4); Monocytes # (auto) 0.67 K/uL (0.11-0.59); Monocytes % (auto) 7.7 %; Neutrophils # (auto) 5.05 K/uL (1.40-6.50); Neutrophils % (auto) 58.2 %; Platelet Count 455 K/uL (130-400); RDW Standard Deviation 45.1 fL (36.4-46.3); Red Blood Count 4.15 M/uL (4.20-5.40); White Blood Count 8.68 K/ul (4.8-10.8)
[2024-04-11 08:09] LABS: BUN Creatinine Ratio 61.8 (10-20); Calcium 8.8 mg/dl (8.6-10.3); Creatinine Clr Calc Pharmacy 92.6 ml/min; Magnesium 1.9 mg/dl (1.7-2.4); Phosphorus 3.2 mg/dl (2.5-4.9); Potassium 3.7 mmol/L (3.5-5.1)
[2024-04-11] MEDS: [UNRECOGNIZED DRUG - REMARK] ONE (08:22)
--- NOTE | 2024-04-11 15:17 | Pharmacy Report ---
Pharmacy PN Follow-up Note - Date of Service April 11, 2024 - Subjective Patient is currently on day #[] of [PPN][TPN] for [Indication]. - Objective Height & Weight (Last Documented) Height 5 ft 7 in Weight 72.4 kg Diet Order(s) 04/11/24 Breakfast Diet Intake & Ouput (24hrs) 04/10/24 04/11/24 04/12/24 06:59 06:59 06:59 Intake Total 250 / 250 2446.417 / 2446.417 102 / 102 Output Total Balance 220 / 220 2435.417 / 2435.417 102 / 102 Selected Laboratory Results 04/11/24 07:05 Sodium 142 Potassium 3.7 Chloride 110 H Carbon Dioxide 25 Anion Gap 7 BUN 34 H Creatinine 0.55 L BUN/Creatinine Ratio 61.8 H Glucose 119 H Calcium 8.8 Phosphorus 3.2 Magnesium 1.9 - Assessment & Plan Assessment: * Triglycerides noted to be elevated yesterday (04/10/24) * Dietary recommending to hold lipids for 2 days and to utilize cyclic tpn over 16 hours to promote hepatic rest * Electrolytes largely stable, but chloride has been steadily rising over past several days * Clear liquid diet initiated today Plan: * For Day #9 of TPN administration, the following will be ordered: * Macronutrients: * Amino Acids: 96 grams/day * Dextrose: 168 grams/day * Hold lipids * Micronutrients: * Sodium acetate: 100 mEq/day * Potassium acetate 20 mEq/day * Potassium phosphate: 21 mMol/day * Magnesium sulfate: 4.06 mEq/day * Multivitamins: 10 mL/day * Trace elements: 1 mL/day * Thiamine: 100 mg/day * Total volume of 1280 mL will be infused over 16 hours and will provide 955 kcal/day * Labs will be ordered per PN protocol. * Pharmacy will follow and adjust PN orders on a daily basis. Thank you!
--- NOTE | 2024-04-11 15:38 | Hospitalist Progress Note ---
Date of Service April 11, 2024 Assessment & Plan (1) Chest pain: Plan: Resolved. No acute EKG changes. No evidence of acute coronary syndrome (2) Incisional hernia, incarcerated: Plan: Status post surgical intervention on March 28 with placement of mesh. Management by surgical service (3) SBO (small bowel obstruction): Plan: Now resolved. The patient underwent exploratory laparotomy with mesh placement for the incarcerated ventral hernia (4) Paralytic ileus: Plan: Occurred postoperatively. Now resolved. Currently on TPN. Hopefully clear liquids can be started soon Plan Hopeful discharge to home within the next several days by the primary service Admission and Anticipated Discharge Date Admission Date: March 29, 2024 Subjective Alert and oriented. No new problems. Tramadol was started to help her postoperative pain and it has helped quite a bit. Surgery entry noted. Clear liquids have been started. She remains on TPN which will eventually be stopped and once her diet has been advanced she will be discharged home by the primary service. Review of Systems 2 Review of Systems: Constitutionalno fever or chills ENTno blurred vision, no double vision, no epistaxis, no sore throat Respiratoryno cough, no wheezing, no shortness of breath Cardiacno palpitations, no chest pain, no syncope Hansel nausea, vomiting, diarrhea, melena, hematochezia GUno urinary retention, no urinary incontinence, no dysuria, no hematuria Musculoskeletalno joint pain, no muscle tenderness Skinno bruising, no rashes, no pruritus Neurono isolated weakness, no paresthesia, no weakness Psychno depression, no anxiety Physical Exam 2 Physical Exam: General-alert and oriented x3, no fever, no chills HEENT-head atraumatic and normocephalic, pupils equal and reactive to light, extraocular muscles intact Neck-no lymphadenopathy or thyromegaly, trachea midline Chest-clear to auscultation. No rales, wheezing or rhonchi Cardiac-regular rate and rhythm, normal S1 and S2 Abdomen-normal bowel sounds, no hepatosplenomegaly. Bandages present over recent surgical site Extremities-no cyanosis, clubbing, or edema Neuro-cranial nerves II through XII intact, motor and sensory function within normal limits, strength symmetrical, no focal deficits Psych-normal affect, normal mood Results & Data Results & Data Vital Signs (Past 12 Hours) Vital Signs Temp Pulse Resp BP Pulse Ox O2 Del Method 04/11/24 05:56 36.6 C 71 18 126/61 92 Room Air Laboratory Results 04/11/24 07:06 04/11/24 07:05 PG Care Time/CCT Total # of Minutes Spent Total Time Spent with Patient: Total time spent is greater than 50% in coordination of care (as documented) at patient's floor/unit and/or counseling patient: Coding Level of Care Code 53000 SUB INP/OBS CARE 2/35MIN Diagnoses Chest pain R07.9 Incisional hernia, incarcerated K43.0 SBO (small bowel obstruction) K56.609 Paralytic ileus K56.0
[2024-04-11] MEDS: [UNRECOGNIZED DRUG - OTHER] IV SCH (16:29)
[2024-04-11] MEDS: CENTRAL TPN IV SCH (16:29)
[2024-04-12 07:40] LABS: Basophils # (auto) 0.07 K/uL (0.00-0.20); Basophils % (auto) 0.7 %; Eosinophils # (auto) 0.39 K/uL (0.00-0.50); Eosinophils % (auto) 4.2 %; Hematocrit (blood only) 35.8 % (37.0-47.0); Immature Granulocytes # (auto) 0.08 K/uL (0.01-0.20); Immature Granulocytes % (auto) 0.9 %; Lymphocytes % (auto) 28.8 %; Mean Corpuscular Hemoglobin 29.3 pg (25.0-34.0); Mean Corpuscular Hgb Conc 33.5 g/dL (32.0-36.0); Mean Corpuscular Volume 87.3 fL (80.0-100.0); Mean Platelet Volume 10.1 fL (9.4-12.4); Monocytes # (auto) 0.74 K/uL (0.11-0.59); Monocytes % (auto) 7.9 %; Neutrophils # (auto) 5.39 K/uL (1.40-6.50); Neutrophils % (auto) 57.5 %; Platelet Count 456 K/uL (130-400); RDW Coefficient of Variation 13.9 % (11.5-14.5); RDW Standard Deviation 44.2 fL (36.4-46.3); White Blood Count 9.37 K/ul (4.8-10.8)
[2024-04-12 07:58] LABS: BUN Creatinine Ratio 51.9 (10-20); Calcium 8.8 mg/dl (8.6-10.3); Creatinine Clr Calc Pharmacy 94.3 ml/min; Magnesium 1.9 mg/dl (1.7-2.4); Phosphorus 3.2 mg/dl (2.5-4.9)
[2024-04-12] MEDS: [UNRECOGNIZED DRUG - REMARK] ONE (08:10)
--- NOTE | 2024-04-12 08:56 | Surgery Progress Note ---
Date of Service April 12, 2024 Assessment & Plan (1) S/P small bowel resection: Plan: 15 postoperative day s/p repair of incarcerated hernia with small bowel resection and anastomosis complicated recovery with development of leak from the small bowel near the site of anastomosis. Patient was started on clear liquid diet yesterday tolerating without n/v will advance to full liquids. Continue TPN until instructed otherwise by general surgery. ENEIDA drain purulent bloody drainage, culture send yesterday , results pending VSS, abdominal nora removed, steri strips applied and clean gauze and medipore tape pt reports daily bms and passing flatus OOB , ambulate in halls appreciate medicine assist with pt pt seen and examined with Dr Zaidi Admission and Anticipated Discharge Date Admission Date: March 29, 2024 Subjective pt reports feeling well small daily BMs and passing flatus pain controlled with oral tramadol Review of Systems Constitutional: no fever and no chills Respiratory: no dyspnea Cardiovascular: no chest pain Gastrointestinal: + abdominal pain; no nausea and no vomit ing Musculoskeletal: no muscle weakness Psychiatric: no confusion Physical Exam Constitutional: cooperative and comfortable; no acute distress Respiratory: normal respiratory effort and able to speak in complete sentences; no respiratory distress Cardiovascular: Rate/Rhythm: regular rate Gastrointestinal (Abdomen): Inspection/Auscultation: + abdominal surgical incision (nora removed, steri strips applied ) and + abdominal surgical drain present; abdomen not distended Musculoskeletal: no cyanosis or clubbing, extremities motor strength 5/5 Psychiatric: A+Ox3, euthymic affect Results & Data Vital Signs (Past 12 Hours) Vital Signs Temp Pulse Resp BP Pulse Ox O2 Del Method 04/12/24 07:10 97.9 F 75 16 122/71 95 Room Air Results CBC w Diff Results: RBC 4.12 M/uL (4.20-5.40) L 04/14/24 WBC 8.56 K/ul (4.8-10.8) 04/14/24 Hgb 11.8 g/dl (12.0-16.0) L 04/14/24 Hct 36.0 % (37.0-47.0) L 04/14/24 MCV 87.4 fL (80.0-100.0) 04/14/24 MCH 28.6 pg (25.0-34.0) 04/14/24 MCHC 32.8 g/dL (32.0-36.0) 04/14/24 RDW Standard Deviation 44.5 fL (36.4-46.3) 04/14/24 RDW Coefficient of Variation 13.9 % (11.5-14.5) 04/14/24 Plt Count 431 K/uL (130-400) H 04/14/24 MPV 10.2 fL (9.4-12.4) 04/14/24 Neutrophils (%) (Auto) 59.1 % 04/14/24 Lymphocytes (%) (Auto) 26.5 % 04/14/24 Monocytes # (Auto) 0.59 K/uL (0.11-0.59) 04/14/24 Eosinophils # (Auto) 0.46 K/uL (0.00-0.50) 04/14/24 Immature Granulocyte % (Auto) 1.2 % 04/14/24 Neutrophils # (Auto) 5.06 K/uL (1.40-6.50) 04/14/24 Lymphocytes # (Auto) 2.27 K/uL (1.20-3.40) 04/14/24 Monocytes # (Auto) 0.59 K/uL (0.11-0.59) 04/14/24 Eosinophils # (Auto) 0.46 K/uL (0.00-0.50) 04/14/24 Basophils # (Auto) 0.08 K/uL (0.00-0.20) 04/14/24 Immature Granulocyte # (Auto) 0.10 K/uL (0.01-0.20) 5 PG Care Time/CCT Total # of Minutes Spent Total Time Spent with Patient: Total time spent is greater than 50% in coordination of care (as documented) at patient's floor/unit and/or counseling patient: Coding Level of Care Code 53616 Post Operative Follow-Up Diagnoses S/P small bowel resection Z90.49
[2024-04-12] MEDS: [UNRECOGNIZED DRUG - OTHER] IV SCH (15:37)
[2024-04-12] MEDS: CENTRAL TPN IV SCH (15:37)
[2024-04-12] MEDS: CLINOLIPID 20% IV FAT EMULSION 250 ML IV SCH (15:38)
--- NOTE | 2024-04-12 15:38 | Hospitalist Progress Note ---
Date of Service April 12, 2024 Assessment & Plan (1) Chest pain: Plan: Resolved. No acute EKG changes. No evidence of acute coronary syndrome (2) Incisional hernia, incarcerated: Plan: Status post surgical intervention on March 28 with placement of mesh. Management by surgical service (3) SBO (small bowel obstruction): Plan: Now resolved. The patient underwent exploratory laparotomy with mesh placement for the incarcerated ventral hernia (4) Paralytic ileus: Plan: Occurred postoperatively. Now resolved. She remains on TPN. Clear liquids have been well-tolerated and she is now advanced to full liquid diet per surgery team. Plan Hopeful discharge to home within the next several days by the primary service. Stable from a medical standpoint Admission and Anticipated Discharge Date Admission Date: March 29, 2024 Subjective Alert and pleasant. Hemodynamically stable. Surgery has seen the patient and advance her diet to full liquids. Her abdominal sutures were also removed. She remains on TPN for now. It appears she is approaching the time for discharge. Review of Systems 2 Review of Systems: Constitutionalno fever or chills ENTno blurred vision, no double vision, no epistaxis, no sore throat Respiratoryno cough, no wheezing, no shortness of breath Cardiacno palpitations, no chest pain, no syncope Hansel nausea, vomiting, diarrhea, melena, hematochezia GUno urinary retention, no urinary incontinence, no dysuria, no hematuria Musculoskeletalno joint pain, no muscle tenderness Skinno bruising, no rashes, no pruritus Neurono isolated weakness, no paresthesia, no weakness Psychno depression, no anxiety Physical Exam 2 Physical Exam: General-alert and oriented x3, no fever, no chills HEENT-head atraumatic and normocephalic, pupils equal and reactive to light, extraocular muscles intact Neck-no lymphadenopathy or thyromegaly, trachea midline Chest-clear to auscultation. No rales, wheezing or rhonchi Cardiac-regular rate and rhythm, normal S1 and S2 Abdomen-normal bowel sounds, no hepatosplenomegaly. Bandages present over recent surgical site Extremities-no cyanosis, clubbing, or edema Neuro-cranial nerves II through XII intact, motor and sensory function within normal limits, strength symmetrical, no focal deficits Psych-normal affect, normal mood Results & Data Results & Data Vital Signs (Past 12 Hours) Vital Signs Temp Pulse Resp BP Pulse Ox O2 Del Method 04/12/24 07:10 36.6 C 75 16 122/71 95 Room Air Laboratory Results 04/12/24 07:19 04/12/24 07:19 PG Care Time/CCT Total # of Minutes Spent Total Time Spent with Patient: Total time spent is greater than 50% in coordination of care (as documented) at patient's floor/unit and/or counseling patient: Coding Level of Care Code 26041 SUB INP/OBS CARE 2/35MIN Diagnoses Chest pain R07.9 Incisional hernia, incarcerated K43.0 SBO (small bowel obstruction) K56.609 Paralytic ileus K56.0
[2024-04-13 07:25] LABS: Basophils # (auto) 0.08 K/uL (0.00-0.20); Basophils % (auto) 0.8 %; Eosinophils # (auto) 0.42 K/uL (0.00-0.50); Eosinophils % (auto) 4.4 %; Hemoglobin 12.6 g/dl (12.0-16.0); Immature Granulocytes # (auto) 0.09 K/uL (0.01-0.20); Lymphocytes # (auto) 2.46 K/uL (1.20-3.40); Mean Corpuscular Hemoglobin 29.9 pg (25.0-34.0); Mean Corpuscular Hgb Conc 34.1 g/dL (32.0-36.0); Mean Corpuscular Volume 87.9 fL (80.0-100.0); Mean Platelet Volume 10.3 fL (9.4-12.4); Monocytes # (auto) 0.76 K/uL (0.11-0.59); Neutrophils # (auto) 5.66 K/uL (1.40-6.50); Neutrophils % (auto) 59.8 %; Platelet Count 479 K/uL (130-400); RDW Coefficient of Variation 13.5 % (11.5-14.5); RDW Standard Deviation 43.4 fL (36.4-46.3); Red Blood Count 4.21 M/uL (4.20-5.40); White Blood Count 9.47 K/ul (4.8-10.8)
[2024-04-13 07:31] LABS: BUN Creatinine Ratio 43.3 (10-20); Creatinine Clr Calc Pharmacy 84.8 ml/min; Phosphorus 3.5 mg/dl (2.5-4.9); Potassium 4.3 mmol/L (3.5-5.1)
[2024-04-13] MEDS ORDERED: CALCIUM CARBONATE 500 MG CHEWABLE TAB PO PRN (07:47)
--- NOTE | 2024-04-13 07:47 | Surgery Progress Note ---
Date of Service April 13, 2024 Assessment & Plan (1) S/P small bowel resection: Plan: 16 postoperative day s/p repair of incarcerated hernia with small bowel resection and anastomosis complicated recovery with development of leak from the small bowel near the site of anastomosis. On full liquids, will continue today. Some epigastric pain from tomato soup last night, continue PPI, ordered prn PO Tums Continue TPN until instructed otherwise by general surgery ENEIDA drain purulent bloody drainage, pt reports not emptied yesterday no documented output in chart for 04/12/24. Today documented 20ml Please monitor daily drainage output. Culture from ENEIDA drain showed pin point growth and is being reintubated, will follow results VSS, No drainage from abd. incision pt reports sm bm yesterday and passing flatus this AM OOB , ambulate in halls appreciate medicine assist with pt Admission and Anticipated Discharge Date Admission Date: March 29, 2024 Supervising Physician Co-Signing Physician Notes pnt S&E, labs reviewed, agree w/ above. s/p ventral hernia repair w/ extensive lysis of adhesions and small bowel resection w/ anastomosis, complicated by anastomotic microleak. Responding to non operative management, minimal drainage, tolerating fulls. continue fulls, continue night time tpn, cont current management. Subjective pt reports feeling the same as yesterday, no new complaints Review of Systems Constitutional: no fever and no chills Respiratory: no dyspnea Cardiovascular: no chest pain Gastrointestinal: + abdominal pain; no nausea and no vomit ing Musculoskeletal: no muscle weakness Psychiatric: no confusion Physical Exam Constitutional: cooperative and comfortable; no acute distress Respiratory: normal respiratory effort and able to speak in complete sentences; no respiratory distress Cardiovascular: Rate/Rhythm: regular rate Gastrointestinal (Abdomen): Inspection/Auscultation: + abdominal surgical incision (nora removed, steri strips applied ) and + abdominal surgical drain present; abdomen not distended Musculoskeletal: no cyanosis or clubbing, extremities motor strength 5/5 Psychiatric: A+Ox3, euthymic affect Results & Data Vital Signs (Past 12 Hours) Vital Signs Temp Pulse Resp BP Pulse Ox O2 Del Method 04/13/24 07:12 98.2 F 77 16 122/78 93 Room Air 04/12/24 19:57 98.2 F 79 18 126/77 93 Room Air Results CBC w Diff Results: RBC 4.21 M/uL (4.20-5.40) 04/13/24 WBC 9.47 K/ul (4.8-10.8) 04/13/24 Hgb 12.6 g/dl (12.0-16.0) 04/13/24 Hct 37.0 % (37.0-47.0) 04/13/24 MCV 87.9 fL (80.0-100.0) 04/13/24 MCH 29.9 pg (25.0-34.0) 04/13/24 MCHC 34.1 g/dL (32.0-36.0) 04/13/24 RDW Standard Deviation 43.4 fL (36.4-46.3) 04/13/24 RDW Coefficient of Variation 13.5 % (11.5-14.5) 04/13/24 Plt Count 479 K/uL (130-400) H 04/13/24 MPV 10.3 fL (9.4-12.4) 04/13/24 Neutrophils (%) (Auto) 59.8 % 04/13/24 Lymphocytes (%) (Auto) 26.0 % 04/13/24 Monocytes # (Auto) 0.76 K/uL (0.11-0.59) H 04/13/24 Eosinophils # (Auto) 0.42 K/uL (0.00-0.50) 04/13/24 Immature Granulocyte % (Auto) 1.0 % 04/13/24 Neutrophils # (Auto) 5.66 K/uL (1.40-6.50) 04/13/24 Lymphocytes # (Auto) 2.46 K/uL (1.20-3.40) 04/13/24 Monocytes # (Auto) 0.76 K/uL (0.11-0.59) H 04/13/24 Eosinophils # (Auto) 0.42 K/uL (0.00-0.50) 04/13/24 Basophils # (Auto) 0.08 K/uL (0.00-0.20) 04/13/24 Immature Granulocyte # (Auto) 0.09 K/uL (0.01-0.20) 5 PG Care Time/CCT Total # of Minutes Spent Total Time Spent with Patient: Total time spent is greater than 50% in coordination of care (as documented) at patient's floor/unit and/or counseling patient: Coding Level of Care Code 43540 Post Operative Follow-Up Diagnoses S/P small bowel resection Z90.49
[2024-04-13] MEDS: [UNRECOGNIZED DRUG - REMARK] ONE (08:03)
--- NOTE | 2024-04-13 14:10 | Hospitalist Progress Note ---
Date of Service April 13, 2024 Assessment & Plan (1) Chest pain: Plan: Resolved. No acute EKG changes. No evidence of acute coronary syndrome (2) Incisional hernia, incarcerated: Plan: Status post surgical intervention on March 28 with placement of mesh. Management by surgical service. Postoperative day #16 (3) SBO (small bowel obstruction): Plan: Now resolved. The patient underwent exploratory laparotomy with mesh placement for the incarcerated ventral hernia (4) Paralytic ileus: Plan: Occurred postoperatively. Now resolved. She remains on TPN and full liquids. Plan Hopeful discharge to home within the next several days by the primary service. Stable from a medical standpoint Admission and Anticipated Discharge Date Admission Date: March 29, 2024 Subjective Alert and oriented. Afebrile. Postoperative day #16. Surgery entry noted. She remains on full liquid diet and TPN. ENEIDA drain remains in place. Review of Systems 2 Review of Systems: Constitutionalno fever or chills ENTno blurred vision, no double vision, no epistaxis, no sore throat Respiratoryno cough, no wheezing, no shortness of breath Cardiacno palpitations, no chest pain, no syncope Hansel nausea, vomiting, diarrhea, melena, hematochezia GUno urinary retention, no urinary incontinence, no dysuria, no hematuria Musculoskeletalno joint pain, no muscle tenderness Skinno bruising, no rashes, no pruritus Neurono isolated weakness, no paresthesia, no weakness Psychno depression, no anxiety Physical Exam 2 Physical Exam: General-alert and oriented x3, no fever, no chills HEENT-head atraumatic and normocephalic, pupils equal and reactive to light, extraocular muscles intact Neck-no lymphadenopathy or thyromegaly, trachea midline Chest-clear to auscultation. No rales, wheezing or rhonchi Cardiac-regular rate and rhythm, normal S1 and S2 Abdomen-normal bowel sounds, no hepatosplenomegaly. Bandages present over recent surgical site Extremities-no cyanosis, clubbing, or edema Neuro-cranial nerves II through XII intact, motor and sensory function within normal limits, strength symmetrical, no focal deficits Psych-normal affect, normal mood Results & Data Results & Data Vital Signs (Past 12 Hours) Vital Signs Temp Pulse Resp BP Pulse Ox O2 Del Method 04/13/24 07:12 36.8 C 77 16 122/78 93 Room Air Laboratory Results 04/13/24 06:40 04/13/24 06:40 PG Care Time/CCT Total # of Minutes Spent Total Time Spent with Patient: Total time spent is greater than 50% in coordination of care (as documented) at patient's floor/unit and/or counseling patient: Coding Level of Care Code 97038 SUB INP/OBS CARE 2/35MIN Diagnoses Chest pain R07.9 Incisional hernia, incarcerated K43.0 SBO (small bowel obstruction) K56.609 Paralytic ileus K56.0
[2024-04-13] MEDS: CLINOLIPID 20% IV FAT EMULSION 250 ML IV SCH (16:12)
[2024-04-13] MEDS: CENTRAL TPN IV SCH (16:40)
[2024-04-13] MEDS: [UNRECOGNIZED DRUG - OTHER] IV SCH (16:40)
[2024-04-13] MEDS ORDERED: [UNRECOGNIZED DRUG - REMARK] ONE (22:00)
[2024-04-14] MEDS: STOP CLINOLIPID SCH (00:22)
[2024-04-14 06:27] LABS: Basophils # (auto) 0.08 K/uL (0.00-0.20); Basophils % (auto) 0.9 %; Eosinophils # (auto) 0.46 K/uL (0.00-0.50); Eosinophils % (auto) 5.4 %; Hemoglobin 11.8 g/dl (12.0-16.0); Immature Granulocytes % (auto) 1.2 %; Lymphocytes # (auto) 2.27 K/uL (1.20-3.40); Lymphocytes % (auto) 26.5 %; Mean Corpuscular Hemoglobin 28.6 pg (25.0-34.0); Mean Corpuscular Hgb Conc 32.8 g/dL (32.0-36.0); Mean Corpuscular Volume 87.4 fL (80.0-100.0); Mean Platelet Volume 10.2 fL (9.4-12.4); Monocytes # (auto) 0.59 K/uL (0.11-0.59); Monocytes % (auto) 6.9 %; Neutrophils # (auto) 5.06 K/uL (1.40-6.50); Neutrophils % (auto) 59.1 %; Platelet Count 431 K/uL (130-400); RDW Coefficient of Variation 13.9 % (11.5-14.5); RDW Standard Deviation 44.5 fL (36.4-46.3); Red Blood Count 4.12 M/uL (4.20-5.40); White Blood Count 8.56 K/ul (4.8-10.8)
[2024-04-14 06:42] LABS: Calcium 8.8 mg/dl (8.6-10.3); Creatinine Clr Calc Pharmacy 84.8 ml/min; Phosphorus 3.7 mg/dl (2.5-4.9)
[2024-04-14] MEDS: [UNRECOGNIZED DRUG - REMARK] ONE (08:59)
--- NOTE | 2024-04-14 09:43 | Surgery Progress Note ---
Date of Service April 14, 2024 Assessment & Plan (1) H/O ventral hernia repair: Plan: POD#17 WBC 8.5. Vitals stable tolerating fulls, no n/v + loose stools Continue TPN today ENEIDA drain with 20cc noted OOB ambulating/pulm toilet pt stable with no new issues at this time. continue current management for today Admission and Anticipated Discharge Date Admission Date: March 29, 2024 Supervising Physician Co-Signing Physician Notes pnt S&E, labs reviewed, agree w/ above. s/p ventral hernia repair w/ extensive lysis of adhesions and small bowel resection w/ anastomosis, complicated by anastomotic microleak. Responding to non operative management, minimal drainage, tolerating fulls. continue fulls, continue night time tpn, cont current management. Subjective Patient feels well. No nausea/vomiting. Tolerating fulls. Some loose stools. Otherwise no major complaints. Physical Exam Physical Exam: awake/alert, sitting up in chair Gastrointestinal (Abdomen): Inspection/Auscultation: + abdominal surgical incision and + abdominal surgical drain present (ENEIDA drain 20cc noted, serosang mixed w/ light tannish) Percussion/Palpation: abdomen soft Results & Data Vital Signs (Past 12 Hours) Vital Signs Temp Pulse Resp BP Pulse Ox O2 Del Method 04/14/24 07:23 98.4 F 73 16 109/67 93 Room Air PG Care Time/CCT Total # of Minutes Spent Total Time Spent with Patient: Total time spent is greater than 50% in coordination of care (as documented) at patient's floor/unit and/or counseling patient: Coding Level of Care Code 75833 Post Operative Follow-Up Diagnoses H/O ventral hernia repair Z98.890; Z87.19
--- NOTE | 2024-04-14 14:19 | Hospitalist Progress Note ---
Date of Service April 14, 2024 Assessment & Plan (1) Chest pain: Plan: Resolved. No acute EKG changes. No evidence of acute coronary syndrome (2) Incisional hernia, incarcerated: Plan: Status post surgical intervention on March 28 with placement of mesh. She had partial small bowel resection with end and reanastomosis. Unfortunately there was a small anastomotic leak postoperatively. Management by surgical service. Postoperative day #17 (3) SBO (small bowel obstruction): Plan: Now resolved. The patient underwent exploratory laparotomy with mesh placement, partial small bowel resection, end to end anastomosis for the incarcerated ventral hernia (4) Paralytic ileus: Plan: Occurred postoperatively. Now resolved. She remains on TPN and full liquids. Plan Hopeful discharge to home within the next several days by the primary service. Stable from a medical standpoint Admission and Anticipated Discharge Date Admission Date: March 29, 2024 Subjective Alert and oriented. Stable overall. Postoperative day #17. Surgery entry noted. Wound swab culture results revealed mixed dayana. Review of Systems 2 Review of Systems: Constitutionalno fever or chills ENTno blurred vision, no double vision, no epistaxis, no sore throat Respiratoryno cough, no wheezing, no shortness of breath Cardiacno palpitations, no chest pain, no syncope Hansel nausea, vomiting, diarrhea, melena, hematochezia GUno urinary retention, no urinary incontinence, no dysuria, no hematuria Musculoskeletalno joint pain, no muscle tenderness Skinno bruising, no rashes, no pruritus Neurono isolated weakness, no paresthesia, no weakness Psychno depression, no anxiety Physical Exam 2 Physical Exam: General-alert and oriented x3, no fever, no chills HEENT-head atraumatic and normocephalic, pupils equal and reactive to light, extraocular muscles intact Neck-no lymphadenopathy or thyromegaly, trachea midline Chest-clear to auscultation. No rales, wheezing or rhonchi Cardiac-regular rate and rhythm, normal S1 and S2 Abdomen-normal bowel sounds, no hepatosplenomegaly. Bandages present over recent surgical site Extremities-no cyanosis, clubbing, or edema Neuro-cranial nerves II through XII intact, motor and sensory function within normal limits, strength symmetrical, no focal deficits Psych-normal affect, normal mood Results & Data Results & Data Vital Signs (Past 12 Hours) Vital Signs Temp Pulse Resp BP Pulse Ox O2 Del Method 04/14/24 07:23 36.9 C 73 16 109/67 93 Room Air Laboratory Results 04/14/24 06:05 04/14/24 06:05 PG Care Time/CCT Total # of Minutes Spent Total Time Spent with Patient: Total time spent is greater than 50% in coordination of care (as documented) at patient's floor/unit and/or counseling patient: Coding Level of Care Code 40384 SUB INP/OBS CARE 2/35MIN Diagnoses Chest pain R07.9 Incisional hernia, incarcerated K43.0 SBO (small bowel obstruction) K56.609 Paralytic ileus K56.0
[2024-04-14] MEDS: [UNRECOGNIZED DRUG - OTHER] IV SCH (16:14)
[2024-04-14] MEDS: CENTRAL TPN IV SCH (16:14)
[2024-04-14] MEDS: PANTOprazole 40 MG TAB PO SCH (20:08)
[2024-04-14] MEDS: metroNIDAZOLE 250 MG TAB PO SCH (21:23)
[2024-04-15] MEDS: [UNRECOGNIZED DRUG - REMARK] ONE ×2 (08:16→12:18)
[2024-04-15 08:41] LABS: Basophils # (auto) 0.08 K/uL (0.00-0.20); Basophils % (auto) 1.1 %; Eosinophils # (auto) 0.57 K/uL (0.00-0.50); Eosinophils % (auto) 7.6 %; Hematocrit (blood only) 37.4 % (37.0-47.0); Hemoglobin 12.4 g/dl (12.0-16.0); Immature Granulocytes # (auto) 0.08 K/uL (0.01-0.20); Immature Granulocytes % (auto) 1.1 %; Lymphocytes # (auto) 2.22 K/uL (1.20-3.40); Lymphocytes % (auto) 29.7 %; Mean Corpuscular Hemoglobin 29.5 pg (25.0-34.0); Mean Corpuscular Hgb Conc 33.2 g/dL (32.0-36.0); Mean Platelet Volume 10.5 fL (9.4-12.4); Monocytes # (auto) 0.62 K/uL (0.11-0.59); Monocytes % (auto) 8.3 %; Neutrophils # (auto) 3.91 K/uL (1.40-6.50); Neutrophils % (auto) 52.2 %; Platelet Count 433 K/uL (130-400); RDW Coefficient of Variation 13.9 % (11.5-14.5); RDW Standard Deviation 45.1 fL (36.4-46.3); White Blood Count 7.48 K/ul (4.8-10.8)
[2024-04-15 08:54] LABS: BUN Creatinine Ratio 40.6 (10-20); Calcium 9.1 mg/dl (8.6-10.3); Creatinine Clr Calc Pharmacy 79.5 ml/min; Phosphorus 3.6 mg/dl (2.5-4.9); Potassium 4.1 mmol/L (3.5-5.1)
--- NOTE | 2024-04-15 09:03 | Surgery Progress Note ---
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 basically hyperalimentation and we have increased oral intake very slowly making sure there was no increase drainage from the fistulous tract which is the very minimal and nonbilious in nature the patient tolerated full liquid diet she would like to have a more for possible diet before going home and I agree with her therefore we will advance to a low fiber diet and explained to her that she should keep this for a while until her stools normalize She has had some liquid stools 3 times yesterday not recorded by nursing staff She had been on antibiotics at this time since this the frequency of the stools and decreasing will follow clinically The drainage of the Kedar drain was cultured 2 days ago and showed to have Prevotella likely sensitive to Flagyl she was started on Flagyl 250 mg twice gretta ly All question answered Plan Increase diet to low fiber continue hyperalimentation for today making sure if she can tolerate it well If she tolerates diet today and feels fine tomorrow with no increase output from her Kedar drain most likely should be discharged tomorrow Admission and Anticipated Discharge Date Admission Date: March 29, 2024 Subjective Overall continues to do well she is tolerating full liquid diet has had multiple bowel movements liquid although not recorded per nurses notes She denies any nausea and minimal abdominal discomfort The Kedar drain has very minimal drainage nonbilious The patient is been up and around showering without any limitations Physical Exam Physical Exam: Alert coherent comfortable in no distress Daughter present in the room Sclera nonicteric Normal color and texture of skin The abdomen is benign Minimal Kedar drainage serosanguineous nonbilious slightly pale color Extremity grossly normal Results & Data Vital Signs (Past 12 Hours) Vital Signs Temp Pulse Resp BP Pulse Ox O2 Del Method 04/15/24 07:17 36.7 C 72 18 115/73 93 Room Air Laboratory Results Noted
[2024-04-15] MEDS: [UNRECOGNIZED DRUG - OTHER] IV SCH (15:56)
[2024-04-15] MEDS: CENTRAL TPN IV SCH (15:56)
--- NOTE | 2024-04-15 15:58 | Hospitalist Progress Note ---
Date of Service April 15, 2024 Assessment & Plan (1) Chest pain: Plan: Resolved. No acute EKG changes. No evidence of acute coronary syndrome (2) Incisional hernia, incarcerated: Plan: Status post surgical intervention on March 28 with placement of mesh. She had partial small bowel resection with end and reanastomosis. Unfortunately there was a small anastomotic leak postoperatively. Management by surgical service. Postoperative day #18 (3) SBO (small bowel obstruction): Plan: Now resolved. The patient underwent exploratory laparotomy with mesh placement, partial small bowel resection, end to end anastomosis for the incarcerated ventral hernia (4) Paralytic ileus: Plan: Occurred postoperatively. Now resolved. Diet has been advanced to low fiber. Plan Possible discharge to home tomorrow, April 16, by primary service. Stable from a medical standpoint Admission and Anticipated Discharge Date Admission Date: March 29, 2024 Subjective Alert and oriented. No distress. Surgery entry noted. Her diet has been advanced to low fiber. She is now on oral Flagyl for prepatellar coverage isolated in the wound swab culture. Postoperative day #18. There is a possibility she could go home tomorrow, April 16 per primary service Review of Systems 2 Review of Systems: Constitutionalno fever or chills ENTno blurred vision, no double vision, no epistaxis, no sore throat Respiratoryno cough, no wheezing, no shortness of breath Cardiacno palpitations, no chest pain, no syncope Hansel nausea, vomiting, diarrhea, melena, hematochezia GUno urinary retention, no urinary incontinence, no dysuria, no hematuria Musculoskeletalno joint pain, no muscle tenderness Skinno bruising, no rashes, no pruritus Neurono isolated weakness, no paresthesia, no weakness Psychno depression, no anxiety Physical Exam 2 Physical Exam: General-alert and oriented x3, no fever, no chills HEENT-head atraumatic and normocephalic, pupils equal and reactive to light, extraocular muscles intact Neck-no lymphadenopathy or thyromegaly, trachea midline Chest-clear to auscultation. No rales, wheezing or rhonchi Cardiac-regular rate and rhythm, normal S1 and S2 Abdomen-normal bowel sounds, no hepatosplenomegaly. Bandages present over recent surgical site Extremities-no cyanosis, clubbing, or edema Neuro-cranial nerves II through XII intact, motor and sensory function within normal limits, strength symmetrical, no focal deficits Psych-normal affect, normal mood Results & Data Results & Data Vital Signs (Past 12 Hours) Vital Signs Temp Pulse Resp BP Pulse Ox O2 Del Method 04/15/24 14:48 36.7 C 75 17 113/74 93 Room Air 04/15/24 07:17 36.7 C 72 18 115/73 93 Room Air Laboratory Results 04/15/24 08:04 04/15/24 08:04 PG Care Time/CCT Total # of Minutes Spent Total Time Spent with Patient: Total time spent is greater than 50% in coordination of care (as documented) at patient's floor/unit and/or counseling patient: Coding Level of Care Code 62923 SUB INP/OBS CARE 2/35MIN Diagnoses Chest pain R07.9 Incisional hernia, incarcerated K43.0 SBO (small bowel obstruction) K56.609 Paralytic ileus K56.0
--- NOTE | 2024-04-16 07:35 | Surgery Progress Note ---
Date of Service April 16, 2024 Assessment & Plan (1) Incisional hernia, incarcerated: Plan: Patient is tolerating a low fiber diet with no abdominal discomfort positive flatus no BM By the bedside there is approximately a quarter bag of hyperalimentation that has been stopped infusing per order At this point the patient can be discharged later in the morning we will continue infusing the residual bag of hyperalimentation On discharge we will continue with nystatin powder per patient's request she would like to have some tramadol we will give it for couple more days and then stop it she may use some Motrin as a as needed basis for pain Instructions were given regarding wound care diet activity and meds and follow- up All question answered Admission and Anticipated Discharge Date Admission Date: March 29, 2024 Subjective Patient feels well she had a good day yesterday no nausea passing flatus but has not had a bowel movement last 24 hours tolerating low fiber diet and no abdominal discomforts Physical Exam Physical Exam: Alert coherent very pleasant no distress Oropharyngeal area moist Abdomen completely benign lower midline incision Steri-Strips intact no drainage no cellulitis Kedar drain few cc in the chamber has not been emptied since yesterday Results & Data Vital Signs (Past 12 Hours) Vital Signs Temp Pulse Resp BP Pulse Ox O2 Del Method 04/15/24 20:14 36.7 C 69 16 136/71 93 Room Air
[2024-04-16 08:13] LABS: BUN Creatinine Ratio 41.2 (10-20); Calcium 8.8 mg/dl (8.6-10.3); Creatinine Clr Calc Pharmacy 74.9 ml/min; Phosphorus 3.4 mg/dl (2.5-4.9); Potassium 4.3 mmol/L (3.5-5.1)
[2024-04-16 11:41] VITALS: RESP 16
[2024-04-16 16:06] VITALS: BP 124/60; PULSE 80; TEMP 97.9; O2SAT 95
--- NOTE | 2024-04-17 13:15 | Discharge Summary ---
Date of Service April 16, 2024 Principal Diagnosis Lysis of Advanced Adhesions, Recurrent Incarcerated hernia repair with ventralux Mesh 8cm, Small Bowel Resection with Primary Anastamosis Discharge Exam Alert coherent very pleasant no distress Oropharyngeal area moist Abdomen completely benign lower midline incision Steri-Strips intact no drainage no cellulitis Kedar drain few cc in the chamber has not been emptied since yesterday Discharge Data Allergies Allergy/AdvReac Type Severity Reaction Status Date / Time codeine AdvReac Severe NAUSEA & Verified 03/28/24 08:36 headache morphine AdvReac Severe Headache Verified 03/28/24 08:36 Consultations 04/01/24 07:44 Consult Hospitalist Stat Procedures Performed Operation Date: 03/28/24 10:00 Actual Procedures p Lysis of Advanced Adhesions, Recurrent Incarcerated hernia repair with ventralux Mesh 8cm, Small Bowel Resection with Primary Anastamosis(Not Applicable) - Shaji Zaidi MD, FACS Ordered Studies 04/01/24 08:42 CT angio chest w con Stat 04/01/24 09:15 CT Abdomen and Pelvis [CT abd pelvis wo con] Stat 04/04/24 12:57 CT abd pelvis wo con Stat 04/05/24 08:49 CT Abd and Pelvis [CT abd pelvis oral and IV con] Urgent 04/05/24 16:00 CT Abd and Pelvis [CT abd pelvis wo con] Routine Hospital Course (1) S/P small bowel resection: Patient is a pleasant 68 yo female that presented to the [facility] for an elective open repair of incarcerated abdominal hernia x 2 possible bowel resection possible mesh with Dr Channing Zaidi on 03/28/24. The patient tolerated the procedure well (see operative report for full details) and was given a Kedar drain intraoperatively. Post procedure she was admitted to the hospital for care and observation. She was kept NPO and given IV fluids for hydration and IV analgesics while awaiting return of bowel function. On post operative day 3 the patient stated she was experiencing abd/epigastric/chest pain. A CXR, EKG, CTA, Abd CT, and Troponin level were taken and the hospitalist were consulted for medical management assistance. The patient was given an NGT , continued npo status, and started on hyperalimentation, and broad spectrum antibiotics for concerns of an anastomotic leak that was well controlled with the Kedar drain. She was cleared from a cardiac standpoint for any acute coronary events. She was treated conservatively for the low output fistula without need for further surgical intervention by remaining NPO, continuing Kedar drain management, and hyperali mentation. Over the course of her stay the patient began having bowel function, less abdominal pain, and a decrease in her ENEIDA drain output. She was slowly started on a diet and it was conservatively advanced to a low fiber and the patient tolerated without increase in abdominal distention/ pain, or an increase in drain output. On post operative day 19 she was deem stable for discharge to home with the drain. She was shown how to care for the drain. She was given a prescription for narcotic pain medication and antibiotics. She was instructed to follow up as an outpatient in the general surgery office the following week. She was given discharge instructions, follow up recommendations, and return precautions. All questions answered. Total Time Total Time Spent Total Time Spent (In Minutes): 35 Discharge Plan Discharge Items Patient Disposition: Home - Self-Care Reason For Visit: Incarcerated Incisional Hernia Discharge Diagnosis: Open Repair of Incarcerated Abdominal Hernia Mesh, small Bowel Resection Activity: As commented below Lifting: No more than 10 pounds Bathing Comment: sponge bath until drain is removed. NO soaking in pools/bath for 2 weeks Exercise/Sports: Wait until after follow-up appointment Driving/Machine Use: no driving if taking narcotic pain medication Non-emergency contact: Surgeon Call non-emergency contact if: you have any medication questions, your symptoms worsen, your temperature is above 101.5, your wound has increased redness, your wound has increased drainage and your wound pain has increased Follow-up/Referrals: Shaji Zaidi MD, FACS [Surgeon] - 04/23/24 9:00 am (call office for follow in 1 week) Fatemeh Perry CRNP [Primary Care Provider] - Diet: Low Fiber Addtl Attending Provider Instructions: SPECIAL CARE INSTRUCTIONS: * Dressing: You will have small white bandages on that are over your incision. You may shower with these on. They will tend to fall off on their own in a 7-10 days. You can keep a clean gauze and tape over your incision for comfort and change daily. Please care for your ENEIDA drain as you have been instructed prior to discharge from the hospital. Empty drain 2-3x/daily and record output, bring a log with you to the office. Otherwise keep drain to bulb suction. Sponge bath until your drain is removed . NO soaking in pools or baths for 2 weeks * No lifting greater than 10lbs. No exercise until cleared by surgeon. Light walking is accepted. * No driving while taking narcotic pain medication * No drinking alcohol while taking narcotic pain medication * May use Ibuprofen/Tylenol over the counter for pain as tolerated. Do not exceed 3grams of Tylenol per 24 hours. Tramadol has been sent to your pharmacy you may take this as needed for pain. Zofran has been sent to your pharmacy, you may take this if tramadol gives you nausea. Continue taking your antibiotics. * Diet : low fiber Call your doctor if: * Temperature above 101 degrees, nausea/vomiting, fever/chills * Pain not relieved by pain medicine ordered * There is increased drainage or redness from any incision * You have any unanswered questions or concerns [phone]. FOLLOW UP VISIT: If not already scheduled, please call the office for a follow-up visit. Office Pending Studies at Discharge: Yes Studies:: surgical pathology Stand-Alone Forms: My [facility] Medications and DC Order Prescriptions: New tramadol 50 mg tablet 50 mg PO Q6H MDD 4 tabs Qty: 10 0RF metronidazole 250 mg tablet 250 mg PO Q12H 14 Days Qty: 28 0RF nystatin 100,000 unit/mL suspension 5 ml buccal QID 14 Days Qty: 280 0RF Rx Instructions: swish and spit Continued Probiotic 3 billion cell Capsule 3,000 mmu cells PO QAM Rx Instructions: administer with a meal acetaminophen 500 mg Tablet 500 mg PO Q6H PRN (Reason: Pain) ibuprofen 100 mg Tablet 200 mg PO Q6H PRN (Reason: Pain) docusate sodium 50 mg Capsule 50 mg PO DAILY PRN (Reason: prn) Discontinued metronidazole 500 mg tablet 500 mg PO .COMPLEX Qty: 3 0RF Rx Instructions: 500 mg PO The day before surgery take at 2:00 pm, 4:00 pm, and 10:00 pm.; neomycin 500 mg tablet 1 g PO .COMPLEX Qty: 6 0RF Rx Instructions: 1 g orally The day before surgery. Take at 2:00pm, 4:00pm, and 10:00pm; Discharge Orders: Discharge Order (Routine); Ordered 04/16/24 Ordered By: Nikolas Kaiser/Other Patient Handouts: Managing Post-Op Pain at Home Admission Data Admit Date/Time: 03/29/24 11:14 Attending Provider: Shaji Zaidi Admit Provider: Shaji Zaidi Primary Care Provider: Fatemeh Perry Other Providers: Iam Frankel Other Interventions: Discharge Summary Assessment (RN) Last Done: 04/16/24 16:15 Coding Level of Care Code 84765 INP/OBS DISCH >30 MIN Diagnoses S/P small bowel resection Z90.49
== END 2024-04-16 17:00 | disposition home or self-care (01) | DRG 330 ==
LOC: 3W 08:16 → ASU 08:16 → 4W 04-01 10:20 → 3W 04-05 21:04
DX: K31.6 Fistula of stomach and duodenum; K66.0 Peritoneal adhesions (postprocedural) (postinfection); K91.89 Other postprocedural complications and disorders of digestive system; K56.0 Paralytic ileus; K43.0 Incisional hernia with obstruction, without gangrene; I24.89 Other forms of acute ischemic heart disease; J90 Pleural effusion, not elsewhere classified